=== PATIENT | female | born 1960 | race Caucasian/White ===

== ENCOUNTER → 2019-03-06 | Outpatient (CLI) | payer OTHER ==
[~2019-03-06] MED LIST: AMOX1TAB61 PO; ONDA4TAB7 PO; OXYC1TAB15 PO; REGADENOSON 0.4 MG/5 ML DISP.SYRIN. IV ONE
--- NOTE | 2019-03-07 15:20 | RAD ---
MR#: [id number] Date of Study: 03/07/2019 Ordering Physician: BISMARK HERNANDEZ Referring Physician: PATIENCE EAGLE Tech: RT Alea (R) (N) APPROVED REPORT Test Type: Pharmacological Stress Nurse/Tech: Kassandra Goldberg RN Test Indications: paroxysmal atrial rhythm Cardiac History: Hypertension, Diabetes (Border line), Stroke 1 yr ago (L side weakness), smoker Medications: See Electronic Medical Record Medical History: See Electronic Medical Record Resting ECG: Braycardia (50s), 1 degree AVB, prolonged QT (604ms) Resting Heart Rate: 52 bpm Resting Blood Pressure: 133/58mmHg Pretest Chest Pain: No chest pain Nurse/Tech Notes S1S2 (Regular-Pt stated that she have sometimes had irregular HR), clear LS Consent: The procedure was explained to the patient in lay terms. Informed consent was witnessed. Joe eout was entered into [employer]. History and Stress Test performed by Kassandra Goldberg RN Pharm. Details Pharmacologic stress testing was performed using 0.4mg per 5ml of regadenoson given intravenously ove r 7-10 seconds. Stress Symptoms Dyspnea, Flushing, Nausea, & LY (late symptom-10/30) POST EXERCISE Reason for Termination: Infusion complete Max HR: 82 bpm Max Blood Pressure: 160/55mmHg Chest Pain: No. Arrhythmia: No. ST Change: No. INTERPRETATION Stress EKG Conclusion: Baseline EKG showed sinus rhythm. Non-diagnostic changes at peak stress. No arrhythmias. Imaging Protocol IMAGE PROTOCOL: Rest Tc-99m/stress Tc-99m 2 days Rest: Stress: Viability: Radiopharm.Tc99m CqsfckteeCh94s Sestamibi Freb40eMj 30.9mCi Duration 15min. 15min. Img Date 03/06/2019 03/07/2019 Inj-Img Mesg59ipy. 45min. Rest Admin Site:IV - Right AntecubitalAdministrator:RT Alea (R)(N) Stress Admin Site: IV - Left AntecubitalAdministrator: RT Boby (R)(N) STRESS DATA End Diast. Vol.92.0mlAv. Heart Rate55.0bpm LVEDV index BSA43.0mlCardiac Output0.0L/min End Syst. Vol.28.0mlCO Index BSA0.0L/min LVESV index BSA13.0mlMyocardial Iygi785.0g Eject. Oolxbwwz47.0% Stress Scores Regional WT0.00Summed WT5.00 Regional WM0.00Summed WM4.00 Study quality was good. Left Ventricular size was Normal at Rest and Stress. Lung uptake was . Left Ventricular ejection fraction is 70%. The rest and stress images show normal perfusion, normal contraction and thickening. LV Perf. Quant 17 Seg. SSS1.00 17 Seg. SRS0.00 17 Seg. SDS1.00 Stress Defect Extent (% LAD)0.00Rest Defect Extent (% LAD)0.00Rev. Defect Extent (% LAD)0.00 Stress Defect Extent (% LCX) 0.00Rest Defect Extent (% LCX)16.30Rev. Defect Extent (% LCX)0.00 Stress Defect Extent (% RCA)0.00Rest Defect Extent (% RCA)0.00Rev. Defect Extent (% RCA)0.00 Stress Defect Extent (% ANTONIETA)0.00Rest Defect Extent (% ANTONIETA)2.80Rev. Defect Extent (% ANTONIETA)0.00 Conclusion 1. Regadenoson cardioisotope stress test did not show any evidence of ischemia or infarct. 2. Normal left ventricular systolic function with ejection fraction calculated at 70%. 3. Low risk for cardiac events. Signed by : Bismark Hernandez, Electronically Approved : 03/07/2019 15:19:29
== END | disposition home or self-care (01) ==
LOC: NM 07:25
PROVIDERS: ATTEND Internal Medicine Cardiovascular Disease
DX: I48.0 Paroxysmal atrial fibrillation (principal); I10 Essential (primary) hypertension; E11.9 Type 2 diabetes mellitus without complications; Z86.73 Personal history of transient ischemic attack (TIA), and cerebral infarction without residual deficits; Z87.891 Personal history of nicotine dependence; Z79.01 Long term (current) use of anticoagulants
CPT/HCPCS: 78452; A9500; J2785

== ENCOUNTER → 2019-03-07 | Outpatient (CLI) | payer OTHER ==
[~2019-03-07] MED LIST changes: -REGADENOSON 0.4 MG/5 ML DISP.SYRIN. IV ONE
--- NOTE | 2019-03-07 12:32 | CARD ---
MR#: [id number] Date of Study: 03/07/2019 Ordering Physician: BISMARK CHAVEZ, Referring Physician: BISMARK CHAVEZ Tech: Harini Escobedo RDCS APPROVED REPORT EXAM: Two-dimensional and M-mode echocardiogram with Doppler and color Doppler. Other Information Quality : AverageHR: 60bpm Rhythm : NSR INDICATION CAD 2D DIMENSIONS RVDd3.4 (2.9-3.5cm)Left Atrium(2D)3.3 (1.6-4.0cm) IVSd1.1 (0.7-1.1cm)Aortic Root(2D)3.6 (2.0-3.7cm) LVDd4.3 (3.9-5.9cm)LVOT Diameter2.2 (1.8-2.4cm) PWd1.2 (0.7-1.1cm)LVDs3.0 (2.5-4.0cm) FS (%) 31.1 %SV49.4 ml LVEF(%)59.2 (>50%) Aortic Valve AoV Peak Ryne.122.9cm/sAoV VTI29.5cm AO Peak GR.6.0mmHgLVOT Peak Ryne.97.0cm/s AO Mean GR.4mmHgAVA (VMAX)3.05cm2 FAYE (VTI)3.00cm2 Mitral Valve MV E Wzggtuwu97.0cm/sMV DECEL [id number] MV A Ncseyryu01.9cm/sE/A Ratio0.9 Pulmonary Valve PV Peak Pcbeqqgl448.7cm/s LEFT VENTRICLE The left ventricle is normal size. There is mild concentric left ventricular hypertrophy. The left ve ntricular systolic function is normal. The Ejection Fraction is 55-60%. There is normal LV segmental wall motion. Transmitral Doppler flow pattern is Grade I-abnormal relaxation pattern. RIGHT VENTRICLE The right ventricle is normal size. There is normal right ventricular wall thickness. The right ventr icular systolic function is normal. ATRIA The left atrium size is normal. The right atrium size is normal. The interatrial septum is intact wit h no evidence for an atrial septal defect or patent foramen ovale as noted on 2-D or Doppler imaging. AORTIC VALVE The aortic valve is normal in structure and function. The aortic valve is trileaflet. Doppler and Col or Flow revealed no significant aortic regurgitation. There is no significant aortic valvular stenosi s. There is no aortic valvular vegetation. MITRAL VALVE The mitral valve is normal in structure and function. There is no evidence of mitral valve prolapse. There is no mitral valve stenosis. Doppler and Color Flow revealed no mitral valve regurgitation note d. TRICUSPID VALVE The tricuspid valve is normal in structure and function. Doppler and Color Flow revealed no tricuspid valve regurgitation noted. There is no tricuspid valve prolapse or vegetation. There is no tricuspid valve stenosis. PULMONIC VALVE The pulmonic valve is not well visualized. GREAT VESSELS The aortic root is normal in size. The ascending aorta is Mildly dilated. The IVC is normal in size a nd collapses >50% with inspiration. PERICARDIAL EFFUSION There is no evidence of significant pericardial effusion. Critical Notification Critical Value: No <Conclusion> The left ventricular systolic function is normal. The Ejection Fraction is 55-60%. There is normal LV segmental wall motion. Transmitral Doppler flow pattern is Grade I-abnormal relaxation pattern. There is no evidence of significant pericardial effusion. Signed by : Bismark Chavez, Electronically Approved : 03/07/2019 12:32:40
--- NOTE | 2019-03-11 11:12 | RAD ---
MR#: [id number] Date of Study: 03/07/2019 Ordering Physician: BISMARK HERNANDEZ, Referring Physician: BISMARK HERNANDEZ, Tech: Jewel Matthews MBA, RDMS, RVT, RDCS, RTR APPROVED REPORT Patient Location : OUT-PATIENT Indications VENOUS INSUFFICIENCY Greater Saphenous Veins (GSV) Significant venous relux noted in the RIGHT GSV at the following levels : Superficial Femoral Junctio n, Proximal Thigh, Mid Thigh, Distal Thigh, Proximal Calf, Mid Calf, Distal Calf Lesser Saphenous Veins (LSV) Significant venous reflux is noted in the Right LSV. Perforators Thigh Perforators Calf Perforators Right: cm up from medial heel 18cm back from the anterior border of tibia 3 diameter 2.9mm. Findings Grayscale images of the right great saphenous vein reveal a diameter of 5.9 mm with a maximum reflux time of 2.8 seconds. The left great saphenous vein does not show any significant reflux. The right lesser saphenous vein measures approximately 3 mm and has a reflux time of 1.4 seconds. Critical Notification Critical Value: No <Conclusion> 1. Positive for reflux in the right greater and lesser saphenous veins. Signed by : Rahul Henry, Electronically Approved : 03/11/2019 11:12:47
== END | disposition home or self-care (01) ==
LOC: ECHO 09:24 → EDUNIT# 10:15
PROVIDERS: ATTEND Internal Medicine Cardiovascular Disease
DX: I48.0 Paroxysmal atrial fibrillation (principal); I87.2 Venous insufficiency (chronic) (peripheral); I51.7 Cardiomegaly; R00.8 Other abnormalities of heart beat
CPT/HCPCS: 93017; 93306; 93970; 96376

== ENCOUNTER 2019-04-03 21:34 | Emergency (ER) | payer OTHER ==
[~2019-04-03] VITALS: Ht 157.5 cm; Wt 117.0 kg
[2019-04-03] MEDS ORDERED: fentaNYL PF VIAL 100 MCG/2 ML VIAL IV PRN (22:15)
[2019-04-03 22:16] LABS: BASO # 0.1 x10^3/uL (0.0-0.2); BASO % 1 % (0-3); EOS # 0.3 x10^3/uL (0.0-0.7); EOS % 3 % (0-3); HEMATOCRIT 44.5 % (36.0-47.0); HEMOGLOBIN 15.1 g/dL (12.0-15.5); LYMPH # 2.9 x10^3/uL (1.0-4.8); LYMPH % 30 % (24-48); MEAN CORPUSCULAR HEMOGLOBIN 29 pg (25-35); MEAN CORPUSCULAR HGB CONC 34 g/dL (31-37); MEAN CORPUSCULAR VOLUME 86 fL (79-100); MONO # 0.6 x10^3/uL (0.0-1.1); MONO % 6 % (0-9); NEUT # 5.7 x10^3/uL (1.8-7.7); NEUT % 60 % (31-73); PLATELET COUNT 145 x10^3/uL (140-400); RED BLOOD COUNT 5.21 x10^6/uL (3.50-5.40); RED CELL DISTRIBUTION WIDTH 14.4 % (11.5-14.5); WHITE BLOOD COUNT 9.5 x10^3/uL (4.0-11.0)
[2019-04-03 22:17] LABS: BILIRUBIN,URINE NEGATIVE (NEG); CLARITY,URINE CLEAR; COLOR,URINE YELLOW; NITRITE,URINE NEGATIVE (NEG); PROTEIN,URINE NEGATIVE (NEG-TRACE); UROBILINOGEN,URINE 0.2 mg/dL (0.2 mg/dL)
[2019-04-03 22:24] LABS: CALCIUM 10.2 mg/dL (8.5-10.1); CREATININE 0.8 mg/dL (0.6-1.0); GFR 73.4; POTASSIUM 3.5 mmol/L (3.5-5.1)
[2019-04-03 22:26] LABS: BACTERIA,URINE MODERATE /HPF (0-FEW); RBC,URINE 0 /HPF (0-2); SQUAMOUS EPITHELIAL CELL,UR FEW /LPF; WBC,URINE RARE /HPF (0-4)
[2019-04-03] MEDS ORDERED: ONDANSETRON PF 4 MG/2 ML VIAL. IV ONE (22:30)
[2019-04-03] MEDS ORDERED: IV NORMAL SALINE 1000ML BAG 1,000 ML IV SCH (22:30)
[2019-04-03 22:32] LABS: TOTAL BILIRUBIN 0.7 mg/dL (0.2-1.0); TOTAL PROTEIN 8.2 g/dL (6.4-8.2)
[2019-04-03] MEDS ORDERED: CONTRAST GIVEN. MC PRN (22:45)
[2019-04-03] MEDS ORDERED: IOHEXOL 300 MG/ML 100ML VIAL. IV ONE (23:00)
--- NOTE | 2019-04-03 23:12 | RAD ---
CT scan of the abdomen and pelvis with contrast 04/03/2019 CLINICAL HISTORY: Abdominal pain. TECHNIQUE: After the intravenous administration of 75 cc of Omnipaque 300 only, contiguous, 5 mm axial sections were obtained. One or more of the following individualized dose reduction techniques were utilized for this study: 1. Automated exposure control. 2. Adjustment of the mA and/or kV according to patient size. 3. Use of iterative reconstruction technique. FINDINGS: Images through the lung bases demonstrate mild cardiomegaly. A 2 cm opacity is seen involving the superior aspect of the left lower lobe which is only partially included on this study. This may represent a focal area of infiltrate. A mass lesion is not excluded. The liver parenchyma has a decreased attenuation consistent with fatty infiltration. The spleen, pancreas, adrenal glands and right kidney are within normal limits. Surgical clips are seen within the left inferior renal hilum. An areas of scarring is seen involving the lower pole of the left kidney. Atherosclerotic calcification of the abdominal aorta is seen. Calcified gallstones are seen within the gallbladder which is distended. Postsurgical changes are seen involving the stomach consistent with a gastric bypass procedure. No free fluid or free air is seen within the abdomen. A right paracentral ventral hernia is seen which measures 6.4 cm in size. This contains nondilated proximal transverse colon. There is no evidence of bowel obstruction. Images through the pelvis demonstrate the urinary bladder distended with urine. Calcifications are seen within the pelvis consistent with phleboliths. No free fluid is seen. Degenerative changes are seen involving the lower thoracic and throughout the lumbar spine along with both hips. IMPRESSION: 1. 2 cm opacity is seen involving the left lower lobe which is only partially included on this study. This may represent a focal area of infiltrate. A mass lesion is not excluded. 2. Gallbladder distention. Cholelithiasis. 3. No additional acute abnormality is seen. Electronically signed by: Aayush Witt MD (04/03/2019 11:09 PM) [facility]
[2019-04-03] MEDS ORDERED: AMOX1TAB61 PO (23:56)
[2019-04-03] MEDS ORDERED: OXYC1TAB15 PO (23:56)
[2019-04-03] MEDS ORDERED: ONDA4TAB7 PO (23:56)
--- NOTE | 2019-04-03 23:56 | PHYS DOC ---
Past Medical History Past Medical History: A-Fib, Cancer, Hypertension, Stroke, Other Additional Past Medical Histor: borderline dm, renal cancer Past Surgical History: Gastric Bypass, Hysterectomy, Other Additional Past Surgical Histo: partial nephrectomy Alcohol Use: None Drug Use: None Adult General Chief Complaint Chief Complaint: ABDOMINAL PAIN HPI HPI Patient is a 59-year-old female who presents with complaint of epigastric pain that started earlier today. She states the pain radiates into her back. Currently she rates pain at a 6 out of 10. She states that at its worse it's been about an 8 out of 10. She states the pain is been waxing and waning. She states that she didn't need anything for dinner. He denies any fever. She states that pain is worsened with some movements and with palpation. She states that nothing improves the pain. Patient also indicates that she has had a cough for the last several days and is been productive of yellow sputum.[] Review of Systems Review of Systems Constitutional: Denies fever or chills [] Respiratory: Complains of cough without shortness of breath [] Cardiovascular: No additional information not addressed in HPI [] GI: Complains of abdominal pain with nausea. Denies vomiting or diarrhea [] Integument: Denies rash or skin lesions [] Neurologic: Denies headache, focal weakness or sensory changes [] All other systems were reviewed and found to be within normal limits, except as documented in this note. Current Medications Current Medications Current Medications Medications (Trade) Dose Ordered Sig/Gael Start Time Stop Time Status Last Admin Dose Admin Amoxicillin/ Clavulanate Potassium (Augmentin 875/ 125mg) 1 tab 1X ONCE 04/04/19 00:15 04/04/19 00:16 DC 04/04/19 00:23 1 TAB Fentanyl Citrate (Fentanyl 2ml Vial) 25 mcg PRN Q15MIN PRN 04/03/19 22:15 04/04/19 00:59 DC 04/03/19 22:23 25 MCG Info (CONTRAST GIVEN -- Rx MONITORING) 1 each PRN DAILY PRN 04/03/19 22:45 04/04/19 00:59 DC Iohexol (Omnipaque 300 Mg/ml) 75 ml 1X ONCE 04/03/19 23:00 04/03/19 23:01 DC 04/03/19 22:46 75 ML Ondansetron HCl (Zofran) 4 mg 1X ONCE 04/03/19 22:30 04/03/19 22:31 DC 04/03/19 22:23 4 MG Sodium Chloride 1,000 ml @ 1,000 mls/hr Q1H 04/03/19 22:30 04/03/19 23:29 DC 04/03/19 22:23 1,000 MLS/HR Allergies Allergies Allergies Coded Allergies Type Severity Reaction Last Updated Verified No Known Drug Allergies 03/07/19 No Physical Exam Physical Exam Constitutional: Well developed, well nourished, no acute distress, non-toxic appearance. [] HENT: Normocephalic, atraumatic, bilateral external ears normal, oropharynx moist, no oral exudates, nose normal. [] Eyes: PERRLA, EOMI, conjunctiva normal, no discharge. [] Neck: Normal range of motion, no tenderness, supple, no stridor. [] Cardiovascular:Heart rate regular rhythm, no murmur [] Lungs & Thorax: Bilateral breath sounds clear to auscultation [] Abdomen: Bowel sounds normal, soft, with tenderness to palpation in the epigastric and right upper quadrant region. [] Skin: Warm, dry, no erythema, no rash. [] Extremities: No tenderness, no cyanosis, no clubbing, ROM intact, no edema. [] Neurologic: Alert and oriented X 3, no focal deficits noted. [] Current Patient Data Vital Signs Vital Signs Date Time Temp Pulse Resp B/P (MAP) Pulse Ox O2 Delivery O2 Flow Rate FiO2 04/04/19 00:33 56 20 116/59 (78) 94 Room Air 04/03/19 21:40 97.9 98.0 97.9 Lab Values Laboratory Tests Test 04/03/19 21:47 04/03/19 21:55 Urine Collection Type Unknown Urine Color Yellow Urine Clarity Clear Urine pH 6.0 Urine Specific Wesley <=1.005 Urine Protein Negative mg/dL (NEG-TRACE) Urine Glucose (UA) Negative mg/dL (NEG) Urine Ketones (Stick) Negative mg/dL (NEG) Urine Blood Negative (NEG) Urine Nitrite Negative (NEG) Urine Bilirubin Negative (NEG) Urine Urobilinogen Dipstick 0.2 mg/dL (0.2 mg/dL) Urine Leukocyte Esterase Negative (NEG) Urine RBC 0 /HPF (0-2) Urine WBC Rare /HPF (0-4) Urine Squamous Epithelial Cells Few /LPF Urine Bacteria Moderate /HPF (0-FEW) White Blood Count 9.5 x10^3/uL (4.0-11.0) Red Blood Count 5.21 x10^6/uL (3.50-5.40) Hemoglobin 15.1 g/dL (12.0-15.5) Hematocrit 44.5 % (36.0-47.0) Mean Corpuscular Volume 86 fL (79-100) Mean Corpuscular Hemoglobin 29 pg (25-35) Mean Corpuscular Hemoglobin Concent 34 g/dL (31-37) Red Cell Distribution Width 14.4 % (11.5-14.5) Platelet Count 145 x10^3/uL (140-400) Neutrophils (%) (Auto) 60 % (31-73) Lymphocytes (%) (Auto) 30 % (24-48) Monocytes (%) (Auto) 6 % (0-9) Eosinophils (%) (Auto) 3 % (0-3) Basophils (%) (Auto) 1 % (0-3) Neutrophils # (Auto) 5.7 x10^3/uL (1.8-7.7) Lymphocytes # (Auto) 2.9 x10^3/uL (1.0-4.8) Monocytes # (Auto) 0.6 x10^3/uL (0.0-1.1) Eosinophils # (Auto) 0.3 x10^3/uL (0.0-0.7) Basophils # (Auto) 0.1 x10^3/uL (0.0-0.2) Sodium Level 143 mmol/L (136-145) Potassium Level 3.5 mmol/L (3.5-5.1) Chloride Level 103 mmol/L (98-107) Carbon Dioxide Level 30 mmol/L (21-32) Anion Gap 10 (6-14) Blood Urea Nitrogen 13 mg/dL (7-20) Creatinine 0.8 mg/dL (0.6-1.0) Estimated GFR (Cockcroft-Gault) 73.4 BUN/Creatinine Ratio 16 (6-20) Glucose Level 119 mg/dL (70-99) H Calcium Level 10.2 mg/dL (8.5-10.1) H Total Bilirubin 0.7 mg/dL (0.2-1.0) Aspartate Amino Transferase (AST) 27 U/L (15-37) Alanine Aminotransferase (ALT) 36 U/L (14-59) Alkaline Phosphatase 114 U/L (46-116) Troponin I Quantitative < 0.017 ng/mL (0.000-0.055) Total Protein 8.2 g/dL (6.4-8.2) Albumin 4.0 g/dL (3.4-5.0) Albumin/Globulin Ratio 1.0 (1.0-1.7) Lipase 234 U/L (73-393) Laboratory Tests 04/03/19 21:55 Laboratory Tests 04/03/19 21:55 EKG EKG [] Radiology/Procedures Radiology/Procedures [] Impressions: PROCEDURE: CT ABD PELV W/ IV CONTRST ONLY CT scan of the abdomen and pelvis with contrast 04/03/2019 CLINICAL HISTORY: Abdominal pain. TECHNIQUE: After the intravenous administration of 75 cc of Omnipaque 300 only, contiguous, 5 mm axial sections were obtained. One or more of the following individualized dose reduction techniques were utilized for this study: 1. Automated exposure control. 2. Adjustment of the mA and/or kV according to patient size. 3. Use of iterative reconstruction technique. FINDINGS: Images through the lung bases demonstrate mild cardiomegaly. A 2 cm opacity is seen involving the superior aspect of the left lower lobe which is only partially included on this study. This may represent a focal area of infiltrate. A mass lesion is not excluded. The liver parenchyma has a decreased attenuation consistent with fatty infiltration. The spleen, pancreas, adrenal glands and right kidney are within normal limits. Surgical clips are seen within the left inferior renal hilum. An areas of scarring is seen involving the lower pole of the left kidney. Atherosclerotic calcification of the abdominal aorta is seen. Calcified gallstones are seen within the gallbladder which is distended. Postsurgical changes are seen involving the stomach consistent with a gastric bypass procedure. No free fluid or free air is seen within the abdomen. A right paracentral ventral hernia is seen which measures 6.4 cm in size. This contains nondilated proximal transverse colon. There is no evidence of bowel obstruction. Images through the pelvis demonstrate the urinary bladder distended with urine. Calcifications are seen within the pelvis consistent with phleboliths. No free fluid is seen. Degenerative changes are seen involving the lower thoracic and throughout the lumbar spine along with both hips. IMPRESSION: 1. 2 cm opacity is seen involving the left lower lobe which is only partially included on this study. This may represent a focal area of infiltrate. A mass lesion is not excluded. 2. Gallbladder distention. Cholelithiasis. 3. No additional acute abnormality is seen. Electronically signed by: Aayush Sal MD (04/03/2019 11:09 PM) [facility] DICTATED and SIGNED BY: AAYUSH SAL MD Course & Med Decision Making Course & Med Decision Making Pertinent Labs and Imaging studies reviewed. (See chart for details) [] Dragon Disclaimer Dragon Disclaimer This electronic medical record was generated, in whole or in part, using a voice recognition dictation system. Departure Departure Impression: Primary Impression: Abdominal pain, epigastric Additional Impressions: Cholelithiasis Bronchitis Disposition: 01 HOME, SELF-CARE Condition: STABLE Referrals: ALESHA CONRAD (PCP) Patient Instructions: Abdominal Pain, Cholelithiasis Scripts Ondansetron Hcl (ZOFRAN) 4 Mg Tablet 4 MG PO PRN TID PRN for NAUSEA, #15 nausea/vomiting Prov: QUINN KAPOOR Jr. DO 04/03/19 Oxycodone/Apap 5-325 (PERCOCET 5-325 MG TABLET ) 1 Each Tablet 1-2 EACH PO Q6HRS PRN for PAIN, #15 TAB pain Prov: QUINN KAPOOR Jr. DO 04/03/19 Amoxicillin/Potassium Clav (AUGMENTIN 875-125 TABLET) 1 Each Tablet 1 TAB PO BID, #20 TAB Prov: QUINN KAPOOR Jr. DO 04/03/19 Problem Qualifiers Additional Impressions: Cholelithiasis Cholelithiasis location: other site Biliary obstruction: without biliary obstruction Qualified Codes: K80.80 - Other cholelithiasis without obstruction QUINN KAPOOR Jr. DO Apr 03, 2019 23:56
[2019-04-04] MEDS ORDERED: AMOXICILLIN/K CLAV 875/125MG TABLET. PO ONE (00:15)
[2019-04-04 00:33] VITALS: BP 116/59
--- NOTE | 2019-04-04 06:50 | EKG ---
[facility] [address] [place] [address] Test Date: 2019-04-03 Test Time: 21:46:49 Pat Name: TATA ALVAREZ Department: Room: Gender: F Production Engineer Track: : 1960 Requested By: QUINN KAPOOR Order Number: [id number] Reading MD: Measurements Intervals [place] Rate: 62 P: 42 [place]: 226 QRS: -31 QRSD: 84 T: 25 QT: 440 QTc: 449 Interpretive Statements SINUS RHYTHM PROLONGED [place] INTERVAL ABNORMAL LEFT AXIS DEVIATION LEFT ANTERIOR FASCICULAR BLOCK QRS(T) CONTOUR ABNORMALITY CONSIDER ANTEROSEPTAL MYOCARDIAL DAMAGE ABNORMAL ECG RI6.01 No previous ECG available for comparison
== END 2019-04-04 00:50 | disposition home or self-care (01) ==
LOC: ER 21:34
DX: K80.20 Calculus of gallbladder without cholecystitis without obstruction (principal); J40 Bronchitis, not specified as acute or chronic; I48.91 Unspecified atrial fibrillation; I10 Essential (primary) hypertension; Z86.73 Personal history of transient ischemic attack (TIA), and cerebral infarction without residual deficits; Z90.710 Acquired absence of both cervix and uterus; Z98.84 Bariatric surgery status; Z90.5 Acquired absence of kidney
CPT/HCPCS: 36415; 74177; 80053; 81001; 83690; 84484; 85025; 87086; 93005; 96374; 96375; 99285; J2405; J3010; J7030; Q9967

== ENCOUNTER → 2019-04-23 | Outpatient (CLI) | payer OTHER ==
[2019-04-04 00:33] VITALS: BP 116/59
[~2019-04-23] MED LIST changes: +CONTRAST GIVEN. MC PRN; +IOHEXOL 300 MG/ML 100ML VIAL. IV ONE
--- NOTE | 2019-04-24 09:07 | KCIC ---
CT scan of the chest with contrast 04/23/2019 CLINICAL HISTORY: Opacity seen within the left lower lobe on recent CT scan of the abdomen. TECHNIQUE: After the intravenous administration of 95 cc of Omnipaque 300, contiguous, 5 mm axial sections were obtained through the chest and upper abdomen. One or more of the following individualized dose reduction techniques were utilized for this study: 1. Automated exposure control. 2. Adjustment of the mA and/or kV according to patient size. 3. Use of iterative reconstruction technique. FINDINGS: Comparison made to the patient's CT scan of the chest dated 04/03/2019. Atherosclerotic calcification of the thoracic aorta and its branches is noted. The thoracic aorta is mildly tortuous but tapers normally. The heart is borderline enlarged. An enlarged left hilar lymph node is seen which measures 2.3 cm in size. No mediastinal or axillary lymphadenopathy is noted, Within the left lower lobe an irregular mass is seen which measures 2.3 x 2.0 x 1.7 cm in transverse, craniocaudal and AP dimensions. This corresponds to the abnormality seen on the patient's recent CT scan of the abdomen. It is concerning for bronchogenic carcinoma. No additional mass lesion is seen involving the lung. No acute infiltrate is seen. No pneumothorax or pleural effusion is noted. Images through the upper abdomen again demonstrate decreased attenuation of the liver parenchyma consistent with fatty infiltration. Calcified gallstones are seen within the gallbladder. Minimal S-shaped curvature of the thoracolumbar spine is seen. Degenerative changes are seen involving the thoracic spine. IMPRESSION: 2.3 cm irregular mass is seen involving the left lower lobe which is concerning for bronchogenic carcinoma. A 2.3 cm enlarged left hilar lymph node is seen which likely reflects spread of tumor to the left hilum. No mediastinal lymphadenopathy is seen. Electronically signed by: Aayush Witt MD (04/24/2019 9:03 AM) [id number]
== END | disposition home or self-care (01) ==
LOC: KCIC CT 13:12
PROVIDERS: ATTEND Family Medicine
DX: I25.10 Atherosclerotic heart disease of native coronary artery without angina pectoris (principal); R91.8 Other nonspecific abnormal finding of lung field; K80.20 Calculus of gallbladder without cholecystitis without obstruction
CPT/HCPCS: 71260; Q9967

== ENCOUNTER → 2019-05-16 | Outpatient (CLI) | payer OTHER ==
[~2019-05-16] MED LIST changes: -CONTRAST GIVEN. MC PRN; -IOHEXOL 300 MG/ML 100ML VIAL. IV ONE
--- NOTE | 2019-05-17 11:11 | RAD ---
EXAM: PET/CT SKULL BASE TO MID THIGH. HISTORY: Lung mass. History of uterine cancer. COMPARISON: 04/03/2019, 04/23/2019. TECHNIQUE: CT was performed from the skull base through the mid thighs for the purposes of attenuation correction. 15 mCi F-18 fluorodeoxyglucose (FDG) was administered intravenously. After an uptake period, positron emission tomography was performed from the skull base through the mid thighs. The PET and CT data were fused and interpreted in combination a dedicated workstation. Blood glucose level was 122 mg/dL at the time of FDG administration. FINDINGS: Asymmetric activity along the left posterior aspect of the larynx demonstrates maximum SUV 5.4. This most likely reflects muscular activity during uptake. A nodule in the left lower lobe demonstrates maximum SUV 4.2, and measures 1.8 cm. It is multilobulated and concerning for malignancy. There is also hypermetabolism within an enlarged left hilar lymph node with maximum SUV 4.2. This is concerning for regional monica metastasis. There is no hypermetabolism suggestive of malignancy elsewhere. Additional CT findings include heterogeneous diffuse hepatic steatosis. Gallstones are noted. Postoperative changes are noted along the left renal lower pole. There is no clear recurrent mass at this site. Postoperative changes are noted along the proximal stomach. A moderate supraumbilical hernia contains a segment of the transverse colon. The uterus is surgically absent. The heart is mildly enlarged. IMPRESSION: 1. Moderately hypermetabolic left lower lobe nodule consistent with malignancy. 2. A hypermetabolic left inferior hilar lymph node is likely involved. 3. No evidence of distant metastatic disease. 4. Additional CT findings as above.
== END | disposition home or self-care (01) ==
LOC: PETSC 09:11
PROVIDERS: ATTEND Internal Medicine Hematology & Oncology
DX: K80.20 Calculus of gallbladder without cholecystitis without obstruction (principal); K46.9 Unspecified abdominal hernia without obstruction or gangrene; R91.1 Solitary pulmonary nodule; R91.8 Other nonspecific abnormal finding of lung field; K76.0 Fatty (change of) liver, not elsewhere classified; Z90.710 Acquired absence of both cervix and uterus; Z85.42 Personal history of malignant neoplasm of other parts of uterus
CPT/HCPCS: 78815; A9552

== ENCOUNTER → 2019-05-20 | Outpatient (CLI) | payer OTHER ==
[~2019-05-20] MED LIST changes: +GADOTERATE 7.5 MMOL/15ML VIAL. IVP ONE
--- NOTE | 2019-05-20 13:35 | RAD ---
MRI Brain with and without contrast History: Lung cancer, headaches Technique: Multiplanar, multi sequential pre and postcontrast MR imaging was performed of the brain. Comparison: None Findings: There is no evidence of recent infarct or cytotoxic edema. The ventricles, sulci, and cisterns are within normal limits in size and configuration. There is no significant midline shift, intraaxial mass effect, or focal abnormal extra-axial fluid collection. There is scattered multifocal [id number] T2 and FLAIR hyperintense signal abnormality of the supratentorial parenchyma bilaterally not associated with enhancement. There are old lacunar infarcts of the right basal ganglia and posterior right neville radiata. There is also some volume loss of the left temporal lobe likely sequela of old infarct. Some of foci of T2 and FLAIR hyperintense signal of a perpendicular orientation relative to the lateral ventricles. There are some foci of old microhemorrhage of the right cerebellum, right temporal lobe, left basal ganglia, and right parietal lobe. There is no nodular parenchymal or leptomeningeal enhancement. Right vertebral artery flow-void is not well-visualized, likely aplastic. There is degenerative change of the right temporomandibular joint.. The cerebellar tonsils are normal in location. There is no significant abnormality of the pineal gland or pituitary gland. There is very minimal patchy bilateral ethmoid air cell mucosal thickening. The mastoid air cells are aerated. There is preserved marrow signal of the clivus. Impression: 1. There is no abnormal intracranial enhancement. 2. Scattered T2 and FLAIR hyperintense abnormality of the supratentorial parenchyma bilaterally is nonspecific, may be component of chronic microvascular ischemic disease unless there is suspicion or history of inflammatory demyelinating disease. Findings also could be due to component of post therapeutic change, also likely old infarct of the left temporal lobe and small old lacunar infarcts on the right as stated. There are some foci of old microhemorrhage as stated. Electronically signed by: Jb Ureña MD (05/20/2019 1:32 PM) [id number]
== END | disposition home or self-care (01) ==
LOC: MRI 08:29
PROVIDERS: ATTEND Internal Medicine Hematology & Oncology
DX: R91.8 Other nonspecific abnormal finding of lung field (principal); R51 Headache; I10 Essential (primary) hypertension; F17.200 Nicotine dependence, unspecified, uncomplicated; Z86.73 Personal history of transient ischemic attack (TIA), and cerebral infarction without residual deficits; Z79.01 Long term (current) use of anticoagulants
CPT/HCPCS: 70553; A9575

== ENCOUNTER 2019-08-06 07:07 | Outpatient (CLI) | payer OTHER ==
[~2019-08-06] VITALS: Ht 157.5 cm; Wt 114.3 kg
[2019-08-06] VITALS (7 sets, daily range): BP systolic 116–150; BP diastolic 62–94
[~2019-08-06 07:07] MED LIST changes: +AMLO10TA8 PO; +APIX5TAB PO; +CAND16TA25 PO; -GADOTERATE 7.5 MMOL/15ML VIAL. IVP ONE; +HYDR-2145 PO; +LIPITOR80 MG PO; +METF500T16 PO; +METO50TA6 PO; +TEMA7.5C PO
[2019-08-06] MEDS ORDERED: MIDAZOLAM HCL/PF 2 MG/2 ML VIAL. ONE (07:36)
[2019-08-06] MEDS ORDERED: fentaNYL PF VIAL 100 MCG/2 ML VIAL ONE (07:37)
[2019-08-06 07:40] LABS: BASO # 0.1 x10^3/uL (0.0-0.2); BASO % 1 % (0-3); EOS # 0.1 x10^3/uL (0.0-0.7); EOS % 2 % (0-3); HEMOGLOBIN 14.7 g/dL (12.0-15.5); LYMPH # 1.2 x10^3/uL (1.0-4.8); LYMPH % 19 % (24-48); MEAN CORPUSCULAR HEMOGLOBIN 29 pg (25-35); MEAN CORPUSCULAR HGB CONC 34 g/dL (31-37); MEAN CORPUSCULAR VOLUME 86 fL (79-100); MONO # 0.5 x10^3/uL (0.0-1.1); MONO % 7 % (0-9); NEUT # 4.4 x10^3/uL (1.8-7.7); NEUT % 71 % (31-73); PLATELET COUNT 153 x10^3/uL (140-400); RED BLOOD COUNT 5.11 x10^6/uL (3.50-5.40); WHITE BLOOD COUNT 6.2 x10^3/uL (4.0-11.0)
[2019-08-06 07:58] LABS: PROTHROMBIN TIME PATIENT 12.1 SEC (11.7-14.0)
[2019-08-06] MEDS ORDERED: LIDOCAINE 1%/EPI 1:100,000 20 ML VIAL. ONE (08:13)
[2019-08-06] MEDS ORDERED: fentaNYL PF VIAL 100 MCG/2 ML VIAL IV ONE (09:00)
[2019-08-06] MEDS ORDERED: MIDAZOLAM HCL/PF 2 MG/2 ML VIAL. IV ONE (09:00)
[2019-08-06] MEDS ORDERED: LIDOCAINE 1%/EPI 1:100,000 20 ML VIAL. SQ ONE (09:00)
--- NOTE | 2019-08-06 11:09 | NUR ---
Discharge Note: TATA ALVAREZ Discharge instructions and discharge home medications reviewed with Patient and a copy given. All questions have been answered and understanding verbalized. The following instructions and handouts were given: adult moderate sedation and implanted port instructions and kit Discontinued lines and drains: Peripheral IV intact. Patient discharged to Home or Self Care withFamily Membervia Wheelchair
[2019-08-06] MEDS ORDERED: ceFAZolin 2GM PREMIX 2 GM/50 ML BAG IV ONE (12:00)
--- NOTE | 2019-08-06 14:12 | RAD ---
Procedure: Ultrasound and fluoroscopically guided placement of right internal jugular power port.. 08/06/2019 12:07 PM Clinical Indication: KIDNEY CA Sedation: Conscious sedation was administered for 28 minutes. The patient was monitored by a qualified independent observer throughout the time of sedation. Please refer to the medical record for exact doses of medications utilized to achieve moderate sedation. Fluoroscopy time: 0.4 minutes Dose area product: 1 Gycm2 Consent: The procedure was explained in its entirety to the patient or the patients designated career services representative by a member of the treatment team, including a discussion of the risks, benefits and commonly accepted alternatives to the procedure, as well as the expected consequences of no therapy whatsoever. Discussion of the risks included, but was not limited to, those that are most frequent and those that are rare but possibly severe or life-threatening, as well as the possibility of unforeseen complications. Technique and Findings: All elements of maximal sterile barrier technique including the use of a cap, mask, sterile gown, sterile gloves, large sterile sheet, appropriate hand hygiene, and 2% chlorhexidine for cutaneous antisepsis (or acceptable alternative antiseptic per current guidelines) were followed for this procedure. Following informed consent, and a timeout procedure, the patient was prepped and draped in the usual sterile fashion. Ultrasound interrogation of the right neck revealed patency and compressibility of the right internal jugular vein. A 21-gauge micropuncture was then used to gain access to this vein under ultrasound guidance. A hard copy ultrasound image was recorded. The needle was exchanged over a wire for a sheath. A 1 inch incision was made several centimeters inferior to the venotomy site. A catheter was tunneled from this site dermatotomy site in the neck. Catheter was advanced through peel-away sheath such that its tip was in the proximal right atrium with the patient supine. The catheter was trimmed to length and connected to the port reservoir. The port was found to flush and aspirate normally. The wound was closed in layers using 4-0 Vicryl suture. Sterile dressings were applied. Impression: Successful ultrasound and fluoroscopically guided placement of a right internal jugular PowerPort
== END 2019-08-06 11:00 | disposition home or self-care (01) ==
LOC: INTRAD 07:07
PROVIDERS: ATTEND Internal Medicine Hematology & Oncology
DX: Z45.2 Encounter for adjustment and management of vascular access device (principal); C64.2 Malignant neoplasm of left kidney, except renal pelvis; I10 Essential (primary) hypertension; I48.91 Unspecified atrial fibrillation; E11.9 Type 2 diabetes mellitus without complications; Z86.73 Personal history of transient ischemic attack (TIA), and cerebral infarction without residual deficits; Z79.899 Other long term (current) drug therapy; Z79.01 Long term (current) use of anticoagulants; Z87.891 Personal history of nicotine dependence; Z90.710 Acquired absence of both cervix and uterus; Z79.84 Long term (current) use of oral hypoglycemic drugs
CPT/HCPCS: 36415; 36561; 76937; 77001; 85025; 85610; 85730; C1751; C1892; J0696; 99152; 99153; J2250; J3010; J3490

== ENCOUNTER → 2019-08-26 | Outpatient (CLI) | payer OTHER ==
[2019-08-06 10:35] VITALS: BP 136/94
[~2019-08-26] MED LIST changes: +CONTRAST GIVEN. MC PRN; +IOHEXOL 300 MG/ML 100ML VIAL. IV ONE; +IPIL50VI IV; +NIVO40VI IV
[2019-08-26 08:27] LABS: CREATININE 0.7 mg/dL (0.6-1.0); GFR 85.6
--- NOTE | 2019-08-26 14:55 | RAD ---
CT study of the chest with contrast Clinical indications: Metastatic renal cell carcinoma. Lung mass. Follow-up study. COMPARISON: April 24, 2019. TECHNIQUE: After IV infusion of 75 cc of Omnipaque 300, helical CT scanning of the chest was performed. PQRS compliance Statement One or more of the following individualized dose reduction techniques were utilized for this study: 1. Automated exposure control 2. Adjustment of the mA and/or kV according to patient size 3. Use of iterative reconstruction technique FINDINGS: No enlarged mediastinal lymphadenopathy is evident. Again seen is a left hilar lymph node with peripheral enhancement which measures 27 mm in greatest dimension. This is unchanged. Mild ectasia of the thoracic aorta is seen measuring 4 cm in greatest caliber. This is unchanged. No dissection or intimal flap is seen. Mild cardiomegaly is seen. Mild calcified atheromatous disease of the coronary arteries is seen. No pericardial effusion is seen. There is a spiculated mass within the left lower lobe which measures 31 mm transversely and 22 mm in AP dimension. The transverse and AP dimensions on the previous study were 24 mm and 17 mm respectively. Therefore, there has been an increase in size. No other new lung infiltrate is seen. There is a small subpleural lung nodule within the lateral aspect of the right lower lobe seen on series 2 and image 40 measuring 4 mm in size. This is unchanged. No pleural effusion or pneumothorax is evident. The proximal bronchial tree is patent. No lytic process is seen. Postsurgical changes of the left kidney are seen. Postoperative changes of the proximal stomach are seen. Diffuse fatty infiltration of in the liver is seen. Radiopaque gallstones are seen. IMPRESSION: Mild increase in size of left lower lobe lung mass. This may be due to increase in size of malignant mass or could represent peritumoral edema after treatment. The borders are somewhat ill-defined and more groundglass in appearance which may be seen with edema. Continued 3 month follow-up will be needed. Stable left hilar lymph node. Stable 4 mm right lower lower lobe lung nodule. Fatty infiltration of the liver. Cholelithiasis. Mild cardiomegaly. Electronically signed by: Xavi Chan MD (08/26/2019 2:52 PM) [facility] [place]
== END | disposition home or self-care (01) ==
LOC: CT 07:24
PROVIDERS: ATTEND Radiology Radiation Oncology
DX: I77.810 Thoracic aortic ectasia (principal); C34.12 Malignant neoplasm of upper lobe, left bronchus or lung; C34.92 Malignant neoplasm of unspecified part of left bronchus or lung; R91.8 Other nonspecific abnormal finding of lung field; R91.1 Solitary pulmonary nodule; K76.0 Fatty (change of) liver, not elsewhere classified; K80.20 Calculus of gallbladder without cholecystitis without obstruction; I51.7 Cardiomegaly
CPT/HCPCS: 36415; 71260; 82565; G0463; Q9967

== ENCOUNTER 2019-09-01 17:16 | Inpatient (IN) | payer OTHER ==
[~2019-09-01] VITALS: Ht 157.5 cm; Wt 115.9 kg
[~2019-09-01 17:16] MED LIST changes: -CONTRAST GIVEN. MC PRN; -IOHEXOL 300 MG/ML 100ML VIAL. IV ONE
--- NOTE | 2019-09-01 19:13 | PHYS DOC ---
Past Medical History Past Medical History: A-Fib, Cancer, Hypertension, Stroke, Other Additional Past Medical Histor: borderline dm, renal cancer Past Surgical History: Gastric Bypass, Hysterectomy, Other Additional Past Surgical Histo: partial nephrectomy Smoking Status: Former Smoker Alcohol Use: None Drug Use: None Adult General Chief Complaint Chief Complaint: FEVER HPI HPI Patient is a 59 year old Female who presents with states she didn't having a fever that reached 100. States she also has pain in the left flank that she rates an 8 out of 10. States she has metastatic renal cell carcinoma in the left kidney. She states she sees Dr. Torrez. She states she has an appointment with palliative care. She also has a history of A. fib. She states she has not taken any pain medications for her pain. Patient denies chest pain, shortness of air, nausea, vomiting, burning with urination, abdominal pain, numbness or tingling, weaknesses, headache, dizziness, visual changes. Review of Systems Review of Systems Constitutional: fever or chills [] Musculoskeletal: Left flank back pain or joint pain [] All other systems were reviewed and found to be within normal limits, except as documented in this note. Current Medications Current Medications Current Medications Medications (Trade) Dose Ordered Sig/Gael Start Time Stop Time Status Last Admin Dose Admin Fentanyl Citrate (Fentanyl 2ml Vial) 50 mcg 1X ONCE 09/01/19 19:15 09/01/19 19:16 DC 09/01/19 20:39 50 MCG Sodium Chloride (NORMAL SALINE FLUSH for STERILE FIELD) 10 ml STK-MED ONCE 09/01/19 19:55 09/01/19 19:55 DC Allergies Allergies Allergies Coded Allergies Type Severity Reaction Last Updated Verified No Known Drug Allergies 03/07/19 No Physical Exam Physical Exam Constitutional: Well developed, well nourished, no acute distress, non-toxic appearance. [] HENT: Normocephalic, atraumatic, bilateral external ears normal, oropharynx moist, no oral exudates, nose normal. [] Eyes: PERRLA, EOMI, conjunctiva normal, no discharge. [] Neck: Normal range of motion, no tenderness, supple, no stridor. [] Cardiovascular:Heart rate regular rhythm, no murmur [] Lungs & Thorax: Bilateral breath sounds clear to auscultation [] Abdomen: Bowel sounds normal, soft, no tenderness, no masses, no pulsatile masses. [] Skin: Warm, dry, no erythema, no rash. [] Back: No tenderness, left CVA tenderness. [] Extremities: No tenderness, no cyanosis, no clubbing, ROM intact, no edema. [] Neurologic: Alert and oriented X 3, normal motor function, normal sensory function, no focal deficits noted. [] Psychologic: Affect normal, judgement normal, mood normal. [] Current Patient Data Vital Signs Vital Signs Date Time Temp Pulse Resp B/P (MAP) Pulse Ox O2 Delivery O2 Flow Rate FiO2 09/01/19 20:44 64 132/73 (92) 97 Room Air 09/01/19 20:39 20 09/01/19 18:32 98.8 98.8 Lab Values Laboratory Tests Test 09/01/19 18:35 09/01/19 20:07 Urine Collection Type Void Urine Color Alessandra Urine Clarity Clear Urine pH 6.0 Urine Specific Leslie 1.015 Urine Protein Negative mg/dL (NEG-TRACE) Urine Glucose (UA) Negative mg/dL (NEG) Urine Ketones (Stick) Negative mg/dL (NEG) Urine Blood Negative (NEG) Urine Nitrite Negative (NEG) Urine Bilirubin Small (NEG) Urine Urobilinogen Dipstick 4.0 mg/dL (0.2 mg/dL) Urine Leukocyte Esterase Trace (NEG) Urine RBC 0 /HPF (0-2) Urine WBC 1-4 /HPF (0-4) Urine Squamous Epithelial Cells Occ /LPF Urine Bacteria Moderate /HPF (0-FEW) Urine Mucus Mod /LPF White Blood Count 5.5 x10^3/uL (4.0-11.0) Red Blood Count 5.16 x10^6/uL (3.50-5.40) Hemoglobin 14.8 g/dL (12.0-15.5) Hematocrit 44.5 % (36.0-47.0) Mean Corpuscular Volume 86 fL (79-100) Mean Corpuscular Hemoglobin 29 pg (25-35) Mean Corpuscular Hemoglobin Concent 33 g/dL (31-37) Red Cell Distribution Width 14.8 % (11.5-14.5) H Platelet Count 130 x10^3/uL (140-400) L Neutrophils (%) (Auto) 64 % (31-73) Lymphocytes (%) (Auto) 22 % (24-48) L Monocytes (%) (Auto) 12 % (0-9) H Eosinophils (%) (Auto) 1 % (0-3) Basophils (%) (Auto) 1 % (0-3) Neutrophils # (Auto) 3.5 x10^3/uL (1.8-7.7) Lymphocytes # (Auto) 1.2 x10^3/uL (1.0-4.8) Monocytes # (Auto) 0.6 x10^3/uL (0.0-1.1) Eosinophils # (Auto) 0.1 x10^3/uL (0.0-0.7) Basophils # (Auto) 0.1 x10^3/uL (0.0-0.2) Sodium Level 138 mmol/L (136-145) Potassium Level 3.0 mmol/L (3.5-5.1) L Chloride Level 98 mmol/L (98-107) Carbon Dioxide Level 32 mmol/L (21-32) Anion Gap 8 (6-14) Blood Urea Nitrogen 12 mg/dL (7-20) Creatinine 0.8 mg/dL (0.6-1.0) Estimated GFR (Cockcroft-Gault) 73.4 BUN/Creatinine Ratio 15 (6-20) Glucose Level 123 mg/dL (70-99) H Lactic Acid Level 1.2 mmol/L (0.4-2.0) Calcium Level 9.3 mg/dL (8.5-10.1) Total Bilirubin 1.8 mg/dL (0.2-1.0) H Aspartate Amino Transferase (AST) 1182 U/L (15-37) H Alanine Aminotransferase (ALT) 877 U/L (14-59) H Alkaline Phosphatase 436 U/L (46-116) H Total Protein 7.6 g/dL (6.4-8.2) Albumin 3.4 g/dL (3.4-5.0) Albumin/Globulin Ratio 0.8 (1.0-1.7) L Lipase 151 U/L (73-393) Laboratory Tests 09/01/19 20:07 Laboratory Tests 09/01/19 20:07 EKG EKG [] Radiology/Procedures Radiology/Procedures [] Impressions: [facility] [address] [place] [address] IMAGING REPORT Signed PATIENT: TATA ALVAREZ ACCOUNT: [id number] : 1960 LOCATION: ER AGE: 59 SEX: F EXAM STATUS: REG ER ORD. PHYSICIAN: ANDREINA WAY APRN REASON: fever PROCEDURE: CHEST PA & LATERAL PA and lateral chest. HISTORY: Fever, history lung cancer PA and lateral views of the chest were compared with the recent CT. There is a left lower lobe lung mass best seen on the lateral view superimposed on the spine. Port-A-Cath is in good position. No new infiltrates are noted. There is no effusion. Heart is normal in size. IMPRESSION: 1. Left lower lobe lung mass. 2. No new infiltrates. Electronically signed by: Nic Ahuja MD (09/01/2019 7:46 PM) [id number] DICTATED and SIGNED BY: NIC AHUJA MD DATE: 09/01/191945 [facility] [address] [place] [address] IMAGING REPORT Signed PATIENT: TATA ALVAREZ ACCOUNT: [id number] : 1960 LOCATION: ER AGE: 59 SEX: F EXAM STATUS: REG ER ORD. PHYSICIAN: ANDREINA WAY APRN REASON: LEFT FLANK PAIN, FEVER, HX CA L KIDNEY PROCEDURE: CT ABDOMEN PELVIS WO CONTRAST CT abdomen and pelvis without contrast. HISTORY: Left flank pain, fever history of kidney cancer CT scan the abdomen pelvis was done without contrast. There is a mass in the left lung base. There is diffuse fatty change in the liver. There is a calcified gallbladder with gallstones. Patient's had a gastric surgery. Adrenal glands are normal. A pancreatic lesion is not identified. There is a small duodenal diverticulum. There is scarring at the lower pole of the left kidney similar to the prior PET/CT study. There is no left hydronephrosis or hydroureter. A ureteral calculus is not identified. Ovaries are normal. The patient's had a hysterectomy. There is no right renal mass or calculus. There is an anterior abdominal wall hernia which contains a loop of colon without obstruction. There is no small bowel obstruction. IMPRESSION: 1. Cholelithiasis. 2. Previous gastric surgery. 3. Fatty change in the liver. 4. Left lung mass. 5. Scarring or postop changes left kidney. 6. No renal or ureteral calculus noted. 7. Anterior abdominal wall hernia containing a loop of colon without obstruction. PQRS Compliance Statement: One or more of the following individualized dose reduction techniques were utilized for this examination: 1. Automated exposure control 2. Adjustment of the mA and/or kV according to patient size 3. Use of iterative reconstruction technique Electronically signed by: Nic Ahuja MD (09/01/2019 8:17 PM) [id number] DICTATED and SIGNED BY: NIC AHUJA MD DATE: 09/01/192016 [facility] [address] [place] [address] IMAGING REPORT Signed PATIENT: TATA ALVAREZ ACCOUNT: [id number] : 1960 LOCATION: ER AGE: 59 SEX: F EXAM STATUS: REG ER ORD. PHYSICIAN: ANDREINA WAY APRN REASON: Galbladder, liver enzymes elevated PROCEDURE: ABDOMEN LTD Exam: Ultrasound abdomen limited Indication: Elevated liver enzymes Technique: Real-time grayscale and color Doppler images of the right upper quadrant were obtained by the department refinery operator coking. Comparisons: CT same day FINDINGS: Liver has increased echogenicity. Hepatopedal flow noted within the portal vein. There is gallstones are noted within the gallbladder. No gallbladder wall thickening or pericholecystic fluid. No sonographic Prater sign per the department refinery operator coking. Right kidney measures 12.87 m in length. No hydronephrosis. Pancreas and visualized portions of the aorta and IVC are unremarkable. IMPRESSION: 1. Cholelithiasis without secondary evidence of acute cholecystitis. 2. Hepatic steatosis. 3. No right-sided hydronephrosis. Electronically signed by: Michael Meyer MD (09/01/2019 10:42 PM) [id number] DICTATED and SIGNED BY: MICHAEL MEYER MD DATE: 09/01/19 3362 Course & Med Decision Making Course & Med Decision Making Pertinent Labs and Imaging studies reviewed. (See chart for details) Abdomen Soft and nontender. Left CVA tenderness. Vital signs within normal limits. Extremity swelling. Lungs are clear to auscultation all lobes. Speaks in full clear sentences. Ambulatory with steady gait. Skin pink warm and dry. US MPRESSION: 1. Cholelithiasis without secondary evidence of acute cholecystitis. 2. Hepatic steatosis. 3. No right-sided hydronephrosis. Liver enzymes are elevated. Patient is admitted to the hospital under Dr. Barney. [] Dragon Disclaimer Dragon Disclaimer This electronic medical record was generated, in whole or in part, using a voice recognition dictation system. Departure Departure Impression: Primary Impression: Cholecystitis with cholelithiasis Disposition: ADMITTED INPATIENT Admitting Physician: HORTENCIA Condition: STABLE Referrals: ALESHA CONRAD (PCP) Problem Qualifiers Primary Impression: Cholecystitis with cholelithiasis Cholelithiasis location: gallbladder Cholecystitis acuity: acute Biliary obstruction: without biliary obstruction Qualified Codes: K80.00 - Calculus of gallbladder with acute cholecystitis without obstruction ANDREINA WAY [employer] Sep 01, 2019 19:13
[2019-09-01] MEDS ORDERED: fentaNYL PF VIAL 100 MCG/2 ML VIAL IVP ONE (19:15)
[2019-09-01 19:21] LABS: BILIRUBIN,URINE SMALL (NEG); CLARITY,URINE CLEAR; COLOR,URINE AMBER; NITRITE,URINE NEGATIVE (NEG); PROTEIN,URINE NEGATIVE (NEG-TRACE)
[2019-09-01 19:27] LABS: BACTERIA,URINE MODERATE /HPF (0-FEW); RBC,URINE 0 /HPF (0-2); SQUAMOUS EPITHELIAL CELL,UR OCC /LPF
--- NOTE | 2019-09-01 19:49 | RAD ---
PA and lateral chest. HISTORY: Fever, history lung cancer PA and lateral views of the chest were compared with the recent CT. There is a left lower lobe lung mass best seen on the lateral view superimposed on the spine. Port-A-Cath is in good position. No new infiltrates are noted. There is no effusion. Heart is normal in size. IMPRESSION: 1. Left lower lobe lung mass. 2. No new infiltrates. Electronically signed by: Nic Ahuja MD (09/01/2019 7:46 PM) [id number]
[2019-09-01] MEDS ORDERED: 0.9 % SOD CHL for STERILE FIELD 10 ML DISP.SYRIN. ONE (19:55)
--- NOTE | 2019-09-01 20:20 | RAD ---
CT abdomen and pelvis without contrast. HISTORY: Left flank pain, fever history of kidney cancer CT scan the abdomen pelvis was done without contrast. There is a mass in the left lung base. There is diffuse fatty change in the liver. There is a calcified gallbladder with gallstones. Patient's had a gastric surgery. Adrenal glands are normal. A pancreatic lesion is not identified. There is a small duodenal diverticulum. There is scarring at the lower pole of the left kidney similar to the prior PET/CT study. There is no left hydronephrosis or hydroureter. A ureteral calculus is not identified. Ovaries are normal. The patient's had a hysterectomy. There is no right renal mass or calculus. There is an anterior abdominal wall hernia which contains a loop of colon without obstruction. There is no small bowel obstruction. IMPRESSION: 1. Cholelithiasis. 2. Previous gastric surgery. 3. Fatty change in the liver. 4. Left lung mass. 5. Scarring or postop changes left kidney. 6. No renal or ureteral calculus noted. 7. Anterior abdominal wall hernia containing a loop of colon without obstruction. PQRS Compliance Statement: One or more of the following individualized dose reduction techniques were utilized for this examination: 1. Automated exposure control 2. Adjustment of the mA and/or kV according to patient size 3. Use of iterative reconstruction technique Electronically signed by: Nic Ahuja MD (09/01/2019 8:17 PM) [id number]
[2019-09-01 20:24] LABS: BASO # 0.1 x10^3/uL (0.0-0.2); BASO % 1 % (0-3); EOS # 0.1 x10^3/uL (0.0-0.7); EOS % 1 % (0-3); HEMATOCRIT 44.5 % (36.0-47.0); HEMOGLOBIN 14.8 g/dL (12.0-15.5); LYMPH # 1.2 x10^3/uL (1.0-4.8); LYMPH % 22 % (24-48); MEAN CORPUSCULAR HEMOGLOBIN 29 pg (25-35); MEAN CORPUSCULAR HGB CONC 33 g/dL (31-37); MEAN CORPUSCULAR VOLUME 86 fL (79-100); MONO # 0.6 x10^3/uL (0.0-1.1); MONO % 12 % (0-9); NEUT # 3.5 x10^3/uL (1.8-7.7); NEUT % 64 % (31-73); PLATELET COUNT 130 x10^3/uL (140-400); RED BLOOD COUNT 5.16 x10^6/uL (3.50-5.40); RED CELL DISTRIBUTION WIDTH 14.8 % (11.5-14.5); WHITE BLOOD COUNT 5.5 x10^3/uL (4.0-11.0)
[2019-09-01 20:37] LABS: CALCIUM 9.3 mg/dL (8.5-10.1); CREATININE 0.8 mg/dL (0.6-1.0); GFR 73.4
[2019-09-01 20:49] LABS: ALBUMIN 3.4 g/dL (3.4-5.0); ALBUMIN/GLOBULIN RATIO 0.8 (1.0-1.7); TOTAL BILIRUBIN 1.8 mg/dL (0.2-1.0); TOTAL PROTEIN 7.6 g/dL (6.4-8.2)
--- NOTE | 2019-09-01 22:44 | RAD ---
Exam: Ultrasound abdomen limited Indication: Elevated liver enzymes Technique: Real-time grayscale and color Doppler images of the right upper quadrant were obtained by the department nailhead puncher. Comparisons: CT same day FINDINGS: Liver has increased echogenicity. Hepatopedal flow noted within the portal vein. There is gallstones are noted within the gallbladder. No gallbladder wall thickening or pericholecystic fluid. No sonographic Prater sign per the department nailhead puncher. Right kidney measures 12.87 m in length. No hydronephrosis. Pancreas and visualized portions of the aorta and IVC are unremarkable. IMPRESSION: 1. Cholelithiasis without secondary evidence of acute cholecystitis. 2. Hepatic steatosis. 3. No right-sided hydronephrosis. Electronically signed by: Michael Cruz MD (09/01/2019 10:42 PM) [id number]
[2019-09-01] MEDS ORDERED: PIPERACILLIN/TAZOBACTAM 4.5 GM in IV NORMAL SALINE 100ML 100 ML IV ONE (23:00)
[2019-09-01] MEDS ORDERED: fentaNYL PF VIAL 100 MCG/2 ML VIAL IV PRN (23:00)
[2019-09-01] MEDS ORDERED: ONDANSETRON PF 4 MG/2 ML VIAL. IV PRN (23:00)
[2019-09-01 23:07] LABS: INFLUENZA A PATIENT NEGATIVE (NEGATIVE); INFLUENZA B PATIENT NEGATIVE (NEGATIVE)
[2019-09-01] MEDS: IV NORMAL SALINE 1000ML BAG 1,000 ML IV SCH (23:54)
[2019-09-02] VITALS (7 sets, daily range): BP systolic 96–157; BP diastolic 51–90
--- NOTE | 2019-09-02 01:15 | NUR ---
Admit Note The patient, TATA ALVAREZ, 59 y/o, F admitted by LORETTA RUCKER MD, was given written information regarding hospital policies, unit procedures and contact persons. Patient orientated to room, plan of care discussed, and admit packet reviewed. Home medications reviewed, allergies verified, and valuables checked and left in room with patient. Patient now resting in bed, SCDs in place, call light within reach, and bed in lowest/locked position, no other needs voiced at this time.
[2019-09-02] MEDS ORDERED: NIVO40VI IV (01:50)
--- NOTE | 2019-09-02 08:16 | PDOC2 ---
YANCI CRUZ [employer] 09/02/19 0816: CONSULT Date of Consult Date of Consult DATE: 09/02/19 TIME: 08:04 Reason for Consult Reason for Consult: cholecystitis Referring Physician Referring Physician: ER Identification/Chief Complaint Chief Complaint flank pain Source Source: Chart review, Patient History of Present Illness Reason for Visit: Reports left flank pain that radiated up left side. NO n/v, she has had a lack of appetite. NO constipation or diarrhea. + low grade fevers x 2 weeks. Recently started immunotherapy with Dr Roland for recurrent renal cell carcinoma Hx of left nephrectomy Past Medical History Cardiovascular: AFIB, Hyperlipidemia CENTRAL NERVOUS SYSTEM: CVA Endocrine: Diabetes Past Surgical History Past Surgical History: Hysterectomy, Other (gastric bypass, left nephrectomy) Family History Family History: Other (noncontributory to current illness ) Social History <1 pack per day ALCOHOL: none Drugs: None Lives: with Family Current Problem List Problem List Problems Medical Problems: (1) Cholecystitis with cholelithiasis Status: Acute Current Medications Current Medications Current Medications Fentanyl Citrate (Fentanyl 2ml Vial) 50 mcg 1X ONCE IVP Last administered on 09/01/19at 20:39; Start 09/01/19 at 19:15; Stop 09/01/19 at 19:16; Status DC Sodium Chloride (NORMAL SALINE FLUSH for STERILE FIELD) 10 ml STK-MED ONCE .ROUTE ; Start 09/01/19 at 19:55; Stop 09/01/19 at 19:55; Status DC Piperacillin Sod/ Tazobactam Sod 4.5 gm/Sodium Chloride 100 ml @ 200 mls/hr 1X ONCE IV Last administered on 09/01/19at 23:54; Start 09/01/19 at 23:00; Stop 09/01/19 at 23:29; Status DC Metronidazole 100 ml @ 100 mls/hr 1X ONCE IV Last administered on 09/02/19at 01:23; Start 09/01/19 at 23:00; Stop 09/01/19 at 23:59; Status DC Ondansetron HCl (Zofran) 4 mg PRN Q8HRS PRN IV NAUSEA/VOMITING; Start 09/01/19 at 23:00; Stop 09/02/19 at 22:59 Fentanyl Citrate (Fentanyl 2ml Vial) 50 mcg PRN Q1HR PRN IV PAIN; Start 09/01/19 at 23:00; Stop 09/02/19 at 22:59 Sodium Chloride 1,000 ml @ 75 mls/hr [id number] IV Last administered on 09/01/19at 23:54; Start 09/01/19 at 23:00; Stop 09/02/19 at 22:59 Active Scripts Active Reported Opdivo (Nivolumab) 40 Mg/4 Ml Vial 40 Mg IV IMMUNOTHERAPY Q3WKS Opdivo (Nivolumab) 40 Mg/4 Ml Vial 40 Mg IV IMMUNOTHERAPY Q2WKS Yervoy (Ipilimumab) 50 Mg/10 Ml Vial 50 Mg IV IMMUNOTHERAPY Q3WKS Temazepam 7.5 Mg Capsule 7.5 Mg PO HS PRN Metoprolol Tartrate 50 Mg Tablet 50 Mg PO BID Metformin Hcl 500 Mg Tablet 500 Mg PO BIDWMEALS Hydrochlorothiazide Tablet (Hydrochlorothiazide) 25 Mg Tablet 25 Mg PO DAILY Atacand (Candesartan Cilexetil) 16 Mg Tablet 16 Mg PO DAILY Lipitor (Atorvastatin Calcium) 80 Mg Tablet 80 Mg PO HS Eliquis (Apixaban) 5 Mg Tablet 5 Mg PO BID Amlodipine Besylate 10 Mg Tablet 10 Mg PO DAILY Allergies Allergies: Coded Allergies: No Known Drug Allergies (Unverified , 03/07/19) ROS General: YES: Chills, Appetite (lack), Other (low grade fevers) PSYCHOLOGICAL ROS: No: Anxiety, Depression Eyes: No Blurry vision, No Double vision HEENT: No: Heacaches, Sore Throat Hematological and Lymphatic: YES: Bleeding Problems; No: Blood Clots Respiratory: No: Cough, Shortness of breath Cardiovascular: No Chest Pain, No Palpitations Gastrointestinal: Yes Other (see hpi) Genitourinary: No Dysuria, No Hematuria Musculoskeletal: No Joint Pain, No Muscle Pain Neurological: No Impaired Coord/balance, No Numbness/Tingling Skin: No Pruritus, No Rash Physical Exam General: Alert, Oriented X3, Cooperative, No acute distress HEENT: Atraumatic, PERRLA Lungs: Clear to auscultation, Normal air movement Heart: Regular rate, Normal S1, Normal S2 Abdomen: Soft, Other (ND, diffusely tender on exam, no guarding or rebound ) Extremities: No clubbing, No cyanosis Skin: No rashes, No breakdown Neuro: Normal gait, Normal speech Psych/Mental Status: Mental status NL, Mood NL MUSCULOSKELETAL: No joint tenderness, No deformity Vitals VITALS Vital Signs Date Time Temp Pulse Resp B/P (MAP) Pulse Ox O2 Delivery O2 Flow Rate FiO2 09/02/19 03:00 98.9 61 18 134/60 (84) 96 Room Air 98.9 Labs Labs Laboratory Tests Test 09/01/19 18:35 09/01/19 20:07 09/01/19 22:40 Urine Collection Type Void Urine Color Alessandra Urine Clarity Clear Urine pH 6.0 Urine Specific [place] 1.015 Urine Protein Negative mg/dL (NEG-TRACE) Urine Glucose (UA) Negative mg/dL (NEG) Urine Ketones (Stick) Negative mg/dL (NEG) Urine Blood Negative (NEG) Urine Nitrite Negative (NEG) Urine Bilirubin Small (NEG) Urine Urobilinogen Dipstick 4.0 mg/dL (0.2 mg/dL) Urine Leukocyte Esterase Trace (NEG) Urine RBC 0 /HPF (0-2) Urine WBC 1-4 /HPF (0-4) Urine Squamous Epithelial Cells Occ /LPF Urine Bacteria Moderate /HPF (0-FEW) Urine Mucus Mod /LPF White Blood Count 5.5 x10^3/uL (4.0-11.0) Red Blood Count 5.16 x10^6/uL (3.50-5.40) Hemoglobin 14.8 g/dL (12.0-15.5) Hematocrit 44.5 % (36.0-47.0) Mean Corpuscular Volume 86 fL (79-100) Mean Corpuscular Hemoglobin 29 pg (25-35) Mean Corpuscular Hemoglobin Concent 33 g/dL (31-37) Red Cell Distribution Width 14.8 % (11.5-14.5) Platelet Count 130 x10^3/uL (140-400) Neutrophils (%) (Auto) 64 % (31-73) Lymphocytes (%) (Auto) 22 % (24-48) Monocytes (%) (Auto) 12 % (0-9) Eosinophils (%) (Auto) 1 % (0-3) Basophils (%) (Auto) 1 % (0-3) Neutrophils # (Auto) 3.5 x10^3/uL (1.8-7.7) Lymphocytes # (Auto) 1.2 x10^3/uL (1.0-4.8) Monocytes # (Auto) 0.6 x10^3/uL (0.0-1.1) Eosinophils # (Auto) 0.1 x10^3/uL (0.0-0.7) Basophils # (Auto) 0.1 x10^3/uL (0.0-0.2) Sodium Level 138 mmol/L (136-145) Potassium Level 3.0 mmol/L (3.5-5.1) Chloride Level 98 mmol/L (98-107) Carbon Dioxide Level 32 mmol/L (21-32) Anion Gap 8 (6-14) Blood Urea Nitrogen 12 mg/dL (7-20) Creatinine 0.8 mg/dL (0.6-1.0) Estimated GFR (Cockcroft-Gault) 73.4 BUN/Creatinine Ratio 15 (6-20) Glucose Level 123 mg/dL (70-99) Lactic Acid Level 1.2 mmol/L (0.4-2.0) Calcium Level 9.3 mg/dL (8.5-10.1) Total Bilirubin 1.8 mg/dL (0.2-1.0) Aspartate Amino Transf (AST/SGOT) 1182 U/L (15-37) Alanine Aminotransferase (ALT/SGPT) 877 U/L (14-59) Alkaline Phosphatase 436 U/L (46-116) Total Protein 7.6 g/dL (6.4-8.2) Albumin 3.4 g/dL (3.4-5.0) Albumin/Globulin Ratio 0.8 (1.0-1.7) Lipase 151 U/L (73-393) Influenza Type A Antigen Negative (NEGATIVE) Influenza Type B Antigen Negative (NEGATIVE) Laboratory Tests Test 09/01/19 18:35 09/01/19 20:07 09/01/19 22:40 Urine Collection Type Void Urine Color Alessandra Urine Clarity Clear Urine pH 6.0 Urine Specific [place] 1.015 Urine Protein Negative mg/dL (NEG-TRACE) Urine Glucose (UA) Negative mg/dL (NEG) Urine Ketones (Stick) Negative mg/dL (NEG) Urine Blood Negative (NEG) Urine Nitrite Negative (NEG) Urine Bilirubin Small (NEG) Urine Urobilinogen Dipstick 4.0 mg/dL (0.2 mg/dL) Urine Leukocyte Esterase Trace (NEG) Urine RBC 0 /HPF (0-2) Urine WBC 1-4 /HPF (0-4) Urine Squamous Epithelial Cells Occ /LPF Urine Bacteria Moderate /HPF (0-FEW) Urine Mucus Mod /LPF White Blood Count 5.5 x10^3/uL (4.0-11.0) Red Blood Count 5.16 x10^6/uL (3.50-5.40) Hemoglobin 14.8 g/dL (12.0-15.5) Hematocrit 44.5 % (36.0-47.0) Mean Corpuscular Volume 86 fL (79-100) Mean Corpuscular Hemoglobin 29 pg (25-35) Mean Corpuscular Hemoglobin Concent 33 g/dL (31-37) Red Cell Distribution Width 14.8 % (11.5-14.5) Platelet Count 130 x10^3/uL (140-400) Neutrophils (%) (Auto) 64 % (31-73) Lymphocytes (%) (Auto) 22 % (24-48) Monocytes (%) (Auto) 12 % (0-9) Eosinophils (%) (Auto) 1 % (0-3) Basophils (%) (Auto) 1 % (0-3) Neutrophils # (Auto) 3.5 x10^3/uL (1.8-7.7) Lymphocytes # (Auto) 1.2 x10^3/uL (1.0-4.8) Monocytes # (Auto) 0.6 x10^3/uL (0.0-1.1) Eosinophils # (Auto) 0.1 x10^3/uL (0.0-0.7) Basophils # (Auto) 0.1 x10^3/uL (0.0-0.2) Sodium Level 138 mmol/L (136-145) Potassium Level 3.0 mmol/L (3.5-5.1) Chloride Level 98 mmol/L (98-107) Carbon Dioxide Level 32 mmol/L (21-32) Anion Gap 8 (6-14) Blood Urea Nitrogen 12 mg/dL (7-20) Creatinine 0.8 mg/dL (0.6-1.0) Estimated GFR (Cockcroft-Gault) 73.4 BUN/Creatinine Ratio 15 (6-20) Glucose Level 123 mg/dL (70-99) Lactic Acid Level 1.2 mmol/L (0.4-2.0) Calcium Level 9.3 mg/dL (8.5-10.1) Total Bilirubin 1.8 mg/dL (0.2-1.0) Aspartate Amino Transf (AST/SGOT) 1182 U/L (15-37) Alanine Aminotransferase (ALT/SGPT) 877 U/L (14-59) Alkaline Phosphatase 436 U/L (46-116) Total Protein 7.6 g/dL (6.4-8.2) Albumin 3.4 g/dL (3.4-5.0) Albumin/Globulin Ratio 0.8 (1.0-1.7) Lipase 151 U/L (73-393) Influenza Type A Antigen Negative (NEGATIVE) Influenza Type B Antigen Negative (NEGATIVE) Assessment/Plan Assessment/Plan cholelithiasis--no imaging findings of cholecystitis-- elevated LFTS symptoms not typical for GB source on immunotherapy of renal cell carcinoma on eliquis--would hold for now poor surgical candidate--will check HIDA will have GI and oncology MENDOZA Mathias MD 09/02/19 1707: CONSULT Assessment/Plan Assessment/Plan Pt seen and examined by myself; 59 year old female with metastatic renal cancer, receiving immunotherapy; admitted with upper abdominal pain, radiating to the left side. On ER evaluation gallstones noted without changes of cholecystitis, elevated LFTs; PMH/PSH/ROS/SH as above; exam: alert, oriented, no distress, lungs clear, heart RR and R, abdomen obese, soft, tender upper abdomen, min pain in RUQ, no guarding or [place]; Xrays and labs reviewed; PIPIDA without cystic duct obstruction. A/P) Gallstones appear chronic without evidence of acute cholecystitis on PIPIDA. Pt seen by Oncology, input noted regarding immunotherapy induced hepatitis. No surgical recomm endations. Will sign off. Please call if needed in the future. YANCI CRUZ APRN Sep 02, 2019 08:16 MENDOZA QUINTERO MD Sep 02, 2019 17:07
[2019-09-02] MEDS ORDERED: POTASSIUM CHLORIDE 20 MEQ TABLET.ER. PO ONE (09:30)
--- NOTE | 2019-09-02 09:37 | PDOC ---
Provider Note Provider Note Med Onc consult: 1. 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 Start Prednisone 100 mg daily. 2. DM - management per Primary team. see dictation OBED AUGUSTINE MD Sep 02, 2019 09:37
[2019-09-02] MEDS: predniSONE 20 MG TABLET PO SCH (09:45)
--- NOTE | 2019-09-02 09:49 | PDOC2 ---
GI CONSULT Reason For Consult: elevated LFTs, cholelithiasis HPI: HPI: 59 y/o female w/ metastatic RCC s/p partial nephrectomy and radiation (finished a month ago), now on immunotherapy. Ill since Sunday w/ mid to left abdominal cramping, sometimes felt in back. Associated w/ fever. H/o gallstones, no previous issues. Labs note plt 130, bili 1.8, AST 1182, ALT 877, Alk Phos 436. LFTs were normal in 2019. On imaging: cholelithiasis, previous gastric surgery, fatty liver, left lung mass, and abdominal wall hernia containing colon. No mention of CBD on US or CT. Surgery following, HIDA ordered. Hematology following, starting prednisone for hepatitis related to immunotherapy. Denies reflux/heartburn, dysphagia, n/v, diarrhea, constipation, hematochezia, or melena. "I lose weight without even trying lately." Gastric bypass in [place] 30 years ago - recalls "stapling and a band." Might have had an EGD since, not sure. Reportedly normal colonoscopy in [place] 3-4 years ago. No liver, pancreas, or PUD history. No NSAIDs. H/o A Fib and CVA on Eliquis. PMH: PMH: RCC, CVA, A Fib, HTN, HLD, DM partial left nephrectomy, lymph node biopsy, hysterectomy, gastric bypass FH: Family History: No pertinent hx Social History: Smoke: <1 pack per day ALCOHOL: none Drugs: None ROS: GEN: +fever HEENT: Denies blurred vision, sore throat CV: Denies chest pain RESP: Denies shortness of air, cough GI: Per HPI : Denies hematuria, dysuria ENDO: +weight loss NEURO: Denies confusion, dizziness MSK: +weakness +chronic pain SKIN: Denies jaundice, pruritus Vitals: Vitals: Vital Signs Date Time Temp Pulse Resp B/P (MAP) Pulse Ox O2 Delivery O2 Flow Rate FiO2 09/02/19 07:00 98.4 55 16 96/51 (66) 93 Room Air 98.4 Labs: Labs: Laboratory Tests Test 09/01/19 18:35 09/01/19 20:07 09/01/19 22:40 Urine Collection Type Void Urine Color Alessandra Urine Clarity Clear Urine pH 6.0 Urine Specific [place] 1.015 Urine Protein Negative mg/dL (NEG-TRACE) Urine Glucose (UA) Negative mg/dL (NEG) Urine Ketones (Stick) Negative mg/dL (NEG) Urine Blood Negative (NEG) Urine Nitrite Negative (NEG) Urine Bilirubin Small (NEG) Urine Urobilinogen Dipstick 4.0 mg/dL (0.2 mg/dL) Urine Leukocyte Esterase Trace (NEG) Urine RBC 0 /HPF (0-2) Urine WBC 1-4 /HPF (0-4) Urine Squamous Epithelial Cells Occ /LPF Urine Bacteria Moderate /HPF (0-FEW) Urine Mucus Mod /LPF White Blood Count 5.5 x10^3/uL (4.0-11.0) Red Blood Count 5.16 x10^6/uL (3.50-5.40) Hemoglobin 14.8 g/dL (12.0-15.5) Hematocrit 44.5 % (36.0-47.0) Mean Corpuscular Volume 86 fL (79-100) Mean Corpuscular Hemoglobin 29 pg (25-35) Mean Corpuscular Hemoglobin Concent 33 g/dL (31-37) Red Cell Distribution Width 14.8 % (11.5-14.5) Platelet Count 130 x10^3/uL (140-400) Neutrophils (%) (Auto) 64 % (31-73) Lymphocytes (%) (Auto) 22 % (24-48) Monocytes (%) (Auto) 12 % (0-9) Eosinophils (%) (Auto) 1 % (0-3) Basophils (%) (Auto) 1 % (0-3) Neutrophils # (Auto) 3.5 x10^3/uL (1.8-7.7) Lymphocytes # (Auto) 1.2 x10^3/uL (1.0-4.8) Monocytes # (Auto) 0.6 x10^3/uL (0.0-1.1) Eosinophils # (Auto) 0.1 x10^3/uL (0.0-0.7) Basophils # (Auto) 0.1 x10^3/uL (0.0-0.2) Sodium Level 138 mmol/L (136-145) Potassium Level 3.0 mmol/L (3.5-5.1) Chloride Level 98 mmol/L (98-107) Carbon Dioxide Level 32 mmol/L (21-32) Anion Gap 8 (6-14) Blood Urea Nitrogen 12 mg/dL (7-20) Creatinine 0.8 mg/dL (0.6-1.0) Estimated GFR (Cockcroft-Gault) 73.4 BUN/Creatinine Ratio 15 (6-20) Glucose Level 123 mg/dL (70-99) Lactic Acid Level 1.2 mmol/L (0.4-2.0) Calcium Level 9.3 mg/dL (8.5-10.1) Total Bilirubin 1.8 mg/dL (0.2-1.0) Aspartate Amino Transf (AST/SGOT) 1182 U/L (15-37) Alanine Aminotransferase (ALT/SGPT) 877 U/L (14-59) Alkaline Phosphatase 436 U/L (46-116) Total Protein 7.6 g/dL (6.4-8.2) Albumin 3.4 g/dL (3.4-5.0) Albumin/Globulin Ratio 0.8 (1.0-1.7) Lipase 151 U/L (73-393) Influenza Type A Antigen Negative (NEGATIVE) Influenza Type B Antigen Negative (NEGATIVE) Allergies: Coded Allergies: No Known Drug Allergies (Unverified , 03/07/19) Medications: Current Medications Medications (Trade) Dose Ordered Sig/Gael Route PRN Reason Start Time Stop Time Status Last Admin Dose Admin Fentanyl Citrate (Fentanyl 2ml Vial) 50 mcg 1X ONCE IVP 09/01/19 19:15 09/01/19 19:16 DC 09/01/19 20:39 Piperacillin Sod/ Tazobactam Sod 4.5 gm/Sodium Chloride 100 ml @ 200 mls/hr 1X ONCE IV 09/01/19 23:00 09/01/19 23:29 DC 09/01/19 23:54 Metronidazole 100 ml @ 100 mls/hr 1X ONCE IV 09/01/19 23:00 09/01/19 23:59 DC 09/02/19 01:23 Sodium Chloride 1,000 ml @ 75 mls/hr [id number] IV 09/01/19 23:00 09/02/19 22:59 09/01/19 23:54 Imaging: Imaging: CT A/P IMPRESSION: 1. Cholelithiasis. 2. Previous gastric surgery. 3. Fatty change in the liver. 4. Left lung mass. 5. Scarring or postop changes left kidney. 6. No renal or ureteral calculus noted. 7. Anterior abdominal wall hernia containing a loop of colon without obstruction. CXR IMPRESSION: 1. Left lower lobe lung mass. 2. No new infiltrates. Abd US IMPRESSION: 1. Cholelithiasis without secondary evidence of acute cholecystitis. 2. Hepatic steatosis. 3. No right-sided hydronephrosis. PE: GEN: NAD HEENT: Atraumatic, PERRL LUNGS: CTAB HEART: RRR ABD: quiet BS, obese, soft, epigastric to LUQ discomfort tracking down left side EXTREMITY: No edema SKIN: No rashes, no jaundice NEURO/PSYCH: A & O 3 A/P: A/P: Abd pain, weight loss Thrombocytopenia, elevated LFTs Cholelithiasis, hepatic steatosis RCC w/ lung mass on immunotherapy H/o gastric bypass - "stapling and band" in [place] 30 years ago CRC screen - reportedly normal in [place] 3-4 years ago H/o A Fib and CVA on Eliquis -- Plans per surgery and oncology as above, will follow. Empiric acid-activity specialist, check INR and viral hepatitis for completeness. RUSS VENCES Sep 02, 2019 09:49
--- NOTE | 2019-09-02 10:19 | PDOC1 ---
History and Physical Date of Admission Date of Admission DATE: 09/02/19 TIME: 10:13 Source Source: Chart review, Patient History of Present Illness History of Present Illness Ms. Alba is a 59 year old Female who presents with states she didn't having a fever that reached 100. States she also has pain in the left flank that she rates an 8 out of 10. States she has metastatic renal cell carcinoma in the left kidney. She states she sees Dr. Torrez. She states she has an appointment with palliative care. She also has a history of A. fib. She states she has not taken any pain medications for her pain. Patient denies chest pain, shortness of air, nausea, vomiting, burning with urination, abdominal pain, numbness or tingling, weaknesses, headache, dizziness, visual changes. Past Medical History Cardiovascular: AFIB, Hyperlipidemia CENTRAL NERVOUS SYSTEM: CVA Endocrine: Diabetes Past Surgical History Past Surgical History: Hysterectomy, Other (gastric bypass, left nephrectomy) Family History Family History: Other (noncontributory to current illness ) Social History Smoke: <1 pack per day ALCOHOL: none Drugs: None Current Problem List Problem List Problems Medical Problems: (1) Cholecystitis with cholelithiasis Status: Acute Current Medications Current Medications Current Medications Fentanyl Citrate (Fentanyl 2ml Vial) 50 mcg 1X ONCE IVP Last administered on 09/01/19at 20:39; Start 09/01/19 at 19:15; Stop 09/01/19 at 19:16; Status DC Sodium Chloride (NORMAL SALINE FLUSH for STERILE FIELD) 10 ml STK-MED ONCE .ROUTE ; Start 09/01/19 at 19:55; Stop 09/01/19 at 19:55; Status DC Piperacillin Sod/ Tazobactam Sod 4.5 gm/Sodium Chloride 100 ml @ 200 mls/hr 1X ONCE IV Last administered on 09/01/19at 23:54; Start 09/01/19 at 23:00; Stop 09/01/19 at 23:29; Status DC Metronidazole 100 ml @ 100 mls/hr 1X ONCE IV Last administered on 09/02/19at 01:23; Start 09/01/19 at 23:00; Stop 09/01/19 at 23:59; Status DC Ondansetron HCl (Zofran) 4 mg PRN Q8HRS PRN IV NAUSEA/VOMITING; Start 09/01/19 at 23:00; Stop 09/02/19 at 22:59 Fentanyl Citrate (Fentanyl 2ml Vial) 50 mcg PRN Q1HR PRN IV PAIN; Start 09/01/19 at 23:00; Stop 09/02/19 at 22:59 Sodium Chloride 1,000 ml @ 75 mls/hr [id number] IV Last administered on 09/01/19at 23:54; Start 09/01/19 at 23:00; Stop 09/02/19 at 22:59 Potassium Chloride (Klor-Con) 40 meq 1X ONCE PO ; Start 09/02/19 at 09:30; Stop 09/02/19 at 09:31; Status DC Prednisone (Prednisone) 100 mg DAILY PO ; Start 09/02/19 at 09:45 Potassium Chloride/Water 100 ml @ 100 mls/hr Q1H IV ; Start 09/02/19 at 10:00; Stop 09/02/19 at 11:59 Active Scripts Active Reported Opdivo (Nivolumab) 40 Mg/4 Ml Vial 40 Mg IV IMMUNOTHERAPY Q3WKS Opdivo (Nivolumab) 40 Mg/4 Ml Vial 40 Mg IV IMMUNOTHERAPY Q2WKS Yervoy (Ipilimumab) 50 Mg/10 Ml Vial 50 Mg IV IMMUNOTHERAPY Q3WKS Temazepam 7.5 Mg Capsule 7.5 Mg PO HS PRN Metoprolol Tartrate 50 Mg Tablet 50 Mg PO BID Metformin Hcl 500 Mg Tablet 500 Mg PO BIDWMEALS Hydrochlorothiazide Tablet (Hydrochlorothiazide) 25 Mg Tablet 25 Mg PO DAILY Atacand (Candesartan Cilexetil) 16 Mg Tablet 16 Mg PO DAILY Lipitor (Atorvastatin Calcium) 80 Mg Tablet 80 Mg PO HS Eliquis (Apixaban) 5 Mg Tablet 5 Mg PO BID Amlodipine Besylate 10 Mg Tablet 10 Mg PO DAILY Allergies Allergies: Coded Allergies: No Known Drug Allergies (Unverified , 03/07/19) ROS General: No: Chills, Night Sweats, Fatigue, Malaise, Appetite, Other PSYCHOLOGICAL ROS: No: Anxiety, Behavioral Disorder, Concentration difficultie, Decreased libido, Depression, Disorientation, Hallucinations, Hostility, Irritablity, Memory difficulties, Mood Swings, Obsessive thoughts, Physical abuse, Sexual abuse, Sleep disturbances, Suicidal ideation, Other Eyes: No Blurry vision, No Decreased vision, No Double vision, No Dry eyes, No Excessive tearing, No Eye Pain, No Itchy Eyes, No Loss of vision, No Photop hobia, No Scotomata, No Uses contacts, No Uses glasses, No Other HEENT: No: Heacaches, Visual Changes, Hearing change, Nasal congestion, Nasal discharge, Oral lesions, Sinus pain, Sore Throat, Epistaxis, Sneezing, Snoring, Tinnitus, Vertigo, Vocal changes, Other Respiratory: No: Cough, Hemoptysis, Orthopnea, Pleuritic Pain, Shortness of b reath, SOB with excertion, Sputum Changes, Stridor, Tachypnea, Wheezing, Other Cardiovascular: No Chest Pain, No Palpitations, No Orthopnea, No Paroxysmal Noc. Dyspnea, No Edema, No Lt Headedness, No Other Gastrointestinal: Yes Vomiting, Yes Abdominal Pain Genitourinary: No Dysuria, No Frequency, No Incontinence, No Hematuria, No Retention, No Discharge, No Urgency, No Pain, No Flank Pain, No Other, No , No , No , No , No , No , No Musculoskeletal: No Gait Disturbance, No Joint Pain, No Joint Stiffness, No Joint Swelling, No Muscle Pain, No Muscular Weakness, No Pain In:, No Swelling In:, No Other Neurological: No Behavorial Changes, No Bowel/Bladder ControlChng, No Confusion, No Dizziness, No Gait Disturbance, No Headaches, No Impaired Coord/balance, No Memory Loss, No Numbness/Tingling, No Seizures, No Speech Problems, No Tremors, No Visual Changes, No Weakness, No Other Skin: Yes Dry Skin Physical Exam General: Alert, mild distress HEENT: PERRLA, Mucous membr. moist/pink Lungs: Clear to auscultation Heart: S1S2, no gallops, murmurs Extremities: No clubbing, No edema Skin: No significant lesion Neuro: Normal speech, Normal tone, Sensation intact Psych/Mental Status: Mood NL Vitals Vitals Vital Signs Date Time Temp Pulse Resp B/P (MAP) Pulse Ox O2 Delivery O2 Flow Rate FiO2 09/02/19 07:00 98.4 55 16 96/51 (66) 93 Room Air 98.4 Labs Labs Laboratory Tests Test 09/01/19 18:35 09/01/19 20:07 09/01/19 22:40 Urine Collection Type Void Urine Color Alessandra Urine Clarity Clear Urine pH 6.0 Urine Specific [place] 1.015 Urine Protein Negative mg/dL (NEG-TRACE) Urine Glucose (UA) Negative mg/dL (NEG) Urine Ketones (Stick) Negative mg/dL (NEG) Urine Blood Negative (NEG) Urine Nitrite Negative (NEG) Urine Bilirubin Small (NEG) Urine Urobilinogen Dipstick 4.0 mg/dL (0.2 mg/dL) Urine Leukocyte Esterase Trace (NEG) Urine RBC 0 /HPF (0-2) Urine WBC 1-4 /HPF (0-4) Urine Squamous Epithelial Cells Occ /LPF Urine Bacteria Moderate /HPF (0-FEW) Urine Mucus Mod /LPF White Blood Count 5.5 x10^3/uL (4.0-11.0) Red Blood Count 5.16 x10^6/uL (3.50-5.40) Hemoglobin 14.8 g/dL (12.0-15.5) Hematocrit 44.5 % (36.0-47.0) Mean Corpuscular Volume 86 fL (79-100) Mean Corpuscular Hemoglobin 29 pg (25-35) Mean Corpuscular Hemoglobin Concent 33 g/dL (31-37) Red Cell Distribution Width 14.8 % (11.5-14.5) Platelet Count 130 x10^3/uL (140-400) Neutrophils (%) (Auto) 64 % (31-73) Lymphocytes (%) (Auto) 22 % (24-48) Monocytes (%) (Auto) 12 % (0-9) Eosinophils (%) (Auto) 1 % (0-3) Basophils (%) (Auto) 1 % (0-3) Neutrophils # (Auto) 3.5 x10^3/uL (1.8-7.7) Lymphocytes # (Auto) 1.2 x10^3/uL (1.0-4.8) Monocytes # (Auto) 0.6 x10^3/uL (0.0-1.1) Eosinophils # (Auto) 0.1 x10^3/uL (0.0-0.7) Basophils # (Auto) 0.1 x10^3/uL (0.0-0.2) Sodium Level 138 mmol/L (136-145) Potassium Level 3.0 mmol/L (3.5-5.1) Chloride Level 98 mmol/L (98-107) Carbon Dioxide Level 32 mmol/L (21-32) Anion Gap 8 (6-14) Blood Urea Nitrogen 12 mg/dL (7-20) Creatinine 0.8 mg/dL (0.6-1.0) Estimated GFR (Cockcroft-Gault) 73.4 BUN/Creatinine Ratio 15 (6-20) Glucose Level 123 mg/dL (70-99) Lactic Acid Level 1.2 mmol/L (0.4-2.0) Calcium Level 9.3 mg/dL (8.5-10.1) Total Bilirubin 1.8 mg/dL (0.2-1.0) Aspartate Amino Transf (AST/SGOT) 1182 U/L (15-37) Alanine Aminotransferase (ALT/SGPT) 877 U/L (14-59) Alkaline Phosphatase 436 U/L (46-116) Total Protein 7.6 g/dL (6.4-8.2) Albumin 3.4 g/dL (3.4-5.0) Albumin/Globulin Ratio 0.8 (1.0-1.7) Lipase 151 U/L (73-393) Influenza Type A Antigen Negative (NEGATIVE) Influenza Type B Antigen Negative (NEGATIVE) Laboratory Tests Test 09/01/19 18:35 09/01/19 20:07 09/01/19 22:40 Urine Collection Type Void Urine Color Alessandra Urine Clarity Clear Urine pH 6.0 Urine Specific [place] 1.015 Urine Protein Negative mg/dL (NEG-TRACE) Urine Glucose (UA) Negative mg/dL (NEG) Urine Ketones (Stick) Negative mg/dL (NEG) Urine Blood Negative (NEG) Urine Nitrite Negative (NEG) Urine Bilirubin Small (NEG) Urine Urobilinogen Dipstick 4.0 mg/dL (0.2 mg/dL) Urine Leukocyte Esterase Trace (NEG) Urine RBC 0 /HPF (0-2) Urine WBC 1-4 /HPF (0-4) Urine Squamous Epithelial Cells Occ /LPF Urine Bacteria Moderate /HPF (0-FEW) Urine Mucus Mod /LPF White Blood Count 5.5 x10^3/uL (4.0-11.0) Red Blood Count 5.16 x10^6/uL (3.50-5.40) Hemoglobin 14.8 g/dL (12.0-15.5) Hematocrit 44.5 % (36.0-47.0) Mean Corpuscular Volume 86 fL (79-100) Mean Corpuscular Hemoglobin 29 pg (25-35) Mean Corpuscular Hemoglobin Concent 33 g/dL (31-37) Red Cell Distribution Width 14.8 % (11.5-14.5) Platelet Count 130 x10^3/uL (140-400) Neutrophils (%) (Auto) 64 % (31-73) Lymphocytes (%) (Auto) 22 % (24-48) Monocytes (%) (Auto) 12 % (0-9) Eosinophils (%) (Auto) 1 % (0-3) Basophils (%) (Auto) 1 % (0-3) Neutrophils # (Auto) 3.5 x10^3/uL (1.8-7.7) Lymphocytes # (Auto) 1.2 x10^3/uL (1.0-4.8) Monocytes # (Auto) 0.6 x10^3/uL (0.0-1.1) Eosinophils # (Auto) 0.1 x10^3/uL (0.0-0.7) Basophils # (Auto) 0.1 x10^3/uL (0.0-0.2) Sodium Level 138 mmol/L (136-145) Potassium Level 3.0 mmol/L (3.5-5.1) Chloride Level 98 mmol/L (98-107) Carbon Dioxide Level 32 mmol/L (21-32) Anion Gap 8 (6-14) Blood Urea Nitrogen 12 mg/dL (7-20) Creatinine 0.8 mg/dL (0.6-1.0) Estimated GFR (Cockcroft-Gault) 73.4 BUN/Creatinine Ratio 15 (6-20) Glucose Level 123 mg/dL (70-99) Lactic Acid Level 1.2 mmol/L (0.4-2.0) Calcium Level 9.3 mg/dL (8.5-10.1) Total Bilirubin 1.8 mg/dL (0.2-1.0) Aspartate Amino Transf (AST/SGOT) 1182 U/L (15-37) Alanine Aminotransferase (ALT/SGPT) 877 U/L (14-59) Alkaline Phosphatase 436 U/L (46-116) Total Protein 7.6 g/dL (6.4-8.2) Albumin 3.4 g/dL (3.4-5.0) Albumin/Globulin Ratio 0.8 (1.0-1.7) Lipase 151 U/L (73-393) Influenza Type A Antigen Negative (NEGATIVE) Influenza Type B Antigen Negative (NEGATIVE) VTE Prophylaxis Ordered VTE Prophylaxis Devices: Yes VTE Pharmacological Prophylaxi: No Assessment/Plan Assessment/Plan acute immune hepatitis, Dr. Roland has started stress dose prednisone 100/day Cholelithiasis. metastatic renal cell carcinoma, s/p nephrectomy obese, BMI 47 Dm2, hx cva hypokalemia NIRANJAN PADGETT MD Sep 02, 2019 10:19
[2019-09-02] MEDS ORDERED: TEMAZEPAM 7.5 MG CAPSULE PO PRN (10:30)
[2019-09-02] MEDS: METOPROLOL TART IMMED RELEASE 50 MG TABLET. PO SCH ×2 (11:00→20:51)
[2019-09-02] MEDS: LOSARTAN POTASSIUM 50 MG TABLET. PO SCH (11:00)
[2019-09-02] MEDS: POTASSIUM CHLORIDE 10MEQ 100 ML IV SCH ×2 (11:13→14:44)
[2019-09-02 11:47] LABS: PROTHROMBIN TIME PATIENT 14.1 SEC (11.7-14.0)
--- NOTE | 2019-09-02 11:55 | NUR ---
SW following. Discussed with RN, pt is from home, has kidney cancer which spread to lungs. Pt having immunotherapy and radiation. Renal cancer with mets. SW will continue to follow for any discharge planning needs.
--- NOTE | 2019-09-02 14:09 | RAD ---
HEPATOBILIARY SCAN Clinical indications: Abdominal pain. Elevated liver function tests. COMPARISON: Abdomen ultrasound study dated 09/01/2019. No previous hepatobiliary scan available. TECHNIQUE: After IV infusion of 5.4 mCi of technetium 99m Choletec, anterior planar images of the upper abdomen were performed in sequential fashion FINDINGS: Homogeneous uptake is seen throughout the liver. Radiotracer activity is seen within the gallbladder by 45 minutes. Radiotracer activity is seen within the duodenum by 25 minutes. IMPRESSION: The cystic duct is patent. Electronically signed by: Xavi Chan MD (09/02/2019 2:06 PM) [facility]
[2019-09-02] MEDS: PANTOPRAZOLE IV PUSH 40 MG VIAL. IVP SCH (14:48)
[2019-09-02] MEDS: IV NORMAL SALINE 1000ML BAG 1,000 ML IV SCH (14:48)
[2019-09-02] MEDS: ATORVASTATIN CALCIUM 40 MG TABLET. PO SCH (20:51)
[2019-09-03] MEDS: fentaNYL PF VIAL 100 MCG/2 ML VIAL IVP PRN ×3 (01:38→20:09)
--- NOTE | 2019-09-03 02:40 | CONS ---
DATE OF CONSULTATION: 09/02/2019 MEDICAL ONCOLOGY CONSULTATION REPORT REQUESTING PHYSICIAN: Annie Barney MD REASON FOR CONSULTATION: Stage 4 renal cell carcinoma, on immunotherapy, now admitted with abdominal discomfort and significantly elevated liver function tests. HISTORY OF PRESENT ILLNESS: The patient is a 59-year-old female who was diagnosed with renal cell carcinoma and she underwent a left partial nephrectomy on 12/04/2012. Pathology revealed a 6 cm tumor. She had a stroke with left-sided weakness in 04/2018 and at that time, she was noted to have a left lower lobe lung nodule, but she did not follow up on that. She had abdominal pain in 03/[address] scan in the Emergency Room revealed a 2 cm opacity in the left lower lobe. There was also evidence of left hilar lymph nodes. She underwent endobronchial ultrasound-guided fine needle aspiration of the lymph node station 11 on 06/03/2019 which revealed clear cell carcinoma. Hence, she was diagnosed with stage 4 renal cell carcinoma and she was started on immunotherapy with ipilimumab and nivolumab on 08/15/2019. She was admitted to [facility] on 09/01/2019 with mid to left-sided abdominal cramping. There was evidence of fever, low-grade. She was noted to have a bilirubin of 1.8 with AST of 1182, ALT of 877, alkaline phosphatase 436, and a bilirubin of 1.8. Review of the prior records indicates that her liver function tests were normal on 08/14/2019. Her AST was 27, ALT 26, and alkaline phosphatase was 94. She underwent CT scan of the abdomen and pelvis on 09/01/2019 which revealed cholelithiasis, previous gastric surgery and fatty change in the liver and a left lung mass. She underwent ultrasound on 09/01/2019 which revealed cholelithiasis without secondary evidence of acute cholecystitis. GI was consulted. PAST MEDICAL HISTORY: Renal cell carcinoma as described above, cerebrovascular accident, AFib, hypertension, hyperlipidemia, and diabetes mellitus. PAST SURGICAL HISTORY: Partial left nephrectomy, hysterectomy, and gastric bypass. FAMILY HISTORY: Positive for lung cancer and ovarian cancer. SOCIAL HISTORY: She has a history of cigarette smoking, [id number]. REVIEW OF SYSTEMS: A 12-point review of system was performed. Pertinent positives are mentioned in the history of present illness. Rest of the system review is negative. PHYSICAL EXAMINATION: GENERAL APPEARANCE: The patient is a 59-year-old female who is in no acute cardiorespiratory distress. VITAL SIGNS: Blood pressure 119/71, temperature 98.2. HEAD: Atraumatic, normocephalic. EYES: No icterus. NECK: Supple. CHEST: Bilaterally symmetrical. HEART: S1, S2 normal. ABDOMEN: Soft, nontender. CENTRAL NERVOUS SYSTEM: No focal deficits. LYMPHATICS: No lymphadenopathy. SKIN: No rashes. PSYCHOLOGIC: Mood and affect are appropriate. MUSCULOSKELETAL: No joint effusions. LABORATORY DATA: WBC 5.5, hemoglobin 14.8, platelet count 130. Creatinine 0.8, total bilirubin 1.8, AST 1182, ALT 877, and alkaline phosphatase 436 on 09/01/2019. IMPRESSION AND PLAN: 1. Stage 4 renal cell carcinoma/clear cell carcinoma, intermediate risk category with metastasis to the left lower lobe of the lung with left hilar lymphadenopathy diagnosed on 06/03/2019 when she underwent endobronchial ultrasound-guided fine needle aspiration of the lymph node station #11, which confirmed clear cell carcinoma. There was no other evidence of metastatic disease. PET scan on 05/16/2019 revealed left lower lobe lung mass along with left hilar lymphadenopathy and no other metastatic disease. She was started on immunotherapy with ipilimumab and nivolumab on 08/15/2019. 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 Her previous labs on 08/14/2019 were normal. Hence, this is consistent with acute hepatitis secondary to immunotherapy. She received both Yervoy and Opdivo and I suspect this is most likely due to Yervoy, which has a higher incidence of causing hepatitis. Treatment of immune related hepatitis includes steroids. I have started her on prednisone 100 mg daily from 09/02/2019. I discussed in detail with the patient and she understands and agrees with the plan. Since this is a grade 4 liver toxicity, I will discontinue Yervoy and once her liver function test normalizes and once her prednisone is tapered and discontinued, I will plan to treat her with Opdivo. 2. Diabetes mellitus. I explained to her that her blood sugars will get worse while she is on prednisone. I have advised her to follow instructions of the primary care team while she is in the hospital and follow up closely with her primary care physician upon discharge for management. 3. Cholelithiasis without evidence of cholecystitis. Appreciate GI consultation. OBED AUGUSTINE MD DR: LUMA/krys JOB#: [id number] / [id number]
[2019-09-03 03:00] VITALS: BP 112/54
[2019-09-03 06:01] LABS: ALBUMIN 2.9 g/dL (3.4-5.0); ALBUMIN/GLOBULIN RATIO 0.9 (1.0-1.7); CALCIUM 8.4 mg/dL (8.5-10.1); CREATININE 0.7 mg/dL (0.6-1.0); GFR 85.6; MAGNESIUM 2.2 mg/dL (1.8-2.4); POTASSIUM 3.3 mmol/L (3.5-5.1); TOTAL BILIRUBIN 2.3 mg/dL (0.2-1.0); TOTAL PROTEIN 6.3 g/dL (6.4-8.2)
[2019-09-03 07:00] VITALS: BP 142/64
[2019-09-03] MEDS: METOPROLOL TART IMMED RELEASE 50 MG TABLET. PO SCH ×2 (09:00→20:43)
--- NOTE | 2019-09-03 09:08 | PDOC ---
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 Stage 4 renal cell carcinoma/clear cell carcinoma, intermediate risk category with metastasis to the left lower lobe of the lung with left hilar lymphadenopathy diagnosed on 06/03/2019 when she underwent endobronchial ultrasound-guided fine needle aspiration of the lymph node station #11, which confirmed clear cell carcinoma. There was no other evidence of metastatic disease. PET scan on 05/16/2019 revealed left lower lobe lung mass along with left hilar lymphadenopathy and no other metastatic disease. She was started on immunotherapy with ipilimumab and nivolumab on 08/15/2019. 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 Her previous labs on 08/14/2019 were normal. Hence, this is consistent with acute hepatitis secondary to immunotherapy. She received both Yervoy and Opdivo and I suspect this is most likely due to Yervoy, which has a higher incidence of causing hepatitis. I have ordered prednisone 100 mg daily from 09/02/2019. I d/w RN she will get her first dose 09/03/19. 2. Diabetes mellitus. I explained to her that her blood sugars will get worse while she is on prednisone. I have advised her to follow instructions of the primary care team while she is in the hospital and follow up closely with her primary care physician upon discharge for management. 3. Cholelithiasis without evidence of cholecystitis. Appreciate GI consultation. Comment Review of Relevant I have reviewed the following items cira (where applicable) has been applied. Labs Laboratory Tests Test 09/01/19 18:35 09/01/19 20:07 09/01/19 22:40 09/02/19 11:00 Urine Collection Type Void Urine Color Alessandra Urine Clarity Clear Urine pH 6.0 Urine Specific [place] 1.015 Urine Protein Negative mg/dL (NEG-TRACE) Urine Glucose (UA) Negative mg/dL (NEG) Urine Ketones (Stick) Negative mg/dL (NEG) Urine Blood Negative (NEG) Urine Nitrite Negative (NEG) Urine Bilirubin Small (NEG) Urine Urobilinogen Dipstick 4.0 mg/dL (0.2 mg/dL) Urine Leukocyte Esterase Trace (NEG) Urine RBC 0 /HPF (0-2) Urine WBC 1-4 /HPF (0-4) Urine Squamous Epithelial Cells Occ /LPF Urine Bacteria Moderate /HPF (0-FEW) Urine Mucus Mod /LPF White Blood Count 5.5 x10^3/uL (4.0-11.0) Red Blood Count 5.16 x10^6/uL (3.50-5.40) Hemoglobin 14.8 g/dL (12.0-15.5) Hematocrit 44.5 % (36.0-47.0) Mean Corpuscular Volume 86 fL (79-100) Mean Corpuscular Hemoglobin 29 pg (25-35) Mean Corpuscular Hemoglobin Concent 33 g/dL (31-37) Red Cell Distribution Width 14.8 % (11.5-14.5) Platelet Count 130 x10^3/uL (140-400) Neutrophils (%) (Auto) 64 % (31-73) Lymphocytes (%) (Auto) 22 % (24-48) Monocytes (%) (Auto) 12 % (0-9) Eosinophils (%) (Auto) 1 % (0-3) Basophils (%) (Auto) 1 % (0-3) Neutrophils # (Auto) 3.5 x10^3/uL (1.8-7.7) Lymphocytes # (Auto) 1.2 x10^3/uL (1.0-4.8) Monocytes # (Auto) 0.6 x10^3/uL (0.0-1.1) Eosinophils # (Auto) 0.1 x10^3/uL (0.0-0.7) Basophils # (Auto) 0.1 x10^3/uL (0.0-0.2) Sodium Level 138 mmol/L (136-145) Potassium Level 3.0 mmol/L (3.5-5.1) Chloride Level 98 mmol/L (98-107) Carbon Dioxide Level 32 mmol/L (21-32) Anion Gap 8 (6-14) Blood Urea Nitrogen 12 mg/dL (7-20) Creatinine 0.8 mg/dL (0.6-1.0) Estimated GFR (Cockcroft-Gault) 73.4 BUN/Creatinine Ratio 15 (6-20) Glucose Level 123 mg/dL (70-99) Lactic Acid Level 1.2 mmol/L (0.4-2.0) Calcium Level 9.3 mg/dL (8.5-10.1) Total Bilirubin 1.8 mg/dL (0.2-1.0) Aspartate Amino Transf (AST/SGOT) 1182 U/L (15-37) Alanine Aminotransferase (ALT/SGPT) 877 U/L (14-59) Alkaline Phosphatase 436 U/L (46-116) Total Protein 7.6 g/dL (6.4-8.2) Albumin 3.4 g/dL (3.4-5.0) Albumin/Globulin Ratio 0.8 (1.0-1.7) Lipase 151 U/L (73-393) Influenza Type A Antigen Negative (NEGATIVE) Influenza Type B Antigen Negative (NEGATIVE) Prothrombin Time 14.1 SEC (11.7-14.0) Prothromb Time International Ratio 1.1 (0.8-1.1) Hepatitis A IgM Antibody Nonreactive (Nonreactive) Hepatitis B Surface Antigen Nonreactive (Nonreactive) Hepatitis B Core IgM Antibody Nonreactive (Nonreactive) Hepatitis C IgG Antibody Nonreactive (Nonreactive) Test 09/03/19 05:05 Sodium Level 140 mmol/L (136-145) Potassium Level 3.3 mmol/L (3.5-5.1) Chloride Level 103 mmol/L (98-107) Carbon Dioxide Level 26 mmol/L (21-32) Anion Gap 11 (6-14) Blood Urea Nitrogen 9 mg/dL (7-20) Creatinine 0.7 mg/dL (0.6-1.0) Estimated GFR (Cockcroft-Gault) 85.6 BUN/Creatinine Ratio 13 (6-20) Glucose Level 139 mg/dL (70-99) Calcium Level 8.4 mg/dL (8.5-10.1) Magnesium Level 2.2 mg/dL (1.8-2.4) Total Bilirubin 2.3 mg/dL (0.2-1.0) Aspartate Amino Transf (AST/SGOT) 1088 U/L (15-37) Alanine Aminotransferase (ALT/SGPT) 911 U/L (14-59) Alkaline Phosphatase 392 U/L (46-116) Total Protein 6.3 g/dL (6.4-8.2) Albumin 2.9 g/dL (3.4-5.0) Albumin/Globulin Ratio 0.9 (1.0-1.7) Laboratory Tests Test 09/02/19 11:00 09/03/19 05:05 Prothrombin Time 14.1 SEC (11.7-14.0) Prothromb Time International Ratio 1.1 (0.8-1.1) Hepatitis A IgM Antibody Nonreactive (Nonreactive) Hepatitis B Surface Antigen Nonreactive (Nonreactive) Hepatitis B Core IgM Antibody Nonreactive (Nonreactive) Hepatitis C IgG Antibody Nonreactive (Nonreactive) Sodium Level 140 mmol/L (136-145) Potassium Level 3.3 mmol/L (3.5-5.1) Chloride Level 103 mmol/L (98-107) Carbon Dioxide Level 26 mmol/L (21-32) Anion Gap 11 (6-14) Blood Urea Nitrogen 9 mg/dL (7-20) Creatinine 0.7 mg/dL (0.6-1.0) Estimated GFR (Cockcroft-Gault) 85.6 BUN/Creatinine Ratio 13 (6-20) Glucose Level 139 mg/dL (70-99) Calcium Level 8.4 mg/dL (8.5-10.1) Magnesium Level 2.2 mg/dL (1.8-2.4) Total Bilirubin 2.3 mg/dL (0.2-1.0) Aspartate Amino Transf (AST/SGOT) 1088 U/L (15-37) Alanine Aminotransferase (ALT/SGPT) 911 U/L (14-59) Alkaline Phosphatase 392 U/L (46-116) Total Protein 6.3 g/dL (6.4-8.2) Albumin 2.9 g/dL (3.4-5.0) Albumin/Globulin Ratio 0.9 (1.0-1.7) Medications Current Medications Fentanyl Citrate (Fentanyl 2ml Vial) 50 mcg 1X ONCE IVP Last administered on 09/01/19at 20:39; Start 09/01/19 at 19:15; Stop 09/01/19 at 19:16; Status DC Sodium Chloride (NORMAL SALINE FLUSH for STERILE FIELD) 10 ml STK-MED ONCE .ROUTE ; Start 09/01/19 at 19:55; Stop 09/01/19 at 19:55; Status DC Piperacillin Sod/ Tazobactam Sod 4.5 gm/Sodium Chloride 100 ml @ 200 mls/hr 1X ONCE IV Last administered on 09/01/19at 23:54; Start 09/01/19 at 23:00; Stop 09/01/19 at 23:29; Status DC Metronidazole 100 ml @ 100 mls/hr 1X ONCE IV Last administered on 09/02/19at 01:23; Start 09/01/19 at 23:00; Stop 09/01/19 at 23:59; Status DC Ondansetron HCl (Zofran) 4 mg PRN Q8HRS PRN IV NAUSEA/VOMITING; Start 09/01/19 at 23:00; Stop 09/02/19 at 22:59; Status DC Fentanyl Citrate (Fentanyl 2ml Vial) 50 mcg PRN Q1HR PRN IV PAIN Last administered on 09/02/19at 20:21; Start 09/01/19 at 23:00; Stop 09/02/19 at 22:59; Status DC Sodium Chloride 1,000 ml @ 75 mls/hr [id number] IV Last administered on 09/02/19at 14:48; Start 09/01/19 at 23:00; Stop 09/02/19 at 22:59; Status DC Potassium Chloride (Klor-Con) 40 meq 1X ONCE PO ; Start 09/02/19 at 09:30; Stop 09/02/19 at 09:31; Status DC Prednisone (Prednisone) 100 mg DAILY PO ; Start 09/02/19 at 09:45 Potassium Chloride/Water 100 ml @ 100 mls/hr Q1H IV Last administered on 09/02/19at 14:44; Start 09/02/19 at 10:00; Stop 09/02/19 at 11:59; Status DC Amlodipine Besylate (Norvasc) 10 mg DAILY PO ; Start 09/03/19 at 09:00 Metoprolol Tartrate (Lopressor) 50 mg BID PO Last administered on 09/02/19at 20:51; Start 09/02/19 at 11:00 Temazepam (Restoril) 7.5 mg PRN QHS PRN PO SLEEP; Start 09/02/19 at 10:30 Atorvastatin Calcium (Lipitor) 80 mg QHS PO Last administered on 09/02/19at 20:51; Start 09/02/19 at 21:00 Losartan Potassium (Cozaar) 100 mg DAILY PO ; Start 09/02/19 at 11:00 Pantoprazole Sodium (PROTONIX VIAL for IV PUSH) 40 mg DAILYAC IVP Last administered on 09/02/19at 14:48; Start 09/02/19 at 11:30 Fentanyl Citrate (Fentanyl 2ml Vial) 50 mcg PRN Q2HR PRN IVP PAIN Last administered on 09/03/19at 01:38; Start 09/03/19 at 00:45 Active Scripts Active Reported Opdivo (Nivolumab) 40 Mg/4 Ml Vial 40 Mg IV IMMUNOTHERAPY Q3WKS Opdivo (Nivolumab) 40 Mg/4 Ml Vial 40 Mg IV IMMUNOTHERAPY Q2WKS Yervoy (Ipilimumab) 50 Mg/10 Ml Vial 50 Mg IV IMMUNOTHERAPY Q3WKS Temazepam 7.5 Mg Capsule 7.5 Mg PO HS PRN Metoprolol Tartrate 50 Mg Tablet 50 Mg PO BID Metformin Hcl 500 Mg Tablet 500 Mg PO BIDWMEALS Hydrochlorothiazide Tablet (Hydrochlorothiazide) 25 Mg Tablet 25 Mg PO DAILY Atacand (Candesartan Cilexetil) 16 Mg Tablet 16 Mg PO DAILY Lipitor (Atorvastatin Calcium) 80 Mg Tablet 80 Mg PO HS Eliquis (Apixaban) 5 Mg Tablet 5 Mg PO BID Amlodipine Besylate 10 Mg Tablet 10 Mg PO DAILY Vitals/I & O Vital Sign - Last 24 Hours 09/02/19 09/02/19 09/02/19 09/02/19 11:00 15:00 19:00 20:05 Temp 98.2 97.7 98.2 98.2 97.7 98.2 Pulse 65 56 66 Resp 16 18 18 B/P (MAP) 119/71 (87) 128/58 (81) 157/90 (112) Pulse Ox 95 96 97 O2 Delivery Room Air Room Air Room Air Room Air 09/02/19 09/02/19 09/02/19 09/03/19 20:21 20:51 23:00 01:38 Temp 98.0 98.0 Pulse 66 59 Resp 20 18 20 B/P (MAP) 157/90 114/62 (79) Pulse Ox 95 O2 Delivery Room Air Room Air Room Air 09/03/19 09/03/19 09/03/19 02:08 03:00 07:00 Temp 98.7 99.1 98.7 99.1 Pulse 59 56 Resp 20 18 16 B/P (MAP) 112/54 (73) 142/64 (90) Pulse Ox 94 90 O2 Delivery Room Air Room Air Room Air Intake and Output 09/02/19 09/02/19 09/03/19 15:00 23:00 07:00 Intake Total 525 ml Balance 525 ml OBED AUGUSTINE MD Sep 03, 2019 09:08
[2019-09-03 09:13] LABS: BASO % 1 % (0-3); EOS # 0.1 x10^3/uL (0.0-0.7); EOS % 2 % (0-3); HEMOGLOBIN 14.4 g/dL (12.0-15.5); LYMPH # 1.1 x10^3/uL (1.0-4.8); LYMPH % 18 % (24-48); MEAN CORPUSCULAR HEMOGLOBIN 28 pg (25-35); MEAN CORPUSCULAR HGB CONC 34 g/dL (31-37); MEAN CORPUSCULAR VOLUME 85 fL (79-100); MONO # 0.6 x10^3/uL (0.0-1.1); MONO % 10 % (0-9); NEUT # 4.2 x10^3/uL (1.8-7.7); NEUT % 69 % (31-73); PLATELET COUNT 103 x10^3/uL (140-400); RED BLOOD COUNT 5.06 x10^6/uL (3.50-5.40); RED CELL DISTRIBUTION WIDTH 14.3 % (11.5-14.5)
--- NOTE | 2019-09-03 09:18 | NUR ---
SW following. Discussed with RN, pt from home with . No surgical candidate, gets around fine. SW will continue to follow.
[2019-09-03] MEDS: predniSONE 20 MG TABLET PO SCH (09:25)
[2019-09-03] MEDS: amLODIPine BESYLATE 10 MG TABLET PO SCH (09:26)
[2019-09-03] MEDS: PANTOPRAZOLE IV PUSH 40 MG VIAL. IVP SCH (09:27)
[2019-09-03] MEDS: LOSARTAN POTASSIUM 50 MG TABLET. PO SCH (09:27)
[2019-09-03 10:57] VITALS: BP 149/87
--- NOTE | 2019-09-03 12:44 | PDOC ---
Subjective: Subjective: Doesn't feel very well today. Occasional upper abd discomfort - unrelated to eating. Not much appetite, has some nausea. Objective: Vital Signs: Vital Signs Date Time Temp Pulse Resp B/P (MAP) Pulse Ox O2 Delivery O2 Flow Rate FiO2 09/03/19 10:57 98.5 66 18 149/87 (107) 94 Room Air 98.5 Labs: Laboratory Tests Test 09/03/19 05:05 09/03/19 08:20 Sodium Level 140 mmol/L Potassium Level 3.3 mmol/L Chloride Level 103 mmol/L Carbon Dioxide Level 26 mmol/L Anion Gap 11 Blood Urea Nitrogen 9 mg/dL Creatinine 0.7 mg/dL Estimated GFR (Cockcroft-Gault) 85.6 BUN/Creatinine Ratio 13 Glucose Level 139 mg/dL Calcium Level 8.4 mg/dL Magnesium Level 2.2 mg/dL Total Bilirubin 2.3 mg/dL Aspartate Amino Transf (AST/SGOT) 1088 U/L Alanine Aminotransferase (ALT/SGPT) 911 U/L Alkaline Phosphatase 392 U/L Total Protein 6.3 g/dL Albumin 2.9 g/dL Albumin/Globulin Ratio 0.9 White Blood Count 6.0 x10^3/uL Red Blood Count 5.06 x10^6/uL Hemoglobin 14.4 g/dL Hematocrit 43.0 % Mean Corpuscular Volume 85 fL Mean Corpuscular Hemoglobin 28 pg Mean Corpuscular Hemoglobin Concent 34 g/dL Red Cell Distribution Width 14.3 % Platelet Count 103 x10^3/uL Neutrophils (%) (Auto) 69 % Lymphocytes (%) (Auto) 18 % Monocytes (%) (Auto) 10 % Eosinophils (%) (Auto) 2 % Basophils (%) (Auto) 1 % Neutrophils # (Auto) 4.2 x10^3/uL Lymphocytes # (Auto) 1.1 x10^3/uL Monocytes # (Auto) 0.6 x10^3/uL Eosinophils # (Auto) 0.1 x10^3/uL Basophils # (Auto) 0.0 x10^3/uL Imaging: HIDA 09/02 IMPRESSION: The cystic duct is patent. PE: GEN: NAD LUNGS: CTAB HEART: RRR ABD: NABS, S/ND/NT NEURO/PSYCH: A & O 3 A/P: Stage IV RCC Hepatitis - heme/onc following, suspect related to immunotherapy, on prednisone Cholelithiasis, hepatic steatosis - HIDA as above H/o gastric bypass -- Continue support per GI. PO PPI. She does request something for nausea - try Zofran. Hemodynamically unstable?: No Is patient in severe pain?: No Is NPO status required?: No RUSS VENCES Sep 03, 2019 12:44
[2019-09-03] MEDS ORDERED: ONDANSETRON PF 4 MG/2 ML VIAL. IVP PRN (12:45)
[2019-09-03 15:00] VITALS: BP 132/72
--- NOTE | 2019-09-03 15:10 | PDOC ---
PROGRESS NOTES Chief Complaint Chief Complaint acute immune hepatitis, Dr. Roland has started stress dose prednisone 100/day Cholelithiasis. metastatic renal cell carcinoma, s/p nephrectomy obese, BMI 47 Dm2, hx cva hypokalemia History of Present Illness History of Present Illness pain control is poor stress dose prednison OOB as able DC soon, GI and onc following Vitals Vitals Vital Signs Date Time Temp Pulse Resp B/P (MAP) Pulse Ox O2 Delivery O2 Flow Rate FiO2 09/03/19 14:40 Room Air 09/03/19 10:57 98.5 66 18 149/87 (107) 94 98.5 Physical Exam General: Alert, Oriented X3 Heart: Normal S1, Normal S2 Abdomen: Soft, Other (ND, diffusely tender on exam, no guarding or rebound ) Extremities: No clubbing, No edema Skin: No significant lesion Labs LABS Laboratory Tests Test 09/03/19 05:05 09/03/19 08:20 Sodium Level 140 mmol/L (136-145) Potassium Level 3.3 mmol/L (3.5-5.1) Chloride Level 103 mmol/L (98-107) Carbon Dioxide Level 26 mmol/L (21-32) Anion Gap 11 (6-14) Blood Urea Nitrogen 9 mg/dL (7-20) Creatinine 0.7 mg/dL (0.6-1.0) Estimated GFR (Cockcroft-Gault) 85.6 BUN/Creatinine Ratio 13 (6-20) Glucose Level 139 mg/dL (70-99) Calcium Level 8.4 mg/dL (8.5-10.1) Magnesium Level 2.2 mg/dL (1.8-2.4) Total Bilirubin 2.3 mg/dL (0.2-1.0) Aspartate Amino Transf (AST/SGOT) 1088 U/L (15-37) Alanine Aminotransferase (ALT/SGPT) 911 U/L (14-59) Alkaline Phosphatase 392 U/L (46-116) Total Protein 6.3 g/dL (6.4-8.2) Albumin 2.9 g/dL (3.4-5.0) Albumin/Globulin Ratio 0.9 (1.0-1.7) White Blood Count 6.0 x10^3/uL (4.0-11.0) Red Blood Count 5.06 x10^6/uL (3.50-5.40) Hemoglobin 14.4 g/dL (12.0-15.5) Hematocrit 43.0 % (36.0-47.0) Mean Corpuscular Volume 85 fL (79-100) Mean Corpuscular Hemoglobin 28 pg (25-35) Mean Corpuscular Hemoglobin Concent 34 g/dL (31-37) Red Cell Distribution Width 14.3 % (11.5-14.5) Platelet Count 103 x10^3/uL (140-400) Neutrophils (%) (Auto) 69 % (31-73) Lymphocytes (%) (Auto) 18 % (24-48) Monocytes (%) (Auto) 10 % (0-9) Eosinophils (%) (Auto) 2 % (0-3) Basophils (%) (Auto) 1 % (0-3) Neutrophils # (Auto) 4.2 x10^3/uL (1.8-7.7) Lymphocytes # (Auto) 1.1 x10^3/uL (1.0-4.8) Monocytes # (Auto) 0.6 x10^3/uL (0.0-1.1) Eosinophils # (Auto) 0.1 x10^3/uL (0.0-0.7) Basophils # (Auto) 0.0 x10^3/uL (0.0-0.2) Assessment and Plan Assessmemt and Plan Problems Medical Problems: (1) Cholecystitis with cholelithiasis Status: Acute Comment Review of Relevant I have reviewed the following items cira (where applicable) has been applied. Labs Laboratory Tests Test 09/01/19 18:35 09/01/19 20:07 09/01/19 22:40 09/02/19 11:00 Urine Collection Type Void Urine Color Alessandra Urine Clarity Clear Urine pH 6.0 Urine Specific [place] 1.015 Urine Protein Negative mg/dL (NEG-TRACE) Urine Glucose (UA) Negative mg/dL (NEG) Urine Ketones (Stick) Negative mg/dL (NEG) Urine Blood Negative (NEG) Urine Nitrite Negative (NEG) Urine Bilirubin Small (NEG) Urine Urobilinogen Dipstick 4.0 mg/dL (0.2 mg/dL) Urine Leukocyte Esterase Trace (NEG) Urine RBC 0 /HPF (0-2) Urine WBC 1-4 /HPF (0-4) Urine Squamous Epithelial Cells Occ /LPF Urine Bacteria Moderate /HPF (0-FEW) Urine Mucus Mod /LPF White Blood Count 5.5 x10^3/uL (4.0-11.0) Red Blood Count 5.16 x10^6/uL (3.50-5.40) Hemoglobin 14.8 g/dL (12.0-15.5) Hematocrit 44.5 % (36.0-47.0) Mean Corpuscular Volume 86 fL (79-100) Mean Corpuscular Hemoglobin 29 pg (25-35) Mean Corpuscular Hemoglobin Concent 33 g/dL (31-37) Red Cell Distribution Width 14.8 % (11.5-14.5) Platelet Count 130 x10^3/uL (140-400) Neutrophils (%) (Auto) 64 % (31-73) Lymphocytes (%) (Auto) 22 % (24-48) Monocytes (%) (Auto) 12 % (0-9) Eosinophils (%) (Auto) 1 % (0-3) Basophils (%) (Auto) 1 % (0-3) Neutrophils # (Auto) 3.5 x10^3/uL (1.8-7.7) Lymphocytes # (Auto) 1.2 x10^3/uL (1.0-4.8) Monocytes # (Auto) 0.6 x10^3/uL (0.0-1.1) Eosinophils # (Auto) 0.1 x10^3/uL (0.0-0.7) Basophils # (Auto) 0.1 x10^3/uL (0.0-0.2) Sodium Level 138 mmol/L (136-145) Potassium Level 3.0 mmol/L (3.5-5.1) Chloride Level 98 mmol/L (98-107) Carbon Dioxide Level 32 mmol/L (21-32) Anion Gap 8 (6-14) Blood Urea Nitrogen 12 mg/dL (7-20) Creatinine 0.8 mg/dL (0.6-1.0) Estimated GFR (Cockcroft-Gault) 73.4 BUN/Creatinine Ratio 15 (6-20) Glucose Level 123 mg/dL (70-99) Lactic Acid Level 1.2 mmol/L (0.4-2.0) Calcium Level 9.3 mg/dL (8.5-10.1) Total Bilirubin 1.8 mg/dL (0.2-1.0) Aspartate Amino Transf (AST/SGOT) 1182 U/L (15-37) Alanine Aminotransferase (ALT/SGPT) 877 U/L (14-59) Alkaline Phosphatase 436 U/L (46-116) Total Protein 7.6 g/dL (6.4-8.2) Albumin 3.4 g/dL (3.4-5.0) Albumin/Globulin Ratio 0.8 (1.0-1.7) Lipase 151 U/L (73-393) Influenza Type A Antigen Negative (NEGATIVE) Influenza Type B Antigen Negative (NEGATIVE) Prothrombin Time 14.1 SEC (11.7-14.0) Prothromb Time International Ratio 1.1 (0.8-1.1) Hepatitis A IgM Antibody Nonreactive (Nonreactive) Hepatitis B Surface Antigen Nonreactive (Nonreactive) Hepatitis B Core IgM Antibody Nonreactive (Nonreactive) Hepatitis C IgG Antibody Nonreactive (Nonreactive) Test 09/03/19 05:05 09/03/19 08:20 Sodium Level 140 mmol/L (136-145) Potassium Level 3.3 mmol/L (3.5-5.1) Chloride Level 103 mmol/L (98-107) Carbon Dioxide Level 26 mmol/L (21-32) Anion Gap 11 (6-14) Blood Urea Nitrogen 9 mg/dL (7-20) Creatinine 0.7 mg/dL (0.6-1.0) Estimated GFR (Cockcroft-Gault) 85.6 BUN/Creatinine Ratio 13 (6-20) Glucose Level 139 mg/dL (70-99) Calcium Level 8.4 mg/dL (8.5-10.1) Magnesium Level 2.2 mg/dL (1.8-2.4) Total Bilirubin 2.3 mg/dL (0.2-1.0) Aspartate Amino Transf (AST/SGOT) 1088 U/L (15-37) Alanine Aminotransferase (ALT/SGPT) 911 U/L (14-59) Alkaline Phosphatase 392 U/L (46-116) Total Protein 6.3 g/dL (6.4-8.2) Albumin 2.9 g/dL (3.4-5.0) Albumin/Globulin Ratio 0.9 (1.0-1.7) White Blood Count 6.0 x10^3/uL (4.0-11.0) Red Blood Count 5.06 x10^6/uL (3.50-5.40) Hemoglobin 14.4 g/dL (12.0-15.5) Hematocrit 43.0 % (36.0-47.0) Mean Corpuscular Volume 85 fL (79-100) Mean Corpuscular Hemoglobin 28 pg (25-35) Mean Corpuscular Hemoglobin Concent 34 g/dL (31-37) Red Cell Distribution Width 14.3 % (11.5-14.5) Platelet Count 103 x10^3/uL (140-400) Neutrophils (%) (Auto) 69 % (31-73) Lymphocytes (%) (Auto) 18 % (24-48) Monocytes (%) (Auto) 10 % (0-9) Eosinophils (%) (Auto) 2 % (0-3) Basophils (%) (Auto) 1 % (0-3) Neutrophils # (Auto) 4.2 x10^3/uL (1.8-7.7) Lymphocytes # (Auto) 1.1 x10^3/uL (1.0-4.8) Monocytes # (Auto) 0.6 x10^3/uL (0.0-1.1) Eosinophils # (Auto) 0.1 x10^3/uL (0.0-0.7) Basophils # (Auto) 0.0 x10^3/uL (0.0-0.2) Laboratory Tests Test 09/03/19 05:05 09/03/19 08:20 Sodium Level 140 mmol/L (136-145) Potassium Level 3.3 mmol/L (3.5-5.1) Chloride Level 103 mmol/L (98-107) Carbon Dioxide Level 26 mmol/L (21-32) Anion Gap 11 (6-14) Blood Urea Nitrogen 9 mg/dL (7-20) Creatinine 0.7 mg/dL (0.6-1.0) Estimated GFR (Cockcroft-Gault) 85.6 BUN/Creatinine Ratio 13 (6-20) Glucose Level 139 mg/dL (70-99) Calcium Level 8.4 mg/dL (8.5-10.1) Magnesium Level 2.2 mg/dL (1.8-2.4) Total Bilirubin 2.3 mg/dL (0.2-1.0) Aspartate Amino Transf (AST/SGOT) 1088 U/L (15-37) Alanine Aminotransferase (ALT/SGPT) 911 U/L (14-59) Alkaline Phosphatase 392 U/L (46-116) Total Protein 6.3 g/dL (6.4-8.2) Albumin 2.9 g/dL (3.4-5.0) Albumin/Globulin Ratio 0.9 (1.0-1.7) White Blood Count 6.0 x10^3/uL (4.0-11.0) Red Blood Count 5.06 x10^6/uL (3.50-5.40) Hemoglobin 14.4 g/dL (12.0-15.5) Hematocrit 43.0 % (36.0-47.0) Mean Corpuscular Volume 85 fL (79-100) Mean Corpuscular Hemoglobin 28 pg (25-35) Mean Corpuscular Hemoglobin Concent 34 g/dL (31-37) Red Cell Distribution Width 14.3 % (11.5-14.5) Platelet Count 103 x10^3/uL (140-400) Neutrophils (%) (Auto) 69 % (31-73) Lymphocytes (%) (Auto) 18 % (24-48) Monocytes (%) (Auto) 10 % (0-9) Eosinophils (%) (Auto) 2 % (0-3) Basophils (%) (Auto) 1 % (0-3) Neutrophils # (Auto) 4.2 x10^3/uL (1.8-7.7) Lymphocytes # (Auto) 1.1 x10^3/uL (1.0-4.8) Monocytes # (Auto) 0.6 x10^3/uL (0.0-1.1) Eosinophils # (Auto) 0.1 x10^3/uL (0.0-0.7) Basophils # (Auto) 0.0 x10^3/uL (0.0-0.2) Medications Current Medications Fentanyl Citrate (Fentanyl 2ml Vial) 50 mcg 1X ONCE IVP Last administered on 09/01/19at 20:39; Start 09/01/19 at 19:15; Stop 09/01/19 at 19:16; Status DC Sodium Chloride (NORMAL SALINE FLUSH for STERILE FIELD) 10 ml STK-MED ONCE .ROU TE ; Start 09/01/19 at 19:55; Stop 09/01/19 at 19:55; Status DC Piperacillin Sod/ Tazobactam Sod 4.5 gm/Sodium Chloride 100 ml @ 200 mls/hr 1X ONCE IV Last administered on 09/01/19at 23:54; Start 09/01/19 at 23:00; Stop 09/01/19 at 23:29; Status DC Metronidazole 100 ml @ 100 mls/hr 1X ONCE IV Last administered on 09/02/19at 01:23; Start 09/01/19 at 23:00; Stop 09/01/19 at 23:59; Status DC Ondansetron HCl (Zofran) 4 mg PRN Q8HRS PRN IV NAUSEA/VOMITING; Start 09/01/19 at 23:00; Stop 09/02/19 at 22:59; Status DC Fentanyl Citrate (Fentanyl 2ml Vial) 50 mcg PRN Q1HR PRN IV PAIN Last administered on 09/02/19at 20:21; Start 09/01/19 at 23:00; Stop 09/02/19 at 22:59; Status DC Sodium Chloride 1,000 ml @ 75 mls/hr [id number] IV Last administered on 09/02/19at 14:48; Start 09/01/19 at 23:00; Stop 09/02/19 at 22:59; Status DC Potassium Chloride (Klor-Con) 40 meq 1X ONCE PO ; Start 09/02/19 at 09:30; Stop 09/02/19 at 09:31; Status DC Prednisone (Prednisone) 100 mg DAILY PO Last administered on 09/03/19at 09:25; Start 09/02/19 at 09:45 Potassium Chloride/Water 100 ml @ 100 mls/hr Q1H IV Last administered on 09/02/19at 14:44; Start 09/02/19 at 10:00; Stop 09/02/19 at 11:59; Status DC Amlodipine Besylate (Norvasc) 10 mg DAILY PO Last administered on 09/03/19at 0 9:26; Start 09/03/19 at 09:00 Metoprolol Tartrate (Lopressor) 50 mg BID PO Last administered on 09/02/19at 20:51; Start 09/02/19 at 11:00 Temazepam (Restoril) 7.5 mg PRN QHS PRN PO SLEEP; Start 09/02/19 at 10:30 Atorvastatin Calcium (Lipitor) 80 mg QHS PO Last administered on 09/02/19at 20:51; Start 09/02/19 at 21:00 Losartan Potassium (Cozaar) 100 mg DAILY PO Last administered on 09/03/19at 09:27; Start 09/02/19 at 11:00 Pantoprazole Sodium (PROTONIX VIAL for IV PUSH) 40 mg DAILYAC IVP Last administered on 09/03/19at 09:27; Start 09/02/19 at 11:30; Stop 09/03/19 at 12:45; Status DC Fentanyl Citrate (Fentanyl 2ml Vial) 50 mcg PRN Q2HR PRN IVP PAIN Last administered on 09/03/19at 14:05; Start 09/03/19 at 00:45 Pantoprazole Sodium (Protonix) 40 mg DAILYAC PO ; Start 09/04/19 at 07:30 Ondansetron HCl (Zofran) 4 mg PRN Q8HRS PRN IVP NAUSEA/VOMITING; Start 09/03/19 at 12:45 Active Scripts Active Reported Opdivo (Nivolumab) 40 Mg/4 Ml Vial 40 Mg IV IMMUNOTHERAPY Q3WKS Opdivo (Nivolumab) 40 Mg/4 Ml Vial 40 Mg IV IMMUNOTHERAPY Q2WKS Yervoy (Ipilimumab) 50 Mg/10 Ml Vial 50 Mg IV IMMUNOTHERAPY Q3WKS Temazepam 7.5 Mg Capsule 7.5 Mg PO HS PRN Metoprolol Tartrate 50 Mg Tablet 50 Mg PO BID Metformin Hcl 500 Mg Tablet 500 Mg PO BIDWMEALS Hydrochlorothiazide Tablet (Hydrochlorothiazide) 25 Mg Tablet 25 Mg PO DAILY Atacand (Candesartan Cilexetil) 16 Mg Tablet 16 Mg PO DAILY Lipitor (Atorvastatin Calcium) 80 Mg Tablet 80 Mg PO HS Eliquis (Apixaban) 5 Mg Tablet 5 Mg PO BID Amlodipine Besylate 10 Mg Tablet 10 Mg PO DAILY Vitals/I & O Vital Sign - Last 24 Hours 09/02/19 09/02/19 09/02/19 09/02/19 19:00 20:05 20:21 20:51 Temp 98.2 98.2 Pulse 66 66 Resp 18 20 B/P (MAP) 157/90 (112) 157/90 Pulse Ox 97 O2 Delivery Room Air Room Air Room Air 09/02/19 09/03/19 09/03/19 09/03/19 23:00 01:38 02:08 03:00 Temp 98.0 98.7 98.0 98.7 Pulse 59 59 Resp 18 20 20 18 B/P (MAP) 114/62 (79) 112/54 (73) Pulse Ox 95 94 O2 Delivery Room Air Room Air Room Air Room Air 09/03/19 09/03/19 09/03/19 09/03/19 07:00 09:00 09:26 09:27 Temp 99.1 99.1 Pulse 56 56 56 Resp 16 B/P (MAP) 142/64 (90) 142/64 142/64 Pulse Ox 90 O2 Delivery Room Air Room Air 09/03/19 09/03/19 09/03/19 10:57 14:05 14:40 Temp 98.5 98.5 Pulse 66 Resp 18 B/P (MAP) 149/87 (107) Pulse Ox 94 O2 Delivery Room Air Room Air Room Air Intake and Output 09/02/19 09/02/19 09/03/19 15:00 23:00 07:00 Intake Total 525 ml Balance 525 ml Hemodynamically unstable?: No Is patient in severe pain?: No Is NPO status required?: No NIRANJAN PADGETT MD Sep 03, 2019 15:10
[2019-09-03 19:22] VITALS: BP 134/77
[2019-09-03] MEDS: ATORVASTATIN CALCIUM 40 MG TABLET. PO SCH (20:42)
[2019-09-03 23:05] VITALS: BP 142/71
[2019-09-04] MEDS: fentaNYL PF VIAL 100 MCG/2 ML VIAL IVP PRN ×2 (00:59→05:12)
[2019-09-04 02:03] VITALS: BP 131/77
[2019-09-04] MEDS: PANTOPRAZOLE 40 MG TABLET.DR. PO SCH (05:12)
[2019-09-04 05:42] LABS: HEMATOCRIT 41.1 % (36.0-47.0); HEMOGLOBIN 13.8 g/dL (12.0-15.5); RED BLOOD COUNT 4.75 x10^6/uL (3.50-5.40); RED CELL DISTRIBUTION WIDTH 15.1 % (11.5-14.5); WHITE BLOOD COUNT 7.6 x10^3/uL (4.0-11.0)
[2019-09-04 06:25] LABS: ALBUMIN/GLOBULIN RATIO 0.8 (1.0-1.7); CALCIUM 8.8 mg/dL (8.5-10.1); CREATININE 0.7 mg/dL (0.6-1.0); GFR 85.6; POTASSIUM 3.3 mmol/L (3.5-5.1); TOTAL BILIRUBIN 2.5 mg/dL (0.2-1.0); TOTAL PROTEIN 6.8 g/dL (6.4-8.2)
[2019-09-04 07:00] VITALS: BP 119/53
[2019-09-04] MEDS: predniSONE 20 MG TABLET PO SCH (08:58)
[2019-09-04] MEDS: amLODIPine BESYLATE 10 MG TABLET PO SCH (08:59)
[2019-09-04] MEDS: METOPROLOL TART IMMED RELEASE 50 MG TABLET. PO SCH ×2 (08:59→20:59)
[2019-09-04] MEDS: LOSARTAN POTASSIUM 50 MG TABLET. PO SCH (08:59)
[2019-09-04] MEDS ORDERED: POTASSIUM CHLORIDE 20 MEQ TABLET.ER. PO ONE (10:45)
[2019-09-04] MEDS ORDERED: BISACODYL 5 MG TABLET.DR. PO PRN (10:45)
[2019-09-04 11:00] VITALS: BP 135/65
--- NOTE | 2019-09-04 11:39 | PDOC ---
PROGRESS NOTES Chief Complaint Chief Complaint acute immune hepatitis, Dr. Roland has started stress dose prednisone 100/day Cholelithiasis. metastatic renal cell carcinoma, s/p nephrectomy obese, BMI 47 Dm2, hx cva hypokalemia History of Present Illness History of Present Illness pain control is poor stress dose prednison OOB as able DC soon, GI and onc following Vitals Vitals Vital Signs Date Time Temp Pulse Resp B/P (MAP) Pulse Ox O2 Delivery O2 Flow Rate FiO2 09/04/19 08:59 57 119/53 09/04/19 08:00 Room Air 09/04/19 07:00 98.1 16 95 98.1 Physical Exam General: Alert, Oriented X3 Heart: Normal S1, Normal S2 Abdomen: Soft, Other (ND, diffusely tender on exam, no guarding or rebound ) Extremities: No clubbing, No edema Skin: No significant lesion Labs LABS Laboratory Tests Test 09/04/19 05:00 White Blood Count 7.6 x10^3/uL (4.0-11.0) Red Blood Count 4.75 x10^6/uL (3.50-5.40) Hemoglobin 13.8 g/dL (12.0-15.5) Hematocrit 41.1 % (36.0-47.0) Mean Corpuscular Volume 86 fL (79-100) Mean Corpuscular Hemoglobin 29 pg (25-35) Mean Corpuscular Hemoglobin Concent 34 g/dL (31-37) Red Cell Distribution Width 15.1 % (11.5-14.5) Platelet Count 120 x10^3/uL (140-400) Sodium Level 143 mmol/L (136-145) Potassium Level 3.3 mmol/L (3.5-5.1) Chloride Level 105 mmol/L (98-107) Carbon Dioxide Level 27 mmol/L (21-32) Anion Gap 11 (6-14) Blood Urea Nitrogen 10 mg/dL (7-20) Creatinine 0.7 mg/dL (0.6-1.0) Estimated GFR (Cockcroft-Gault) 85.6 BUN/Creatinine Ratio 14 (6-20) Glucose Level 118 mg/dL (70-99) Calcium Level 8.8 mg/dL (8.5-10.1) Total Bilirubin 2.5 mg/dL (0.2-1.0) Aspartate Amino Transf (AST/SGOT) 863 U/L (15-37) Alanine Aminotransferase (ALT/SGPT) 864 U/L (14-59) Alkaline Phosphatase 396 U/L (46-116) Total Protein 6.8 g/dL (6.4-8.2) Albumin 3.0 g/dL (3.4-5.0) Albumin/Globulin Ratio 0.8 (1.0-1.7) Assessment and Plan Assessmemt and Plan Problems Medical Problems: (1) Cholecystitis with cholelithiasis Status: Acute Comment Review of Relevant I have reviewed the following items cira (where applicable) has been applied. Labs Laboratory Tests Test 09/03/19 05:05 09/03/19 08:20 09/04/19 05:00 Sodium Level 140 mmol/L (136-145) 143 mmol/L (136-145) Potassium Level 3.3 mmol/L (3.5-5.1) 3.3 mmol/L (3.5-5.1) Chloride Level 103 mmol/L (98-107) 105 mmol/L (98-107) Carbon Dioxide Level 26 mmol/L (21-32) 27 mmol/L (21-32) Anion Gap 11 (6-14) 11 (6-14) Blood Urea Nitrogen 9 mg/dL (7-20) 10 mg/dL (7-20) Creatinine 0.7 mg/dL (0.6-1.0) 0.7 mg/dL (0.6-1.0) Estimated GFR (Cockcroft-Gault) 85.6 85.6 BUN/Creatinine Ratio 13 (6-20) 14 (6-20) Glucose Level 139 mg/dL (70-99) 118 mg/dL (70-99) Calcium Level 8.4 mg/dL (8.5-10.1) 8.8 mg/dL (8.5-10.1) Magnesium Level 2.2 mg/dL (1.8-2.4) Total Bilirubin 2.3 mg/dL (0.2-1.0) 2.5 mg/dL (0.2-1.0) Aspartate Amino Transf (AST/SGOT) 1088 U/L (15-37) 863 U/L (15-37) Alanine Aminotransferase (ALT/SGPT) 911 U/L (14-59) 864 U/L (14-59) Alkaline Phosphatase 392 U/L (46-116) 396 U/L (46-116) Total Protein 6.3 g/dL (6.4-8.2) 6.8 g/dL (6.4-8.2) Albumin 2.9 g/dL (3.4-5.0) 3.0 g/dL (3.4-5.0) Albumin/Globulin Ratio 0.9 (1.0-1.7) 0.8 (1.0-1.7) White Blood Count 6.0 x10^3/uL (4.0-11.0) 7.6 x10^3/uL (4.0-11.0) Red Blood Count 5.06 x10^6/uL (3.50-5.40) 4.75 x10^6/uL (3.50-5.40) Hemoglobin 14.4 g/dL (12.0-15.5) 13.8 g/dL (12.0-15.5) Hematocrit 43.0 % (36.0-47.0) 41.1 % (36.0-47.0) Mean Corpuscular Volume 85 fL (79-100) 86 fL (79-100) Mean Corpuscular Hemoglobin 28 pg (25-35) 29 pg (25-35) Mean Corpuscular Hemoglobin Concent 34 g/dL (31-37) 34 g/dL (31-37) Red Cell Distribution Width 14.3 % (11.5-14.5) 15.1 % (11.5-14.5) Platelet Count 103 x10^3/uL (140-400) 120 x10^3/uL (140-400) Neutrophils (%) (Auto) 69 % (31-73) Lymphocytes (%) (Auto) 18 % (24-48) Monocytes (%) (Auto) 10 % (0-9) Eosinophils (%) (Auto) 2 % (0-3) Basophils (%) (Auto) 1 % (0-3) Neutrophils # (Auto) 4.2 x10^3/uL (1.8-7.7) Lymphocytes # (Auto) 1.1 x10^3/uL (1.0-4.8) Monocytes # (Auto) 0.6 x10^3/uL (0.0-1.1) Eosinophils # (Auto) 0.1 x10^3/uL (0.0-0.7) Basophils # (Auto) 0.0 x10^3/uL (0.0-0.2) Laboratory Tests Test 09/04/19 05:00 White Blood Count 7.6 x10^3/uL (4.0-11.0) Red Blood Count 4.75 x10^6/uL (3.50-5.40) Hemoglobin 13.8 g/dL (12.0-15.5) Hematocrit 41.1 % (36.0-47.0) Mean Corpuscular Volume 86 fL (79-100) Mean Corpuscular Hemoglobin 29 pg (25-35) Mean Corpuscular Hemoglobin Concent 34 g/dL (31-37) Red Cell Distribution Width 15.1 % (11.5-14.5) Platelet Count 120 x10^3/uL (140-400) Sodium Level 143 mmol/L (136-145) Potassium Level 3.3 mmol/L (3.5-5.1) Chloride Level 105 mmol/L (98-107) Carbon Dioxide Level 27 mmol/L (21-32) Anion Gap 11 (6-14) Blood Urea Nitrogen 10 mg/dL (7-20) Creatinine 0.7 mg/dL (0.6-1.0) Estimated GFR (Cockcroft-Gault) 85.6 BUN/Creatinine Ratio 14 (6-20) Glucose Level 118 mg/dL (70-99) Calcium Level 8.8 mg/dL (8.5-10.1) Total Bilirubin 2.5 mg/dL (0.2-1.0) Aspartate Amino Transf (AST/SGOT) 863 U/L (15-37) Alanine Aminotransferase (ALT/SGPT) 864 U/L (14-59) Alkaline Phosphatase 396 U/L (46-116) Total Protein 6.8 g/dL (6.4-8.2) Albumin 3.0 g/dL (3.4-5.0) Albumin/Globulin Ratio 0.8 (1.0-1.7) Microbiology 09/01/19 Urine Culture - Final, Complete 09/01/19 Urine Culture Result 1 (ELISSA) - Final, Complete Medications Current Medications Fentanyl Citrate (Fentanyl 2ml Vial) 50 mcg 1X ONCE IVP Last administered on 09/01/19at 20:39; Start 09/01/19 at 19:15; Stop 09/01/19 at 19:16; Status DC Sodium Chloride (NORMAL SALINE FLUSH for STERILE FIELD) 10 ml STK-MED ONCE .ROUTE ; Start 09/01/19 at 19:55; Stop 09/01/19 at 19:55; Status DC Piperacillin Sod/ Tazobactam Sod 4.5 gm/Sodium Chloride 100 ml @ 200 mls/hr 1X ONCE IV Last administered on 09/01/19at 23:54; Start 09/01/19 at 23:00; Stop 09/01/19 at 23:29; Status DC Metronidazole 100 ml @ 100 mls/hr 1X ONCE IV Last administered on 09/02/19at 01:23; Start 09/01/19 at 23:00; Stop 09/01/19 at 23:59; Status DC Ondansetron HCl (Zofran) 4 mg PRN Q8HRS PRN IV NAUSEA/VOMITING; Start 09/01/19 at 23:00; Stop 09/02/19 at 22:59; Status DC Fentanyl Citrate (Fentanyl 2ml Vial) 50 mcg PRN Q1HR PRN IV PAIN Last administered on 09/02/19at 20:21; Start 09/01/19 at 23:00; Stop 09/02/19 at 22:59; Status DC Sodium Chloride 1,000 ml @ 75 mls/hr [id number] IV Last administered on 09/02/19at 14:48; Start 09/01/19 at 23:00; Stop 09/02/19 at 22:59; Status DC Potassium Chloride (Klor-Con) 40 meq 1X ONCE PO ; Start 09/02/19 at 09:30; Stop 09/02/19 at 09:31; Status DC Prednisone (Prednisone) 100 mg DAILY PO Last administered on 09/04/19at 08:58; Start 09/02/19 at 09:45 Potassium Chloride/Water 100 ml @ 100 mls/hr Q1H IV Last administered on 09/02/19at 14:44; Start 09/02/19 at 10:00; Stop 09/02/19 at 11:59; Status DC Amlodipine Besylate (Norvasc) 10 mg DAILY PO Last administered on 09/04/19 08:59; Start 09/03/19 at 09:00 Metoprolol Tartrate (Lopressor) 50 mg BID PO Last administered on 09/03/19at 20:43; Start 09/02/19 at 11:00 Temazepam (Restoril) 7.5 mg PRN QHS PRN PO SLEEP; Start 09/02/19 at 10:30 Atorvastatin Calcium (Lipitor) 80 mg QHS PO Last administered on 09/03/19at 20:42; Start 09/02/19 at 21:00 Losartan Potassium (Cozaar) 100 mg DAILY PO Last administered on 09/04/19at 08:59; Start 09/02/19 at 11:00 Pantoprazole Sodium (PROTONIX VIAL for IV PUSH) 40 mg DAILYAC IVP Last administered on 09/03/19at 09:27; Start 09/02/19 at 11:30; Stop 09/03/19 at 12:45; Status DC Fentanyl Citrate (Fentanyl 2ml Vial) 50 mcg PRN Q2HR PRN IVP PAIN Last administered on 09/04/19at 05:12; Start 09/03/19 at 00:45 Pantoprazole Sodium (Protonix) 40 mg DAILYAC PO Last administered on 09/04/19at 05:12; Start 09/04/19 at 07:30 Ondansetron HCl (Zofran) 4 mg PRN Q8HRS PRN IVP NAUSEA/VOMITING; Start 09/03/19 at 12:45 Oxycodone/ Acetaminophen (Percocet 5/325) 1 tab PRN Q4HRS PRN PO PAIN; Start 09/04/19 at 10:45 Bisacodyl (Dulcolax Tab) 10 mg PRN DAILY PRN PO CONSTIPATION; Start 09/04/19 at 10:45 Potassium Chloride (Klor-Con) 40 meq 1X ONCE PO ; Start 09/04/19 at 10:45; Stop 09/04/19 at 10:46; Status DC Active Scripts Active Reported Opdivo (Nivolumab) 40 Mg/4 Ml Vial 40 Mg IV IMMUNOTHERAPY Q3WKS Opdivo (Nivolumab) 40 Mg/4 Ml Vial 40 Mg IV IMMUNOTHERAPY Q2WKS Yervoy (Ipilimumab) 50 Mg/10 Ml Vial 50 Mg IV IMMUNOTHERAPY Q3WKS Temazepam 7.5 Mg Capsule 7.5 Mg PO HS PRN Metoprolol Tartrate 50 Mg Tablet 50 Mg PO BID Metformin Hcl 500 Mg Tablet 500 Mg PO BIDWMEALS Hydrochlorothiazide Tablet (Hydrochlorothiazide) 25 Mg Tablet 25 Mg PO DAILY Atacand (Candesartan Cilexetil) 16 Mg Tablet 16 Mg PO DAILY Lipitor (Atorvastatin Calcium) 80 Mg Tablet 80 Mg PO HS Eliquis (Apixaban) 5 Mg Tablet 5 Mg PO BID Amlodipine Besylate 10 Mg Tablet 10 Mg PO DAILY Vitals/I & O Vital Sign - Last 24 Hours 09/03/19 09/03/19 09/03/19 09/03/19 14:05 14:40 15:00 19:22 Temp 98.4 98.1 98.4 98.1 Pulse 78 94 Resp 18 18 B/P (MAP) 132/72 (92) 134/77 (96) Pulse Ox 96 97 O2 Delivery Room Air Room Air Room Air Room Air 09/03/19 09/03/19 09/03/19 09/03/19 20:00 20:09 20:39 20:43 Pulse 78 Resp 20 18 B/P (MAP) 132/72 Pulse Ox 96 96 O2 Delivery Room Air Room Air Room Air 09/03/19 09/04/19 09/04/19 09/04/19 23:05 00:59 01:29 02:03 Temp 97.6 98.3 97.6 98.3 Pulse 67 56 Resp 16 20 18 18 B/P (MAP) 142/71 (94) 131/77 (95) Pulse Ox 95 95 93 O2 Delivery Room Air Room Air Room Air Room Air 09/04/19 09/04/19 09/04/19 09/04/19 05:12 05:42 07:00 08:00 Temp 98.1 98.1 Pulse 57 Resp 20 20 16 B/P (MAP) 119/53 (75) Pulse Ox 93 93 95 O2 Delivery Room Air Room Air Room Air Room Air 09/04/19 09/04/19 08:59 08:59 Pulse 53 57 B/P (MAP) 119/53 119/53 Intake and Output 09/03/19 09/03/19 09/04/19 15:00 23:00 07:00 Intake Total 200 ml 1400 ml 490 ml Balance 200 ml 1400 ml 490 ml Hemodynamically unstable?: No Is patient in severe pain?: No Is NPO status required?: No NIRANJAN PADGETT MD Sep 04, 2019 11:39
--- NOTE | 2019-09-04 11:41 | NUR ---
SW following. Discussed with RN RN advised no SW needs and anticipates possible discharge home with self care today. SW will continue to follow, should any discharge planning needs arise.
--- NOTE | 2019-09-04 13:47 | PDOC ---
Subjective: Subjective: Didn't feel good overnight - upper abdominal discomfort. Ate very well this morning - no pain w/ eating. Urine is dark. Hasn't stooled in a few days. Wonders about going home. Wonders about restarting Eliquis. Objective: Objective: D/w nurse - primary added meds for constipation. Vital Signs: Vital Signs Date Time Temp Pulse Resp B/P (MAP) Pulse Ox O2 Delivery O2 Flow Rate FiO2 09/04/19 11:00 98.0 60 16 135/65 (88) 93 Room Air 98.0 Labs: Laboratory Tests Test 09/04/19 05:00 White Blood Count 7.6 x10^3/uL Red Blood Count 4.75 x10^6/uL Hemoglobin 13.8 g/dL Hematocrit 41.1 % Mean Corpuscular Volume 86 fL Mean Corpuscular Hemoglobin 29 pg Mean Corpuscular Hemoglobin Concent 34 g/dL Red Cell Distribution Width 15.1 % Platelet Count 120 x10^3/uL Sodium Level 143 mmol/L Potassium Level 3.3 mmol/L Chloride Level 105 mmol/L Carbon Dioxide Level 27 mmol/L Anion Gap 11 Blood Urea Nitrogen 10 mg/dL Creatinine 0.7 mg/dL Estimated GFR (Cockcroft-Gault) 85.6 BUN/Creatinine Ratio 14 Glucose Level 118 mg/dL Calcium Level 8.8 mg/dL Total Bilirubin 2.5 mg/dL Aspartate Amino Transf (AST/SGOT) 863 U/L Alanine Aminotransferase (ALT/SGPT) 864 U/L Alkaline Phosphatase 396 U/L Total Protein 6.8 g/dL Albumin 3.0 g/dL Albumin/Globulin Ratio 0.8 PE: GEN: NAD, up in chair LUNGS: CTAB HEART: RRR ABD: S/ND/NT NEURO/PSYCH: A & O 3 A/P: Stage IV RCC 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 Will also add Miralax if she wants. LFTs fluctuating, continue per oncology. Hemodynamically unstable?: No Is patient in severe pain?: No Is NPO status required?: No RUSS VENCES Sep 04, 2019 13:47
--- NOTE | 2019-09-04 13:56 | PDOC ---
PROGRESS NOTES Subjective Subjective HPI - f/u of Stage 4 renal cell carcinoma ROS - no CP, has abd pain Objective Objective Vital Signs Date Time Temp Pulse Resp B/P (MAP) Pulse Ox O2 Delivery O2 Flow Rate FiO2 09/04/19 11:00 98.0 60 16 135/65 (88) 93 Room Air 98.0 Intake and Output 09/04/19 07:00 Intake Total 2090 ml Balance 2090 ml Intake Oral 1090 ml IV Total 1000 ml # Voids 4 Physical Exam Heart: Normal S1, Normal S2 General: Alert, Oriented X3 Lungs: Clear to auscultation Neuro: Normal speech Psych/Mental Status: Mental status NL Assessment Assessment Problems Medical Problems: (1) Cholecystitis with cholelithiasis Status: Acute IMPRESSION AND PLAN: 1. Stage 4 renal cell carcinoma/clear cell carcinoma, intermediate risk category with metastasis to the left lower lobe of the lung with left hilar lymphadenopathy diagnosed on 06/03/2019 when she underwent endobronchial ultrasound-guided fine needle aspiration of the lymph node station #11, which confirmed clear cell carcinoma. There was no other evidence of metastatic disease. PET scan on 05/16/2019 revealed left lower lobe lung mass along with left hilar lymphadenopathy and no other metastatic disease. She was started on immunotherapy with ipilimumab and nivolumab on 08/15/2019. 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 Her previous labs on 08/14/2019 were normal. Hence, this is consistent with acute hepatitis secondary to immunotherapy. She received both Yervoy and Opdivo and I suspect this is most likely due to Yervoy, which has a higher incidence of causing hepatitis. I have ordered prednisone 100 mg daily from 09/02/2019. I d/w RN she got her first dose 09/03/19. Bili is worse - will check again tomorrow. 2. Diabetes mellitus. I explained to her that her blood sugars will get worse while she is on prednisone. I have advised her to follow instructions of the primary care team while she is in the hospital and follow up closely with her primary care physician upon discharge for management. 3. Cholelithiasis without evidence of cholecystitis. Appreciate GI consultation. Comment Review of Relevant I have reviewed the following items cira (where applicable) has been applied. Labs Laboratory Tests Test 09/03/19 05:05 09/03/19 08:20 09/04/19 05:00 Sodium Level 140 mmol/L (136-145) 143 mmol/L (136-145) Potassium Level 3.3 mmol/L (3.5-5.1) 3.3 mmol/L (3.5-5.1) Chloride Level 103 mmol/L (98-107) 105 mmol/L (98-107) Carbon Dioxide Level 26 mmol/L (21-32) 27 mmol/L (21-32) Anion Gap 11 (6-14) 11 (6-14) Blood Urea Nitrogen 9 mg/dL (7-20) 10 mg/dL (7-20) Creatinine 0.7 mg/dL (0.6-1.0) 0.7 mg/dL (0.6-1.0) Estimated GFR (Cockcroft-Gault) 85.6 85.6 BUN/Creatinine Ratio 13 (6-20) 14 (6-20) Glucose Level 139 mg/dL (70-99) 118 mg/dL (70-99) Calcium Level 8.4 mg/dL (8.5-10.1) 8.8 mg/dL (8.5-10.1) Magnesium Level 2.2 mg/dL (1.8-2.4) Total Bilirubin 2.3 mg/dL (0.2-1.0) 2.5 mg/dL (0.2-1.0) Aspartate Amino Transf (AST/SGOT) 1088 U/L (15-37) 863 U/L (15-37) Alanine Aminotransferase (ALT/SGPT) 911 U/L (14-59) 864 U/L (14-59) Alkaline Phosphatase 392 U/L (46-116) 396 U/L (46-116) Total Protein 6.3 g/dL (6.4-8.2) 6.8 g/dL (6.4-8.2) Albumin 2.9 g/dL (3.4-5.0) 3.0 g/dL (3.4-5.0) Albumin/Globulin Ratio 0.9 (1.0-1.7) 0.8 (1.0-1.7) White Blood Count 6.0 x10^3/uL (4.0-11.0) 7.6 x10^3/uL (4.0-11.0) Red Blood Count 5.06 x10^6/uL (3.50-5.40) 4.75 x10^6/uL (3.50-5.40) Hemoglobin 14.4 g/dL (12.0-15.5) 13.8 g/dL (12.0-15.5) Hematocrit 43.0 % (36.0-47.0) 41.1 % (36.0-47.0) Mean Corpuscular Volume 85 fL (79-100) 86 fL (79-100) Mean Corpuscular Hemoglobin 28 pg (25-35) 29 pg (25-35) Mean Corpuscular Hemoglobin Concent 34 g/dL (31-37) 34 g/dL (31-37) Red Cell Distribution Width 14.3 % (11.5-14.5) 15.1 % (11.5-14.5) Platelet Count 103 x10^3/uL (140-400) 120 x10^3/uL (140-400) Neutrophils (%) (Auto) 69 % (31-73) Lymphocytes (%) (Auto) 18 % (24-48) Monocytes (%) (Auto) 10 % (0-9) Eosinophils (%) (Auto) 2 % (0-3) Basophils (%) (Auto) 1 % (0-3) Neutrophils # (Auto) 4.2 x10^3/uL (1.8-7.7) Lymphocytes # (Auto) 1.1 x10^3/uL (1.0-4.8) Monocytes # (Auto) 0.6 x10^3/uL (0.0-1.1) Eosinophils # (Auto) 0.1 x10^3/uL (0.0-0.7) Basophils # (Auto) 0.0 x10^3/uL (0.0-0.2) Laboratory Tests Test 09/04/19 05:00 White Blood Count 7.6 x10^3/uL (4.0-11.0) Red Blood Count 4.75 x10^6/uL (3.50-5.40) Hemoglobin 13.8 g/dL (12.0-15.5) Hematocrit 41.1 % (36.0-47.0) Mean Corpuscular Volume 86 fL (79-100) Mean Corpuscular Hemoglobin 29 pg (25-35) Mean Corpuscular Hemoglobin Concent 34 g/dL (31-37) Red Cell Distribution Width 15.1 % (11.5-14.5) Platelet Count 120 x10^3/uL (140-400) Sodium Level 143 mmol/L (136-145) Potassium Level 3.3 mmol/L (3.5-5.1) Chloride Level 105 mmol/L (98-107) Carbon Dioxide Level 27 mmol/L (21-32) Anion Gap 11 (6-14) Blood Urea Nitrogen 10 mg/dL (7-20) Creatinine 0.7 mg/dL (0.6-1.0) Estimated GFR (Cockcroft-Gault) 85.6 BUN/Creatinine Ratio 14 (6-20) Glucose Level 118 mg/dL (70-99) Calcium Level 8.8 mg/dL (8.5-10.1) Total Bilirubin 2.5 mg/dL (0.2-1.0) Aspartate Amino Transf (AST/SGOT) 863 U/L (15-37) Alanine Aminotransferase (ALT/SGPT) 864 U/L (14-59) Alkaline Phosphatase 396 U/L (46-116) Total Protein 6.8 g/dL (6.4-8.2) Albumin 3.0 g/dL (3.4-5.0) Albumin/Globulin Ratio 0.8 (1.0-1.7) Microbiology 09/01/19 Urine Culture - Final, Complete 09/01/19 Urine Culture Result 1 (ELISSA) - Final, Complete Medications Current Medications Fentanyl Citrate (Fentanyl 2ml Vial) 50 mcg 1X ONCE IVP Last administered on 09/01/19at 20:39; Start 09/01/19 at 19:15; Stop 09/01/19 at 19:16; Status DC Sodium Chloride (NORMAL SALINE FLUSH for STERILE FIELD) 10 ml STK-MED ONCE .ROU TE ; Start 09/01/19 at 19:55; Stop 09/01/19 at 19:55; Status DC Piperacillin Sod/ Tazobactam Sod 4.5 gm/Sodium Chloride 100 ml @ 200 mls/hr 1X ONCE IV Last administered on 09/01/19at 23:54; Start 09/01/19 at 23:00; Stop 09/01/19 at 23:29; Status DC Metronidazole 100 ml @ 100 mls/hr 1X ONCE IV Last administered on 09/02/19at 01:23; Start 09/01/19 at 23:00; Stop 09/01/19 at 23:59; Status DC Ondansetron HCl (Zofran) 4 mg PRN Q8HRS PRN IV NAUSEA/VOMITING; Start 09/01/19 at 23:00; Stop 09/02/19 at 22:59; Status DC Fentanyl Citrate (Fentanyl 2ml Vial) 50 mcg PRN Q1HR PRN IV PAIN Last administered on 09/02/19at 20:21; Start 09/01/19 at 23:00; Stop 09/02/19 at 22:59; Status DC Sodium Chloride 1,000 ml @ 75 mls/hr [id number] IV Last administered on 09/02/19at 14:48; Start 09/01/19 at 23:00; Stop 09/02/19 at 22:59; Status DC Potassium Chloride (Klor-Con) 40 meq 1X ONCE PO ; Start 09/02/19 at 09:30; Stop 09/02/19 at 09:31; Status DC Prednisone (Prednisone) 100 mg DAILY PO Last administered on 09/04/19at 08:58; Start 09/02/19 at 09:45 Potassium Chloride/Water 100 ml @ 100 mls/hr Q1H IV Last administered on 09/02/19at 14:44; Start 09/02/19 at 10:00; Stop 09/02/19 at 11:59; Status DC Amlodipine Besylate (Norvasc) 10 mg DAILY PO Last administered on 09/04/19at 0 8:59; Start 09/03/19 at 09:00 Metoprolol Tartrate (Lopressor) 50 mg BID PO Last administered on 09/03/19at 20:43; Start 09/02/19 at 11:00 Temazepam (Restoril) 7.5 mg PRN QHS PRN PO SLEEP; Start 09/02/19 at 10:30 Atorvastatin Calcium (Lipitor) 80 mg QHS PO Last administered on 09/03/19at 20:42; Start 09/02/19 at 21:00 Losartan Potassium (Cozaar) 100 mg DAILY PO Last administered on 09/04/19at 08:59; Start 09/02/19 at 11:00 Pantoprazole Sodium (PROTONIX VIAL for IV PUSH) 40 mg DAILYAC IVP Last administered on 09/03/19at 09:27; Start 09/02/19 at 11:30; Stop 09/03/19 at 12:45; Status DC Fentanyl Citrate (Fentanyl 2ml Vial) 50 mcg PRN Q2HR PRN IVP PAIN Last administered on 09/04/19at 05:12; Start 09/03/19 at 00:45 Pantoprazole Sodium (Protonix) 40 mg DAILYAC PO Last administered on 09/04/19at 05:12; Start 09/04/19 at 07:30 Ondansetron HCl (Zofran) 4 mg PRN Q8HRS PRN IVP NAUSEA/VOMITING; Start 09/03/19 at 12:45 Oxycodone/ Acetaminophen (Percocet 5/325) 1 tab PRN Q4HRS PRN PO PAIN; Start 09/04/19 at 10:45 Bisacodyl (Dulcolax Tab) 10 mg PRN DAILY PRN PO CONSTIPATION; Start 09/04/19 at 10:45 Potassium Chloride (Klor-Con) 40 meq 1X ONCE PO Last administered on 09/04/19at 13:11; Start 09/04/19 at 10:45; Stop 09/04/19 at 10:46; Status DC Polyethylene Glycol (miraLAX PACKET) 17 gm DAILY PO ; Start 09/04/19 at 15:00 Active Scripts Active Reported Opdivo (Nivolumab) 40 Mg/4 Ml Vial 40 Mg IV IMMUNOTHERAPY Q3WKS Opdivo (Nivolumab) 40 Mg/4 Ml Vial 40 Mg IV IMMUNOTHERAPY Q2WKS Yervoy (Ipilimumab) 50 Mg/10 Ml Vial 50 Mg IV IMMUNOTHERAPY Q3WKS Temazepam 7.5 Mg Capsule 7.5 Mg PO HS PRN Metoprolol Tartrate 50 Mg Tablet 50 Mg PO BID Metformin Hcl 500 Mg Tablet 500 Mg PO BIDWMEALS Hydrochlorothiazide Tablet (Hydrochlorothiazide) 25 Mg Tablet 25 Mg PO DAILY Atacand (Candesartan Cilexetil) 16 Mg Tablet 16 Mg PO DAILY Lipitor (Atorvastatin Calcium) 80 Mg Tablet 80 Mg PO HS Eliquis (Apixaban) 5 Mg Tablet 5 Mg PO BID Amlodipine Besylate 10 Mg Tablet 10 Mg PO DAILY Vitals/I & O Vital Sign - Last 24 Hours 09/03/19 09/03/19 09/03/19 09/03/19 14:05 14:40 15:00 19:22 Temp 98.4 98.1 98.4 98.1 Pulse 78 94 Resp 18 18 B/P (MAP) 132/72 (92) 134/77 (96) Pulse Ox 96 97 O2 Delivery Room Air Room Air Room Air Room Air 09/03/19 09/03/19 09/03/19 09/03/19 20:00 20:09 20:39 20:43 Pulse 78 Resp 20 18 B/P (MAP) 132/72 Pulse Ox 96 96 O2 Delivery Room Air Room Air Room Air 09/03/19 09/04/19 09/04/19 09/04/19 23:05 00:59 01:29 02:03 Temp 97.6 98.3 97.6 98.3 Pulse 67 56 Resp 16 20 18 18 B/P (MAP) 142/71 (94) 131/77 (95) Pulse Ox 95 95 93 O2 Delivery Room Air Room Air Room Air Room Air 09/04/19 09/04/19 09/04/19 09/04/19 05:12 05:42 07:00 08:00 Temp 98.1 98.1 Pulse 57 Resp 20 20 16 B/P (MAP) 119/53 (75) Pulse Ox 93 93 95 O2 Delivery Room Air Room Air Room Air Room Air 09/04/19 09/04/19 09/04/19 08:59 08:59 11:00 Temp 98.0 98.0 Pulse 53 57 60 Resp 16 B/P (MAP) 119/53 119/53 135/65 (88) Pulse Ox 93 O2 Delivery Room Air Intake and Output 09/03/19 09/03/19 09/04/19 15:00 23:00 07:00 Intake Total 200 ml 1400 ml 490 ml Balance 200 ml 1400 ml 490 ml Hemodynamically unstable?: No Is patient in severe pain?: No Is NPO status required?: No OBED AUGUSTINE MD Sep 04, 2019 13:56
[2019-09-04] MEDS: POLYETHYLENE GLYCOL 3350 17 GM PACKET. PO SCH (14:08)
[2019-09-04] MEDS: oxyCODONE/APAP 5/325 1 TAB TABLET PO PRN ×2 (14:08→20:37)
[2019-09-04 15:00] VITALS: BP 137/76
[2019-09-04 19:00] VITALS: BP 156/90
[2019-09-04] MEDS: ATORVASTATIN CALCIUM 40 MG TABLET. PO SCH (20:36)
[2019-09-04] MEDS: APIXABAN 5 MG TABLET. PO SCH (20:59)
[2019-09-04 23:59] VITALS: BP 130/65
[2019-09-05] MEDS: oxyCODONE/APAP 5/325 1 TAB TABLET PO PRN ×2 (03:58→15:48)
[2019-09-05 04:08] VITALS: BP 117/61
[2019-09-05 05:22] LABS: ALBUMIN 2.8 g/dL (3.4-5.0); ALBUMIN/GLOBULIN RATIO 0.8 (1.0-1.7); CALCIUM 8.7 mg/dL (8.5-10.1); CREATININE 0.9 mg/dL (0.6-1.0); GFR 64.1; POTASSIUM 3.8 mmol/L (3.5-5.1); TOTAL BILIRUBIN 1.5 mg/dL (0.2-1.0); TOTAL PROTEIN 6.5 g/dL (6.4-8.2)
[2019-09-05 07:00] VITALS: BP 104/52
[2019-09-05] MEDS: POLYETHYLENE GLYCOL 3350 17 GM PACKET. PO SCH (08:04)
[2019-09-05] MEDS: amLODIPine BESYLATE 10 MG TABLET PO SCH (08:11)
[2019-09-05] MEDS: APIXABAN 5 MG TABLET. PO SCH (08:12)
[2019-09-05] MEDS: LOSARTAN POTASSIUM 50 MG TABLET. PO SCH (08:12)
[2019-09-05] MEDS: METOPROLOL TART IMMED RELEASE 50 MG TABLET. PO SCH (08:12)
[2019-09-05] MEDS: PANTOPRAZOLE 40 MG TABLET.DR. PO SCH (08:12)
[2019-09-05] MEDS: predniSONE 20 MG TABLET PO SCH (08:13)
--- NOTE | 2019-09-05 09:26 | PDOC ---
PROGRESS NOTES Subjective Subjective HPI - f/u of Stage 4 renal cell carcinoma/clear cell carcinoma ROS - no CP, abd pain stable Objective Objective Vital Signs Date Time Temp Pulse Resp B/P (MAP) Pulse Ox O2 Delivery O2 Flow Rate FiO2 09/05/19 07:00 Room Air 09/05/19 07:00 98.1 50 16 104/52 (69) 97 98.1 Intake and Output 09/05/19 07:00 Intake Total 500 ml Balance 500 ml Intake Oral 500 ml # Voids 3 Physical Exam Heart: Normal S1, Normal S2 General: Alert, Oriented X3 Lungs: Clear to auscultation Neuro: Normal speech Psych/Mental Status: Mental status NL Assessment Assessment Problems Medical Problems: (1) Cholecystitis with cholelithiasis Status: Acute IMPRESSION AND PLAN: 1. Stage 4 renal cell carcinoma/clear cell carcinoma, intermediate risk category with metastasis to the left lower lobe of the lung with left hilar lymphadenopathy diagnosed on 06/03/2019 when she underwent endobronchial ultrasound-guided fine needle aspiration of the lymph node station #11, which confirmed clear cell carcinoma. There was no other evidence of metastatic disease. PET scan on 05/16/2019 revealed left lower lobe lung mass along with left hilar lymphadenopathy and no other metastatic disease. She was started on immunotherapy with ipilimumab and nivolumab on 08/15/2019. 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 Her previous labs on 08/14/2019 were normal. Hence, this is consistent with acute hepatitis secondary to immunotherapy. She received both Yervoy and Opdivo and I suspect this is most likely due to Yervoy, which has a higher incidence of causing hepatitis. I have ordered prednisone 100 mg daily from 09/02/2019. I d/w RN she got her first dose 09/03/19. Bili is better at 1.5 09/05/19. Ok to d/c home on Prednisone 100 mg daily. I will f/u next week. I d/w Dr Abdalla. 2. Diabetes mellitus. I explained to her that her blood sugars will get worse while she is on prednisone. I have advised her to follow instructions of the primary care team while she is in the hospital and follow up closely with her primary care physician upon discharge for management. 3. Cholelithiasis without evidence of cholecystitis. Appreciate GI consultation. Comment Review of Relevant I have reviewed the following items cira (where applicable) has been applied. Labs Laboratory Tests Test 09/04/19 05:00 09/05/19 04:00 White Blood Count 7.6 x10^3/uL (4.0-11.0) Red Blood Count 4.75 x10^6/uL (3.50-5.40) Hemoglobin 13.8 g/dL (12.0-15.5) Hematocrit 41.1 % (36.0-47.0) Mean Corpuscular Volume 86 fL (79-100) Mean Corpuscular Hemoglobin 29 pg (25-35) Mean Corpuscular Hemoglobin Concent 34 g/dL (31-37) Red Cell Distribution Width 15.1 % (11.5-14.5) Platelet Count 120 x10^3/uL (140-400) Sodium Level 143 mmol/L (136-145) 143 mmol/L (136-145) Potassium Level 3.3 mmol/L (3.5-5.1) 3.8 mmol/L (3.5-5.1) Chloride Level 105 mmol/L (98-107) 106 mmol/L (98-107) Carbon Dioxide Level 27 mmol/L (21-32) 29 mmol/L (21-32) Anion Gap 11 (6-14) 8 (6-14) Blood Urea Nitrogen 10 mg/dL (7-20) 12 mg/dL (7-20) Creatinine 0.7 mg/dL (0.6-1.0) 0.9 mg/dL (0.6-1.0) Estimated GFR (Cockcroft-Gault) 85.6 64.1 BUN/Creatinine Ratio 14 (6-20) 13 (6-20) Glucose Level 118 mg/dL (70-99) 258 mg/dL (70-99) Calcium Level 8.8 mg/dL (8.5-10.1) 8.7 mg/dL (8.5-10.1) Total Bilirubin 2.5 mg/dL (0.2-1.0) 1.5 mg/dL (0.2-1.0) Aspartate Amino Transf (AST/SGOT) 863 U/L (15-37) 738 U/L (15-37) Alanine Aminotransferase (ALT/SGPT) 864 U/L (14-59) 797 U/L (14-59) Alkaline Phosphatase 396 U/L (46-116) 372 U/L (46-116) Total Protein 6.8 g/dL (6.4-8.2) 6.5 g/dL (6.4-8.2) Albumin 3.0 g/dL (3.4-5.0) 2.8 g/dL (3.4-5.0) Albumin/Globulin Ratio 0.8 (1.0-1.7) 0.8 (1.0-1.7) Laboratory Tests Test 09/05/19 04:00 Sodium Level 143 mmol/L (136-145) Potassium Level 3.8 mmol/L (3.5-5.1) Chloride Level 106 mmol/L (98-107) Carbon Dioxide Level 29 mmol/L (21-32) Anion Gap 8 (6-14) Blood Urea Nitrogen 12 mg/dL (7-20) Creatinine 0.9 mg/dL (0.6-1.0) Estimated GFR (Cockcroft-Gault) 64.1 BUN/Creatinine Ratio 13 (6-20) Glucose Level 258 mg/dL (70-99) Calcium Level 8.7 mg/dL (8.5-10.1) Total Bilirubin 1.5 mg/dL (0.2-1.0) Aspartate Amino Transf (AST/SGOT) 738 U/L (15-37) Alanine Aminotransferase (ALT/SGPT) 797 U/L (14-59) Alkaline Phosphatase 372 U/L (46-116) Total Protein 6.5 g/dL (6.4-8.2) Albumin 2.8 g/dL (3.4-5.0) Albumin/Globulin Ratio 0.8 (1.0-1.7) Microbiology 09/01/19 Urine Culture - Final, Complete 09/01/19 Urine Culture Result 1 (ELISSA) - Final, Complete Medications Current Medications Fentanyl Citrate (Fentanyl 2ml Vial) 50 mcg 1X ONCE IVP Last administered on 09/01/19at 20:39; Start 09/01/19 at 19:15; Stop 09/01/19 at 19:16; Status DC Sodium Chloride (NORMAL SALINE FLUSH for STERILE FIELD) 10 ml STK-MED ONCE .ROUTE ; Start 09/01/19 at 19:55; Stop 09/01/19 at 19:55; Status DC Piperacillin Sod/ Tazobactam Sod 4.5 gm/Sodium Chloride 100 ml @ 200 mls/hr 1X ONCE IV Last administered on 09/01/19at 23:54; Start 09/01/19 at 23:00; Stop 09/01/19 at 23:29; Status DC Metronidazole 100 ml @ 100 mls/hr 1X ONCE IV Last administered on 09/02/19at 01:23; Start 09/01/19 at 23:00; Stop 09/01/19 at 23:59; Status DC Ondansetron HCl (Zofran) 4 mg PRN Q8HRS PRN IV NAUSEA/VOMITING; Start 09/01/19 at 23:00; Stop 09/02/19 at 22:59; Status DC Fentanyl Citrate (Fentanyl 2ml Vial) 50 mcg PRN Q1HR PRN IV PAIN Last administered on 09/02/19at 20:21; Start 09/01/19 at 23:00; Stop 09/02/19 at 22:59; Status DC Sodium Chloride 1,000 ml @ 75 mls/hr [id number] IV Last administered on 09/02/19at 14:48; Start 09/01/19 at 23:00; Stop 09/02/19 at 22:59; Status DC Potassium Chloride (Klor-Con) 40 meq 1X ONCE PO ; Start 09/02/19 at 09:30; Stop 09/02/19 at 09:31; Status DC Prednisone (Prednisone) 100 mg DAILY PO Last administered on 09/05/19at 08:13; Start 09/02/19 at 09:45 Potassium Chloride/Water 100 ml @ 100 mls/hr Q1H IV Last administered on 09/02/19at 14:44; Start 09/02/19 at 10:00; Stop 09/02/19 at 11:59; Status DC Amlodipine Besylate (Norvasc) 10 mg DAILY PO Last administered on 09/04/19at 08:59; Start 09/03/19 at 09:00 Metoprolol Tartrate (Lopressor) 50 mg BID PO Last administered on 09/04/19at 20:59; Start 09/02/19 at 11:00 Temazepam (Restoril) 7.5 mg PRN QHS PRN PO SLEEP Last administered on 09/04/19at 23:30; Start 09/02/19 at 10:30 Atorvastatin Calcium (Lipitor) 80 mg QHS PO Last administered on 09/04/19at 20:36; Start 09/02/19 at 21:00 Losartan Potassium (Cozaar) 100 mg DAILY PO Last administered on 09/04/19at 08:59; Start 09/02/19 at 11:00 Pantoprazole Sodium (PROTONIX VIAL for IV PUSH) 40 mg DAILYAC IVP Last administered on 09/03/19at 09:27; Start 09/02/19 at 11:30; Stop 09/03/19 at 12:45; Status DC Fentanyl Citrate (Fentanyl 2ml Vial) 50 mcg PRN Q2HR PRN IVP PAIN Last administered on 09/04/19at 05:12; Start 09/03/19 at 00:45 Pantoprazole Sodium (Protonix) 40 mg DAILYAC PO Last administered on 09/05/19at 08:12; Start 09/04/19 at 07:30 Ondansetron HCl (Zofran) 4 mg PRN Q8HRS PRN IVP NAUSEA/VOMITING; Start 09/03/19 at 12:45 Oxycodone/ Acetaminophen (Percocet 5/325) 1 tab PRN Q4HRS PRN PO PAIN Last administered on 09/05/19at 03:58; Start 09/04/19 at 10:45 Bisacodyl (Dulcolax Tab) 10 mg PRN DAILY PRN PO CONSTIPATION; Start 09/04/19 at 10:45 Potassium Chloride (Klor-Con) 40 meq 1X ONCE PO Last administered on 09/04/19at 13:11; Start 09/04/19 at 10:45; Stop 09/04/19 at 10:46; Status DC Polyethylene Glycol (miraLAX PACKET) 17 gm DAILY PO ; Start 09/04/19 at 15:00 Apixaban (Eliquis) 5 mg BID PO Last administered on 09/05/19at 08:12; Start 09/04/19 at 21:00 Info (Anti-Coagulation Monitoring By Pharmacy) 1 each PRN DAILY PRN MC SEE COMMENTS; Start 09/05/19 at 09:30 Active Scripts Active Reported Opdivo (Nivolumab) 40 Mg/4 Ml Vial 40 Mg IV IMMUNOTHERAPY Q3WKS Opdivo (Nivolumab) 40 Mg/4 Ml Vial 40 Mg IV IMMUNOTHERAPY Q2WKS Yervoy (Ipilimumab) 50 Mg/10 Ml Vial 50 Mg IV IMMUNOTHERAPY Q3WKS Temazepam 7.5 Mg Capsule 7.5 Mg PO HS PRN Metoprolol Tartrate 50 Mg Tablet 50 Mg PO BID Metformin Hcl 500 Mg Tablet 500 Mg PO BIDWMEALS Hydrochlorothiazide Tablet (Hydrochlorothiazide) 25 Mg Tablet 25 Mg PO DAILY Atacand (Candesartan Cilexetil) 16 Mg Tablet 16 Mg PO DAILY Lipitor (Atorvastatin Calcium) 80 Mg Tablet 80 Mg PO HS Eliquis (Apixaban) 5 Mg Tablet 5 Mg PO BID Amlodipine Besylate 10 Mg Tablet 10 Mg PO DAILY Vitals/I & O Vital Sign - Last 24 Hours 09/04/19 09/04/19 09/04/19 09/04/19 11:00 14:08 15:00 15:10 Temp 98.0 97.8 98.0 97.8 Pulse 60 60 Resp 16 16 B/P (MAP) 135/65 (88) 137/76 (96) Pulse Ox 93 95 O2 Delivery Room Air Room Air Room Air Room Air 09/04/19 09/04/19 09/04/19 09/04/19 19:00 20:00 20:37 20:59 Temp 98.0 98.0 Pulse 78 78 Resp 16 20 B/P (MAP) 156/90 (112) 156/90 Pulse Ox 96 96 O2 Delivery Room Air Room Air Room Air 09/04/19 09/04/19 09/05/19 09/05/19 21:37 23:59 03:36 03:58 Temp 97.5 97.5 Pulse 52 Resp 20 16 18 B/P (MAP) 130/65 (86) Pulse Ox 96 96 96 O2 Delivery Room Air Room Air Room Air 09/05/19 09/05/19 09/05/19 04:08 07:00 07:00 Temp 97.5 98.1 97.5 98.1 Pulse 52 50 Resp 18 16 B/P (MAP) 117/61 (79) 104/52 (69) Pulse Ox 96 97 O2 Delivery Room Air Room Air Room Air Intake and Output 09/04/19 09/04/19 09/05/19 15:00 23:00 07:00 Intake Total 100 ml 400 ml Balance 100 ml 400 ml Hemodynamically unstable?: No Is patient in severe pain?: No Is NPO status required?: OBED Sandoval MD Sep 05, 2019 09:26
[2019-09-05] MEDS ORDERED: ANTI-COAG MONITOR BY PHARMACY. MC PRN (09:30)
[2019-09-05] MEDS ORDERED: PRED20TA PO (09:38)
--- NOTE | 2019-09-05 10:20 | PDOC ---
Subjective: Subjective: Sending Arlene to her kids. Would like to go home. Good appetite. Had abdominal pain during the night - woke her from deep sleep. Wants to know if she'll always have pain (general aches and pains) or if that will go away. Objective: Objective: D/w Dr. Roland - briseyda zapata, wondering about ulcer possibility. Vital Signs: Vital Signs Date Time Temp Pulse Resp B/P (MAP) Pulse Ox O2 Delivery O2 Flow Rate FiO2 09/05/19 07:00 Room Air 09/05/19 07:00 98.1 50 16 104/52 (69) 97 98.1 Labs: Laboratory Tests Test 09/05/19 04:00 Sodium Level 143 mmol/L Potassium Level 3.8 mmol/L Chloride Level 106 mmol/L Carbon Dioxide Level 29 mmol/L Anion Gap 8 Blood Urea Nitrogen 12 mg/dL Creatinine 0.9 mg/dL Estimated GFR (Cockcroft-Gault) 64.1 BUN/Creatinine Ratio 13 Glucose Level 258 mg/dL Calcium Level 8.7 mg/dL Total Bilirubin 1.5 mg/dL Aspartate Amino Transf (AST/SGOT) 738 U/L Alanine Aminotransferase (ALT/SGPT) 797 U/L Alkaline Phosphatase 372 U/L Total Protein 6.5 g/dL Albumin 2.8 g/dL Albumin/Globulin Ratio 0.8 PE: GEN: NAD LUNGS: CTAB HEART: RRR ABD: S/ND/NT NEURO/PSYCH: A & O 3 A/P: Abd pain Stage IV RCC Hepatitis - suspect related to immunotherapy, plans to continue prednisone and follow-up w/ Dr. Roland to recheck labs next week Cholelithiasis, hepatic steatosis H/o gastric bypass -- Reviewed w/ Dr. Jaren bonner to DC per GI. Continue PPI (discussed w/ her either Rx or OTC options). Consider outpt EGD. Hemodynamically unstable?: No Is patient in severe pain?: No Is NPO status required?: No RUSS VENCES Sep 05, 2019 10:20
--- NOTE | 2019-09-05 10:25 | NUR ---
SW following. Discussed with RN. Pt discharging home today with self care. SW will continue to follow.
[2019-09-05 11:00] VITALS: BP 132/77
[2019-09-05] MEDS ORDERED: METO25TA4 PO (11:01)
[2019-09-05] MEDS ORDERED: HEPARIN PF 500 UNIT/5 ML DISP.SYRIN. IVP ONE (12:45)
--- NOTE | 2019-09-05 17:28 | PDOC ---
PROGRESS NOTES Chief Complaint Chief Complaint acute immune hepatitis, Dr. Roland has started stress dose prednisone 100/day Cholelithiasis. metastatic renal cell carcinoma, s/p nephrectomy obese, BMI 47 Dm2, hx cva hypokalemia History of Present Illness History of Present Illness feeling better OOB to chair try to DC home Vitals Vitals Vital Signs Date Time Temp Pulse Resp B/P (MAP) Pulse Ox O2 Delivery O2 Flow Rate FiO2 09/05/19 15:48 Room Air 09/05/19 11:00 98.1 51 16 132/77 (95) 97 98.1 Physical Exam General: Alert, Oriented X3 Heart: Normal S1, Normal S2 Abdomen: Soft, Other (ND, diffusely tender on exam, no guarding or rebound ) Extremities: No clubbing, No edema Skin: No significant lesion Labs LABS Laboratory Tests Test 09/05/19 04:00 Sodium Level 143 mmol/L (136-145) Potassium Level 3.8 mmol/L (3.5-5.1) Chloride Level 106 mmol/L (98-107) Carbon Dioxide Level 29 mmol/L (21-32) Anion Gap 8 (6-14) Blood Urea Nitrogen 12 mg/dL (7-20) Creatinine 0.9 mg/dL (0.6-1.0) Estimated GFR (Cockcroft-Gault) 64.1 BUN/Creatinine Ratio 13 (6-20) Glucose Level 258 mg/dL (70-99) Calcium Level 8.7 mg/dL (8.5-10.1) Total Bilirubin 1.5 mg/dL (0.2-1.0) Aspartate Amino Transf (AST/SGOT) 738 U/L (15-37) Alanine Aminotransferase (ALT/SGPT) 797 U/L (14-59) Alkaline Phosphatase 372 U/L (46-116) Total Protein 6.5 g/dL (6.4-8.2) Albumin 2.8 g/dL (3.4-5.0) Albumin/Globulin Ratio 0.8 (1.0-1.7) Assessment and Plan Assessmemt and Plan Problems Medical Problems: (1) Cholecystitis with cholelithiasis Status: Acute Comment Review of Relevant I have reviewed the following items cira (where applicable) has been applied. Labs Laboratory Tests Test 09/04/19 05:00 09/05/19 04:00 White Blood Count 7.6 x10^3/uL (4.0-11.0) Red Blood Count 4.75 x10^6/uL (3.50-5.40) Hemoglobin 13.8 g/dL (12.0-15.5) Hematocrit 41.1 % (36.0-47.0) Mean Corpuscular Volume 86 fL (79-100) Mean Corpuscular Hemoglobin 29 pg (25-35) Mean Corpuscular Hemoglobin Concent 34 g/dL (31-37) Red Cell Distribution Width 15.1 % (11.5-14.5) Platelet Count 120 x10^3/uL (140-400) Sodium Level 143 mmol/L (136-145) 143 mmol/L (136-145) Potassium Level 3.3 mmol/L (3.5-5.1) 3.8 mmol/L (3.5-5.1) Chloride Level 105 mmol/L (98-107) 106 mmol/L (98-107) Carbon Dioxide Level 27 mmol/L (21-32) 29 mmol/L (21-32) Anion Gap 11 (6-14) 8 (6-14) Blood Urea Nitrogen 10 mg/dL (7-20) 12 mg/dL (7-20) Creatinine 0.7 mg/dL (0.6-1.0) 0.9 mg/dL (0.6-1.0) Estimated GFR (Cockcroft-Gault) 85.6 64.1 BUN/Creatinine Ratio 14 (6-20) 13 (6-20) Glucose Level 118 mg/dL (70-99) 258 mg/dL (70-99) Calcium Level 8.8 mg/dL (8.5-10.1) 8.7 mg/dL (8.5-10.1) Total Bilirubin 2.5 mg/dL (0.2-1.0) 1.5 mg/dL (0.2-1.0) Aspartate Amino Transf (AST/SGOT) 863 U/L (15-37) 738 U/L (15-37) Alanine Aminotransferase (ALT/SGPT) 864 U/L (14-59) 797 U/L (14-59) Alkaline Phosphatase 396 U/L (46-116) 372 U/L (46-116) Total Protein 6.8 g/dL (6.4-8.2) 6.5 g/dL (6.4-8.2) Albumin 3.0 g/dL (3.4-5.0) 2.8 g/dL (3.4-5.0) Albumin/Globulin Ratio 0.8 (1.0-1.7) 0.8 (1.0-1.7) Laboratory Tests Test 09/05/19 04:00 Sodium Level 143 mmol/L (136-145) Potassium Level 3.8 mmol/L (3.5-5.1) Chloride Level 106 mmol/L (98-107) Carbon Dioxide Level 29 mmol/L (21-32) Anion Gap 8 (6-14) Blood Urea Nitrogen 12 mg/dL (7-20) Creatinine 0.9 mg/dL (0.6-1.0) Estimated GFR (Cockcroft-Gault) 64.1 BUN/Creatinine Ratio 13 (6-20) Glucose Level 258 mg/dL (70-99) Calcium Level 8.7 mg/dL (8.5-10.1) Total Bilirubin 1.5 mg/dL (0.2-1.0) Aspartate Amino Transf (AST/SGOT) 738 U/L (15-37) Alanine Aminotransferase (ALT/SGPT) 797 U/L (14-59) Alkaline Phosphatase 372 U/L (46-116) Total Protein 6.5 g/dL (6.4-8.2) Albumin 2.8 g/dL (3.4-5.0) Albumin/Globulin Ratio 0.8 (1.0-1.7) Microbiology 09/01/19 Urine Culture - Final, Complete 09/01/19 Urine Culture Result 1 (ELISSA) - Final, Complete Medications Current Medications Fentanyl Citrate (Fentanyl 2ml Vial) 50 mcg 1X ONCE IVP Last administered on 09/01/19at 20:39; Start 09/01/19 at 19:15; Stop 09/01/19 at 19:16; Status DC Sodium Chloride (NORMAL SALINE FLUSH for STERILE FIELD) 10 ml STK-MED ONCE .ROUTE ; Start 09/01/19 at 19:55; Stop 09/01/19 at 19:55; Status DC Piperacillin Sod/ Tazobactam Sod 4.5 gm/Sodium Chloride 100 ml @ 200 mls/hr 1X ONCE IV Last administered on 09/01/19at 23:54; Start 09/01/19 at 23:00; Stop 09/01/19 at 23:29; Status DC Metronidazole 100 ml @ 100 mls/hr 1X ONCE IV Last administered on 09/02/19at 01:23; Start 09/01/19 at 23:00; Stop 09/01/19 at 23:59; Status DC Ondansetron HCl (Zofran) 4 mg PRN Q8HRS PRN IV NAUSEA/VOMITING; Start 09/01/19 at 23:00; Stop 09/02/19 at 22:59; Status DC Fentanyl Citrate (Fentanyl 2ml Vial) 50 mcg PRN Q1HR PRN IV PAIN Last a dministered on 09/02/19at 20:21; Start 09/01/19 at 23:00; Stop 09/02/19 at 22:59; Status DC Sodium Chloride 1,000 ml @ 75 mls/hr [id number] IV Last administered on 09/02/19at 14:48; Start 09/01/19 at 23:00; Stop 09/02/19 at 22:59; Status DC Potassium Chloride (Klor-Con) 40 meq 1X ONCE PO ; Start 09/02/19 at 09:30; Stop 09/02/19 at 09:31; Status DC Prednisone (Prednisone) 100 mg DAILY PO Last administered on 09/05/19at 08:13; Start 09/02/19 at 09:45 Potassium Chloride/Water 100 ml @ 100 mls/hr Q1H IV Last administered on 09/02/19at 14:44; Start 09/02/19 at 10:00; Stop 09/02/19 at 11:59; Status DC Amlodipine Besylate (Norvasc) 10 mg DAILY PO Last administered on 09/04/19at 08:59; Start 09/03/19 at 09:00 Metoprolol Tartrate (Lopressor) 50 mg BID PO Last administered on 09/04/19at 20:59; Start 09/02/19 at 11:00 Temazepam (Restoril) 7.5 mg PRN QHS PRN PO SLEEP Last administered on 09/04/19at 23:30; Start 09/02/19 at 10:30 Atorvastatin Calcium (Lipitor) 80 mg QHS PO Last administered on 09/04/19 20:36; Start 09/02/19 at 21:00 Losartan Potassium (Cozaar) 100 mg DAILY PO Last administered on 09/04/19 08:59; Start 09/02/19 at 11:00 Pantoprazole Sodium (PROTONIX VIAL for IV PUSH) 40 mg DAILYAC IVP Last administered on 09/03/19 09:27; Start 09/02/19 at 11:30; Stop 09/03/19 at 12:45; Status DC Fentanyl Citrate (Fentanyl 2ml Vial) 50 mcg PRN Q2HR PRN IVP PAIN Last administered on 09/04/19 05:12; Start 09/03/19 at 00:45 Pantoprazole Sodium (Protonix) 40 mg DAILYAC PO Last administered on 09/05/19 08:12; Start 09/04/19 at 07:30 Ondansetron HCl (Zofran) 4 mg PRN Q8HRS PRN IVP NAUSEA/VOMITING; Start 09/03/19 at 12:45 Oxycodone/ Acetaminophen (Percocet 5/325) 1 tab PRN Q4HRS PRN PO PAIN Last administered on 09/05/19 15:48; Start 09/04/19 at 10:45 Bisacodyl (Dulcolax Tab) 10 mg PRN DAILY PRN PO CONSTIPATION; Start 09/04/19 at 10:45 Potassium Chloride (Klor-Con) 40 meq 1X ONCE PO Last administered on 09/04/19 13:11; Start 09/04/19 at 10:45; Stop 09/04/19 at 10:46; Status DC Polyethylene Glycol (miraLAX PACKET) 17 gm DAILY PO ; Start 09/04/19 at 15:00 Apixaban (Eliquis) 5 mg BID PO Last administered on 09/05/19 08:12; Start 09/04/19 at 21:00 Info (Anti-Coagulation Monitoring By Pharmacy) 1 each PRN DAILY PRN MC SEE COMMENTS Last administered on 09/05/19at 10:50; Start 09/05/19 at 09:30 Heparin Sodium (Porcine) (Hep Lock Adult) 500 unit 1X ONCE IVP Last administered on 09/05/19 15:53; Start 09/05/19 at 12:45; Stop 09/05/19 at 12:46; Status DC Active Scripts Active Metoprolol Tartrate 25 Mg Tablet 1 Tab PO BID Prednisone 20 Mg Tablet 100 Mg PO DAILY 10 Days Reported Temazepam 7.5 Mg Capsule 7.5 Mg PO HS PRN Metformin Hcl 500 Mg Tablet 500 Mg PO BIDWMEALS Atacand (Candesartan Cilexetil) 16 Mg Tablet 16 Mg PO DAILY Lipitor (Atorvastatin Calcium) 80 Mg Tablet 80 Mg PO HS Eliquis (Apixaban) 5 Mg Tablet 5 Mg PO BID Amlodipine Besylate 10 Mg Tablet 10 Mg PO DAILY Vitals/I & O Vital Sign - Last 24 Hours 09/04/19 09/04/19 09/04/19 09/04/19 19:00 20:00 20:37 20:59 Temp 98.0 98.0 Pulse 78 78 Resp 16 20 B/P (MAP) 156/90 (112) 156/90 Pulse Ox 96 96 O2 Delivery Room Air Room Air Room Air 09/04/19 09/04/19 09/05/19 09/05/19 21:37 23:59 03:36 03:58 Temp 97.5 97.5 Pulse 52 Resp 20 16 18 B/P (MAP) 130/65 (86) Pulse Ox 96 96 96 O2 Delivery Room Air Room Air Room Air 09/05/19 09/05/19 09/05/19 09/05/19 04:08 07:00 07:00 08:00 Temp 97.5 98.1 97.5 98.1 Pulse 52 50 Resp 18 16 B/P (MAP) 117/61 (79) 104/52 (69) Pulse Ox 96 97 O2 Delivery Room Air Room Air Room Air Room Air 09/05/19 09/05/19 11:00 15:48 Temp 98.1 98.1 Pulse 51 Resp 16 B/P (MAP) 132/77 (95) Pulse Ox 97 O2 Delivery Room Air Room Air Intake and Output 09/04/19 09/04/19 09/05/19 15:00 23:00 07:00 Intake Total 100 ml 400 ml Balance 100 ml 400 ml Hemodynamically unstable?: No Is patient in severe pain?: No Is NPO status required?: No NIRANJAN PADGETT MD Sep 05, 2019 17:28
--- NOTE | 2019-09-05 17:30 | PDOC3 ---
Discharge Summary Visit Information Date of Admission: Sep 01, 2019 Date of Discharge: Sep 05, 2019 Final Diagnosis acute immune hepatitis, Dr. Cosby has started stress dose prednisone 100/day Cholelithiasis. metastatic renal cell carcinoma, s/p nephrectomy obese, BMI 47 Dm2, hx cva hypokalemia Problems Medical Problems: (1) Cholecystitis with cholelithiasis Status: Acute Brief Hospital Course Allergies Allergies Coded Allergies Type Severity Reaction Last Updated Verified No Known Drug Allergies 03/07/19 No Vital Signs Vital Signs Date Time Temp Pulse Resp B/P (MAP) Pulse Ox O2 Delivery O2 Flow Rate FiO2 09/05/19 15:48 Room Air 09/05/19 11:00 98.1 51 16 132/77 (95) 97 98.1 Lab Results Laboratory Tests Test 09/04/19 05:00 09/05/19 04:00 White Blood Count 7.6 x10^3/uL (4.0-11.0) Red Blood Count 4.75 x10^6/uL (3.50-5.40) Hemoglobin 13.8 g/dL (12.0-15.5) Hematocrit 41.1 % (36.0-47.0) Mean Corpuscular Volume 86 fL (79-100) Mean Corpuscular Hemoglobin 29 pg (25-35) Mean Corpuscular Hemoglobin Concent 34 g/dL (31-37) Red Cell Distribution Width 15.1 % (11.5-14.5) Platelet Count 120 x10^3/uL (140-400) Sodium Level 143 mmol/L (136-145) 143 mmol/L (136-145) Potassium Level 3.3 mmol/L (3.5-5.1) 3.8 mmol/L (3.5-5.1) Chloride Level 105 mmol/L (98-107) 106 mmol/L (98-107) Carbon Dioxide Level 27 mmol/L (21-32) 29 mmol/L (21-32) Anion Gap 11 (6-14) 8 (6-14) Blood Urea Nitrogen 10 mg/dL (7-20) 12 mg/dL (7-20) Creatinine 0.7 mg/dL (0.6-1.0) 0.9 mg/dL (0.6-1.0) Estimated GFR (Cockcroft-Gault) 85.6 64.1 BUN/Creatinine Ratio 14 (6-20) 13 (6-20) Glucose Level 118 mg/dL (70-99) 258 mg/dL (70-99) Calcium Level 8.8 mg/dL (8.5-10.1) 8.7 mg/dL (8.5-10.1) Total Bilirubin 2.5 mg/dL (0.2-1.0) 1.5 mg/dL (0.2-1.0) Aspartate Amino Transf (AST/SGOT) 863 U/L (15-37) 738 U/L (15-37) Alanine Aminotransferase (ALT/SGPT) 864 U/L (14-59) 797 U/L (14-59) Alkaline Phosphatase 396 U/L (46-116) 372 U/L (46-116) Total Protein 6.8 g/dL (6.4-8.2) 6.5 g/dL (6.4-8.2) Albumin 3.0 g/dL (3.4-5.0) 2.8 g/dL (3.4-5.0) Albumin/Globulin Ratio 0.8 (1.0-1.7) 0.8 (1.0-1.7) Laboratory Tests Test 09/05/19 04:00 Sodium Level 143 mmol/L (136-145) Potassium Level 3.8 mmol/L (3.5-5.1) Chloride Level 106 mmol/L (98-107) Carbon Dioxide Level 29 mmol/L (21-32) Anion Gap 8 (6-14) Blood Urea Nitrogen 12 mg/dL (7-20) Creatinine 0.9 mg/dL (0.6-1.0) Estimated GFR (Cockcroft-Gault) 64.1 BUN/Creatinine Ratio 13 (6-20) Glucose Level 258 mg/dL (70-99) Calcium Level 8.7 mg/dL (8.5-10.1) Total Bilirubin 1.5 mg/dL (0.2-1.0) Aspartate Amino Transf (AST/SGOT) 738 U/L (15-37) Alanine Aminotransferase (ALT/SGPT) 797 U/L (14-59) Alkaline Phosphatase 372 U/L (46-116) Total Protein 6.5 g/dL (6.4-8.2) Albumin 2.8 g/dL (3.4-5.0) Albumin/Globulin Ratio 0.8 (1.0-1.7) Brief Hospital Course Ms. Alba is a 59 old female, getting immune mod therapy for renal cell, admit weakness, acute elevatnio in liver enzymes, 100 prednisone started, will cont until she f/u with Dr. Cosby outpatient she will cont. therapy, longterm plan discussed Discharge Information Condition at Discharge: Improved Follow Up: Weeks Disposition/Orders: D/C to Home Scheduled Amlodipine Besylate (Amlodipine Besylate) 10 Mg Tablet, 10 MG PO DAILY for htn, (Reported) Entered as Reported by: RUTHIE MARTIN on 07/02/191438 Last Taken: Unknown Dose on 09/01/19 08 Last Action: Continued on 09/02/19 101 by NIRANJAN PADGETT Apixaban (Eliquis) 5 Mg Tablet, 5 MG PO BID for atrial fibrillation, (Reported) Entered as Reported by: RUTHIE MARTIN on 07/02/191438 Last Taken: Unknown Dose on 09/01/19 08 Last Action: HELD on 09/02/19 1018 by NIRANJAN PADGETT Atorvastatin Calcium (Lipitor) 80 Mg Tablet, 80 MG PO HS for hld, (Reported) Entered as Reported by: RUTHIE MARTIN on 07/02/191438 Last Taken: Unknown Dose on 08/31/19 Last Action: Converted on 09/02/191017 by NIRANJAN PADGETT Candesartan Cilexetil (Atacand) 16 Mg Tablet, 16 MG PO DAILY for htn, (Reported) Entered as Reported by: RUTHIE MARTIN on 07/02/191438 Last Taken: Unknown Dose on 09/01/19 0800 Last Action: Converted on 09/02/198 by NIRANJAN PADGETT Metformin Hcl (Metformin Hcl) 500 Mg Tablet, 500 MG PO BIDWMEALS for diabetes, (Reported) Entered as Reported by: RUTHIE MARTIN on 07/02/191438 Last Taken: Unknown Dose on 08/31/19 0800 Last Action: Last Taken Edited on 09/02/19 0152 by SIERRA HOLT Metoprolol Tartrate (Metoprolol Tartrate) 25 Mg Tablet, 1 TAB PO BID for dropping dose of lopressor, #60 Ref 1 Prescribed by: NIRANJAN PADGETT on 09/05/19 1101 Prednisone (Prednisone) 20 Mg Tablet, 100 MG PO DAILY for immune reaction for 10 Days, #50 Prescribed by: NIRANJAN PADGETT on 09/05/19 0938 Scheduled PRN Temazepam (Temazepam) 7.5 Mg Capsule, 7.5 MG PO HS PRN for sleep, (Reported) Entered as Reported by: RUTHIE MARTIN on 07/02/19 1439 Last Taken: Unknown Dose on Unknown Date & Time Last Action: Continued on 09/02/19 1018 by NIRANJAN PADGETT Discontinued Medications Hydrochlorothiazide (Hydrochlorothiazide Tablet ) 25 Mg Tablet, 25 MG PO DAILY for diuretic, (Reported) Entered as Reported by: RUTHIE MARTIN on 07/02/19 143 Last Taken: Unknown Dose on 09/01/19 0800 Last Action: HELD on 09/02/19 1018 by NIRANJAN PADGETT Ipilimumab (Yervoy) 50 Mg/10 Ml Vial, 50 MG IV immunotherapy q3wks for metastatic renal cell, (Reported) Entered as Reported by: RUTHIE MARTIN on 08/26/19 1311 Last Taken: Unknown Dose on 08/15/19 Last Action: HELD on 09/02/19 1018 by NIRANJAN PADGETT Metoprolol Tartrate (Metoprolol Tartrate) 50 Mg Tablet, 50 MG PO BID for htn, (Reported) Entered as Reported by: RUTHIE MARTIN on 07/02/19 1439 Last Taken: Unknown Dose on 09/01/19 0800 Last Action: Continued on 09/02/19 1018 by NIRANJAN PADGETT Nivolumab (Opdivo) 40 Mg/4 Ml Vial, 40 MG IV immunotherapy q2wks for metastatic renal cell, (Reported) Entered as Reported by: RUTHIE MARTIN on 08/26/19 1311 Last Action: HELD on 09/02/19 1018 by NIRANJAN PAGDETT Nivolumab (Opdivo) 40 Mg/4 Ml Vial, 40 MG IV immunotherapy q3wks for metastatic renal cell, (Reported) Entered as Reported by: SIERRA HOLT on 09/02/19 0150 Last Taken: Unknown Dose on 08/15/19 Last Action: HELD on 09/02/19 1018 by NIRANJAN PADGETT Patient Instructions Patient Instructions f/u Dr. cosby > 30 min and face to face talk Hemodynamically unstable?: No Is patient in severe pain?: No Is NPO status required?: No NIRANJAN PADGETT MD Sep 05, 2019 17:30
--- NOTE | 2019-09-05 17:54 | NUR ---
pt is discharged home with self care at 1748 via wheelchair via [facility]. pt is in stable condition. pt has all belongings with her. pt received discharge instructions and prescriptions and stated she had no further questions for me.
== END 2019-09-05 17:48 | disposition home or self-care (01) | DRG 442 ==
LOC: ER 17:16 → 4 NORTH 22:11
PROVIDERS: ADMIT Internal Medicine; ATTEND Internal Medicine
DX: K71.2 Toxic liver disease with acute hepatitis (principal); Z68.42 Body mass index [BMI] 45.0-49.9, adult; K80.20 Calculus of gallbladder without cholecystitis without obstruction; E66.9 Obesity, unspecified; K76.0 Fatty (change of) liver, not elsewhere classified; I10 Essential (primary) hypertension; I48.91 Unspecified atrial fibrillation; E11.9 Type 2 diabetes mellitus without complications; E78.5 Hyperlipidemia, unspecified; K43.9 Ventral hernia without obstruction or gangrene; R91.8 Other nonspecific abnormal finding of lung field; F17.210 Nicotine dependence, cigarettes, uncomplicated; E87.6 Hypokalemia; Z90.5 Acquired absence of kidney; Z90.710 Acquired absence of both cervix and uterus; Z98.84 Bariatric surgery status; Z79.01 Long term (current) use of anticoagulants; Z85.528 Personal history of other malignant neoplasm of kidney; Z85.118 Personal history of other malignant neoplasm of bronchus and lung; Z86.73 Personal history of transient ischemic attack (TIA), and cerebral infarction without residual deficits; Z80.41 Family history of malignant neoplasm of ovary; Z80.1 Family history of malignant neoplasm of trachea, bronchus and lung; T45.1X5A Adverse effect of antineoplastic and immunosuppressive drugs, initial encounter
CPT/HCPCS: 36415; 71046; 74176; 76705; 78226; 80053; 81001; 83605; 83690; 83735; 85025; 85027; 85610; 86705; 86709; 86803; 87086; 87340; 87804; 96365; 96374; 96375; A9537; C9113; J2543; J3010; J3480; J3490; J7030; J7512; 99285-25; G0378

== ENCOUNTER → 2020-01-15 | Outpatient (CLI) | payer OTHER ==
[~2020-01-15] MED LIST changes: +CONTRAST GIVEN. MC PRN; +IOHEXOL 240 MG/ML 50ML VIAL. PO ONE; +IOHEXOL 300 MG/ML 100ML VIAL. IV ONE; +METO25TA4 PO; +PRED20TA PO
--- NOTE | 2020-01-15 12:54 | RAD ---
CT scan of the chest, abdomen and pelvis with contrast 01/15/2020 CLINICAL HISTORY: Metastatic Renal cell carcinoma. TECHNIQUE: After the oral and intravenous administration of contrast, contiguous, 5 mm axial sections were obtained through the chest, abdomen and pelvis. 75 cc of Omnipaque 300 were administered intravenously during this examination. One or more of the following individualized dose reduction techniques were utilized for this study: 1. Automated exposure control. 2. Adjustment of the mA and/or kV according to patient size. 3. Use of iterative reconstruction technique. FINDINGS: Comparison studies are dated 08/26/2019 and 09/01/2019. The right internal jugular Hgaged-b-Cizk type catheter is unchanged in position. Atherosclerotic calcification of the thoracic aorta and its branches is noted. The thoracic aorta is mildly tortuous but tapers normally. The heart is mildly enlarged. An enlarged left hilar lymph node is seen which measures 1.6 cm in size. This has decreased since the previous study where it measured 2 cm in greatest diameter. No mediastinal or axillary lymphadenopathy is noted. A mass is seen within the left lower lobe which measures 1.4 x 1.1 x 0.9 cm in transverse, AP and craniocaudal dimensions. It has decreased in size since the previous examination where it measured 2.9 2.2 x 2.5 cm in size. Patchy infiltrate and/or atelectasis is seen surrounding this mass. No new pulmonary mass or nodule is seen. No pneumothorax or pleural effusion is noted. The liver parenchyma has a decreased attenuation consistent with fatty infiltration. No focal abnormality of the liver is seen. The adrenal glands, pancreas and right kidney are within normal limits. The patient is post partial left nephrectomy. Coils are seen mid aspect of the left kidney. No residual/recurrent mass is seen. Atherosclerotic calcification abdominal aorta and its branches is noted. The abdominal aorta tapers normally. Calcified gallstones are seen within the gallbladder. The gallbladder is contracted. No free fluid or free air is seen within the abdomen. A ventral hernia is seen within the anterior midline within the lower abdomen/superior pelvis. The hernia sac measures 7.2 cm in diameter. It contains nondilated transverse colon. A smaller fat-containing left lateral ventral hernia is seen in this region which measures 4.7 cm in size. No retroperitoneal lymphadenopathy is noted. Images through the pelvis demonstrate the urinary bladder distended with urine. Calcifications are seen within the pelvis consistent with phleboliths. No free fluid is seen. No pelvic or inguinal lymphadenopathy is noted. Very mild S-shaped curvature of the thoracolumbar spine is seen. Degenerative changes are seen involving the thoracic and throughout the lumbar spine along with both hips. IMPRESSION: 1. Interval decrease in size of the mass within the left lower lobe which now measures 1.4 cm in greatest diameter. 2. There is no CT evidence of recurrent or metastatic disease involving the abdomen or pelvis. Electronically signed by: Aayush Witt MD (01/15/2020 12:51 PM) [id number]
== END | disposition home or self-care (01) ==
LOC: CT 12:28
PROVIDERS: ATTEND Internal Medicine Hematology & Oncology
DX: C64.2 Malignant neoplasm of left kidney, except renal pelvis (principal); R91.8 Other nonspecific abnormal finding of lung field; R59.9 Enlarged lymph nodes, unspecified; I70.0 Atherosclerosis of aorta; I51.7 Cardiomegaly; K43.9 Ventral hernia without obstruction or gangrene; M43.8X5 Other specified deforming dorsopathies, thoracolumbar region; M47.895 Other spondylosis, thoracolumbar region; K80.20 Calculus of gallbladder without cholecystitis without obstruction
CPT/HCPCS: 71260; 74177; Q9966; Q9967

== ENCOUNTER → 2020-03-22 | Outpatient (CLI) | payer OTHER ==
[~2020-03-22] MED LIST changes: +ACET325T9 PO; +ALBU2.5V8 NEB; -CONTRAST GIVEN. MC PRN; +GADOTERATE 7.5 MMOL/15ML VIAL. IVP ONE; +INSU100V35 SQ; +LOPE2CAP PO; +MAG30ORA2 PO; +POTA20TA4 PO; +Phenyleph/Mineral Oil/Petrolat RC
--- NOTE | 2020-03-22 12:52 | RAD ---
MRI Thoracic Spine without and with contrast History: Mid back pain, renal cancer Technique: Multiplanar, multi sequential pre and postcontrast MR imaging was performed of the thoracic spine. Comparison: None Findings: Thoracic vertebral body stature is overall maintained, small inferior T10 Schmorl's node. No suspicious edematous enhancing marrow lesion is identified. Thoracic cord caliber is within normal limits, no defined or expansile signal abnormality or enhancement. Thoracic vertebral body AP alignment is within normal limits. No significant thoracic spinal stenosis is identified. There are negligible posterior protrusions such as T7-8 through T9-10 and T12-L1 and negligible bulge at T10-11. There is variable multilevel buckling of the ligamentum flavum and facet degenerative change. Facet degenerative change and buckling of the ligamentum flavum flavum results in [id number] posterior narrowing of the left T6-7 neural foramen, lesser degree of narrowing on the left at T5-T6, T1-2, and T10-11 and on the right at T10-11, T6-7, and T4-5, and T2-3. There is inferior cervical degenerative disc disease and spondylosis, disc osteophyte complexes and bulges at C5-6-7 resulting in central canal stenosis greatest at C5-6 estimated about 6 mm, to a somewhat lesser degree at C6-7. There is also degree of cervical neural foramina compromise greatest bilaterally at C6-7. Barely included, there is likely somewhat ectatic ascending thoracic aorta. Impression: 1. No suspicious edematous marrow lesion is identified of the thoracic spine. 2. There is no significant thoracic spinal stenosis. There is variable thoracic neural foramina compromise as described. 3. There is inferior cervical degenerative disc disease and spondylosis as well as spinal stenosis such as C5-6 and to a lesser degree at C6-7. There is also degree of C6-7 neural foramina compromise. Electronically signed by: Jb Ureña MD (03/22/2020 12:49 PM) [id number]
--- NOTE | 2020-03-22 17:06 | RAD ---
CT of chest, abdomen and pelvis with contrast: Reason for examination: Renal cell carcinoma. Bone pain. Helical images were obtained through the chest, abdomen and pelvis with intravenous administration of 75 cc Omnipaque 300. Reconstruction was performed in sagittal and coronal planes. Exposure: One or more of the following individualized dose reduction techniques were utilized for this examination: 1. Automated exposure control 2. Adjustment of the mA and/or kV according to patient size 3. Use of iterative reconstruction technique. No abnormality seen at the thyroid gland. The trachea and mainstem bronchi show no intraluminal lesions. No abnormality seen at the esophagus. The thoracic aorta shows no aneurysmal dilatation or dissection. The heart size is normal with no pericardial effusion. No pulmonary embolus is seen. The lung wheeler continue to show patchy infiltrates in the left lower lobe which show no significant improvement. There is however a new pleural-based patch of infiltrate or mass located in the left lower lobe approximately 2.5 cm superior to the previously identified infiltrates. The right lung field is clear. No pleural effusions are seen. No pneumothorax is seen. No abnormality seen at the liver, spleen, adrenal glands or pancreas. Gallbladder shows cholelithiasis. The abdominal aorta and inferior vena cava show no acute abnormalities. The kidneys show postoperative changes at the lower pole of the left kidney. No new renal masses, renal calculi or hydronephrosis is seen. No obstructive uropathy is evident. There is no evidence of diverticulosis or diverticulitis or colitis. There continues to be an anterior midline ventral hernia containing transverse colon without strangulation. The small intestinal tract shows no abnormal dilatation or wall thickening or obstruction. There are again noted to be postop changes in the stomach. The bladder is not distended. Vaginal cuff shows no abnormality. No free fluid or free air is seen in the abdomen or pelvis. There are degenerative changes in the spine which is severe at the L5-S1 disc level. IMPRESSION: Persistent infiltrative process in the left lower lobe without significant change with new smaller focal of pleural-based infiltrate 2.5 cm superiorly in the left lower lobe. Cholelithiasis. Ventral hernia containing transverse colon without significant change. Severe degenerative changes at the L5-S1 disc level. Electronically signed by: Dora Orr MD (03/22/2020 5:03 PM) [facility]
== END | disposition home or self-care (01) ==
LOC: CT 09:05
PROVIDERS: ATTEND Internal Medicine Hematology & Oncology
DX: C64.2 Malignant neoplasm of left kidney, except renal pelvis (principal); M89.8X9 Other specified disorders of bone, unspecified site; M48.04 Spinal stenosis, thoracic region; M47.814 Spondylosis without myelopathy or radiculopathy, thoracic region; M50.30 Other cervical disc degeneration, unspecified cervical region; M47.812 Spondylosis without myelopathy or radiculopathy, cervical region; M25.78 Osteophyte, vertebrae; K80.20 Calculus of gallbladder without cholecystitis without obstruction; M47.817 Spondylosis without myelopathy or radiculopathy, lumbosacral region; K43.9 Ventral hernia without obstruction or gangrene; M54.5 Low back pain; Z85.528 Personal history of other malignant neoplasm of kidney
CPT/HCPCS: 71260; 72157; 74177; A9575; Q9966; Q9967

== ENCOUNTER 2020-03-28 16:34 | Inpatient (IN) | payer OTHER ==
[~2020-03-28] VITALS: Ht 160 cm; Wt 117.1 kg
[~2020-03-28 16:34] MED LIST changes: -ACET325T9 PO; -ALBU2.5V8 NEB; -GADOTERATE 7.5 MMOL/15ML VIAL. IVP ONE; -INSU100V35 SQ; -IOHEXOL 240 MG/ML 50ML VIAL. PO ONE; -IOHEXOL 300 MG/ML 100ML VIAL. IV ONE; -LOPE2CAP PO; -MAG30ORA2 PO; -POTA20TA4 PO; -Phenyleph/Mineral Oil/Petrolat RC
--- NOTE | 2020-03-28 18:25 | PHYS DOC ---
Past Medical History Past Medical History: A-Fib, Cancer, Hypertension, Stroke, Other Additional Past Medical Histor: borderline dm, renal cancer Past Surgical History: Gastric Bypass, Hysterectomy, Other Additional Past Surgical Histo: partial nephrectomy Smoking Status: Light Tobacco Smoker Alcohol Use: None Drug Use: None General Adult EDM: Chief Complaint: URINARY RETENTION HPI: HPI: Patient is a 60 year old female with a past medical history of stage 4 renal cancer presents for evaluation of generalized weakness, unable to eat or drink, nausea vomiting diarrhea x 8 days. Patient states she finished chemotherapy 10 days ago. Patient states 2 falls today due to weakness. Patient also states she does not recall the last time she urinated. States she has no urge to pee. Review of Systems: Review of Systems: Constitutional: Denies fever or chills. [] Eyes: Denies change in visual acuity. [] HENT: Denies nasal congestion or sore throat. [] Respiratory: Denies cough or shortness of breath. [] Cardiovascular: Denies chest pain or edema. [] GI: Denies abdominal pain, positive nausea, vomiting, and diarrhea. [] : Denies dysuria. [positive decreased urination] Musculoskeletal: Denies back pain or joint pain. [] Integument: Denies rash. [] Neurologic: Denies headache, focal weakness or sensory changes. [] Endocrine: Denies polyuria or polydipsia. [] Lymphatic: Denies swollen glands. [] Psychiatric: Denies depression or anxiety. [] Heart Score: Risk Factors: Risk Factors: DM, Current or recent (<one month) smoker, HTN, HLP, family history of CAD, obesity. Risk Scores: Score 0 - 3: 2.5% MACE over next 6 weeks - Discharge Home Score 4 - 6: 20.3% MACE over next 6 weeks - Admit for Clinical Observation Score 7 - 10: 72.7% MACE over next 6 weeks - Early Invasive Strategies Allergies: Allergies: Allergies Coded Allergies Type Severity Reaction Last Updated Verified No Known Drug Allergies 03/07/19 No Physical Exam: PE: Constitutional: Well developed, well nourished, no acute distress, non-toxic appearance. [] HENT: Normocephalic, atraumatic, bilateral external ears normal, oropharynx moist, no oral exudates, nose normal. [] Eyes: PERRLA, EOMI, conjunctiva normal, no discharge. [] Neck: Normal range of motion, no tenderness, supple, no stridor. [] Cardiovascular:Heart rate regular rhythm, no murmur [] Lungs & Thorax: Bilateral breath sounds clear to auscultation [] Abdomen: Bowel sounds normal, soft, no tenderness, no masses, no pulsatile masses. [] Skin: Warm, dry, no erythema, no rash. [] Back: No tenderness, no CVA tenderness. [] Extremities: No tenderness, no cyanosis, no clubbing, ROM intact, no edema. [] Neurologic: Alert and oriented X 3, normal motor function, normal sensory function, no focal deficits noted. [] Psychologic: Affect normal, judgement normal, mood normal. [] Current Patient Data: Vital Signs: Vital Signs Date Time Temp Pulse Resp B/P (MAP) Pulse Ox O2 Delivery O2 Flow Rate FiO2 03/28/20 17:59 97.9 63 18 133/77 (95) 96 Room Air 97.9 EKG: EKG: [] Radiology/Procedures: Radiology/Procedures: [] Course & Med Decision Making: Course & Med Decision Making Pertinent Labs and Imaging studies reviewed. (See chart for details) [] Workup included labs and ekg. Treatment included IV fluids, PO and IV potassium. Admitted to hospitalist. Holden Disclaimer: Holden Disclaimer: This electronic medical record was generated, in whole or in part, using a voice recognition dictation system. Departure Departure Impression: Primary Impression: Acute renal failure Additional Impressions: Dehydration Generalized weakness Disposition: ADMITTED INPATIENT Admitting Physician: HORTENCIA Condition: STABLE Referrals: ALESHA CONRAD (PCP) Justicifation of Admission Dx: Justifications for Admission: Justification of Admission Dx: Yes CHF: Sev. Electrolyte Abnormal Comments: Hypokalemia, Generalized Weakness, Nausea/Vomiting/Diarrhea EDITH KEY I DO Mar 28, 2020 18:25
[2020-03-28] MEDS ORDERED: IV NORMAL SALINE 1000ML BAG 1,000 ML IV ONE (18:30)
[2020-03-28 19:01] LABS: BASO # 0.1 x10^3/uL (0.0-0.2); BASO % 1 % (0-3); EOS # 0.1 x10^3/uL (0.0-0.7); EOS % 1 % (0-3); HEMATOCRIT 43.6 % (36.0-47.0); HEMOGLOBIN 14.7 g/dL (12.0-15.5); LYMPH # 2.2 x10^3/uL (1.0-4.8); LYMPH % 48 % (24-48); MEAN CORPUSCULAR HEMOGLOBIN 28 pg (25-35); MEAN CORPUSCULAR HGB CONC 34 g/dL (31-37); MEAN CORPUSCULAR VOLUME 82 fL (79-100); MONO # 0.5 x10^3/uL (0.0-1.1); MONO % 10 % (0-9); NEUT # 1.8 x10^3/uL (1.8-7.7); NEUT % 40 % (31-73); PLATELET COUNT 96 x10^3/uL (140-400); RED BLOOD COUNT 5.29 x10^6/uL (3.50-5.40); RED CELL DISTRIBUTION WIDTH 19.3 % (11.5-14.5); WHITE BLOOD COUNT 4.7 x10^3/uL (4.0-11.0)
[2020-03-28 19:12] LABS: ALBUMIN 3.2 g/dL (3.4-5.0); ALBUMIN/GLOBULIN RATIO 0.9 (1.0-1.7); CALCIUM 8.8 mg/dL (8.5-10.1); CREATININE 0.9 mg/dL (0.6-1.0); GFR 63.9; MAGNESIUM 2.3 mg/dL (1.8-2.4); TOTAL BILIRUBIN 1.7 mg/dL (0.2-1.0); TOTAL PROTEIN 6.6 g/dL (6.4-8.2)
[2020-03-28 19:14] LABS: BILIRUBIN,URINE SMALL (NEG); CLARITY,URINE CLEAR; COLOR,URINE YELLOW; NITRITE,URINE NEGATIVE (NEG); PROTEIN,URINE NEGATIVE (NEG-TRACE)
[2020-03-28 19:18] LABS: BACTERIA,URINE FEW /HPF (0-FEW); RBC,URINE OCC /HPF (0-2); SQUAMOUS EPITHELIAL CELL,UR MOD /LPF
[2020-03-28 19:19] LABS: HYALINE CASTS, URINE MODERATE /HPF
[2020-03-28] MEDS ORDERED: MORPHINE SULFATE 2 MG/ML VIAL. IV PRN (19:30)
[2020-03-28] MEDS ORDERED: ONDANSETRON PF 4 MG/2 ML VIAL. IV PRN (19:30)
[2020-03-28 19:46] LABS: PLT ESTIMATE DECREASED (ADEQUATE)
[2020-03-28] MEDS ORDERED: POTASSIUM CHLORIDE 20 MEQ TABLET.ER. PO ONE (20:00)
[2020-03-28] MEDS: POTASSIUM CHLORIDE 10MEQ 100 ML IV SCH ×2 (20:19→21:26)
[2020-03-28] MEDS: INSULIN LISPRO 300 UNITS/3 ML VIAL. SQ SCH (21:30)
[2020-03-28] MEDS ORDERED: METOPROLOL TART IMMED RELEASE 25 MG TABLET. PO SCH (21:30)
--- NOTE | 2020-03-28 22:09 | NUR ---
Pt. just arrived from ED via bed w/ dehydration, weakness and stage 4 renal cancer. She is A/O x4 and will make needs known.
[2020-03-28] MEDS ORDERED: DEXTROSE 50% 25 GM / 50ML DISP.SYRIN. IV PRN (22:30)
[2020-03-28 23:00] VITALS: BP 136/49
[2020-03-28] MEDS: ATORVASTATIN CALCIUM 40 MG TABLET. PO SCH (23:21)
[2020-03-28] MEDS: APIXABAN 5 MG TABLET. PO SCH (23:21)
[2020-03-28] MEDS: METOPROLOL TART IMMED RELEASE 25 MG TABLET. PO SCH (23:21)
[2020-03-28] MEDS: HYDROcodone/APAP 5/325MG 1 TAB TABLET PO PRN (23:25)
[2020-03-29] MEDS: TEMAZEPAM 7.5 MG CAPSULE PO PRN ×2 (02:52→23:45)
[2020-03-29 03:19] VITALS: BP 128/51
[2020-03-29 05:51] LABS: BASO % 0 % (0-3); EOS % 1 % (0-3); HEMOGLOBIN 13.4 g/dL (12.0-15.5); LYMPH % 44 % (24-48); MEAN CORPUSCULAR HEMOGLOBIN 28 pg (25-35); MEAN CORPUSCULAR HGB CONC 34 g/dL (31-37); MEAN CORPUSCULAR VOLUME 83 fL (79-100); MONO # 0.4 x10^3/uL (0.0-1.1); MONO % 10 % (0-9); NEUT # 1.9 x10^3/uL (1.8-7.7); NEUT % 44 % (31-73); PLATELET COUNT 86 x10^3/uL (140-400); WHITE BLOOD COUNT 4.4 x10^3/uL (4.0-11.0)
[2020-03-29 06:18] LABS: ALBUMIN 2.7 g/dL (3.4-5.0); CALCIUM 8.3 mg/dL (8.5-10.1); CREATININE 0.8 mg/dL (0.6-1.0); GFR 73.2; TOTAL BILIRUBIN 1.4 mg/dL (0.2-1.0); TOTAL PROTEIN 5.3 g/dL (6.4-8.2)
[2020-03-29 06:20] LABS: POTASSIUM 2.8 mmol/L (3.5-5.1)
--- NOTE | 2020-03-29 06:41 | NUR ---
At 0619 Lab called w/ a critical K+ of 2.8. At 0621 Answering service notified and @ 0632 Dr Flores called back and gave orders for KCL PO BID and to recheck @ 8 pm.
[2020-03-29 07:00] VITALS: BP 104/65
--- NOTE | 2020-03-29 07:17 | EKG ---
[facility] [address] [place] [address] Test Date: 2020-03-28 Test Time: 19:39:48 Pat Name: TATA ALVAREZ Department: Room: Gender: F [employer]: : 1960 Requested By: EDITH KEY Order Number: [id number] Reading MD: Measurements Intervals [place] Rate: 45 P: 48 NH: 240 QRS: -34 QRSD: 88 T: 121 QT: 500 QTc: 435 Interpretive Statements SINUS BRADYCARDIA PROLONGED NH INTERVAL ABNORMAL LEFT AXIS DEVIATION R-S TRANSITION ZONE IN V LEADS DISPLACED TO THE LEFT LEFT ANTERIOR FASCICULAR BLOCK CONSIDER LEFT VENTRICULAR HYPERTROPHY ST & T ABNORMALITY, CONSIDER HIGH LATERAL ISCHEMIA OR LEFT VENTRICULAR STRAIN T ABNORMALITY IN LATERAL LEADS ABNORMAL ECG RI6.02 No previous ECG available for comparison
[2020-03-29] MEDS: INSULIN LISPRO 300 UNITS/3 ML VIAL. SQ SCH ×4 (07:30→21:00)
[2020-03-29] MEDS ORDERED: POTASSIUM BICARB 20 MEQ EFFERVESCENT TABLET. PO SCH (08:00)
[2020-03-29] MEDS: ANTI-COAG MONITOR BY PHARMACY. MC PRN (08:05)
[2020-03-29] MEDS: POTASSIUM CHLORIDE 20 MEQ TABLET.ER. PO SCH ×2 (09:44→18:10)
[2020-03-29] MEDS: METOPROLOL TART IMMED RELEASE 25 MG TABLET. PO SCH ×2 (09:47→21:59)
[2020-03-29] MEDS: LOSARTAN POTASSIUM 50 MG TABLET. PO SCH (09:48)
[2020-03-29] MEDS: APIXABAN 5 MG TABLET. PO SCH ×2 (09:48→21:59)
[2020-03-29] MEDS: amLODIPine BESYLATE 10 MG TABLET PO SCH (09:49)
--- NOTE | 2020-03-29 10:32 | PDOC1 ---
History and Physical Date of Admission Date of Admission DATE: 03/29/20 TIME: 10:32 Identification/Chief Complaint Chief Complaint 60 year old female with a past medical history of stage 4 renal cancer presents for evaluation of generalized weakness, unable to eat or drink, nausea vomiting diarrhea x 8 days. Patient states she finished chemotherapy 10 days ago. Patient states 2 falls 03/28 due to weakness. Patient also states she does not recall the last time she urinated Past Medical History Past Medical History Past Medical History Past Medical History: A-Fib, Cancer, Hypertension, Stroke, Other Additional Past Medical Histor: borderline dm, renal cancer Past Surgical History: Gastric Bypass, Hysterectomy, Other Additional Past Surgical Histo: partial nephrectomy Smoking Status: Light Tobacco Smoker Alcohol Use: None Drug Use: None fhx obesity Cardiovascular: AFIB, Hyperlipidemia CENTRAL NERVOUS SYSTEM: CVA Endocrine: Diabetes Past Surgical History Past Surgical History: Hysterectomy, Other Family History Family History: Hypertension, Other Social History Smoke: No ALCOHOL: none Drugs: None Current Problem List Problem List Problems Medical Problems: (1) Acute renal failure Status: Acute (2) Dehydration Status: Acute (3) Generalized weakness Status: Acute Current Medications Current Medications Current Medications Sodium Chloride 1,000 ml @ 1,000 mls/hr 1X ONCE IV Last administered on 03/28/20at 19:00; Start 03/28/20 at 18:30; Stop 03/28/20 at 19:29; Status DC Potassium Chloride/Water 100 ml @ 100 mls/hr Q1H IV Last administered on 03/28/20at 21:26; Start 03/28/20 at 20:00; Stop 03/28/20 at 21:59; Status DC Potassium Chloride (Klor-Con) 40 meq 1X ONCE PO Last administered on 03/28/20at 19:45; Start 03/28/20 at 20:00; Stop 03/28/20 at 20:01; Status DC Ondansetron HCl (Zofran) 4 mg PRN Q8HRS PRN IV NAUSEA/VOMITING; Start 03/28/20 at 19:30; Stop 03/29/20 at 19:29 Morphine Sulfate (Morphine Sulfate) 2 mg PRN Q2HR PRN IV PAIN Last administered on 03/28/20at 20:30; Start 03/28/20 at 19:30; Stop 03/29/20 at 19:29 Amlodipine Besylate (Norvasc) 10 mg DAILY PO Last administered on 03/29/20 09:49; Start 03/29/20 at 09:00 Apixaban (Eliquis) 5 mg BID PO Last administered on 03/29/20 09:48; Start 03/28/20 at 22:30 Metoprolol Tartrate (Lopressor) 25 mg BID PO ; Start 03/28/20 at 21:30; Stop 03/28/20 at 22:34; Status DC Temazepam (Restoril) 7.5 mg PRN QHS PRN PO sleep Last administered on 03/29/20 02:52; Start 03/28/20 at 22:30 Atorvastatin Calcium (Lipitor) 80 mg HS PO Last administered on 03/28/20 23:21; Start 03/28/20 at 22:30 Losartan Potassium (Cozaar) 100 mg DAILY PO Last administered on 03/29/20 09:48; Start 03/29/20 at 09:00 Metoprolol Tartrate (Lopressor) 25 mg BID PO Last administered on 03/29/20at 09:47; Start 03/28/20 at 22:30 Insulin Human Lispro (HumaLOG) 0-7 UNITS QIDACHS SQ ; Start 03/28/20 at 21:30 Dextrose (Dextrose 50%-Water Syringe) 12.5 gm PRN Q15MIN PRN IV SEE COMMENTS; Start 03/28/20 at 22:30 Acetaminophen/ Hydrocodone Bitart (Lortab 5/325) 1 tab PRN Q6HRS PRN PO PAIN Last administered on 03/28/20 23:25; Start 03/28/20 at 22:30 Potassium Bicarbonate (Potassium Effervescent Tablet) 40 meq BIDWMEALS PO ; Start 03/29/20 at 08:00; Status Cancel Potassium Chloride (Klor-Con) 40 meq BIDWMEALS PO Last administered on 03/29/20at 09:44; Start 03/29/20 at 08:00 Info (Anti-Coagulation Monitoring By Pharmacy) 1 each PRN DAILY PRN MC SEE COMMENTS Last administered on 03/29/20at 08:05; Start 03/29/20 at 08:15 Active Scripts Active Metoprolol Tartrate 25 Mg Tablet 1 Tab PO BID Prednisone 20 Mg Tablet 100 Mg PO DAILY 10 Days Reported Temazepam 7.5 Mg Capsule 7.5 Mg PO HS PRN Metformin Hcl 500 Mg Tablet 500 Mg PO BIDWMEALS Atacand (Candesartan Cilexetil) 16 Mg Tablet 16 Mg PO DAILY Lipitor (Atorvastatin Calcium) 80 Mg Tablet 80 Mg PO HS Eliquis (Apixaban) 5 Mg Tablet 5 Mg PO BID Amlodipine Besylate 10 Mg Tablet 10 Mg PO DAILY Allergies Allergies: Coded Allergies: No Known Drug Allergies (Unverified , 03/07/19) ROS Review of System Constitutional: Denies fever or chills. [] Eyes: Denies change in visual acuity. [] HENT: Denies nasal congestion or sore throat. [] Respiratory: Denies cough or shortness of breath. [] Cardiovascular: Denies chest pain or edema. [] GI: Denies abdominal pain, positive nausea, vomiting, and diarrhea. [] : Denies dysuria. [positive decreased urination] Musculoskeletal: Denies back pain or joint pain. [] Integument: Denies rash. [] Neurologic: Denies headache, focal weakness or sensory changes. [] Endocrine: Denies polyuria or polydipsia. [] Lymphatic: Denies swollen glands. [] Psychiatric: Denies depression or anxiety. [] 14 PT ROS OTHERWISE NEG Hematological and Lymphatic: No: Bleeding Problems, Blood Clots, Blood Transfusions, Brusing, Night Sweats, Pallor, Swollen Lymph Nodes, Other Gastrointestinal: Yes Nausea, Yes Vomiting, Yes Diarrhea Physical Exam Physical Exam Constitutional: Well developed, well nourished, no acute distress, non-toxic opal earance. [] HENT: Normocephalic, atraumatic, bilateral external ears normal, oropharynx moist, no oral exudates, nose normal. [] Eyes: PERRLA, EOMI, conjunctiva normal, no discharge. [] Neck: Normal range of motion, no tenderness, supple, no stridor. [] Cardiovascular:Heart rate regular rhythm, no murmur [] Lungs & Thorax: Bilateral breath sounds clear to auscultation [] Abdomen: Bowel sounds normal, soft, no tenderness, no masses, no pulsatile masses. [] Skin: Warm, dry, no erythema, no rash. [] Back: No tenderness, no CVA tenderness. [] Extremities: No tenderness, no cyanosis, no clubbing, ROM intact, no edema. [] Neurologic: Alert and oriented X 3, normal motor function, normal sensory function, no focal deficits noted. [] Psychologic: Affect normal, judgement normal, mood normal. [] General: Alert, Oriented X3, Cooperative HEENT: Atraumatic, PERRLA Lungs: Clear to auscultation Heart: RRR, no gallops Breasts: Not examined Abdomen: Normal bowel sounds, Soft Rectal Exam: not examined Extremities: No cyanosis Neuro: Normal speech, Strength at 5/5 X4 ext, Cranial nerves 3-12 NL Psych/Mental Status: Mental status NL, Mood NL Vitals Vitals Vital Signs Date Time Temp Pulse Resp B/P (MAP) Pulse Ox O2 Delivery O2 Flow Rate FiO2 03/29/20 09:49 116/70 03/29/20 07:00 97.4 52 16 95 Room Air 97.4 Labs Labs Laboratory Tests Test 03/28/20 18:50 03/28/20 19:05 03/28/20 22:58 03/29/20 05:10 White Blood Count 4.7 x10^3/uL (4.0-11.0) 4.4 x10^3/uL (4.0-11.0) Red Blood Count 5.29 x10^6/uL (3.50-5.40) 4.80 x10^6/uL (3.50-5.40) Hemoglobin 14.7 g/dL (12.0-15.5) 13.4 g/dL (12.0-15.5) Hematocrit 43.6 % (36.0-47.0) 40.0 % (36.0-47.0) Mean Corpuscular Volume 82 fL (79-100) 83 fL (79-100) Mean Corpuscular Hemoglobin 28 pg (25-35) 28 pg (25-35) Mean Corpuscular Hemoglobin Concent 34 g/dL (31-37) 34 g/dL (31-37) Red Cell Distribution Width 19.3 % (11.5-14.5) 19.0 % (11.5-14.5) Platelet Count 96 x10^3/uL (140-400) 86 x10^3/uL (140-400) Neutrophils (%) (Auto) 40 % (31-73) 44 % (31-73) Lymphocytes (%) (Auto) 48 % (24-48) 44 % (24-48) Monocytes (%) (Auto) 10 % (0-9) 10 % (0-9) Eosinophils (%) (Auto) 1 % (0-3) 1 % (0-3) Basophils (%) (Auto) 1 % (0-3) 0 % (0-3) Neutrophils # (Auto) 1.8 x10^3/uL (1.8-7.7) 1.9 x10^3/uL (1.8-7.7) Lymphocytes # (Auto) 2.2 x10^3/uL (1.0-4.8) 2.0 x10^3/uL (1.0-4.8) Monocytes # (Auto) 0.5 x10^3/uL (0.0-1.1) 0.4 x10^3/uL (0.0-1.1) Eosinophils # (Auto) 0.1 x10^3/uL (0.0-0.7) 0.0 x10^3/uL (0.0-0.7) Basophils # (Auto) 0.1 x10^3/uL (0.0-0.2) 0.0 x10^3/uL (0.0-0.2) Platelet Estimate Decreased (ADEQUATE) Giant Platelets Occ Sodium Level 142 mmol/L (136-145) 144 mmol/L (136-145) Potassium Level 2.0 mmol/L (3.5-5.1) 2.8 mmol/L (3.5-5.1) Chloride Level 99 mmol/L (98-107) 103 mmol/L (98-107) Carbon Dioxide Level 39 mmol/L (21-32) 32 mmol/L (21-32) Anion Gap 4 (6-14) 9 (6-14) Blood Urea Nitrogen 11 mg/dL (7-20) 11 mg/dL (7-20) Creatinine 0.9 mg/dL (0.6-1.0) 0.8 mg/dL (0.6-1.0) Estimated GFR (Cockcroft-Gault) 63.9 73.2 BUN/Creatinine Ratio 12 (6-20) 14 (6-20) Glucose Level 110 mg/dL (70-99) 111 mg/dL (70-99) Calcium Level 8.8 mg/dL (8.5-10.1) 8.3 mg/dL (8.5-10.1) Magnesium Level 2.3 mg/dL (1.8-2.4) Total Bilirubin 1.7 mg/dL (0.2-1.0) 1.4 mg/dL (0.2-1.0) Aspartate Amino Transf (AST/SGOT) 120 U/L (15-37) 112 U/L (15-37) Alanine Aminotransferase (ALT/SGPT) 116 U/L (14-59) 103 U/L (14-59) Alkaline Phosphatase 104 U/L (46-116) 94 U/L (46-116) Troponin I Quantitative < 0.017 ng/mL (0.000-0.055) Total Protein 6.6 g/dL (6.4-8.2) 5.3 g/dL (6.4-8.2) Albumin 3.2 g/dL (3.4-5.0) 2.7 g/dL (3.4-5.0) Albumin/Globulin Ratio 0.9 (1.0-1.7) 1.0 (1.0-1.7) Lipase 101 U/L (73-393) Urine Collection Type Unknown Urine Color Yellow Urine Clarity Clear Urine pH 7.0 (<5.0-8.0) Urine Specific [place] 1.010 (1.000-1.030) Urine Protein Negative mg/dL (NEG-TRACE) Urine Glucose (UA) Negative mg/dL (NEG) Urine Ketones (Stick) Negative mg/dL (NEG) Urine Blood Negative (NEG) Urine Nitrite Negative (NEG) Urine Bilirubin Small (NEG) Urine Urobilinogen Dipstick 1.0 mg/dL (0.2 mg/dL) Urine Leukocyte Esterase Negative (NEG) Urine RBC Occ /HPF (0-2) Urine WBC 5-10 /HPF (0-4) Urine Squamous Epithelial Cells Mod /LPF Urine Bacteria Few /HPF (0-FEW) Urine Hyaline Casts Moderate /HPF Urine Mucus Mod /LPF Glucose (Fingerstick) 167 mg/dL (70-99) Test 03/29/20 07:56 Glucose (Fingerstick) 121 mg/dL (70-99) Laboratory Tests Test 03/28/20 18:50 03/28/20 19:05 03/28/20 22:58 03/29/20 05:10 White Blood Count 4.7 x10^3/uL (4.0-11.0) 4.4 x10^3/uL (4.0-11.0) Red Blood Count 5.29 x10^6/uL (3.50-5.40) 4.80 x10^6/uL (3.50-5.40) Hemoglobin 14.7 g/dL (12.0-15.5) 13.4 g/dL (12.0-15.5) Hematocrit 43.6 % (36.0-47.0) 40.0 % (36.0-47.0) Mean Corpuscular Volume 82 fL (79-100) 83 fL (79-100) Mean Corpuscular Hemoglobin 28 pg (25-35) 28 pg (25-35) Mean Corpuscular Hemoglobin Concent 34 g/dL (31-37) 34 g/dL (31-37) Red Cell Distribution Width 19.3 % (11.5-14.5) 19.0 % (11.5-14.5) Platelet Count 96 x10^3/uL (140-400) 86 x10^3/uL (140-400) Neutrophils (%) (Auto) 40 % (31-73) 44 % (31-73) Lymphocytes (%) (Auto) 48 % (24-48) 44 % (24-48) Monocytes (%) (Auto) 10 % (0-9) 10 % (0-9) Eosinophils (%) (Auto) 1 % (0-3) 1 % (0-3) Basophils (%) (Auto) 1 % (0-3) 0 % (0-3) Neutrophils # (Auto) 1.8 x10^3/uL (1.8-7.7) 1.9 x10^3/uL (1.8-7.7) Lymphocytes # (Auto) 2.2 x10^3/uL (1.0-4.8) 2.0 x10^3/uL (1.0-4.8) Monocytes # (Auto) 0.5 x10^3/uL (0.0-1.1) 0.4 x10^3/uL (0.0-1.1) Eosinophils # (Auto) 0.1 x10^3/uL (0.0-0.7) 0.0 x10^3/uL (0.0-0.7) Basophils # (Auto) 0.1 x10^3/uL (0.0-0.2) 0.0 x10^3/uL (0.0-0.2) Platelet Estimate Decreased (ADEQUATE) Giant Platelets Occ Sodium Level 142 mmol/L (136-145) 144 mmol/L (136-145) Potassium Level 2.0 mmol/L (3.5-5.1) 2.8 mmol/L (3.5-5.1) Chloride Level 99 mmol/L (98-107) 103 mmol/L (98-107) Carbon Dioxide Level 39 mmol/L (21-32) 32 mmol/L (21-32) Anion Gap 4 (6-14) 9 (6-14) Blood Urea Nitrogen 11 mg/dL (7-20) 11 mg/dL (7-20) Creatinine 0.9 mg/dL (0.6-1.0) 0.8 mg/dL (0.6-1.0) Estimated GFR (Cockcroft-Gault) 63.9 73.2 BUN/Creatinine Ratio 12 (6-20) 14 (6-20) Glucose Level 110 mg/dL (70-99) 111 mg/dL (70-99) Calcium Level 8.8 mg/dL (8.5-10.1) 8.3 mg/dL (8.5-10.1) Magnesium Level 2.3 mg/dL (1.8-2.4) Total Bilirubin 1.7 mg/dL (0.2-1.0) 1.4 mg/dL (0.2-1.0) Aspartate Amino Transf (AST/SGOT) 120 U/L (15-37) 112 U/L (15-37) Alanine Aminotransferase (ALT/SGPT) 116 U/L (14-59) 103 U/L (14-59) Alkaline Phosphatase 104 U/L (46-116) 94 U/L (46-116) Troponin I Quantitative < 0.017 ng/mL (0.000-0.055) Total Protein 6.6 g/dL (6.4-8.2) 5.3 g/dL (6.4-8.2) Albumin 3.2 g/dL (3.4-5.0) 2.7 g/dL (3.4-5.0) Albumin/Globulin Ratio 0.9 (1.0-1.7) 1.0 (1.0-1.7) Lipase 101 U/L (73-393) Urine Collection Type Unknown Urine Color Yellow Urine Clarity Clear Urine pH 7.0 (<5.0-8.0) Urine Specific [place] 1.010 (1.000-1.030) Urine Protein Negative mg/dL (NEG-TRACE) Urine Glucose (UA) Negative mg/dL (NEG) Urine Ketones (Stick) Negative mg/dL (NEG) Urine Blood Negative (NEG) Urine Nitrite Negative (NEG) Urine Bilirubin Small (NEG) Urine Urobilinogen Dipstick 1.0 mg/dL (0.2 mg/dL) Urine Leukocyte Esterase Negative (NEG) Urine RBC Occ /HPF (0-2) Urine WBC 5-10 /HPF (0-4) Urine Squamous Epithelial Cells Mod /LPF Urine Bacteria Few /HPF (0-FEW) Urine Hyaline Casts Moderate /HPF Urine Mucus Mod /LPF Glucose (Fingerstick) 167 mg/dL (70-99) Test 03/29/20 07:56 Glucose (Fingerstick) 121 mg/dL (70-99) Images Images dpoa review 17 min What Is a Power of Fish Cleaner Machine Tender? A power of child protective services social worker (POA) is a legal document giving one person (the agent or [id number]) the power to act for another person (the principal). The agent can have broad legal authority or limited authority to make legal decisions about the principal's property, finances or medical care. The power of child protective services social worker is frequently used in the event of a principal's illness or disability, or when the principal can't be present to sign necessary legal documents for financial transactions. A power of child protective services social worker can end for a number of reasons, such as when the principal dies, the principal revokes it, a court invalidates it, the principal divorces their spouse, who happens to be the agent, or the agent can no longer carry out the outlined responsibilities. Conventional POAs lapse when the creator becomes incapacitated, but a durable POA remains in force to enable the agent to manage the creators affairs, and a springing POA comes into effect only if and when the creator of the POA becomes incapacitated. A medical or healthcare POA enables an agent to make medical decisions on behalf of an incapacitated person. [employer] A power of child protective services social worker (POA) is a legal document giving one person, the agent or [id number] the power to act for another person, the principal. The agent can have broad legal authority or limited authority to make decisions about the principal's property, finances or medical care. The power of child protective services social worker is often used when a principal becomes ill or disabled, or when they can't be present to sign necessary legal documents for financial transactions. Understanding Power of Fish Cleaner Machine Tender A power of child protective services social worker should be considered when planning for long-term care. There are different types of POAs that fall under either a general power of child protective services social worker or limited power of child protective services social worker. A general power of child protective services social worker acts on behalf of the principal in any and all matters, as allowed by the state. The agent under a general POA agreement may be authorized to take care of issues such as handling bank accounts, signing checks, selling property and assets like stocks, f A limited power of child protective services social worker gives the agent the power to act on behalf of the principal in specific matters or events. For example, the limited POA may explicitly state that the agent is only allowed to manage the principal's senior living accounts. A limited POA may also be limited to a specific period of time (e.g., if the principal will be out of the country for, say, two years). Most guevara of child protective services social worker documents allow an agent to represent the principal in all property and financial matters as long as the principals mental state of mind is good. If a situation occurs where the principal becomes incapable of justen ing decisions for him or herself, the POA agreement would automatically end. However, someone who wants the POA to remain in effect after the persons health deteriorates would need to sign a durable power of child protective services social worker (DPOA). Important:A person appointed as power of child protective services social worker is not necessarily an child protective services social worker. The person could just be a trusted family member, friend, or acquaint ance. Understanding the Durable Power of Fish Cleaner Machine Tender (DPOA) The durable power of child protective services social worker (DPOA) remains in control of certain legal, property or financial matters specifically spelled out in the agreement, even after the principal becomes mentally incapacitated. While a DPOA can pay medical bills on behalf of the principal, the durable agent cannot make decisions related to the principal's health (e.g., taking the principal off life support is not up to a DPOA). The principal can sign a durable power of child protective services social worker for health care, or healthcare power of child protective services social worker (HCPA), if he wants an agent to have the power to make health-related decisions. This document also called a healthcare proxy, outlines the principals consent to give the agent POA privileges in the event of an unfortunate medical condition. The durable POA for healthcare is legally bound to oversee medical care decisions on behalf of the principal. Another type of DPOA is the durable power of child protective services social worker for finances, or simply a financial power of child protective services social worker. This document allows an agent to manage the business and financial affairs of the principal, such as signing checks, filing tax returns, mailing and depositing Social Security checks and managing investment accounts, in the event, the latter becomes unable to understand or make decisions. To the extent of what the agreement spells out as the agents responsibility, the agent has to carry out the principals wishes to the best of his ability. When the agent acts on behalf of the principal by making investment decisions through the energy sales broker or medical decisions through the healthcare professional, both institutions would ask to see the DPOA. Although the DPOA for both medical and financial matters can be one document, it is good to have separate DPOA for healthcare and finances. Since the DPOA for healthcare will have the principal's personal medical information, it would be inappropriate for the energy sales broker to have it, and the medical billing specialist dont need to know the financial status of the patient either. conditions for which a durable POA may become active are set up in a document called the springing power of child protective services social worker. The springing POA defines the kind of event or level of incapacitation that should occur before the DPOA springs into effect. A power of child protective services social worker can remain dormant until a negative health occurrence activates it to a DPOA. How Power of Fish Cleaner Machine Tender Works You can buy or download a power of child protective services social worker template. If you do, be sure it is for your state, as requirements differ. However, this document may be too important to leave to the chance that you got the correct form and handled it properly. A better way to start the process of establishing a power of child protective services social worker is by locating an child protective services social worker who specializes in family law in your state. If child protective services social worker's fees are more than you can afford, legal services offices staffed with credentialed attorneys exist in virtually every part of the [place]. Visit the [employer] website, which has a "Find Maintenance Scheduler" search function. Clients who qualify will receive pro jennifer (cost-free) assistance Many states require that the signature of the principal (the person who initiates the POA) be notarized. Some states also require that witnesses' signatures be notarized. The following provisos apply generally, nationwide, and everyone who needs to create a POA should be aware of them: There is no standard POA form for all 50 states; state law and procedures vary All states accept some version of the durable power of child protective services social worker A few monk guevara cannot be delegated. These include the authority to do the following: Make, amend, or revoke a will Contract a marriage in most states, although a handful of states allow it Vote (but the guardian may request a ballot on behalf of the principal) While the details may differ, the following rules apply [facility]: Put It in Writing While some regions of the country accept oral POA grants, verbal instruction is not a reliable substitute for getting each of the guevara of child protective services social worker granted to your agent spelled out [id number] on paper. Written clarity helps to avoid arguments and confusion. Use the Proper Format Many variations of power of child protective services social worker forms exist. Some POAs are short-lived; others are meant to last until . Decide what guevara you wish to harry and prepare a POA specific to that desire. The POA must also satisfy the requirements of your state. To find a form that will be accepted by a court of law in the state in which you live, perform an internet search, check with an office-supply store or ask a local estate-planning professional to help you. The best option is to use an child protective services social worker. Identify the Parties The term for the person granting the POA is the "principal." The individual who receives the power of child protective services social worker is called either the "agent" or the "[id number]." Check whether your state requires that you use specific terminology. Delegate the Guevara A POA can be as broad or as limited as the principal wishes. However, each of the guevara granted must be clear, even if the principal grants the agent "general power of child protective services social worker." In other words, the principal cannot harry sweeping authority such as, I delegate all things having to do with my life. Specify Durability In most states, a power of child protective services social worker terminates if the principal is incapacitated. If this happens, the only way an agent can keep his or her guevara is if the POA was written with an indication that it is "durable," a designation that makes it last for the principal's lifetime unless the principal revokes it. Notarize the POA Many states require guevara of child protective services social worker to be notarized. Even in states that don't, it is potentially much easier for the agent if a notarys seal and signature are on the document. Record It Not all guevara of child protective services social worker must be recorded formally by the county in order to be legal. But recording is standard practice for many estate planners and individuals who want to create a record that the document exists. File It Some states require specific kinds of POAs to be filed with a court or government office before they can be made valid. For instance, [place] requires that any POA used to harry grandparents guardianship over a child must be filed with the juvenile court. It also requires a POA that transfers real estate to be recorded by the [facility] in which the property is located. Choosing a Power of Fish Cleaner Machine Tender Like the property deed for your house or car, a POA grants immense ownership authority and responsibility. It is literally a matter of life and in the case of a medical POA. And you could find yourself facing financial privation or bankruptcy if you end up with a mishandled or abused durable POA. Therefore, you should choose your agent with the greatest of care to ensure your wishes are carried out to the greatest extent possible. It is critical to name a person who is both trustworthy and capable to serve as your agent. This person will act with the same legal authority you would have, so any mistakes made by your agent may be very difficult to correct. Even worse, depending on the extent of the guevara you harry, there may be dangerous potential for self-dealing. An agent may have access to your bank accounts, the power to make gifts and transfer your funds, and the ability to sell your property. Your agent can be any competent adult, including a professional such as an child protective services social worker, accountant manager, or banker. But your agent may also be a family member such as a spouse, adult child or another relative. Naming a family member as your agent saves the fees a professional would charge, and may also keep confidential information about your finances and other private matters in the family." Naming Children as Power of Fish Cleaner Machine Tender Parents who create POAs very commonly choose adult children to serve as their agents. Compared to naming ones spouse as the agent, the relative youth of the child is an advantage when the purpose of the POA is to relieve an aging parent of the burden of managing the details of financial and investment affairs or provide management for an aging parents affairs should the parent become incapacitated. In these cases, a spouse named as the agent who is near the same age as the person creating the POA may come to suffer the same debilities that led the POA s creator to establish it, defeating its purpose. When the child is honest, capable, and respects the parents desires, this can be the best choice for a POA. When there is more than one child, parents may struggle with the decision of who to select for the role of the agent. This is not a decision to be taken lightly. Your agent named under your POA acts with your authority, so costly financial mistakes resulting from carelessness or lack of financial understanding may be impossible to fix. The same is true of acts that create interfamily conflict by favoring some members over others. Worst of all, when delivered into the wrong hands, a POA can create a veritable license to steal, giving your agent access to your bank accounts and the ability to spend your money and take many other wrongful actions. Children have different characters, skills, and circumstances, and ocasio s election of children as agents, and of the guevara given to them, can avert these dangers. The good news is that you can have multiple POAs naming separate agents and customize them for each jenny skill set, temperament, and ability to act on your behalf. Consider these three monk factors when choosing which child you want to give important guevara to under a POA: 1.Trustworthiness: This is the single most important trait of any agent named under a POA. This includes not just honesty but also reliability in performing tasks that need regular attention, from managing an investment portfolio to paying bills, and diligence in acting according to your wishes. 2.Abilities of each child: Specific abilities of different children may make them best suited to take on particular roles in managing your financial affairs. You can use limited POAs to give different children defined and limited guevara over different aspects of your finances. These may include the followin.Managing everyday expenses of the family 4.Receiving income from and paying expenses on real estate 5.Controlling a financial portfolio 6.Managing insurance and annuities 7.Running a Glow 8.Multiple agents: More than one agent can be named by a POA, either with the authority to act separately or required to act jointly. Having two children separately authorized to manage routine items can be a convenience if one becomes unavailable for some reason while requiring two to agree on major actions like selling a house can assure family agreement over major decisions. Tip:Say one child is a busy financial expert living in a distant city, while another works part-time and lives conveniently close by. You can have one POA that names the first to manage your investment portfolio and another that names the second to manage your routine daily expenses and pay monthly bills. But naming multiple agents can cause problems if disputes arise between them. For instance, if two children are required to act jointly in managing an investment account but disagree over how to do so, it may be effectively frozen. So when choosing two children to act jointly as agents under a POA, be sure they have not only the skills for the task but personalities to cooperate. Risks of Naming Children as Power of Fish Cleaner Machine Tender Mistakesand worse, acts of self-dealingcommitted by your agent can be extremely costly. This is especially so with a durable POA that gives broad control over your affairs during a time when you are incapacitated. You must be convinced that the agent will follow your instructions, has the ability to do so, and will pursue your wishes even over the objections of other family members if need be. Never name a child to be your agent as a matter of fairness, to avoid hurt feelings or to preserve family harmony, if you lack trust. The guevara are far too important to be granted other than on the merits of trustworthiness and ability. Beware naming a child as your agent if: You experience difficulty, awkwardness, or resistance when explaining to the child the duties to be taken on as your agent under the POA The child may not be available to perform the duties, or not be reliable in doing so due to their own concerns or distractions The child has a history of problems with gambling or substance abuse The child has serious debts or has been irresponsible in managing his/her own finances and affairs The child is engaged in intra-family conflicts that may result is using the guevara received under the POA to favor some family members over others Risks of Naming a POA Be aware of the dangers of theft and self-dealing created by a POA, even when your agent is your own child. To minimize the risk of such wrongdoing, in addition to the steps mentioned above, have your POA require your agent to report all actions periodically to an outside republican, such as the familys accountant manager or child protective services social worker. In other words, trust but verify. A capable child protective services social worker can draft your POA to include these safeguards under your states laws. As family circumstances change, periodically review and update the POAs you have created. You can revoke a POA simply by writing a letter that clearly identifies it and states that you revoke it, and delivering the letter to your former agent. (Some states require such a letter to be notarized.) Its a good idea to also send copies to third parties with whom the agent may have acted on your behalf. Then create a new POA and deliver it to your new choice of agent. A power of child protective services social worker can provide you with both convenience and protection by giving a trusted individual the legal authority to act on your behalf and in your interests. Adult children who are both fully trustworthy and capable of accomplishing your wishes may make the best agent under your POA. But dont name a person the agent simply because he or she is your child. Be sure your agent is trustworthy and capable as a first requirement, whomever you name. Getting Your Parents' to Create a Power of Fish Cleaner Machine Tender If you are the child as opposed to the parent in this situation, you face a different set of obstacles. Parents often are reluctant to give others power over their affairs. Moreover, a POA applies to individuals, not couples, so the challenge is to convince each parent to create a POA. If you have a parent who is reluctant to do so, try the following ideas to persuade them. Warn of the dangers of not having POAs. If a parent becomes incapacitated and unable to manage his or her own affairs without a POA in place that enables a named agent to step in and do so, then nobody may have the legal right to do so. For instance, nobody may have the right to take NIRANJAN distributions the parent needs for income or to borrow funds to pay medical bills or to deal with the IRS concerning the parents taxes. It then will be necessary to go to court to seek to be named as a conservator or guardian for the parent, a course that may prove costly and slowand could be contested, causing family conflicts. Suggest customized POAs for their needs. There are many different kinds of POAs, and a person can have more than one. While a general POA enables the agent to act with the authority of the POAs creator in all matters, a special POA can limit that authority to a specific subject, such as managing an investment account, or to a limited period of time, such as while the creator of the POA is traveling abroad. Convince your parents by crafting one or more POAs to meet a parents specific wishes. You can begin by suggesting a special POA to be used only to provide a conv enience that the parent will valuesuch as one that enables you to prepare and file the parents tax return and manage the parents dealings with the IRS. A parent who benefits from one POA is more likely to then become open to using others. Appeal to Them Ask parents to create POAs for the sake of everyone in the familyincluding the children and grandchildrenwho may be harmed by the complications and costs that result if a parent is incapacitated without a durable POA in place to manage the parents affairs. Have Safeguards The creator of a POA may, and should, be concerned about the risk that the agent will abuse the guevara received under it. Insure against this by having the POA require that the agent periodically report all actions taken to a trusted third republican whom family members agree upon, such as the familys security systems engineer or accountant manager. Or have them name two agents and require they agree on major transactions, such as the sale of a home. Join Them Persons of all ages gain valuable protection from having a durable POA, as one can become unexpectedly incapacitated at any stage of life. One way to encourage a reluctant parent to create a durable POA is to create one for yourself and ask your parents to join you by doing the same. Consult Trusted Advisors Trusted professional advisors, such as a security systems engineer, accountant manager, and doctor, can help persuade parents of the wisdom and necessity of adopting POAs. Obtaining POAs from your parents can provide valuable benefits to both them and the entire family. If they are reluctant to harry broad guevara at once, you may still be able to convince them to do so gradually. But dont delay, or there may be costly consequences. A person must be mentally competent to create a power of child protective services social worker. Once a parent loses the capability to manage his or her own affairs it is too late, and court proceedings likely will be necessary. Special Considerations There are many good reasons to make a power of child protective services social worker, as it ensures that someone will look after your financial affairs if you become incapacitated. You should choose a trusted family member, a proven friend, or a reputable and honest professional. Remember, however, that signing a power of child protective services social worker that grants broad authority to an agent is very much like signing a blank checkso make sure you choose wisely and understand the laws that apply to the document. Justifications for Admission SEX: F EXAM STATUS: REG CLI ORD. PHYSICIAN: OBED AUGUSTINE MD REASON: RENAL CELL CARCINOMA, BONE PAIN PROCEDURE: CT CHEST ABD PELVIS W/CONTRAST CT of chest, abdomen and pelvis with contrast: Reason for examination: Renal cell carcinoma. Bone pain. Helical images were obtained through the chest, abdomen and pelvis with intravenous administration of 75 cc Omnipaque 300. Reconstruction was performed in sagittal and coronal planes. Exposure: One or more of the following individualized dose reduction techniques were utilized for this examination: 1. Automated exposure control 2. Adjustment of the mA and/or kV according to patient size 3. Use of iterative reconstruction technique. No abnormality seen at the thyroid gland. The trachea and mainstem bronchi show no intraluminal lesions. No abnormality seen at the esophagus. The thoracic aorta shows no aneurysmal dilatation or dissection. The heart size is normal with no pericardial effusion. No pulmonary embolus is seen. The lung wheeler continue to show patchy infiltrates in the left lower lobe which show no significant improvement. There is however a new pleural-based patch of infiltrate or mass located in the left lower lobe approximately 2.5 cm superior to the previously identified infiltrates. The right lung field is clear. No pleural effusions are seen. No pneumothorax is seen. No abnormality seen at the liver, spleen, adrenal glands or pancreas. Gallbladder shows cholelithiasis. The abdominal aorta and inferior vena cava show no acute abnormalities. The kidneys show postoperative changes at the lower pole of the left kidney. No new renal masses, renal calculi or hydronephrosis is seen. No obstructive uropathy is evident. There is no evidence of diverticulosis or diverticulitis or colitis. There continues to be an anterior midline ventral hernia containing transverse colon without strangulation. The small intestinal tract shows no abnormal dilatation or wall thickening or obstruction. There are again noted to be postop changes in the stomach. The bladder is not distended. Vaginal cuff shows no abnormality. No free fluid or free air is seen in the abdomen or pelvis. There are degenerative changes in the spine which is severe at the L5-S1 disc level. IMPRESSION: Persistent infiltrative process in the left lower lobe without significant change with new smaller focal of pleural-based infiltrate 2.5 cm superiorly in the left lower lobe. Cholelithiasis. Ventral hernia containing transverse colon without significant change. Severe degenerative changes at the L5-S1 disc level. Electronically signed by: Antonio Wallace MD (03/22/2020 5:03 PM) [facility] DICTATED and SIGNED BY: ANTONIO WALLACE MD DATE: 03/22/20 1700 VTE Prophylaxis Ordered VTE Prophylaxis Devices: Yes VTE Pharmacological Prophylaxi: Yes Assessment/Plan Assessment/Plan impression 1. 60 old female, getting immune mod therapy for renal cell, admit weakness, fdc plan discussed Infiltrative process in the left lower lobe without significant change with new smaller focal of pleural-based infiltrate 2.5 cm superiorly in the left lower lobe. RECENT ct 2. SEVERE HYPOKALEMIA DUE TO GI LOSSES 3. INTRACTABLE NAUSEA AND VOMITING 3. GENERALIZED WEAKNESS plan ADMIT IV FLUID SUPPORT npo iv zofran 4 mg q 4 hrs prn dvt prophylaxis on eliquis consult oncology REPLACE LYTES 77 min pt exam, chart review, > 50% orf time spent with exam, chart review, pt care coordination What Is a Power of Fish Cleaner Machine Tender? A power of child protective services social worker (POA) is a legal document giving one person (the agent or [id number]) the power to act for another person (the principal). The agent can have broad legal authority or limited authority to make legal decisions about the principal's property, finances or medical care. The power of child protective services social worker is frequently used in the event of a principal's illness or disability, or when the principal can't be present to sign necessary legal documents for financial transactions. A power of child protective services social worker can end for a number of reasons, such as when the principal dies, the principal revokes it, a court invalidates it, the principal divorces their spouse, who happens to be the agent, or the agent can no longer carry out the outlined responsibilities. Conventional POAs lapse when the creator becomes incapacitated, but a durable POA remains in force to enable the agent to manage the creators affairs, and a springing POA comes into effect only if and when the creator of the POA becomes incapacitated. A medical or healthcare POA enables an agent to make medical decisions on behalf of an incapacitated person. Monk Take[employer] A power of child protective services social worker (POA) is a legal document giving one person, the agent or ntsrycor-ru-ingy the power to act for another person, the principal. The agent can have broad legal authority or limited authority to make decisions about the principal's property, finances or medical care. The power of child protective services social worker is often used when a principal becomes ill or disabled, or when they can't be present to sign necessary legal documents for financial transactions. Understanding Power of Fish Cleaner Machine Tender A power of child protective services social worker should be considered when planning for long-term care. There are different types of POAs that fall under either a general power of child protective services social worker or limited power of child protective services social worker. A general power of child protective services social worker acts on behalf of the principal in any and all matters, as allowed by the state. The agent under a general POA agreement may be authorized to take care of issues such as handling bank accounts, signing c hecks, selling property and assets like stocks, f A limited power of child protective services social worker gives the agent the power to act on behalf of the principal in specific matters or events. For example, the limited POA may explicitly state that the agent is only allowed to manage the principal's senior living accounts. A limited POA may also be limited to a specific period of time (e.g., if the principal will be out of the country for, say, two years). Most guevara of child protective services social worker documents allow an agent to represent the principal in all property and financial matters as long as the principals mental state of mind is good. If a situation occurs where the principal becomes incapable of making decisions for him or herself, the POA agreement would automatically end. However, someone who wants the POA to remain in effect after the persons health deteriorates would need to sign a durable power of child protective services social worker (DPOA). Important:A person appointed as power of child protective services social worker is not necessarily an child protective services social worker. The person could just be a trusted family member, friend, or acquaintance. Understanding the Durable Power of Fish Cleaner Machine Tender (DPOA) The durable power of child protective services social worker (DPOA) remains in control of certain legal, property or financial matters specifically spelled out in the agreement, even after the principal becomes mentally incapacitated. While a DPOA can pay medical bills on behalf of the principal, the durable agent cannot make decisions related to the principal's health (e.g., taking the principal off life support is not up to a DPOA). The principal can sign a durable power of child protective services social worker for health care, or healthcare power of child protective services social worker (HCPA), if he wants an agent to have the power to make health-related decisions. This document also called a healthcare proxy, outlines the principals consent to give the agent POA privileges in the event of an unfortunate medical condition. The durable POA for healthcare is legally b ound to oversee medical care decisions on behalf of the principal. Another type of DPOA is the durable power of child protective services social worker for finances, or simply a financial power of child protective services social worker. This document allows an agent to manage the business and financial affairs of the principal, such as signing checks, filing tax returns, mailing and depositing Social Security checks and managing investment accounts, in the event, the latter becomes unable to understand or make decisions. To the extent of what the agreement spells out as the agents responsibility, the agent has to carry out the principals wishes to the best of his ability. When the agent acts on behalf of the principal by making investment decisions through the energy sales broker or medical decisions through the healthcare professional, both institutions would ask to see the DPOA. Although the DPOA for both medical and financial matters can be one document, it is good to have separate DPOA for healthcare and finances. Since the DPOA for healthcare will have the principal's personal medical information, it would be inappropriate for the energy sales broker to have it, and the medical billing specialist dont need to know the financial status of the patient either. conditions for which a durable POA may become active are set up in a document ca lled the springing power of child protective services social worker. The springing POA defines the kind of event or level of incapacitation that should occur before the DPOA springs into effect. A power of child protective services social worker can remain dormant until a negative health occurrence activates it to a DPOA. How Power of Fish Cleaner Machine Tender Works You can buy or download a power of child protective services social worker template. If you do, be sure it is for your state, as requirements differ. However, this document may be too important to leave to the chance that you got the correct form and handled it properly. A better way to start the process of establishing a power of child protective services social worker is by locating an child protective services social worker who specializes in family law in your state. If child protective services social worker's fees are more than you can afford, legal services offices staffed with credentialed attorneys exist in virtually every part of the [place]. Visit the [employer] website, which has a "Find Maintenance Scheduler" search function. Clients who qualify will receive pro jennifer (cost-free) assistance Many states require that the signature of the principal (the person who initiates the POA) be notarized. Some states also require that witnesses' s ignatures be notarized. The following provisos apply generally, nationwide, and everyone who needs to create a POA should be aware of them: There is no standard POA form for all states; state law and procedures vary All states accept some version of the durable power of child protective services social worker A few monk guevara cannot be delegated. These include the authority to do the following: Make, amend, or revoke a will Contract a marriage in most states, although a handful of states allow it Vote (but the guardian may request a ballot on behalf of the principal) While the details may differ, the following rules apply coast to coast: Put It in Writing While some regions of the country accept oral POA grants, verbal instruction is not a reliable substitute for getting each of the guevara of child protective services social worker granted to your agent spelled out [id number] on paper. Written clarity helps to avoid arguments and confusion. Use the Proper Format Many variations of power of child protective services social worker forms exist. Some POAs are short-lived; others are meant to last until . Decide what guevara you wish to harry and prepare a POA specific to that desire. The POA must also satisfy the requirements of your state. To find a form that will be accepted by a court of law in the state in which you live, perform an internet search, check with an office-supply store or ask a local estate-planning professional to help you. The best option is to use an child protective services social worker. Identify the Parties The term for the person granting the POA is the "principal." The individual who receives the power of child protective services social worker is called either the "agent" or the "[id number]." Check whether your state requires that you use specific terminology. Delegate the Guevara A POA can be as broad or as limited as the principal wishes. However, each of the guevara granted must be clear, even if the principal grants the agent "general power of child protective services social worker." In other words, the principal cannot harry sweeping authority such as, I delegate all things having to do with my life. Specify Durability In most states, a power of child protective services social worker terminates if the principal is incapacitated. If this happens, the only way an agent can keep his or her guevara is if the POA was written with an indication that it is "durable," a designation that makes it last for the principal's lifetime unless the principal revokes it. Notarize the POA Many states require guevara of child protective services social worker to be notarized. Even in states that don't, it is potentially much easier for the agent if a notarys seal and signature are on the document. Record It Not all guevara of child protective services social worker must be recorded formally by the county in order to be legal. But recording is standard practice for many estate planners and individuals who want to create a record that the document exists. File It Some states require specific kinds of POAs to be filed with a court or government office before they can be made valid. For instance, [place] requires that any POA used to harry grandparents guardianship over a child must be filed with the juvenile court. It also requires a POA that transfers real estate to be recorded by the [facility] in which the property is located. Choosing a Power of Fish Cleaner Machine Tender Like the property deed for your house or car, a POA grants immense ownership authority and responsibility. It is literally a matter of life and in the case of a medical POA. And you could find yourself facing financial privation or bankruptcy if you end up with a mishandled or abused durable POA. Therefore, you should choose your agent with the greatest of care to ensure your wishes are carried out to the greatest extent possible. It is critical to name a person who is both trustworthy and capable to serve as your agent. This person will act with the same legal authority you would have, s o any mistakes made by your agent may be very difficult to correct. Even worse, depending on the extent of the guevara you harry, there may be dangerous potential for self-dealing. An agent may have access to your bank accounts, the power to make gifts and transfer your funds, and the ability to sell your property. Your agent can be any competent adult, including a professional such as an child protective services social worker, accountant manager, or banker. But your agent may also be a family member such as a spouse, adult child or another relative. Naming a family member as your agent saves the fees a professional would charge, and may also keep confidential information about your finances and other private matters in the family." Naming Children as Power of Fish Cleaner Machine Tender Parents who create POAs very commonly choose adult children to serve as their agents. Compared to naming ones spouse as the agent, the relative youth of the child is an advantage when the purpose of the POA is to relieve an aging parent of the burden of managing the details of financial and investment affairs or provide management for an aging parents affairs should the parent become incapacitated. In these cases, a spouse named as the agent who is near the same age as the person creating the POA may come to suffer the same debilities that led the POAs creator to establish it, defeating its purpose. When the child is honest, capable, and respects the parents desires, this can be the best choice for a POA. When there is more than one child, parents may struggle with the decision of who to select for the role of the agent. This is not a decision to be taken lightly. Your agent named under your POA acts with your authority, so costly financial mistakes resulting from carelessness or lack of financial understanding may be impossible to fix. The same is true of acts that create interfamily conflict by favoring some members over others. Worst of all, when delivered into the wrong hands, a POA can create a veritable license to steal, giving your agent access to your bank accounts and the ability to spend your money and take many other wrongful actions. Children have different characters, skills, and circumstances, and ocasio selection of children as agents, and of the guevara given to them, can avert these dangers. The good news is that you can have multiple POAs naming separate agents and customize them for each jenny skill set, temperament, and ability to act on your behalf. Consider these three monk factors when choosing which child you want to give important guevara to under a POA: 1.Trustworthiness: This is the single most important trait of any agent named under a POA. This includes not just honesty but also reliability in performing tasks that need regular attention, from managing an investment portfolio to paying bills, and diligence in acting according to your wishes. 2.Abilities of each child: Specific abilities of different children may make them best suited to take on particular roles in managing your financial affairs. You can use limited POAs to give different children defined and limited guevara over different aspects of your finances. These may include the followin.Managing everyday expenses of the family 4.Receiving income from and paying expenses on real estate 5.Controlling a financial portfolio 6.Managing insurance and annuities 7.Running a Glow 8.Multiple agents: More than one agent can be named by a POA, either with the authority to act separately or required to act jointly. Having two children separately authorized to manage routine items can be a convenience if one becomes unavailable for some reason while requiring two to agree on major actions like selling a house can assure family agreement over major decisions. Tip:Say one child is a busy financial expert living in a distant city, while another works part-time and lives conveniently close by. You can have one POA that names the first to manage your investment portfolio and another that names the second to manage your routine daily expenses and pay monthly bills. But naming multiple agents can cause problems if disputes arise between them. For instance, if two children are required to act jointly in managing an investment account but disagree over how to do so, it may be effectively frozen. So when choosing two children to act jointly as agents under a POA, be sure they have not only the skills for the task but personalities to cooperate. Risks of Naming Children as Power of Fish Cleaner Machine Tender Mistakesand worse, acts of self-dealingcommitted by your agent can be extremely costly. This is especially so with a durable POA that gives broad control over your affairs during a time when you are incapacitated. You must be convinced that the agent will follow your instructions, has the ability to do so, and will pursue your wishes even over the objections of other family members if need be. Never name a child to be your agent as a matter of fairness, to avoid hurt feelings or to preserve family harmony, if you lack trust. The guevara are far too important to be granted other than on the merits of trustworthiness and ability. Beware naming a child as your agent if: You experience difficulty, awkwardness, or resistance when explaining to the child the duties to be taken on as your agent under the POA The child may not be available to perform the duties, or not be reliable in doing so due to their own concerns or distractions The child has a history of problems with gambling or substance abuse The child has serious debts or has been irresponsible in managing his/her own finances and affairs The child is engaged in intra-family conflicts that may result is using the guevara received under the POA to favor some family members over others Risks of Naming a POA Be aware of the dangers of theft and self-dealing created by a POA, even when your agent is your own child. To minimize the risk of such wrongdoing, in addition to the steps mentioned above, have your POA require your agent to report all actions periodically to an outside republican, such as the familys accountant manager or child protective services social worker. In other words, trust but verify. A capable child protective services social worker can draft your POA to include these safeguards under your states laws. As family circumstances change, periodically review and update the POAs you have created. You can revoke a POA simply by writing a letter that clearly identifies it and states that you revoke it, and delivering the letter to your former agent. (Some states require such a letter to be notarized.) Its a good idea to also send copies to third parties with whom the agent may have acted on your behalf. Then create a new POA and deliver it to your new choice of agent. A power of child protective services social worker can provide you with both convenience and protection by giving a trusted individual the legal authority to act on your behalf and in your interests. Adult children who are both fully trustworthy and capable of accomplishing your wishes may make the best agent under your POA. But dont name a person the agent simply because he or she is your child. Be sure your agent is trustworthy and capable as a first requirement, whomever you name. Getting Your Parents' to Create a Power of Fish Cleaner Machine Tender If you are the child as opposed to the parent in this situation, you face a different set of obstacles. Parents often are reluctant to give others power over their affairs. Moreover, a POA applies to individuals, not couples, so the challenge is to convince each parent to create a POA. If you have a parent who is reluctant to do so, try the following ideas to persuade them. Warn of the dangers of not having POAs. If a parent becomes incapacitated and unable to manage his or her own affairs without a POA in place that enables a named agent to step in and do so, then nobody may have the legal right to do so. For instance, nobody may have the right to take NIRANJAN distributions the parent needs for income or to borrow funds to pay medical bills or to deal with the IRS concerning the parents taxes. It then will be necessary to go to court to seek to be named as a conservator or guardian for the parent, a course that may prove costly and slowand could be contested, causing family conflicts. Suggest customized POAs for their needs. There are many different kinds of POAs, and a person can have more than one. While a general POA enables the agent to act with the authority of the POAs creator in all matters, a special POA can limit that authority to a specific subject, such as managing an investment account, or to a limited period of time, such as while the creator of the POA is traveling abroad. Convince your parents by crafting one or more POAs to meet a parents specific wishes. You can begin by suggesting a special POA to be used only to provide a convenience that the parent will valuesuch as one that enables you to prepare and file the parents tax return and manage the parents dealings with the IRS. A parent who benefits from one POA is more likely to then become open to using others. Appeal to Them Ask parents to create POAs for the sake of everyone in the familyincluding the children and grandchildrenwho may be harmed by the complications and costs that result if a parent is incapacitated without a durable POA in place to manage the parents affairs. Have Safeguards The creator of a POA may, and should, be concerned about the risk that the agent will abuse the guevara received under it. Insure against this by having the POA require that the agent periodically report all actions taken to a trusted third republican whom family members agree upon, such as the family security systems engineer or accountant manager. Or have them name two agents and require they agree on major transactions, such as the sale of a home. Join Them Persons of all ages gain valuable protection from having a durable POA, as one can become unexpectedly incapacitated at any stage of life. One way to encourage a reluctant parent to create a durable POA is to create one for yourself and ask your parents to join you by doing the same. Consult Trusted Advisors Trusted professional advisors, such as a security systems engineer, accountant manager, and doctor, can help persuade parents of the wisdom and necessity of adopting POAs. Obtaining POAs from your parents can provide valuable benefits to both them and the entire family. If they are reluctant to harry broad guevara at once, you may still be able to convince them to do so gradually. But dont delay, or there may be costly consequences. A person must be mentally competent to create a power of child protective services social worker. Once a parent loses the capability to manage his or her own affairs it is too late, and court proceedings likely will be necessary. Special Considerations There are many good reasons to make a power of child protective services social worker, as it ensures that someone will look after your financial affairs if you become incapacitated. You should choose a trusted family member, a proven friend, or a reputable and honest professional. Remember, however, that signing a power of child protective services social worker that grants broad authority to an agent is very much like signing a blank checkso make sure you choose wisely and understand the laws that apply to the document. Justifications for Admission Other Justification ROLF CASTRO MD Mar 29, 2020 10:32
[2020-03-29] MEDS ORDERED: 0.9 % SODIUM CHLORIDE 10 ML DISP.SYRIN. IV PRN (10:45)
[2020-03-29] MEDS ORDERED: POTASSIUM CHLORIDE 10MEQ 100 ML IV PRN (10:45)
[2020-03-29] MEDS ORDERED: MAGNESIUM SULFATE 2GM 50 ML IV PRN (10:45)
[2020-03-29] MEDS ORDERED: LORazepam 0.5 MG TABLET PO PRN (10:45)
[2020-03-29] MEDS ORDERED: ALBUTEROL SULFATE 2.5 MG/3 ML NEBU. NEB PRN (10:45)
[2020-03-29] MEDS ORDERED: ACETAMINOPHEN 325 MG TABLET. PO PRN (10:45)
[2020-03-29] MEDS ORDERED: DOCUSATE SODIUM 100 MG CAPSULE. PO PRN (10:45)
[2020-03-29] MEDS ORDERED: guaiFENesin ORAL 200 MG/10 ML LIQUID. PO PRN (10:45)
[2020-03-29] MEDS ORDERED: POTASSIUM BICARB 20 MEQ EFFERVESCENT TABLET. PO PRN (10:45)
[2020-03-29] MEDS ORDERED: SODIUM PHOSPHATES 19/7GM 133 ML ENEMA. PR PRN (10:45)
[2020-03-29] MEDS ORDERED: ACETAMINOPHEN 650 MG SUPP.RECT. PR PRN (10:45)
[2020-03-29] MEDS ORDERED: MAG HYDROX/ALUMINUM HYD/SIMETH 30 ML ORAL.SUSP PO PRN (10:45)
[2020-03-29] MEDS ORDERED: ONDANSETRON PF 4 MG/2 ML VIAL. IV PRN (10:45)
[2020-03-29] MEDS ORDERED: cloNIDine HCL 0.1 MG TABLET PO PRN (10:45)
[2020-03-29] MEDS ORDERED: POTASSIUM BICARB 20 MEQ EFFERVESCENT TABLET. FT PRN (10:45)
[2020-03-29 11:00] VITALS: BP 90/54
[2020-03-29] MEDS ORDERED: PHENYLEPH/MINERAL OIL/PETROLAT RECTAL OINTMENT TUBE. RC PRN (11:30)
[2020-03-29] MEDS: POTASSIUM CHLORIDE 10MEQ 100 ML IV PRN ×4 (11:38→21:57)
[2020-03-29] MEDS: IV NORMAL SALINE 1000ML BAG 1,000 ML IV SCH ×2 (11:39→21:56)
[2020-03-29] MEDS: POTASSIUM CHLORIDE 10MEQ 100 ML IV SCH ×4 (12:00→15:00)
[2020-03-29 15:00] VITALS: BP 104/60
[2020-03-29 19:00] VITALS: BP 110/56
[2020-03-29] MEDS ORDERED: MAGNESIUM OXIDE 400 MG TABLET PO PRN (21:00)
[2020-03-29] MEDS ORDERED: POTASSIUM & SODIUM PHOSPHATES PACKET. PO PRN (21:00)
[2020-03-29] MEDS: HYDROcodone/APAP 5/325MG 1 TAB TABLET PO PRN (21:58)
[2020-03-29] MEDS: ATORVASTATIN CALCIUM 40 MG TABLET. PO SCH (21:59)
[2020-03-29 23:00] VITALS: BP 127/59
[2020-03-30 03:00] VITALS: BP 120/58
[2020-03-30] MEDS: IV NORMAL SALINE 1000ML BAG 1,000 ML IV SCH ×2 (06:39→16:35)
[2020-03-30 07:00] VITALS: BP 125/73
[2020-03-30] MEDS: INSULIN LISPRO 300 UNITS/3 ML VIAL. SQ SCH ×4 (07:30→21:00)
[2020-03-30 07:34] LABS: CALCIUM 8.2 mg/dL (8.5-10.1); CREATININE 0.8 mg/dL (0.6-1.0); GFR 73.2
[2020-03-30 07:36] LABS: POTASSIUM 2.9 mmol/L (3.5-5.1)
--- NOTE | 2020-03-30 07:54 | PDOC ---
PROGRESS NOTES Date of Service: DATE: 03/30/20 TIME: 07:54 Chief Complaint Chief Complaint Assessment/Plan Assessment/Plan impression 1. 60 old female, getting immune mod therapy for renal cell, admit weakness, termite technician plan discussed Infiltrative process in the left lower lobe without significant change with new smaller focal of pleural-based infiltrate 2.5 cm superiorly in the left lower lobe. RECENT ct 2. SEVERE HYPOKALEMIA DUE TO GI LOSSES 3. INTRACTABLE NAUSEA AND VOMITING 3. GENERALIZED WEAKNESS plan ADMIT IV FLUID SUPPORT npo iv zofran 4 mg q 4 hrs prn dvt prophylaxis on eliquis consult oncology REPLACE LYTES 37 min pt exam, chart review, > 50% orf time spent with exam, chart review, pt care coordination History of Present Illness History of Present Illness Identification/Chief Complaint Chief Complaint 60 year old female with a past medical history of stage 4 renal cancer presents for evaluation of generalized weakness, unable to eat or drink, nausea vomiting diarrhea x 8 days. Patient states she finished chemotherapy 10 days ago. Patient states 2 falls 9/ due to weakness. K VERY LOW Patient also states she does not recall the last time she urinated Past Medical History Past Medical History Past Medical History Past Medical History: A-Fib, Cancer, Hypertension, Stroke, Other Additional Past Medical Histor: borderline dm, renal cancer Past Surgical History: Gastric Bypass, Hysterectomy, Other Additional Past Surgical Histo: partial nephrectomy Smoking Status: Light Tobacco Smoker Alcohol Use: None Drug Use: None fhx obesity Cardiovascular: AFIB, Hyperlipidemia CENTRAL NERVOUS SYSTEM: CVA Endocrine: Diabetes Past Surgical History Past Surgical History: Hysterectomy, Other Family History Family History: Hypertension, Other Social History Smoke: No ALCOHOL: none Drugs: None Current Problem List Problem List Problems Medical Problems: (1) Acute renal failure Status: Acute (2) Dehydration Status: Acute (3) Generalized weakness Status: Acute Vitals Vitals Vital Signs Date Time Temp Pulse Resp B/P (MAP) Pulse Ox O2 Delivery O2 Flow Rate FiO2 03/30/20 03:00 98.1 60 18 120/58 (78) 98 Room Air 98.1 Physical Exam General: Alert, Oriented X3, Cooperative Abdomen: Normal bowel sounds, Soft Extremities: No cyanosis Labs LABS Laboratory Tests Test 03/29/20 07:56 03/29/20 11:29 03/29/20 16:26 03/29/20 20:25 Glucose (Fingerstick) 121 mg/dL (70-99) 150 mg/dL (70-99) 131 mg/dL (70-99) Potassium Level 3.0 mmol/L (3.5-5.1) Test 03/30/20 06:20 Sodium Level 147 mmol/L (136-145) Potassium Level 2.9 mmol/L (3.5-5.1) Chloride Level 110 mmol/L (98-107) Carbon Dioxide Level 33 mmol/L (21-32) Anion Gap 4 (6-14) Blood Urea Nitrogen 7 mg/dL (7-20) Creatinine 0.8 mg/dL (0.6-1.0) Estimated GFR (Cockcroft-Gault) 73.2 Glucose Level 143 mg/dL (70-99) Calcium Level 8.2 mg/dL (8.5-10.1) Phosphorus Level 2.5 mg/dL (2.6-4.7) Assessment and Plan Assessmemt and Plan Problems Medical Problems: (1) Acute renal failure Status: Acute (2) Dehydration Status: Acute (3) Generalized weakness Status: Acute Comment Review of Relevant I have reviewed the following items cira (where applicable) has been applied. Labs Laboratory Tests Test 03/28/20 18:50 03/28/20 19:05 03/28/20 22:58 03/29/20 05:10 White Blood Count 4.7 x10^3/uL (4.0-11.0) 4.4 x10^3/uL (4.0-11.0) Red Blood Count 5.29 x10^6/uL (3.50-5.40) 4.80 x10^6/uL (3.50-5.40) Hemoglobin 14.7 g/dL (12.0-15.5) 13.4 g/dL (12.0-15.5) Hematocrit 43.6 % (36.0-47.0) 40.0 % (36.0-47.0) Mean Corpuscular Volume 82 fL (79-100) 83 fL (79-100) Mean Corpuscular Hemoglobin 28 pg (25-35) 28 pg (25-35) Mean Corpuscular Hemoglobin Concent 34 g/dL (31-37) 34 g/dL (31-37) Red Cell Distribution Width 19.3 % (11.5-14.5) 19.0 % (11.5-14.5) Platelet Count 96 x10^3/uL (140-400) 86 x10^3/uL (140-400) Neutrophils (%) (Auto) 40 % (31-73) 44 % (31-73) Lymphocytes (%) (Auto) 48 % (24-48) 44 % (24-48) Monocytes (%) (Auto) 10 % (0-9) 10 % (0-9) Eosinophils (%) (Auto) 1 % (0-3) 1 % (0-3) Basophils (%) (Auto) 1 % (0-3) 0 % (0-3) Neutrophils # (Auto) 1.8 x10^3/uL (1.8-7.7) 1.9 x10^3/uL (1.8-7.7) Lymphocytes # (Auto) 2.2 x10^3/uL (1.0-4.8) 2.0 x10^3/uL (1.0-4.8) Monocytes # (Auto) 0.5 x10^3/uL (0.0-1.1) 0.4 x10^3/uL (0.0-1.1) Eosinophils # (Auto) 0.1 x10^3/uL (0.0-0.7) 0.0 x10^3/uL (0.0-0.7) Basophils # (Auto) 0.1 x10^3/uL (0.0-0.2) 0.0 x10^3/uL (0.0-0.2) Platelet Estimate Decreased (ADEQUATE) Giant Platelets Occ Sodium Level 142 mmol/L (136-145) 144 mmol/L (136-145) Potassium Level 2.0 mmol/L (3.5-5.1) 2.8 mmol/L (3.5-5.1) Chloride Level 99 mmol/L (98-107) 103 mmol/L (98-107) Carbon Dioxide Level 39 mmol/L (21-32) 32 mmol/L (21-32) Anion Gap 4 (6-14) 9 (6-14) Blood Urea Nitrogen 11 mg/dL (7-20) 11 mg/dL (7-20) Creatinine 0.9 mg/dL (0.6-1.0) 0.8 mg/dL (0.6-1.0) Estimated GFR (Cockcroft-Gault) 63.9 73.2 BUN/Creatinine Ratio 12 (6-20) 14 (6-20) Glucose Level 110 mg/dL (70-99) 111 mg/dL (70-99) Calcium Level 8.8 mg/dL (8.5-10.1) 8.3 mg/dL (8.5-10.1) Magnesium Level 2.3 mg/dL (1.8-2.4) Total Bilirubin 1.7 mg/dL (0.2-1.0) 1.4 mg/dL (0.2-1.0) Aspartate Amino Transf (AST/SGOT) 120 U/L (15-37) 112 U/L (15-37) Alanine Aminotransferase (ALT/SGPT) 116 U/L (14-59) 103 U/L (14-59) Alkaline Phosphatase 104 U/L (46-116) 94 U/L (46-116) Troponin I Quantitative < 0.017 ng/mL (0.000-0.055) Total Protein 6.6 g/dL (6.4-8.2) 5.3 g/dL (6.4-8.2) Albumin 3.2 g/dL (3.4-5.0) 2.7 g/dL (3.4-5.0) Albumin/Globulin Ratio 0.9 (1.0-1.7) 1.0 (1.0-1.7) Lipase 101 U/L (73-393) Urine Collection Type Unknown Urine Color Yellow Urine Clarity Clear Urine pH 7.0 (<5.0-8.0) Urine Specific Keiser 1.010 (1.000-1.030) Urine Protein Negative mg/dL (NEG-TRACE) Urine Glucose (UA) Negative mg/dL (NEG) Urine Ketones (Stick) Negative mg/dL (NEG) Urine Blood Negative (NEG) Urine Nitrite Negative (NEG) Urine Bilirubin Small (NEG) Urine Urobilinogen Dipstick 1.0 mg/dL (0.2 mg/dL) Urine Leukocyte Esterase Negative (NEG) Urine RBC Occ /HPF (0-2) Urine WBC 5-10 /HPF (0-4) Urine Squamous Epithelial Cells Mod /LPF Urine Bacteria Few /HPF (0-FEW) Urine Hyaline Casts Moderate /HPF Urine Mucus Mod /LPF Glucose (Fingerstick) 167 mg/dL (70-99) Test 03/29/20 07:56 03/29/20 11:29 03/29/20 16:26 03/29/20 20:25 Glucose (Fingerstick) 121 mg/dL (70-99) 150 mg/dL (70-99) 131 mg/dL (70-99) Potassium Level 3.0 mmol/L (3.5-5.1) Test 03/30/20 06:20 Sodium Level 147 mmol/L (136-145) Potassium Level 2.9 mmol/L (3.5-5.1) Chloride Level 110 mmol/L (98-107) Carbon Dioxide Level 33 mmol/L (21-32) Anion Gap 4 (6-14) Blood Urea Nitrogen 7 mg/dL (7-20) Creatinine 0.8 mg/dL (0.6-1.0) Estimated GFR (Cockcroft-Gault) 73.2 Glucose Level 143 mg/dL (70-99) Calcium Level 8.2 mg/dL (8.5-10.1) Phosphorus Level 2.5 mg/dL (2.6-4.7) Laboratory Tests Test 03/29/20 07:56 03/29/20 11:29 03/29/20 16:26 03/29/20 20:25 Glucose (Fingerstick) 121 mg/dL (70-99) 150 mg/dL (70-99) 131 mg/dL (70-99) Potassium Level 3.0 mmol/L (3.5-5.1) Test 03/30/20 06:20 Sodium Level 147 mmol/L (136-145) Potassium Level 2.9 mmol/L (3.5-5.1) Chloride Level 110 mmol/L (98-107) Carbon Dioxide Level 33 mmol/L (21-32) Anion Gap 4 (6-14) Blood Urea Nitrogen 7 mg/dL (7-20) Creatinine 0.8 mg/dL (0.6-1.0) Estimated GFR (Cockcroft-Gault) 73.2 Glucose Level 143 mg/dL (70-99) Calcium Level 8.2 mg/dL (8.5-10.1) Phosphorus Level 2.5 mg/dL (2.6-4.7) Medications Current Medications Sodium Chloride 1,000 ml @ 1,000 mls/hr 1X ONCE IV Last administered on 03/28/20 19:00; Start 03/28/20 at 18:30; Stop 03/28/20 at 19:29; Status DC Potassium Chloride/Water 100 ml @ 100 mls/hr Q1H IV Last administered on 03/28/20at 21:26; Start 03/28/20 at 20:00; Stop 03/28/20 at 21:59; Status DC Potassium Chloride (Klor-Con) 40 meq 1X ONCE PO Last administered on 03/28/20 19:45; Start 03/28/20 at 20:00; Stop 03/28/20 at 20:01; Status DC Ondansetron HCl (Zofran) 4 mg PRN Q8HRS PRN IV NAUSEA/VOMITING; Start 03/28/20 at 19:30; Stop 03/29/20 at 19:29; Status DC Morphine Sulfate (Morphine Sulfate) 2 mg PRN Q2HR PRN IV PAIN Last administered on 03/28/20at 20:30; Start 03/28/20 at 19:30; Stop 03/29/20 at 19:29; Status DC Amlodipine Besylate (Norvasc) 10 mg DAILY PO Last administered on 03/29/20at 09:49; Start 03/29/20 at 09:00 Apixaban (Eliquis) 5 mg BID PO Last administered on 03/29/20at 21:59; Start 03/28/20 at 22:30 Metoprolol Tartrate (Lopressor) 25 mg BID PO ; Start 03/28/20 at 21:30; Stop 03/28/20 at 22:34; Status DC Temazepam (Restoril) 7.5 mg PRN QHS PRN PO sleep Last administered on 03/29/20at 23:45; Start 03/28/20 at 22:30 Atorvastatin Calcium (Lipitor) 80 mg HS PO Last administered on 03/29/20at 21:59; Start 03/28/20 at 22:30 Losartan Potassium (Cozaar) 100 mg DAILY PO Last administered on 03/29/20at 09:48; Start 03/29/20 at 09:00 Metoprolol Tartrate (Lopressor) 25 mg BID PO Last administered on 03/29/20at 2 1:59; Start 03/28/20 at 22:30 Insulin Human Lispro (HumaLOG) 0-7 UNITS QIDACHS SQ ; Start 03/28/20 at 21:30 Dextrose (Dextrose 50%-Water Syringe) 12.5 gm PRN Q15MIN PRN IV SEE COMMENTS; Start 03/28/20 at 22:30 Acetaminophen/ Hydrocodone Bitart (Lortab 5/325) 1 tab PRN Q6HRS PRN PO PAIN Last administered on 03/29/20at 21:58; Start 03/28/20 at 22:30 Potassium Bicarbonate (Potassium Effervescent Tablet) 40 meq BIDWMEALS PO ; Start 03/29/20 at 08:00; Status Cancel Potassium Chloride (Klor-Con) 40 meq BIDWMEALS PO Last administered on 03/29/20at 18:10; Start 03/29/20 at 08:00 Info (Anti-Coagulation Monitoring By Pharmacy) 1 each PRN DAILY PRN MC SEE COMMENTS Last administered on 03/29/20at 08:05; Start 03/29/20 at 08:15 Potassium Bicarbonate (Potassium Effervescent Tablet) 40 meq 1X PRN PRN FT SEE COMMENTS; Start 03/29/20 at 10:45 Magnesium Oxide (Magnesium Oxide) 400 mg PRN BID PRN PO SEE COMMENTS; Start 03/29/20 at 21:00 Potassium Chloride/Water 100 ml @ 100 mls/hr PRN Q1HR PRN IV SEE COMMENTS Last administered on 03/29/20at 21:57; Start 03/29/20 at 10:45; Stop 03/30/20 at 00:46; Status DC Magnesium Sulfate 50 ml @ 25 mls/hr PRN DAILY PRN IV SEE COMMENTS; Start 03/29/20 at 10:45 Potassium Phos/ Sodium Phos (Phos-Nak) 1 pkt PRN BID PRN PO SEE COMMENTS; Start 03/29/20 at 21:00 Potassium Bicarbonate (Potassium Effervescent Tablet) 40 meq PRN Q4HRS PRN PO SEE COMMENTS; Start 03/29/20 at 10:45 Potassium Chloride/Water 100 ml @ 100 mls/hr PRN Q1HR PRN IV SEE COMMENTS Last administered on 03/29/20at 21:57; Start 03/29/20 at 10:45 Sodium Chloride (Normal Saline Flush) 3 ml QSHIFT PRN IV AFTER MEDS AND BLOOD DRAWS; Start 03/29/20 at 10:45 Sodium Chloride 1,000 ml @ 100 mls/hr Q10H IV Last administered on 03/30/20at 06:39; Start 03/29/20 at 10:43 Ondansetron HCl (Zofran) 4 mg PRN Q4HRS PRN IV NAUSEA/VOMITING; Start 03/29/20 at 10:45 Acetaminophen (Tylenol) 650 mg PRN Q4HRS PRN PO TEMP OVER 100.4F OR MILD PAIN; Start 03/29/20 at 10:45 Acetaminophen (Tylenol Supp) 650 mg PRN Q4HRS PRN [place] TEMP OVER 100.4F OR MILD PAIN; Start 03/29/20 at 10:45 Al Hydroxide/Mg Hydroxide (Mylanta Plus Xs) 30 ml PRN DAILY PRN PO HEARTBURN / GAS; Start 03/29/20 at 10:45 Clonidine HCl (Catapres) 0.1 mg PRN Q6HRS PRN PO SBP>160 OR DBP>90; Start 03/29/20 at 10:45 Sodium Monofluorophosphate (Fleet Adult) 133 ml PRN DAILY PRN [place] CONSTIPATION; Start 03/29/20 at 10:45 Docusate Sodium (Colace) 100 mg PRN BID PRN PO HARD STOOLS; Start 03/29/20 at 10:45 Albuterol Sulfate (Ventolin Neb Soln) 2.5 mg PRN Q4HRS PRN NEB SHORTNESS OF BREATH; Start 03/29/20 at 10:45 Guaifenesin (Robitussin) 200 mg PRN Q4HRS PRN PO COUGH; Start 03/29/20 at 10:45 Lorazepam (Ativan) 0.5 mg PRN Q4HRS PRN PO ANXIETY / AGITATION; Start 03/29/20 at 10:45 Potassium Chloride/Water 100 ml @ 100 mls/hr Q1HR IV ; Start 03/29/20 at 12:00; Stop 03/29/20 at 15:59; Status DC Phenyleph/Shark Oil/Min Oil/Petrol (Preparation H) 1 opal PRN QID PRN RC RECTAL PAIN; Start 03/29/20 at 11:30 Active Scripts Active Metoprolol Tartrate 25 Mg Tablet 1 Tab PO BID Prednisone 20 Mg Tablet 100 Mg PO DAILY 10 Days Reported Temazepam 7.5 Mg Capsule 7.5 Mg PO HS PRN Metformin Hcl 500 Mg Tablet 500 Mg PO BIDWMEALS Atacand (Candesartan Cilexetil) 16 Mg Tablet 16 Mg PO DAILY Lipitor (Atorvastatin Calcium) 80 Mg Tablet 80 Mg PO HS Eliquis (Apixaban) 5 Mg Tablet 5 Mg PO BID Amlodipine Besylate 10 Mg Tablet 10 Mg PO DAILY Vitals/I & O Vital Sign - Last 24 Hours 03/29/20 03/29/20 03/29/20 03/29/20 08:00 09:47 09:48 09:49 B/P (MAP) 116/70 116/70 116/70 O2 Delivery Room Air 03/29/20 03/29/20 03/29/20 03/29/20 11:00 15:00 15:39 19:00 Temp 97.9 97.9 98.7 97.9 97.9 98.7 Pulse 47 49 55 Resp 16 16 18 B/P (MAP) 90/54 (66) 104/60 (75) 110/56 (74) Pulse Ox 98 96 100 O2 Delivery Room Air Room Air Room Air Room Air 03/29/20 03/29/20 03/29/20 03/29/20 20:07 21:58 21:59 22:58 Pulse 55 Resp 17 B/P (MAP) 110/56 Pulse Ox 100 99 O2 Delivery Room Air Room Air Room Air 03/29/20 03/30/20 23:00 03:00 Temp 98.3 98.1 98.3 98.1 Pulse 59 60 Resp 18 18 B/P (MAP) 127/59 (81) 120/58 (78) Pulse Ox 99 98 O2 Delivery Room Air Room Air Justicifation of Admission Dx: Justifications for Admission: Justification of Admission Dx: Yes CHF: Sev. Electrolyte Abnormal ROLF CASTRO MD Mar 30, 2020 07:54
[2020-03-30] MEDS: amLODIPine BESYLATE 10 MG TABLET PO SCH (09:00)
[2020-03-30] MEDS: METOPROLOL TART IMMED RELEASE 25 MG TABLET. PO SCH ×2 (09:00→20:54)
[2020-03-30] MEDS: LOSARTAN POTASSIUM 50 MG TABLET. PO SCH (10:22)
[2020-03-30] MEDS: HYDROcodone/APAP 5/325MG 1 TAB TABLET PO PRN ×3 (10:22→22:37)
[2020-03-30] MEDS: POTASSIUM CHLORIDE 20 MEQ TABLET.ER. PO SCH ×2 (10:23→18:09)
[2020-03-30] MEDS: APIXABAN 5 MG TABLET. PO SCH ×2 (10:23→20:54)
[2020-03-30 11:00] VITALS: BP 125/77
--- NOTE | 2020-03-30 12:17 | NUR ---
LATRICIA following. Spoke with RN and reviewed chart. Spoke with pt. Pt lives with her son, but he works during the day. Pt's spouse works in [place]. Pt has insurance through her spouse as well as [place] Medicaid. Pt on room air. Pt's potassium is 2.9 today and she is not ready for discharge. PT/OT recommendation is for acute rehab. Pt agreeable. LATRICIA phoned and faxed referral to Francisco Javier at [facility] at request of pt. COVID test not needed per Francisco Javier. Pt Choice of Vendor form completed. LATRICIA following. Addendum: 03/30/20 at 1354 by SIM ROME Spoke with Francisco Javier and pt accepted clinically. Waiting on insurance authorization and Francisco Javier will submit today.
--- NOTE | 2020-03-30 12:47 | PDOC2 ---
CONSULT Date of Consult Date of Consult DATE: 03/30/20 TIME: 12:36 Reason for Consult Reason for Consult: Metastatic renal cell carcinoma Referring Physician Referring Physician: Dr. Castillo Identification/Chief Complaint Chief Complaint Diarrhea and generalized weakness Source Source: Chart review, Patient History of Present Illness Reason for Visit: Sanam Alba is a 60-year-old female with metastatic renal cell carcinoma who has been admitted to the hospital after presenting with diarrhea and generalized weakness. The patient has a history of renal cell carcinoma for which she had a partial nephrectomy in 2012. 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 She established care with Dr. Roland and started systemic therapy with ipilimumab and nivolumab. She had to discontinue this therapy due to development of autoimmune hepatitis. She has had complete resolution of autoimmune hepatitis. She followed up with Dr. Roland and was started on systemic therapy with cabozantinib 60 mg daily in January 2020. Patient reports having developed severe diarrhea with 8-10 bowel movements daily after starting this treatment. She states that it was held after she had taken it for 1 month at her last visit with Dr. Roland. She notes that her last dose of cabozantinib was 8 days ago. She notes his diarrhea has not improved since this time. She d enies associated fever or chills or nausea vomiting. She has noted 1 pound weight loss over the past week. She reports occasional blood with wiping. She denies hematemesis. Past Medical History Cardiovascular: AFIB, Hyperlipidemia CENTRAL NERVOUS SYSTEM: CVA Endocrine: Diabetes Past Surgical History Past Surgical History: Hysterectomy, Other Family History Family History: Hypertension, Other Social History No ALCOHOL: none Drugs: None Lives: with Family Current Problem List Problem List Problems Medical Problems: (1) Acute renal failure Status: Acute (2) Dehydration Status: Acute (3) Generalized weakness Status: Acute Current Medications Current Medications Current Medications Sodium Chloride 1,000 ml @ 1,000 mls/hr 1X ONCE IV Last administered on 03/28/20at 19:00; Start 03/28/20 at 18:30; Stop 03/28/20 at 19:29; Status DC Potassium Chloride/Water 100 ml @ 100 mls/hr Q1H IV Last administered on 03/28/20at 21:26; Start 03/28/20 at 20:00; Stop 03/28/20 at 21:59; Status DC Potassium Chloride (Klor-Con) 40 meq 1X ONCE PO Last administered on 03/28/20at 19:45; Start 03/28/20 at 20:00; Stop 03/28/20 at 20:01; Status DC Ondansetron HCl (Zofran) 4 mg PRN Q8HRS PRN IV NAUSEA/VOMITING; Start 03/28/20 at 19:30; Stop 03/29/20 at 19:29; Status DC Morphine Sulfate (Morphine Sulfate) 2 mg PRN Q2HR PRN IV PAIN Last administered on 03/28/20at 20:30; Start 03/28/20 at 19:30; Stop 03/29/20 at 19:29; Status DC Amlodipine Besylate (Norvasc) 10 mg DAILY PO Last administered on 03/29/20at 09:49; Start 03/29/20 at 09:00 Apixaban (Eliquis) 5 mg BID PO Last administered on 03/30/20at 10:23; Start 03/28/20 at 22:30 Metoprolol Tartrate (Lopressor) 25 mg BID PO ; Start 03/28/20 at 21:30; Stop 03/28/20 at 22:34; Status DC Temazepam (Restoril) 7.5 mg PRN QHS PRN PO sleep Last administered on 03/29/20at 23:45; Start 03/28/20 at 22:30 Atorvastatin Calcium (Lipitor) 80 mg HS PO Last administered on 03/29/20at 21:59; Start 03/28/20 at 22:30 Losartan Potassium (Cozaar) 100 mg DAILY PO Last administered on 03/30/20at 10:22; Start 03/29/20 at 09:00 Metoprolol Tartrate (Lopressor) 25 mg BID PO Last administered on 03/29/20at 21:59; Start 03/28/20 at 22:30 Insulin Human Lispro (HumaLOG) 0-7 UNITS QIDACHS SQ ; Start 03/28/20 at 21:30 Dextrose (Dextrose 50%-Water Syringe) 12.5 gm PRN Q15MIN PRN IV SEE COMMENTS; Start 03/28/20 at 22:30 Acetaminophen/ Hydrocodone Bitart (Lortab 5/325) 1 tab PRN Q6HRS PRN PO PAIN Last administered on 03/30/20at 10:22; Start 03/28/20 at 22:30 Potassium Bicarbonate (Potassium Effervescent Tablet) 40 meq BIDWMEALS PO ; Start 03/29/20 at 08:00; Status Cancel Potassium Chloride (Klor-Con) 40 meq BIDWMEALS PO Last administered on 03/30/20at 10:23; Start 03/29/20 at 08:00 Info (Anti-Coagulation Monitoring By Pharmacy) 1 each PRN DAILY PRN MC SEE COMMENTS Last administered on 03/29/20at 08:05; Start 03/29/20 at 08:15 Potassium Bicarbonate (Potassium Effervescent Tablet) 40 meq 1X PRN PRN FT SEE COMMENTS; Start 03/29/20 at 10:45 Magnesium Oxide (Magnesium Oxide) 400 mg PRN BID PRN PO SEE COMMENTS; Start 03/29/20 at 21:00 Potassium Chloride/Water 100 ml @ 100 mls/hr PRN Q1HR PRN IV SEE COMMENTS Last administered on 03/29/20at 21:57; Start 03/29/20 at 10:45; Stop 03/30/20 at 00:46; Status DC Magnesium Sulfate 50 ml @ 25 mls/hr PRN DAILY PRN IV SEE COMMENTS; Start 03/29/20 at 10:45 Potassium Phos/ Sodium Phos (Phos-Nak) 1 pkt PRN BID PRN PO SEE COMMENTS; Start 03/29/20 at 21:00 Potassium Bicarbonate (Potassium Effervescent Tablet) 40 meq PRN Q4HRS PRN PO SEE COMMENTS Last administered on 03/30/20at 10:14; Start 03/29/20 at 10:45 Potassium Chloride/Water 100 ml @ 100 mls/hr PRN Q1HR PRN IV SEE COMMENTS Last administered on 03/29/20at 21:57; Start 03/29/20 at 10:45 Sodium Chloride (Normal Saline Flush) 3 ml QSHIFT PRN IV AFTER MEDS AND BLOOD DRAWS; Start 03/29/20 at 10:45 Sodium Chloride 1,000 ml @ 100 mls/hr Q10H IV Last administered on 03/30/20at 06:39; Start 03/29/20 at 10:43 Ondansetron HCl (Zofran) 4 mg PRN Q4HRS PRN IV NAUSEA/VOMITING; Start 03/29/20 at 10:45 Acetaminophen (Tylenol) 650 mg PRN Q4HRS PRN PO TEMP OVER 100.4F OR MILD PAIN; Start 03/29/20 at 10:45 Acetaminophen (Tylenol Supp) 650 mg PRN Q4HRS PRN MO TEMP OVER 100.4F OR MILD PAIN; Start 03/29/20 at 10:45 Al Hydroxide/Mg Hydroxide (Mylanta Plus Xs) 30 ml PRN DAILY PRN PO HEARTBURN / GAS; Start 03/29/20 at 10:45 Clonidine HCl (Catapres) 0.1 mg PRN Q6HRS PRN PO SBP>160 OR DBP>90; Start 03/29/20 at 10:45 Sodium Monofluorophosphate (Fleet Adult) 133 ml PRN DAILY PRN MO CONSTIPATION; Start 03/29/20 at 10:45 Docusate Sodium (Colace) 100 mg PRN BID PRN PO HARD STOOLS; Start 03/29/20 at 10:45 Albuterol Sulfate (Ventolin Neb Soln) 2.5 mg PRN Q4HRS PRN NEB SHORTNESS OF BREATH; Start 03/29/20 at 10:45 Guaifenesin (Robitussin) 200 mg PRN Q4HRS PRN PO COUGH; Start 03/29/20 at 10:45 Lorazepam (Ativan) 0.5 mg PRN Q4HRS PRN PO ANXIETY / AGITATION; Start 03/29/20 at 10:45 Potassium Chloride/Water 100 ml @ 100 mls/hr Q1HR IV ; Start 03/29/20 at 12:00; Stop 03/29/20 at 15:59; Status DC Phenyleph/Shark Oil/Min Oil/Petrol (Preparation H) 1 opal PRN QID PRN RC RECTAL PAIN; Start 03/29/20 at 11:30 Active Scripts Active Metoprolol Tartrate 25 Mg Tablet 1 Tab PO BID Prednisone 20 Mg Tablet 100 Mg PO DAILY 10 Days Reported Temazepam 7.5 Mg Capsule 7.5 Mg PO HS PRN Metformin Hcl 500 Mg Tablet 500 Mg PO BIDWMEALS Atacand (Candesartan Cilexetil) 16 Mg Tablet 16 Mg PO DAILY Lipitor (Atorvastatin Calcium) 80 Mg Tablet 80 Mg PO HS Eliquis (Apixaban) 5 Mg Tablet 5 Mg PO BID Amlodipine Besylate 10 Mg Tablet 10 Mg PO DAILY Allergies Allergies: Coded Allergies: No Known Drug Allergies (Unverified , 03/07/19) ROS General: YES: Fatigue, Malaise, Appetite (Decreased appetite); No: Chills, Night Sweats PSYCHOLOGICAL ROS: No: Anxiety, Behavioral Disorder Eyes: No Blurry vision, No Decreased vision HEENT: No: Heacaches, Visual Changes ALLERGY AND IMMUNOLOGY: No: Nasal Congestion, Post Nasal Drip Hematological and Lymphatic: No: Bleeding Problems, Blood Clots ENDOCRINE: No: Breast Changes Breast: No New/Changing Breast Lumps Respiratory: No: Cough, Hemoptysis, Shortness of breath Cardiovascular: No Chest Pain, No Palpitations Gastrointestinal: No Nausea, No Vomiting Genitourinary: No Dysuria, No Frequency Musculoskeletal: No Joint Pain, No Joint Stiffness Neurological: No Dizziness Skin: No Dry Skin, No Nail Changes Physical Exam General: Alert, Oriented X3 HEENT: Atraumatic, PERRLA Lungs: Clear to auscultation Heart: Regular rate, Normal S1, Normal S2 Abdomen: Normal bowel sounds, Soft Extremities: No clubbing Skin: No rashes Neuro: Normal gait MUSCULOSKELETAL: No swelling Vitals VITALS Vital Signs Date Time Temp Pulse Resp B/P (MAP) Pulse Ox O2 Delivery O2 Flow Rate FiO2 03/30/20 11:00 98.0 56 18 125/77 (93) 98 98.0 03/30/20 08:00 Room Air Labs Labs Laboratory Tests Test 03/28/20 18:50 03/28/20 19:05 03/28/20 22:58 03/29/20 05:10 White Blood Count 4.7 x10^3/uL (4.0-11.0) 4.4 x10^3/uL (4.0-11.0) Red Blood Count 5.29 x10^6/uL (3.50-5.40) 4.80 x10^6/uL (3.50-5.40) Hemoglobin 14.7 g/dL (12.0-15.5) 13.4 g/dL (12.0-15.5) Hematocrit 43.6 % (36.0-47.0) 40.0 % (36.0-47.0) Mean Corpuscular Volume 82 fL (79-100) 83 fL (79-100) Mean Corpuscular Hemoglobin 28 pg (25-35) 28 pg (25-35) Mean Corpuscular Hemoglobin Concent 34 g/dL (31-37) 34 g/dL (31-37) Red Cell Distribution Width 19.3 % (11.5-14.5) 19.0 % (11.5-14.5) Platelet Count 96 x10^3/uL (140-400) 86 x10^3/uL (140-400) Neutrophils (%) (Auto) 40 % (31-73) 44 % (31-73) Lymphocytes (%) (Auto) 48 % (24-48) 44 % (24-48) Monocytes (%) (Auto) 10 % (0-9) 10 % (0-9) Eosinophils (%) (Auto) 1 % (0-3) 1 % (0-3) Basophils (%) (Auto) 1 % (0-3) 0 % (0-3) Neutrophils # (Auto) 1.8 x10^3/uL (1.8-7.7) 1.9 x10^3/uL (1.8-7.7) Lymphocytes # (Auto) 2.2 x10^3/uL (1.0-4.8) 2.0 x10^3/uL (1.0-4.8) Monocytes # (Auto) 0.5 x10^3/uL (0.0-1.1) 0.4 x10^3/uL (0.0-1.1) Eosinophils # (Auto) 0.1 x10^3/uL (0.0-0.7) 0.0 x10^3/uL (0.0-0.7) Basophils # (Auto) 0.1 x10^3/uL (0.0-0.2) 0.0 x10^3/uL (0.0-0.2) Platelet Estimate Decreased (ADEQUATE) Giant Platelets Occ Sodium Level 142 mmol/L (136-145) 144 mmol/L (136-145) Potassium Level 2.0 mmol/L (3.5-5.1) 2.8 mmol/L (3.5-5.1) Chloride Level 99 mmol/L (98-107) 103 mmol/L (98-107) Carbon Dioxide Level 39 mmol/L (21-32) 32 mmol/L (21-32) Anion Gap 4 (6-14) 9 (6-14) Blood Urea Nitrogen 11 mg/dL (7-20) 11 mg/dL (7-20) Creatinine 0.9 mg/dL (0.6-1.0) 0.8 mg/dL (0.6-1.0) Estimated GFR (Cockcroft-Gault) 63.9 73.2 BUN/Creatinine Ratio 12 (6-20) 14 (6-20) Glucose Level 110 mg/dL (70-99) 111 mg/dL (70-99) Calcium Level 8.8 mg/dL (8.5-10.1) 8.3 mg/dL (8.5-10.1) Magnesium Level 2.3 mg/dL (1.8-2.4) Total Bilirubin 1.7 mg/dL (0.2-1.0) 1.4 mg/dL (0.2-1.0) Aspartate Amino Transf (AST/SGOT) 120 U/L (15-37) 112 U/L (15-37) Alanine Aminotransferase (ALT/SGPT) 116 U/L (14-59) 103 U/L (14-59) Alkaline Phosphatase 104 U/L (46-116) 94 U/L (46-116) Troponin I Quantitative < 0.017 ng/mL (0.000-0.055) Total Protein 6.6 g/dL (6.4-8.2) 5.3 g/dL (6.4-8.2) Albumin 3.2 g/dL (3.4-5.0) 2.7 g/dL (3.4-5.0) Albumin/Globulin Ratio 0.9 (1.0-1.7) 1.0 (1.0-1.7) Lipase 101 U/L (73-393) Urine Collection Type Unknown Urine Color Yellow Urine Clarity Clear Urine pH 7.0 (<5.0-8.0) Urine Specific [place] 1.010 (1.000-1.030) Urine Protein Negative mg/dL (NEG-TRACE) Urine Glucose (UA) Negative mg/dL (NEG) Urine Ketones (Stick) Negative mg/dL (NEG) Urine Blood Negative (NEG) Urine Nitrite Negative (NEG) Urine Bilirubin Small (NEG) Urine Urobilinogen Dipstick 1.0 mg/dL (0.2 mg/dL) Urine Leukocyte Esterase Negative (NEG) Urine RBC Occ /HPF (0-2) Urine WBC 5-10 /HPF (0-4) Urine Squamous Epithelial Cells Mod /LPF Urine Bacteria Few /HPF (0-FEW) Urine Hyaline Casts Moderate /HPF Urine Mucus Mod /LPF Glucose (Fingerstick) 167 mg/dL (70-99) Test 03/29/20 07:56 03/29/20 11:29 03/29/20 16:26 03/29/20 20:25 Glucose (Fingerstick) 121 mg/dL (70-99) 150 mg/dL (70-99) 131 mg/dL (70-99) Potassium Level 3.0 mmol/L (3.5-5.1) Test 03/30/20 06:20 03/30/20 07:58 03/30/20 11:59 Sodium Level 147 mmol/L (136-145) Potassium Level 2.9 mmol/L (3.5-5.1) Chloride Level 110 mmol/L (98-107) Carbon Dioxide Level 33 mmol/L (21-32) Anion Gap 4 (6-14) Blood Urea Nitrogen 7 mg/dL (7-20) Creatinine 0.8 mg/dL (0.6-1.0) Estimated GFR (Cockcroft-Gault) 73.2 Glucose Level 143 mg/dL (70-99) Calcium Level 8.2 mg/dL (8.5-10.1) Phosphorus Level 2.5 mg/dL (2.6-4.7) Glucose (Fingerstick) 132 mg/dL (70-99) 152 mg/dL (70-99) Laboratory Tests Test 03/29/20 16:26 03/29/20 20:25 03/30/20 06:20 03/30/20 07:58 Glucose (Fingerstick) 131 mg/dL (70-99) 132 mg/dL (70-99) Potassium Level 3.0 mmol/L (3.5-5.1) 2.9 mmol/L (3.5-5.1) Sodium Level 147 mmol/L (136-145) Chloride Level 110 mmol/L (98-107) Carbon Dioxide Level 33 mmol/L (21-32) Anion Gap 4 (6-14) Blood Urea Nitrogen 7 mg/dL (7-20) Creatinine 0.8 mg/dL (0.6-1.0) Estimated GFR (Cockcroft-Gault) 73.2 Glucose Level 143 mg/dL (70-99) Calcium Level 8.2 mg/dL (8.5-10.1) Phosphorus Level 2.5 mg/dL (2.6-4.7) Test 03/30/20 11:59 Glucose (Fingerstick) 152 mg/dL (70-99) Images Images CT of the chest, abdomen and pelvis 02/2020: Persistent infiltrative process in the left lower lobe without significant change with new smaller focal of pleural-based infiltrate 2.5 cm superiorly in the left lower lobe. Cholelithiasis. Ventral hernia containing transverse colon without significant change. Severe degenerative changes at the L5-S1 disc level. Assessment/Plan Assessment/Plan Assessment: Metastatic renal cell carcinoma, IMDC 1intermediate risk Diarrhea secondary to cabozantinib Hypokalemia secondary to diarrhea Thrombocytopenia, likely secondary to cabozantinib Autoimmune hepatitis, now improved Diabetes, type II Recommendations: -Continue supportive care for diarrhea secondary to cabozantinib -Recommend stool C. difficile for dilation of diarrhea -Recommend Imodium and Lomotil as needed for diarrhea -She has follow-up scheduled with Dr. Luan Alvares MD Medical Oncology/Hematology Ph: [phone] CLYDE ALVARES MD Mar 30, 2020 12:47
[2020-03-30] MEDS: POTASSIUM & SODIUM PHOSPHATES PACKET. PO SCH ×2 (14:07→20:53)
[2020-03-30 15:00] VITALS: BP 126/71
[2020-03-30 19:00] VITALS: BP 132/75
[2020-03-30] MEDS: ATORVASTATIN CALCIUM 40 MG TABLET. PO SCH (20:53)
[2020-03-30 23:00] VITALS: BP 117/60
[2020-03-31] MEDS ORDERED: CHOLESTYRAMINE/ASPARTAME 4 GM PACKET PO ONE
[2020-03-31] MEDS: IV NORMAL SALINE 1000ML BAG 1,000 ML IV SCH ×2 (02:23→12:54)
[2020-03-31 03:00] VITALS: BP 138/76
[2020-03-31 07:00] VITALS: BP 174/9
[2020-03-31] MEDS: INSULIN LISPRO 300 UNITS/3 ML VIAL. SQ SCH ×4 (07:30→21:00)
[2020-03-31 08:24] LABS: BASO % 0 % (0-3); EOS # 0.1 x10^3/uL (0.0-0.7); EOS % 2 % (0-3); HEMATOCRIT 44.8 % (36.0-47.0); HEMOGLOBIN 14.6 g/dL (12.0-15.5); LYMPH # 1.8 x10^3/uL (1.0-4.8); LYMPH % 46 % (24-48); MEAN CORPUSCULAR HEMOGLOBIN 28 pg (25-35); MEAN CORPUSCULAR HGB CONC 33 g/dL (31-37); MEAN CORPUSCULAR VOLUME 85 fL (79-100); MONO # 0.3 x10^3/uL (0.0-1.1); MONO % 7 % (0-9); NEUT # 1.7 x10^3/uL (1.8-7.7); NEUT % 45 % (31-73); PLATELET COUNT 84 x10^3/uL (140-400); RED BLOOD COUNT 5.27 x10^6/uL (3.50-5.40); RED CELL DISTRIBUTION WIDTH 20.8 % (11.5-14.5); WHITE BLOOD COUNT 3.8 x10^3/uL (4.0-11.0)
--- NOTE | 2020-03-31 08:44 | PDOC ---
PROGRESS NOTES Date of Service: DATE: 03/31/20 TIME: 08:43 Chief Complaint Chief Complaint Assessment/Plan Assessment/Plan impression 1. 60 old female, getting immune mod therapy for renal cell, admit weakness, terminal gauger plan discussed Infiltrative process in the left lower lobe without significant change with new smaller focal of pleural-based infiltrate 2.5 cm superiorly in the left lower lobe. RECENT ct 2. SEVERE HYPOKALEMIA DUE TO GI LOSSES 3. INTRACTABLE NAUSEA AND VOMITING 3. GENERALIZED WEAKNESS plan ADMIT IV FLUID SUPPORT npo iv zofran 4 mg q 4 hrs prn dvt prophylaxis on eliquis consult oncology following REPLACE LYTES gi consult stool cultures c diff screen bmp pending chg iv 07/24 ns 03/31 She followed up with Dr. Augustine and was started on systemic therapy with cabozantinib 60 mg daily in January 2020. Patient reports having developed severe diarrhea with 8-10 bowel movements daily 37 min pt exam, chart review, > 50% orf time spent with exam, chart review, pt care coordination History of Present Illness History of Present Illness Identification/Chief Complaint Chief Complaint 60 year old female with a past medical history of stage 4 renal cancer presents for evaluation of generalized weakness, unable to eat or drink, nausea vomiting diarrhea x 8 days. Patient states she finished chemotherapy 10 days ago. Patient states 2 falls 03/28 due to weakness. K VERY LOW She followed up with Dr. Augustine and was started on systemic therapy with cabozantinib 60 mg daily in January 2020. Patient reports having developed severe diarrhea with 8-10 bowel movements daily Patient also states she does not recall the last time she urinated Past Medical History Past Medical History Past Medical History Past Medical History: A-Fib, Cancer, Hypertension, Stroke, Other Additional Past Medical Histor: borderline dm, renal cancer Past Surgical History: Gastric Bypass, Hysterectomy, Other Additional Past Surgical Histo: partial nephrectomy Smoking Status: Light Tobacco Smoker Alcohol Use: None Drug Use: None fhx obesity Cardiovascular: AFIB, Hyperlipidemia CENTRAL NERVOUS SYSTEM: CVA Endocrine: Diabetes Past Surgical History Past Surgical History: Hysterectomy, Other Family History Family History: Hypertension, Other Social History Smoke: No ALCOHOL: none Drugs: None Current Problem List Problem List Problems Medical Problems: (1) Acute renal failure Status: Acute (2) Dehydration Status: Acute (3) Generalized weakness Status: Acute Vitals Vitals Vital Signs Date Time Temp Pulse Resp B/P (MAP) Pulse Ox O2 Delivery O2 Flow Rate FiO2 03/31/20 03:00 97.7 59 18 138/76 (96) 96 Room Air 97.7 Physical Exam General: Alert, Oriented X3, Cooperative, No acute distress Heart: Regular rate, Normal S1, Normal S2 Abdomen: Normal bowel sounds, Soft Extremities: No clubbing, No cyanosis Skin: No rashes Labs LABS SEX: F EXAM STATUS: REG CLI ORD. PHYSICIAN: OBED AUGUSTINE MD REASON: RENAL CELL CARCINOMA, BONE PAIN PROCEDURE: CT CHEST ABD PELVIS W/CONTRAST CT of chest, abdomen and pelvis with contrast: Reason for examination: Renal cell carcinoma. Bone pain. Helical images were obtained through the chest, abdomen and pelvis with intravenous administration of 75 cc Omnipaque 300. Reconstruction was performed in sagittal and coronal planes. Exposure: One or more of the following individualized dose reduction techniques were utilized for this examination: 1. Automated exposure control 2. Adjustment of the mA and/or kV according to patient size 3. Use of iterative reconstruction technique. No abnormality seen at the thyroid gland. The trachea and mainstem bronchi show no intraluminal lesions. No abnormality seen at the esophagus. The thoracic aorta shows no aneurysmal dilatation or dissection. The heart size is normal with no pericardial effusion. No pulmonary embolus is seen. The lung wheeler continue to show patchy infiltrates in the left lower lobe which show no significant improvement. There is however a new pleural-based patch of infiltrate or mass located in the left lower lobe approximately 2.5 cm superior to the previously identified infiltrates. The right lung field is clear. No pleural effusions are seen. No pneumothorax is seen. No abnormality seen at the liver, spleen, adrenal glands or pancreas. Gallbladder shows cholelithiasis. The abdominal aorta and inferior vena cava show no acute abnormalities. The kidneys show postoperative changes at the lower pole of the left kidney. No new renal masses, renal calculi or hydronephrosis is seen. No obstructive uropathy is evident. There is no evidence of diverticulosis or diverticulitis or colitis. There continues to be an anterior midline ventral hernia containing transverse colon without strangulation. The small intestinal tract shows no abnormal dilatation or wall thickening or obstruction. There are again noted to be postop changes in the stomach. The bladder is not distended. Vaginal cuff shows no abnormality. No free fluid or free air is seen in the abdomen or pelvis. There are degenerative changes in the spine which is severe at the L5-S1 disc level. IMPRESSION: Persistent infiltrative process in the left lower lobe without significant change with new smaller focal of pleural-based infiltrate 2.5 cm superiorly in the left lower lobe. Cholelithiasis. Ventral hernia containing transverse colon without significant change. Severe degenerative changes at the L5-S1 disc level. Electronically signed by: Dora Wallace MD (03/22/2020 5:03 PM) [facility] DICTATED and SIGNED BY: DORA WALLACE MD DATE: 03/22/201702 Laboratory Tests Test 03/30/20 11:59 03/30/20 17:23 03/30/20 21:05 03/31/20 08:00 Glucose (Fingerstick) 152 mg/dL (70-99) 143 mg/dL (70-99) 141 mg/dL (70-99) White Blood Count 3.8 x10^3/uL (4.0-11.0) Red Blood Count 5.27 x10^6/uL (3.50-5.40) Hemoglobin 14.6 g/dL (12.0-15.5) Hematocrit 44.8 % (36.0-47.0) Mean Corpuscular Volume 85 fL (79-100) Mean Corpuscular Hemoglobin 28 pg (25-35) Mean Corpuscular Hemoglobin Concent 33 g/dL (31-37) Red Cell Distribution Width 20.8 % (11.5-14.5) Platelet Count 84 x10^3/uL (140-400) Neutrophils (%) (Auto) 45 % (31-73) Lymphocytes (%) (Auto) 46 % (24-48) Monocytes (%) (Auto) 7 % (0-9) Eosinophils (%) (Auto) 2 % (0-3) Basophils (%) (Auto) 0 % (0-3) Neutrophils # (Auto) 1.7 x10^3/uL (1.8-7.7) Lymphocytes # (Auto) 1.8 x10^3/uL (1.0-4.8) Monocytes # (Auto) 0.3 x10^3/uL (0.0-1.1) Eosinophils # (Auto) 0.1 x10^3/uL (0.0-0.7) Basophils # (Auto) 0.0 x10^3/uL (0.0-0.2) Test 03/31/20 08:01 Glucose (Fingerstick) 121 mg/dL (70-99) Assessment and Plan Assessmemt and Plan Problems Medical Problems: (1) Acute renal failure Status: Acute (2) Dehydration Status: Acute (3) Generalized weakness Status: Acute Comment Review of Relevant I have reviewed the following items cira (where applicable) has been applied. Labs Laboratory Tests Test 03/29/20 11:29 03/29/20 16:26 03/29/20 19:00 03/29/20 20:25 Glucose (Fingerstick) 150 mg/dL (70-99) 131 mg/dL (70-99) Clostridium difficile Toxin (PCR) Negative (NEGATIVE) Potassium Level 3.0 mmol/L (3.5-5.1) Test 03/30/20 06:20 03/30/20 07:58 03/30/20 11:59 03/30/20 17:23 Sodium Level 147 mmol/L (136-145) Potassium Level 2.9 mmol/L (3.5-5.1) Chloride Level 110 mmol/L (98-107) Carbon Dioxide Level 33 mmol/L (21-32) Anion Gap 4 (6-14) Blood Urea Nitrogen 7 mg/dL (7-20) Creatinine 0.8 mg/dL (0.6-1.0) Estimated GFR (Cockcroft-Gault) 73.2 Glucose Level 143 mg/dL (70-99) Calcium Level 8.2 mg/dL (8.5-10.1) Phosphorus Level 2.5 mg/dL (2.6-4.7) Glucose (Fingerstick) 132 mg/dL (70-99) 152 mg/dL (70-99) 143 mg/dL (70-99) Test 03/30/20 21:05 03/31/20 08:00 03/31/20 08:01 Glucose (Fingerstick) 141 mg/dL (70-99) 121 mg/dL (70-99) White Blood Count 3.8 x10^3/uL (4.0-11.0) Red Blood Count 5.27 x10^6/uL (3.50-5.40) Hemoglobin 14.6 g/dL (12.0-15.5) Hematocrit 44.8 % (36.0-47.0) Mean Corpuscular Volume 85 fL (79-100) Mean Corpuscular Hemoglobin 28 pg (25-35) Mean Corpuscular Hemoglobin Concent 33 g/dL (31-37) Red Cell Distribution Width 20.8 % (11.5-14.5) Platelet Count 84 x10^3/uL (140-400) Neutrophils (%) (Auto) 45 % (31-73) Lymphocytes (%) (Auto) 46 % (24-48) Monocytes (%) (Auto) 7 % (0-9) Eosinophils (%) (Auto) 2 % (0-3) Basophils (%) (Auto) 0 % (0-3) Neutrophils # (Auto) 1.7 x10^3/uL (1.8-7.7) Lymphocytes # (Auto) 1.8 x10^3/uL (1.0-4.8) Monocytes # (Auto) 0.3 x10^3/uL (0.0-1.1) Eosinophils # (Auto) 0.1 x10^3/uL (0.0-0.7) Basophils # (Auto) 0.0 x10^3/uL (0.0-0.2) Laboratory Tests Test 03/30/20 11:59 03/30/20 17:23 03/30/20 21:05 03/31/20 08:00 Glucose (Fingerstick) 152 mg/dL (70-99) 143 mg/dL (70-99) 141 mg/dL (70-99) White Blood Count 3.8 x10^3/uL (4.0-11.0) Red Blood Count 5.27 x10^6/uL (3.50-5.40) Hemoglobin 14.6 g/dL (12.0-15.5) Hematocrit 44.8 % (36.0-47.0) Mean Corpuscular Volume 85 fL (79-100) Mean Corpuscular Hemoglobin 28 pg (25-35) Mean Corpuscular Hemoglobin Concent 33 g/dL (31-37) Red Cell Distribution Width 20.8 % (11.5-14.5) Platelet Count 84 x10^3/uL (140-400) Neutrophils (%) (Auto) 45 % (31-73) Lymphocytes (%) (Auto) 46 % (24-48) Monocytes (%) (Auto) 7 % (0-9) Eosinophils (%) (Auto) 2 % (0-3) Basophils (%) (Auto) 0 % (0-3) Neutrophils # (Auto) 1.7 x10^3/uL (1.8-7.7) Lymphocytes # (Auto) 1.8 x10^3/uL (1.0-4.8) Monocytes # (Auto) 0.3 x10^3/uL (0.0-1.1) Eosinophils # (Auto) 0.1 x10^3/uL (0.0-0.7) Basophils # (Auto) 0.0 x10^3/uL (0.0-0.2) Test 03/31/20 08:01 Glucose (Fingerstick) 121 mg/dL (70-99) Microbiology 03/28/20 Urine Culture - Final, Complete Medications Current Medications Sodium Chloride 1,000 ml @ 1,000 mls/hr 1X ONCE IV Last administered on 03/28/20at 19:00; Start 03/28/20 at 18:30; Stop 03/28/20 at 19:29; Status DC Potassium Chloride/Water 100 ml @ 100 mls/hr Q1H IV Last administered on 03/28/20at 21:26; Start 03/28/20 at 20:00; Stop 03/28/20 at 21:59; Status DC Potassium Chloride (Klor-Con) 40 meq 1X ONCE PO Last administered on 03/28/20at 19:45; Start 03/28/20 at 20:00; Stop 03/28/20 at 20:01; Status DC Ondansetron HCl (Zofran) 4 mg PRN Q8HRS PRN IV NAUSEA/VOMITING; Start 03/28/20 at 19:30; Stop 03/29/20 at 19:29; Status DC Morphine Sulfate (Morphine Sulfate) 2 mg PRN Q2HR PRN IV PAIN Last administered on 03/28/20 20:30; Start 03/28/20 at 19:30; Stop 03/29/20 at 19:29; Status DC Amlodipine Besylate (Norvasc) 10 mg DAILY PO Last administered on 03/29/20 09:49; Start 03/29/20 at 09:00 Apixaban (Eliquis) 5 mg BID PO Last administered on 03/30/20 20:54; Start 03/28/20 at 22:30 Metoprolol Tartrate (Lopressor) 25 mg BID PO ; Start 03/28/20 at 21:30; Stop 03/28/20 at 22:34; Status DC Temazepam (Restoril) 7.5 mg PRN QHS PRN PO sleep Last administered on 03/29/20 23:45; Start 03/28/20 at 22:30 Atorvastatin Calcium (Lipitor) 80 mg HS PO Last administered on 03/30/20 20:53; Start 03/28/20 at 22:30 Losartan Potassium (Cozaar) 100 mg DAILY PO Last administered on 03/30/20 10:22; Start 03/29/20 at 09:00 Metoprolol Tartrate (Lopressor) 25 mg BID PO Last administered on 03/30/20 20:54; Start 03/28/20 at 22:30 Insulin Human Lispro (HumaLOG) 0-7 UNITS QIDACHS SQ Last administered on 03/30/20 14:05; Start 03/28/20 at 21:30 Dextrose (Dextrose 50%-Water Syringe) 12.5 gm PRN Q15MIN PRN IV SEE COMMENTS; Start 03/28/20 at 22:30 Acetaminophen/ Hydrocodone Bitart (Lortab 5/325) 1 tab PRN Q6HRS PRN PO MODERATE-SEVERE PAIN Last administered on 03/30/20 22:37; Start 03/28/20 at 22:30 Potassium Bicarbonate (Potassium Effervescent Tablet) 40 meq BIDWMEALS PO ; Start 03/29/20 at 08:00; Status Cancel Potassium Chloride (Klor-Con) 40 meq BIDWMEALS PO Last administered on 03/30/20 18:09; Start 03/29/20 at 08:00 Info (Anti-Coagulation Monitoring By Pharmacy) 1 each PRN DAILY PRN MC SEE COMMENTS Last administered on 03/29/20at 08:05; Start 03/29/20 at 08:15 Potassium Bicarbonate (Potassium Effervescent Tablet) 40 meq 1X PRN PRN FT SEE COMMENTS; Start 03/29/20 at 10:45 Magnesium Oxide (Magnesium Oxide) 400 mg PRN BID PRN PO SEE COMMENTS; Start 03/29/20 at 21:00 Potassium Chloride/Water 100 ml @ 100 mls/hr PRN Q1HR PRN IV SEE COMMENTS Last administered on 03/29/20at 21:57; Start 03/29/20 at 10:45; Stop 03/30/20 at 00:46; Status DC Magnesium Sulfate 50 ml @ 25 mls/hr PRN DAILY PRN IV SEE COMMENTS; Start 03/29/20 at 10:45 Potassium Phos/ Sodium Phos (Phos-Nak) 1 pkt PRN BID PRN PO SEE COMMENTS; Start 03/29/20 at 21:00 Potassium Bicarbonate (Potassium Effervescent Tablet) 40 meq PRN Q4HRS PRN PO SEE COMMENTS Last administered on 03/30/20at 10:14; Start 03/29/20 at 10:45 Potassium Chloride/Water 100 ml @ 100 mls/hr PRN Q1HR PRN IV SEE COMMENTS Last administered on 03/29/20at 21:57; Start 03/29/20 at 10:45 Sodium Chloride (Normal Saline Flush) 3 ml QSHIFT PRN IV AFTER MEDS AND BLOOD DRAWS; Start 03/29/20 at 10:45 Sodium Chloride 1,000 ml @ 100 mls/hr Q10H IV Last administered on 03/31/20at 02:23; Start 03/29/20 at 10:43 Ondansetron HCl (Zofran) 4 mg PRN Q4HRS PRN IV NAUSEA/VOMITING; Start 03/29/20 at 10:45 Acetaminophen (Tylenol) 650 mg PRN Q4HRS PRN PO TEMP OVER 100.4F OR MILD PAIN; Start 03/29/20 at 10:45 Acetaminophen (Tylenol Supp) 650 mg PRN Q4HRS PRN NE TEMP OVER 100.4F OR MILD PAIN; Start 03/29/20 at 10:45 Al Hydroxide/Mg Hydroxide (Mylanta Plus Xs) 30 ml PRN DAILY PRN PO HEARTBURN / GAS; Start 03/29/20 at 10:45 Clonidine HCl (Catapres) 0.1 mg PRN Q6HRS PRN PO SBP>160 OR DBP>90; Start 03/29/20 at 10:45 Sodium Monofluorophosphate (Fleet Adult) 133 ml PRN DAILY PRN NE CONSTIPATION; Start 03/29/20 at 10:45 Docusate Sodium (Colace) 100 mg PRN BID PRN PO HARD STOOLS; Start 03/29/20 at 10:45 Albuterol Sulfate (Ventolin Neb Soln) 2.5 mg PRN Q4HRS PRN NEB SHORTNESS OF BREATH; Start 03/29/20 at 10:45 Guaifenesin (Robitussin) 200 mg PRN Q4HRS PRN PO COUGH; Start 03/29/20 at 10:45 Lorazepam (Ativan) 0.5 mg PRN Q4HRS PRN PO ANXIETY / AGITATION; Start 03/29/20 at 10:45 Potassium Chloride/Water 100 ml @ 100 mls/hr Q1HR IV ; Start 03/29/20 at 12:00; Stop 03/29/20 at 15:59; Status DC Phenyleph/Shark Oil/Min Oil/Petrol (Preparation H) 1 opal PRN QID PRN RC RECTAL PAIN; Start 03/29/20 at 11:30 Potassium Phos/ Sodium Phos (Phos-Nak) 1 pkt BID PO Last administered on 03/30/20at 20:53; Start 03/30/20 at 14:00; Stop 03/30/20 at 21:01; Status DC Cholestyramine Resin (Questran Light) 4 gm 1X ONCE PO Last administered on 03/31/20at 01:24; Start 03/31/20 at 00:00; Stop 03/31/20 at 00:01; Status DC Active Scripts Active Metoprolol Tartrate 25 Mg Tablet 1 Tab PO BID Prednisone 20 Mg Tablet 100 Mg PO DAILY 10 Days Reported Temazepam 7.5 Mg Capsule 7.5 Mg PO HS PRN Metformin Hcl 500 Mg Tablet 500 Mg PO BIDWMEALS Atacand (Candesartan Cilexetil) 16 Mg Tablet 16 Mg PO DAILY Lipitor (Atorvastatin Calcium) 80 Mg Tablet 80 Mg PO HS Eliquis (Apixaban) 5 Mg Tablet 5 Mg PO BID Amlodipine Besylate 10 Mg Tablet 10 Mg PO DAILY Vitals/I & O Vital Sign - Last 24 Hours 03/30/20 03/30/20 03/30/20 03/30/20 10:22 11:00 15:00 19:00 Temp 98.0 98.0 97.6 98.0 98.0 97.6 Pulse 86 56 58 50 Resp 18 18 20 B/P (MAP) 108/75 125/77 (93) 126/71 (89) 132/75 (94) Pulse Ox 98 99 98 O2 Delivery Room Air 03/30/20 03/30/20 03/30/20 03/30/20 20:00 20:54 22:37 23:00 Temp 97.9 97.9 Pulse 50 48 Resp 20 18 B/P (MAP) 132/75 117/60 (79) Pulse Ox 99 O2 Delivery Room Air Room Air Room Air 03/30/20 03/31/20 23:37 03:00 Temp 97.7 97.7 Pulse 59 Resp 18 18 B/P (MAP) 138/76 (96) Pulse Ox 96 O2 Delivery Room Air Room Air Intake and Output 03/30/20 03/30/20 03/31/20 15:00 23:00 07:00 Intake Total 200 ml 1400 ml Balance 200 ml 1400 ml Justicifation of Admission Dx: Justifications for Admission: Justification of Admission Dx: Yes CHF: Sev. Electrolyte Abnormal ROLF CASTRO MD Mar 31, 2020 08:43
[2020-03-31 09:00] LABS: MAGNESIUM 2.1 mg/dL (1.8-2.4); PHOSPHORUS 2.7 mg/dL (2.6-4.7)
[2020-03-31] MEDS: METOPROLOL TART IMMED RELEASE 25 MG TABLET. PO SCH ×2 (09:00→21:39)
[2020-03-31] MEDS: POTASSIUM CHLORIDE 20 MEQ TABLET.ER. PO SCH ×2 (10:24→17:47)
[2020-03-31] MEDS: APIXABAN 5 MG TABLET. PO SCH ×2 (10:25→21:38)
[2020-03-31] MEDS: LOSARTAN POTASSIUM 50 MG TABLET. PO SCH (10:25)
[2020-03-31] MEDS: amLODIPine BESYLATE 10 MG TABLET PO SCH (10:27)
--- NOTE | 2020-03-31 10:50 | NUR ---
LATRICIA following. Spoke with RN and reviewed chart. Spoke with pt today who remains agreeable to acute rehab at [facility] on discharge pending insurance authorization. LATRICIA faxed PT note from today to Francisco Javier at [facility]. Spoke with Francisco Javier who stated he is trying to get in touch with pt's [place] plan, as this is her primary insurance. [place] Medicaid becomes primary if there is no coverage for acute rehab under the [place] plan. [place] Medicaid requires a denial from the [place] plan before an authorization can be submitted for Medicaid. Francisco Javier to follow up with this SW later today. LATRICIA following.
[2020-03-31 11:00] VITALS: BP 158/94
[2020-03-31] MEDS: HYDROcodone/APAP 5/325MG 1 TAB TABLET PO PRN ×2 (13:55→21:38)
[2020-03-31 15:00] VITALS: BP 143/86
[2020-03-31] MEDS: ANTI-COAG MONITOR BY PHARMACY. MC PRN (15:35)
[2020-03-31] MEDS ORDERED: IV 1/2 NORMAL SALINE 1,000 ML IV ONE (15:45)
--- NOTE | 2020-03-31 16:22 | PDOC2 ---
GI CONSULT Date of Service: DATE: 03/31/20 TIME: 16:07 Reason For Consult: diarrhea HPI: HPI: Very pleasant 60 y/o female w/ metastatic RCC. Admitted a few days ago. Was on chemo for about a month - stopped about 8 days ago to take a break. Reports watery diarrhea (too many times to count during the day and through the night) w/ skin irritation/bleeding around on her bottom since starting chemo. Tells me no n/v but afraid to eat because she wants to avoid diarrhea because her bottom is sore. Used to being on the constipated side since she takes oxycodone for cancer pain. Imodium helps a little and Questran helped some last night. Also trying a barrier cream that helps. 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 LFTs are much better now. H/o cholelithiasis (patent cystic duct on HIDA this year), hepatic steatosis, gastric bypass in [place] 30 years ago (not sure about interval EGD), normal colo noscopy in [place] 3-4 years ago, and ventral hernia containing transverse colon. No pancreas or PUD history. H/o A Fib and CVA on Eliquis. Last CT C/A/P on 03/22/20 unrevealing for acute GI issue. C Diff negative 03/29/20. PMH: PMH: RCC, CVA, A Fib, HTN, HLD, DM partial left nephrectomy, lymph node biopsy, hysterectomy, gastric bypass FH: Family History: No pertinent hx Social History: Smoke: Quit ALCOHOL: none Drugs: None ROS: GEN: Denies fevers, chills, sweats HEENT: Denies blurred vision, sore throat CV: Denies chest pain RESP: Denies shortness of air, cough GI: Per HPI : Denies hematuria, dysuria ENDO: Denies weight changes NEURO: Denies confusion, dizziness MSK: +chronic pain SKIN: Denies jaundice, pruritus Vitals: Vitals: Vital Signs Date Time Temp Pulse Resp B/P (MAP) Pulse Ox O2 Delivery O2 Flow Rate FiO2 03/31/20 13:55 20 96 Room Air 03/31/20 11:00 97.9 74 158/94 (115) 97.9 Labs: Labs: Laboratory Tests Test 03/30/20 17:23 03/30/20 21:05 9/9/20 08:00 03/31/20 08:01 Glucose (Fingerstick) 143 mg/dL (70-99) 141 mg/dL (70-99) 121 mg/dL (70-99) White Blood Count 3.8 x10^3/uL (4.0-11.0) Red Blood Count 5.27 x10^6/uL (3.50-5.40) Hemoglobin 14.6 g/dL (12.0-15.5) Hematocrit 44.8 % (36.0-47.0) Mean Corpuscular Volume 85 fL (79-100) Mean Corpuscular Hemoglobin 28 pg (25-35) Mean Corpuscular Hemoglobin Concent 33 g/dL (31-37) Red Cell Distribution Width 20.8 % (11.5-14.5) Platelet Count 84 x10^3/uL (140-400) Neutrophils (%) (Auto) 45 % (31-73) Lymphocytes (%) (Auto) 46 % (24-48) Monocytes (%) (Auto) 7 % (0-9) Eosinophils (%) (Auto) 2 % (0-3) Basophils (%) (Auto) 0 % (0-3) Neutrophils # (Auto) 1.7 x10^3/uL (1.8-7.7) Lymphocytes # (Auto) 1.8 x10^3/uL (1.0-4.8) Monocytes # (Auto) 0.3 x10^3/uL (0.0-1.1) Eosinophils # (Auto) 0.1 x10^3/uL (0.0-0.7) Basophils # (Auto) 0.0 x10^3/uL (0.0-0.2) Phosphorus Level 2.7 mg/dL (2.6-4.7) Magnesium Level 2.1 mg/dL (1.8-2.4) Test 03/31/20 12:08 Glucose (Fingerstick) 163 mg/dL (70-99) URINE CULTURE Final Final No Growth on 03/30/20 at 1130 Allergies: Coded Allergies: No Known Drug Allergies (Unverified , 03/07/19) Medications: Current Medications Medications (Trade) Dose Ordered Sig/Gael Route PRN Reason Start Time Stop Time Status Last Admin Dose Admin Cholestyramine Resin (Questran Light) 4 gm 1X ONCE PO 03/31/20 00:00 03/31/20 00:01 DC 03/31/20 01:24 Imaging: Imaging: - PE: GEN: NAD - hair loss from chemo HEENT: Atraumatic, PERRL LUNGS: CTAB HEART: RRR ABD: NABS, S/ND/NT EXTREMITY: No edema SKIN: No rashes, no jaundice NEURO/PSYCH: A & O 3, very pleasant A/P: A/P: Metastatic RCC w/ recent chemo Diarrhea Mild leukopenia, thrombocytopenia, hypokalemia, elevated LFTs (better than when we last saw) S/p gastric bypass CRC screen - UTD Ventral hernia w/ transverse colon Cholelithiasis, hepatic steatosis H/o A Fib and CVA on Eliquis -- D/w Dr. Eastman - GI toxicity described w/ chemo drug - suspect this is the cause. Await enteric panel, continue supportive care. Check fecal WBCs, anti-diarrheals w/ caution. RUSS VENCES Mar 31, 2020 16:22
[2020-03-31 16:49] LABS: CALCIUM 8.2 mg/dL (8.5-10.1); CREATININE 0.6 mg/dL (0.6-1.0); POTASSIUM 3.6 mmol/L (3.5-5.1)
[2020-03-31 19:00] VITALS: BP 157/92
[2020-03-31] MEDS: ATORVASTATIN CALCIUM 40 MG TABLET. PO SCH (21:38)
[2020-03-31] MEDS: LOPERAMIDE 2 MG CAPSULE PO PRN (21:38)
[2020-03-31] MEDS: TEMAZEPAM 7.5 MG CAPSULE PO PRN (22:01)
[2020-03-31 22:39] VITALS: BP 132/69
[2020-04-01 03:00] VITALS: BP 116/60
[2020-04-01 07:00] VITALS: BP 164/100
--- NOTE | 2020-04-01 07:27 | PDOC ---
PROGRESS NOTES Date of Service: DATE: 04/01/20 TIME: 07:27 Chief Complaint Chief Complaint Assessment/Plan Assessment/Plan impression 1. 60 old female, getting immune mod therapy for renal cell, admit weakness, terminal operator plan discussed Infiltrative process in the left lower lobe without significant change with new smaller focal of pleural-based infiltrate 2.5 cm superiorly in the left lower lobe. RECENT ct 2. SEVERE HYPOKALEMIA DUE TO GI LOSSES 3. INTRACTABLE NAUSEA AND VOMITING 3. GENERALIZED WEAKNESS plan ADMIT IV FLUID SUPPORT ADAT iv zofran 4 mg q 4 hrs prn dvt prophylaxis on eliquis consult oncology following REPLACE LYTES gi consult stool cultures c diff screen bmp pending chg iv 07/24 ns D/C IMODIUM D/W RN Await rehab placement insurance approval K=[id number] 04/01 She followed up with Dr. Roland and was started on systemic therapy with c abozantinib 60 mg daily in January 2020. Patient reports having developed severe diarrhea with 8-10 bowel movements daily 27 min pt exam, chart review, > 50% orf time spent with exam, chart review, pt care coordination History of Present Illness History of Present Illness Identification/Chief Complaint Chief Complaint 60 year old female with a past medical history of stage 4 renal cancer presents for evaluation of generalized weakness, unable to eat or drink, nausea vomiting diarrhea x 8 days. Patient states she finished chemotherapy 10 days ago. Patient states 2 falls 03/28 due to weakness. K VERY LOW She followed up with Dr. Roland and was started on systemic therapy with cabozantinib 60 mg daily in January 2020. Patient reports having developed severe diarrhea with 8-10 bowel movements daily Patient also states she does not recall the last time she urinated Past Medical History Past Medical History Past Medical History Past Medical History: A-Fib, Cancer, Hypertension, Stroke, Other Additional Past Medical Histor: borderline dm, renal cancer Past Surgical History: Gastric Bypass, Hysterectomy, Other Additional Past Surgical Histo: partial nephrectomy Smoking Status: Light Tobacco Smoker Alcohol Use: None Drug Use: None fhx obesity Cardiovascular: AFIB, Hyperlipidemia CENTRAL NERVOUS SYSTEM: CVA Endocrine: Diabetes Past Surgical History Past Surgical History: Hysterectomy, Other Family History Family History: Hypertension, Other Social History Smoke: No ALCOHOL: none Drugs: None Current Problem List Problem List Problems Medical Problems: (1) Acute renal failure Status: Acute (2) Dehydration Status: Acute (3) Generalized weakness Status: Acute Vitals Vitals Vital Signs Date Time Temp Pulse Resp B/P (MAP) Pulse Ox O2 Delivery O2 Flow Rate FiO2 04/01/20 03:00 97.8 55 20 116/60 (78) 97 Room Air 97.8 Physical Exam General: Alert, Oriented X3, Cooperative, No acute distress Heart: Regular rate, Normal S1, Normal S2 Lungs: Clear Abdomen: Normal bowel sounds, Soft Extremities: No clubbing, No cyanosis Skin: No rashes Labs LABS Laboratory Tests Test 03/31/20 08:00 03/31/20 08:01 03/31/20 12:08 03/31/20 17:02 White Blood Count 3.8 x10^3/uL (4.0-11.0) Red Blood Count 5.27 x10^6/uL (3.50-5.40) Hemoglobin 14.6 g/dL (12.0-15.5) Hematocrit 44.8 % (36.0-47.0) Mean Corpuscular Volume 85 fL (79-100) Mean Corpuscular Hemoglobin 28 pg (25-35) Mean Corpuscular Hemoglobin Concent 33 g/dL (31-37) Red Cell Distribution Width 20.8 % (11.5-14.5) Platelet Count 84 x10^3/uL (140-400) Neutrophils (%) (Auto) 45 % (31-73) Lymphocytes (%) (Auto) 46 % (24-48) Monocytes (%) (Auto) 7 % (0-9) Eosinophils (%) (Auto) 2 % (0-3) Basophils (%) (Auto) 0 % (0-3) Neutrophils # (Auto) 1.7 x10^3/uL (1.8-7.7) Lymphocytes # (Auto) 1.8 x10^3/uL (1.0-4.8) Monocytes # (Auto) 0.3 x10^3/uL (0.0-1.1) Eosinophils # (Auto) 0.1 x10^3/uL (0.0-0.7) Basophils # (Auto) 0.0 x10^3/uL (0.0-0.2) Sodium Level 146 mmol/L (136-145) Potassium Level 3.6 mmol/L (3.5-5.1) Chloride Level 109 mmol/L (98-107) Carbon Dioxide Level 20 mmol/L (21-32) Anion Gap 17 (6-14) Blood Urea Nitrogen 5 mg/dL (7-20) Creatinine 0.6 mg/dL (0.6-1.0) Estimated GFR (Cockcroft-Gault) 102.0 Glucose Level 109 mg/dL (70-99) Calcium Level 8.2 mg/dL (8.5-10.1) Phosphorus Level 2.7 mg/dL (2.6-4.7) Magnesium Level 2.1 mg/dL (1.8-2.4) Glucose (Fingerstick) 121 mg/dL (70-99) 163 mg/dL (70-99) 131 mg/dL (70-99) Test 03/31/20 20:13 Glucose (Fingerstick) 134 mg/dL (70-99) Assessment and Plan Assessmemt and Plan Problems Medical Problems: (1) Acute renal failure Status: Acute (2) Dehydration Status: Acute (3) Generalized weakness Status: Acute Comment Review of Relevant I have reviewed the following items cira (where applicable) has been applied. Labs Laboratory Tests Test 03/30/20 07:58 03/30/20 11:59 03/30/20 17:23 03/30/20 21:05 Glucose (Fingerstick) 132 mg/dL (70-99) 152 mg/dL (70-99) 143 mg/dL (70-99) 141 mg/dL (70-99) Test 03/31/20 08:00 03/31/20 08:01 03/31/20 12:08 03/31/20 17:02 White Blood Count 3.8 x10^3/uL (4.0-11.0) Red Blood Count 5.27 x10^6/uL (3.50-5.40) Hemoglobin 14.6 g/dL (12.0-15.5) Hematocrit 44.8 % (36.0-47.0) Mean Corpuscular Volume 85 fL (79-100) Mean Corpuscular Hemoglobin 28 pg (25-35) Mean Corpuscular Hemoglobin Concent 33 g/dL (31-37) Red Cell Distribution Width 20.8 % (11.5-14.5) Platelet Count 84 x10^3/uL (140-400) Neutrophils (%) (Auto) 45 % (31-73) Lymphocytes (%) (Auto) 46 % (24-48) Monocytes (%) (Auto) 7 % (0-9) Eosinophils (%) (Auto) 2 % (0-3) Basophils (%) (Auto) 0 % (0-3) Neutrophils # (Auto) 1.7 x10^3/uL (1.8-7.7) Lymphocytes # (Auto) 1.8 x10^3/uL (1.0-4.8) Monocytes # (Auto) 0.3 x10^3/uL (0.0-1.1) Eosinophils # (Auto) 0.1 x10^3/uL (0.0-0.7) Basophils # (Auto) 0.0 x10^3/uL (0.0-0.2) Sodium Level 146 mmol/L (136-145) Potassium Level 3.6 mmol/L (3.5-5.1) Chloride Level 109 mmol/L (98-107) Carbon Dioxide Level 20 mmol/L (21-32) Anion Gap 17 (6-14) Blood Urea Nitrogen 5 mg/dL (7-20) Creatinine 0.6 mg/dL (0.6-1.0) Estimated GFR (Cockcroft-Gault) 102.0 Glucose Level 109 mg/dL (70-99) Calcium Level 8.2 mg/dL (8.5-10.1) Phosphorus Level 2.7 mg/dL (2.6-4.7) Magnesium Level 2.1 mg/dL (1.8-2.4) Glucose (Fingerstick) 121 mg/dL (70-99) 163 mg/dL (70-99) 131 mg/dL (70-99) Test 03/31/20 20:13 Glucose (Fingerstick) 134 mg/dL (70-99) Laboratory Tests Test 03/31/20 08:00 03/31/20 08:01 03/31/20 12:08 03/31/20 17:02 White Blood Count 3.8 x10^3/uL (4.0-11.0) Red Blood Count 5.27 x10^6/uL (3.50-5.40) Hemoglobin 14.6 g/dL (12.0-15.5) Hematocrit 44.8 % (36.0-47.0) Mean Corpuscular Volume 85 fL (79-100) Mean Corpuscular Hemoglobin 28 pg (25-35) Mean Corpuscular Hemoglobin Concent 33 g/dL (31-37) Red Cell Distribution Width 20.8 % (11.5-14.5) Platelet Count 84 x10^3/uL (140-400) Neutrophils (%) (Auto) 45 % (31-73) Lymphocytes (%) (Auto) 46 % (24-48) Monocytes (%) (Auto) 7 % (0-9) Eosinophils (%) (Auto) 2 % (0-3) Basophils (%) (Auto) 0 % (0-3) Neutrophils # (Auto) 1.7 x10^3/uL (1.8-7.7) Lymphocytes # (Auto) 1.8 x10^3/uL (1.0-4.8) Monocytes # (Auto) 0.3 x10^3/uL (0.0-1.1) Eosinophils # (Auto) 0.1 x10^3/uL (0.0-0.7) Basophils # (Auto) 0.0 x10^3/uL (0.0-0.2) Sodium Level 146 mmol/L (136-145) Potassium Level 3.6 mmol/L (3.5-5.1) Chloride Level 109 mmol/L (98-107) Carbon Dioxide Level 20 mmol/L (21-32) Anion Gap 17 (6-14) Blood Urea Nitrogen 5 mg/dL (7-20) Creatinine 0.6 mg/dL (0.6-1.0) Estimated GFR (Cockcroft-Gault) 102.0 Glucose Level 109 mg/dL (70-99) Calcium Level 8.2 mg/dL (8.5-10.1) Phosphorus Level 2.7 mg/dL (2.6-4.7) Magnesium Level 2.1 mg/dL (1.8-2.4) Glucose (Fingerstick) 121 mg/dL (70-99) 163 mg/dL (70-99) 131 mg/dL (70-99) Test 03/31/20 20:13 Glucose (Fingerstick) 134 mg/dL (70-99) Microbiology 03/28/20 Urine Culture - Final, Complete Medications Current Medications Sodium Chloride 1,000 ml @ 1,000 mls/hr 1X ONCE IV Last administered on 03/28/20 19:00; Start 03/28/20 at 18:30; Stop 03/28/20 at 19:29; Status DC Potassium Chloride/Water 100 ml @ 100 mls/hr Q1H IV Last administered on 03/28/20 21:26; Start 03/28/20 at 20:00; Stop 03/28/20 at 21:59; Status DC Potassium Chloride (Klor-Con) 40 meq 1X ONCE PO Last administered on 03/28/20at 19:45; Start 03/28/20 at 20:00; Stop 03/28/20 at 20:01; Status DC Ondansetron HCl (Zofran) 4 mg PRN Q8HRS PRN IV NAUSEA/VOMITING; Start 03/28/20 at 19:30; Stop 03/29/20 at 19:29; Status DC Morphine Sulfate (Morphine Sulfate) 2 mg PRN Q2HR PRN IV PAIN Last administered on 03/28/20at 20:30; Start 03/28/20 at 19:30; Stop 03/29/20 at 19:29; Status DC Amlodipine Besylate (Norvasc) 10 mg DAILY PO Last administered on 03/31/20at 10:27; Start 03/29/20 at 09:00 Apixaban (Eliquis) 5 mg BID PO Last administered on 03/31/20at 21:38; Start 03/28/20 at 22:30 Metoprolol Tartrate (Lopressor) 25 mg BID PO ; Start 03/28/20 at 21:30; Stop 03/28/20 at 22:34; Status DC Temazepam (Restoril) 7.5 mg PRN QHS PRN PO sleep Last administered on 03/31/20 22:01; Start 03/28/20 at 22:30 Atorvastatin Calcium (Lipitor) 80 mg HS PO Last administered on 03/31/20at 21:38; Start 03/28/20 at 22:30 Losartan Potassium (Cozaar) 100 mg DAILY PO Last administered on 03/31/20 10:25; Start 03/29/20 at 09:00 Metoprolol Tartrate (Lopressor) 25 mg BID PO Last administered on 03/31/20at 21:39; Start 03/28/20 at 22:30 Insulin Human Lispro (HumaLOG) 0-7 UNITS QIDACHS SQ Last administered on 03/30/20at 14:05; Start 03/28/20 at 21:30 Dextrose (Dextrose 50%-Water Syringe) 12.5 gm PRN Q15MIN PRN IV SEE COMMENTS; Start 03/28/20 at 22:30 Acetaminophen/ Hydrocodone Bitart (Lortab 5/325) 1 tab PRN Q6HRS PRN PO MODERATE-SEVERE PAIN Last administered on 03/31/20at 21:38; Start 03/28/20 at 22:30 Potassium Bicarbonate (Potassium Effervescent Tablet) 40 meq BIDWMEALS PO ; Start 03/29/20 at 08:00; Status Cancel Potassium Chloride (Klor-Con) 40 meq BIDWMEALS PO Last administered on 03/31/20at 17:47; Start 03/29/20 at 08:00 Info (Anti-Coagulation Monitoring By Pharmacy) 1 each PRN DAILY PRN MC SEE COMMENTS Last administered on 03/31/20at 15:35; Start 03/29/20 at 08:15 Potassium Bicarbonate (Potassium Effervescent Tablet) 40 meq 1X PRN PRN FT SEE COMMENTS; Start 03/29/20 at 10:45 Magnesium Oxide (Magnesium Oxide) 400 mg PRN BID PRN PO SEE COMMENTS; Start 03/29/20 at 21:00 Potassium Chloride/Water 100 ml @ 100 mls/hr PRN Q1HR PRN IV SEE COMMENTS Last administered on 03/29/20at 21:57; Start 03/29/20 at 10:45; Stop 03/30/20 at 00:46; Status DC Magnesium Sulfate 50 ml @ 25 mls/hr PRN DAILY PRN IV SEE COMMENTS; Start 03/29/20 at 10:45 Potassium Phos/ Sodium Phos (Phos-Nak) 1 pkt PRN BID PRN PO SEE COMMENTS; Start 03/29/20 at 21:00 Potassium Bicarbonate (Potassium Effervescent Tablet) 40 meq PRN Q4HRS PRN PO SEE COMMENTS Last administered on 03/30/20at 10:14; Start 03/29/20 at 10:45 Potassium Chloride/Water 100 ml @ 100 mls/hr PRN Q1HR PRN IV SEE COMMENTS Last administered on 03/29/20at 21:57; Start 03/29/20 at 10:45 Sodium Chloride (Normal Saline Flush) 3 ml QSHIFT PRN IV AFTER MEDS AND BLOOD DRAWS; Start 03/29/20 at 10:45 Sodium Chloride 1,000 ml @ 100 mls/hr Q10H IV Last administered on 03/31/20at 12:54; Start 03/29/20 at 10:43; Stop 03/31/20 at 15:33; Status DC Ondansetron HCl (Zofran) 4 mg PRN Q4HRS PRN IV NAUSEA/VOMITING; Start 03/29/20 at 10:45 Acetaminophen (Tylenol) 650 mg PRN Q4HRS PRN PO TEMP OVER 100.4F OR MILD PAIN; Start 03/29/20 at 10:45 Acetaminophen (Tylenol Supp) 650 mg PRN Q4HRS PRN VA TEMP OVER 100.4F OR MILD PAIN; Start 03/29/20 at 10:45 Al Hydroxide/Mg Hydroxide (Mylanta Plus Xs) 30 ml PRN DAILY PRN PO HEARTBURN / GAS; Start 03/29/20 at 10:45 Clonidine HCl (Catapres) 0.1 mg PRN Q6HRS PRN PO SBP>160 OR DBP>90; Start 03/29/20 at 10:45 Sodium Monofluorophosphate (Fleet Adult) 133 ml PRN DAILY PRN VA CONSTIPATION; Start 03/29/20 at 10:45 Docusate Sodium (Colace) 100 mg PRN BID PRN PO HARD STOOLS; Start 03/29/20 at 10:45 Albuterol Sulfate (Ventolin Neb Soln) 2.5 mg PRN Q4HRS PRN NEB SHORTNESS OF BREATH; Start 03/29/20 at 10:45 Guaifenesin (Robitussin) 200 mg PRN Q4HRS PRN PO COUGH; Start 03/29/20 at 10:45 Lorazepam (Ativan) 0.5 mg PRN Q4HRS PRN PO ANXIETY / AGITATION; Start 03/29/20 at 10:45 Potassium Chloride/Water 100 ml @ 100 mls/hr Q1HR IV ; Start 03/29/20 at 12:00; Stop 03/29/20 at 15:59; Status DC Phenyleph/Shark Oil/Min Oil/Petrol (Preparation H) 1 opal PRN QID PRN RC RECTAL PAIN; Start 03/29/20 at 11:30 Potassium Phos/ Sodium Phos (Phos-Nak) 1 pkt BID PO Last administered on 03/30/20at 20:53; Start 03/30/20 at 14:00; Stop 03/30/20 at 21:01; Status DC Cholestyramine Resin (Questran Light) 4 gm 1X ONCE PO Last administered on 03/31/20at 01:24; Start 03/31/20 at 00:00; Stop 03/31/20 at 00:01; Status DC Sodium Chloride 1,000 ml @ 100 mls/hr 1X ONCE IV Last administered on 03/31/20at 20:02; Start 03/31/20 at 15:45; Stop 04/01/20 at 01:44; Status DC Loperamide HCl (Imodium) 2 mg PRN TID PRN PO DIARRHEA Last administered on 03/31/20at 21:38; Start 03/31/20 at 16:30 Active Scripts Active Metoprolol Tartrate 25 Mg Tablet 1 Tab PO BID Prednisone 20 Mg Tablet 100 Mg PO DAILY 10 Days Reported Temazepam 7.5 Mg Capsule 7.5 Mg PO HS PRN Metformin Hcl 500 Mg Tablet 500 Mg PO BIDWMEALS Atacand (Candesartan Cilexetil) 16 Mg Tablet 16 Mg PO DAILY Lipitor (Atorvastatin Calcium) 80 Mg Tablet 80 Mg PO HS Eliquis (Apixaban) 5 Mg Tablet 5 Mg PO BID Amlodipine Besylate 10 Mg Tablet 10 Mg PO DAILY Vitals/I & O Vital Sign - Last 24 Hours 03/31/20 03/31/20 03/31/20 03/31/20 08:00 09:00 10:25 10:27 Pulse 52 57 57 B/P (MAP) 158/94 174/9 174/9 O2 Delivery Room Air 03/31/20 03/31/20 03/31/20 03/31/20 11:00 13:55 15:00 17:18 Temp 97.9 97.9 97.9 97.9 Pulse 74 75 Resp 18 20 18 20 B/P (MAP) 158/94 (115) 143/86 (105) Pulse Ox 96 96 99 99 O2 Delivery Room Air Room Air 03/31/20 03/31/20 03/31/20 03/31/20 19:00 21:38 21:39 22:38 Temp 98.2 98.2 Pulse 82 82 Resp 24 20 18 B/P (MAP) 157/92 (113) 157/92 Pulse Ox 96 O2 Delivery Room Air Room Air Room Air 03/31/20 04/01/20 22:39 03:00 Temp 98.3 97.8 98.3 97.8 Pulse 62 55 Resp 20 20 B/P (MAP) 132/69 (90) 116/60 (78) Pulse Ox 98 97 O2 Delivery Room Air Room Air Intake and Output 03/31/20 03/31/20 04/01/20 15:00 23:00 07:00 Intake Total 320 ml 800 ml Output Total 0 ml Balance 320 ml 800 ml 0 ml Justicifation of Admission Dx: Justifications for Admission: Justification of Admission Dx: Yes CHF: Sev. Electrolyte Abnormal ROLF CASTRO MD Apr 01, 2020 07:27
[2020-04-01] MEDS: INSULIN LISPRO 300 UNITS/3 ML VIAL. SQ SCH ×4 (07:30→21:00)
[2020-04-01 08:38] LABS: BASO % 0 % (0-3); EOS # 0.1 x10^3/uL (0.0-0.7); EOS % 2 % (0-3); HEMATOCRIT 42.8 % (36.0-47.0); HEMOGLOBIN 14.3 g/dL (12.0-15.5); LYMPH # 1.9 x10^3/uL (1.0-4.8); LYMPH % 47 % (24-48); MEAN CORPUSCULAR HEMOGLOBIN 28 pg (25-35); MEAN CORPUSCULAR HGB CONC 34 g/dL (31-37); MEAN CORPUSCULAR VOLUME 84 fL (79-100); MONO # 0.2 x10^3/uL (0.0-1.1); MONO % 6 % (0-9); NEUT # 1.8 x10^3/uL (1.8-7.7); NEUT % 45 % (31-73); PLATELET COUNT 94 x10^3/uL (140-400); RED BLOOD COUNT 5.09 x10^6/uL (3.50-5.40); RED CELL DISTRIBUTION WIDTH 20.6 % (11.5-14.5)
[2020-04-01 09:02] LABS: ALBUMIN/GLOBULIN RATIO 0.9 (1.0-1.7); CALCIUM 8.2 mg/dL (8.5-10.1); CREATININE 0.7 mg/dL (0.6-1.0); GFR 85.4; POTASSIUM 3.4 mmol/L (3.5-5.1); TOTAL BILIRUBIN 0.9 mg/dL (0.2-1.0); TOTAL PROTEIN 6.4 g/dL (6.4-8.2)
[2020-04-01] MEDS: POTASSIUM CHLORIDE 20 MEQ TABLET.ER. PO SCH ×2 (09:46→18:04)
[2020-04-01] MEDS: APIXABAN 5 MG TABLET. PO SCH ×2 (09:46→21:08)
[2020-04-01] MEDS: amLODIPine BESYLATE 10 MG TABLET PO SCH (09:46)
[2020-04-01] MEDS: METOPROLOL TART IMMED RELEASE 25 MG TABLET. PO SCH ×2 (09:47→21:08)
[2020-04-01] MEDS: LOSARTAN POTASSIUM 50 MG TABLET. PO SCH (09:48)
[2020-04-01] MEDS: HYDROcodone/APAP 5/325MG 1 TAB TABLET PO PRN ×2 (09:55→19:30)
--- NOTE | 2020-04-01 10:22 | PDOC ---
Date of Service: DATE: 04/01/20 TIME: 10:19 Subjective: Subjective: No stools overnight w/ Imodium but then had diarrhea after breakfast. Cramps before stooling, otherwise no pain. Eating okay. Objective: Objective: Nurse says fecal WBC test not collected and says Imodium was stopped (though st ill ordered). Vital Signs: Vital Signs Date Time Temp Pulse Resp B/P (MAP) Pulse Ox O2 Delivery O2 Flow Rate FiO2 04/01/20 09:55 20 98 Room Air 04/01/20 09:48 62 164/100 04/01/20 07:00 98.1 98.1 Labs: Laboratory Tests Test 03/31/20 12:08 03/31/20 17:02 03/31/20 20:13 04/01/20 07:30 Glucose (Fingerstick) 163 mg/dL 131 mg/dL 134 mg/dL White Blood Count 4.0 x10^3/uL Red Blood Count 5.09 x10^6/uL Hemoglobin 14.3 g/dL Hematocrit 42.8 % Mean Corpuscular Volume 84 fL Mean Corpuscular Hemoglobin 28 pg Mean Corpuscular Hemoglobin Concent 34 g/dL Red Cell Distribution Width 20.6 % Platelet Count 94 x10^3/uL Neutrophils (%) (Auto) 45 % Lymphocytes (%) (Auto) 47 % Monocytes (%) (Auto) 6 % Eosinophils (%) (Auto) 2 % Basophils (%) (Auto) 0 % Neutrophils # (Auto) 1.8 x10^3/uL Lymphocytes # (Auto) 1.9 x10^3/uL Monocytes # (Auto) 0.2 x10^3/uL Eosinophils # (Auto) 0.1 x10^3/uL Basophils # (Auto) 0.0 x10^3/uL Sodium Level 146 mmol/L Potassium Level 3.4 mmol/L Chloride Level 109 mmol/L Carbon Dioxide Level 28 mmol/L Anion Gap 9 Blood Urea Nitrogen 6 mg/dL Creatinine 0.7 mg/dL Estimated GFR (Cockcroft-Gault) 85.4 BUN/Creatinine Ratio 9 Glucose Level 105 mg/dL Calcium Level 8.2 mg/dL Total Bilirubin 0.9 mg/dL Aspartate Amino Transf (AST/SGOT) 62 U/L Alanine Aminotransferase (ALT/SGPT) 76 U/L Alkaline Phosphatase 101 U/L Total Protein 6.4 g/dL Albumin 3.0 g/dL Albumin/Globulin Ratio 0.9 Test 04/01/20 08:22 Glucose (Fingerstick) 123 mg/dL PE: GEN: NAD LUNGS: CTAB HEART: RRR ABD: S/ND/NT NEURO/PSYCH: A & O 3 A/P: Metastatic RCC w/ recent chemo Diarrhea - likely related to chemo -- Enteric panel pending, fecal WBC uncollected - also note she has two more C Diffs ordered?? Await pending tests, will return later w/ Dr. Eastman. Justicifation of Admission Dx: Justifications for Admission: Justification of Admission Dx: Yes CHF: Sev. Electrolyte Abnormal RUSS VENCES Apr 01, 2020 10:22
[2020-04-01 11:00] VITALS: BP 129/48
--- NOTE | 2020-04-01 12:42 | NUR ---
LATRICIA following. Spoke with RN and reviewed chart. Spoke with pt today who remains agreeable to acute rehab at [facility] on discharge. LATRICIA faxed updated clinicals to Francisco Javier at [facility]. Spoke with Kelsea the CM for pt's insurance [employer], , ext [phone], (fax) and acute rehab has been approved for 1 week. LATRICIA notified Mitzy with GI and Dr. Castillo. LATRICIA awaiting discharge orders as [facility] has a bed today and can accept this patient. Notified RN. LATRICIA following. Addendum: 04/01/20 at 1301 by SIM ROME Discharge to be held today per Dr. Castillo. LATRICIA notified Francisco Javier at [facility] and Kelsea with pt's insurance.
[2020-04-01 15:00] VITALS: BP 135/94
[2020-04-01 19:00] VITALS: BP 137/94
[2020-04-01] MEDS: ATORVASTATIN CALCIUM 40 MG TABLET. PO SCH (21:09)
[2020-04-01] MEDS: TEMAZEPAM 7.5 MG CAPSULE PO PRN (22:40)
[2020-04-01 23:00] VITALS: BP 152/86
[2020-04-02 03:00] VITALS: BP 144/80
[2020-04-02 07:30] VITALS: BP 141/61
[2020-04-02] MEDS: INSULIN LISPRO 300 UNITS/3 ML VIAL. SQ SCH ×2 (07:30→11:30)
[2020-04-02 07:41] LABS: BASO % 1 % (0-3); EOS # 0.1 x10^3/uL (0.0-0.7); EOS % 2 % (0-3); HEMATOCRIT 40.9 % (36.0-47.0); HEMOGLOBIN 13.4 g/dL (12.0-15.5); LYMPH # 2.1 x10^3/uL (1.0-4.8); LYMPH % 42 % (24-48); MEAN CORPUSCULAR HEMOGLOBIN 28 pg (25-35); MEAN CORPUSCULAR HGB CONC 33 g/dL (31-37); MEAN CORPUSCULAR VOLUME 84 fL (79-100); MONO # 0.4 x10^3/uL (0.0-1.1); MONO % 8 % (0-9); NEUT # 2.4 x10^3/uL (1.8-7.7); NEUT % 48 % (31-73); PLATELET COUNT 89 x10^3/uL (140-400); RED BLOOD COUNT 4.85 x10^6/uL (3.50-5.40)
[2020-04-02 08:13] LABS: ALBUMIN 2.8 g/dL (3.4-5.0); ALBUMIN/GLOBULIN RATIO 0.9 (1.0-1.7); CALCIUM 8.6 mg/dL (8.5-10.1); CREATININE 0.7 mg/dL (0.6-1.0); GFR 85.4; POTASSIUM 4.1 mmol/L (3.5-5.1); TOTAL BILIRUBIN 0.7 mg/dL (0.2-1.0)
--- NOTE | 2020-04-02 08:43 | PDOC ---
PROGRESS NOTES Date of Service: DATE: 04/02/20 TIME: 08:43 Chief Complaint Chief Complaint Assessment/Plan Assessment/Plan impression 1. 60 old female, getting immune mod therapy for renal cell, admit weakness, terminal block assembler plan discussed Infiltrative process in the left lower lobe without significant change with new smaller focal of pleural-based infiltrate 2.5 cm superiorly in the left lower lobe. RECENT ct 2. SEVERE HYPOKALEMIA DUE TO GI LOSSES 3. INTRACTABLE NAUSEA AND VOMITING 3. GENERALIZED WEAKNESS plan ADMIT IV FLUID SUPPORT ADAT iv zofran 4 mg q 4 hrs prn dvt prophylaxis on eliquis consult oncology following REPLACE LYTES gi consult stool cultures c diff screen bmp pending chg iv 07/24 ns D/C IMODIUM D/W RN Await rehab placement insurance approval [id number] 04/02 She followed up with Dr. Roland and was started on systemic therapy with cabozantinib 60 mg daily in January 2020. Patient reports having developed severe diarrhea with 8-10 bowel movements daily , STILL HAVING PROFUSE DIARRHEA 27 min pt exam, chart review, > 50% orf time spent with exam, chart review, pt care coordination History of Present Illness History of Present Illness Identification/Chief Complaint Chief Complaint 60 year old female with a past medical history of stage 4 renal cancer presents for evaluation of generalized weakness, unable to eat or drink, nausea vomiting diarrhea x 8 days. Patient states she finished chemotherapy 10 days ago. Patient states 2 falls 03/28 due to weakness. K VERY LOW She followed up with Dr. Roland and was started on systemic therapy with cabozantinib 60 mg daily in January 2020. Patient reports having developed severe diarrhea with 8-10 bowel movements daily Patient also states she does not recall the last time she urinated Past Medical History Past Medical History Past Medical History Past Medical History: A-Fib, Cancer, Hypertension, Stroke, Other Additional Past Medical Histor: borderline dm, renal cancer Past Surgical History: Gastric Bypass, Hysterectomy, Other Additional Past Surgical Histo: partial nephrectomy Smoking Status: Light Tobacco Smoker Alcohol Use: None Drug Use: None fhx obesity Cardiovascular: AFIB, Hyperlipidemia CENTRAL NERVOUS SYSTEM: CVA Endocrine: Diabetes Past Surgical History Past Surgical History: Hysterectomy, Other Family History Family History: Hypertension, Other Social History Smoke: No ALCOHOL: none Drugs: None Current Problem List Problem List Problems Medical Problems: (1) Acute renal failure Status: Acute (2) Dehydration Status: Acute (3) Generalized weakness Status: Acute Vitals Vitals Vital Signs Date Time Temp Pulse Resp B/P (MAP) Pulse Ox O2 Delivery O2 Flow Rate FiO2 04/02/20 03:00 97.9 60 18 144/80 (101) 96 Room Air 97.9 Physical Exam General: Alert, Oriented X3, Cooperative, No acute distress Heart: Regular rate, Normal S1, Normal S2 Lungs: Clear Abdomen: Normal bowel sounds, Soft Extremities: No clubbing, No cyanosis Skin: No rashes Labs LABS Laboratory Tests Test 04/01/20 11:48 04/01/20 16:46 04/01/20 21:05 04/02/20 06:45 Glucose (Fingerstick) 132 mg/dL (70-99) 109 mg/dL (70-99) 185 mg/dL (70-99) White Blood Count 5.0 x10^3/uL (4.0-11.0) Red Blood Count 4.85 x10^6/uL (3.50-5.40) Hemoglobin 13.4 g/dL (12.0-15.5) Hematocrit 40.9 % (36.0-47.0) Mean Corpuscular Volume 84 fL (79-100) Mean Corpuscular Hemoglobin 28 pg (25-35) Mean Corpuscular Hemoglobin Concent 33 g/dL (31-37) Red Cell Distribution Width 21.0 % (11.5-14.5) Platelet Count 89 x10^3/uL (140-400) Neutrophils (%) (Auto) 48 % (31-73) Lymphocytes (%) (Auto) 42 % (24-48) Monocytes (%) (Auto) 8 % (0-9) Eosinophils (%) (Auto) 2 % (0-3) Basophils (%) (Auto) 1 % (0-3) Neutrophils # (Auto) 2.4 x10^3/uL (1.8-7.7) Lymphocytes # (Auto) 2.1 x10^3/uL (1.0-4.8) Monocytes # (Auto) 0.4 x10^3/uL (0.0-1.1) Eosinophils # (Auto) 0.1 x10^3/uL (0.0-0.7) Basophils # (Auto) 0.0 x10^3/uL (0.0-0.2) Sodium Level 145 mmol/L (136-145) Potassium Level 4.1 mmol/L (3.5-5.1) Chloride Level 112 mmol/L (98-107) Carbon Dioxide Level 28 mmol/L (21-32) Anion Gap 5 (6-14) Blood Urea Nitrogen 9 mg/dL (7-20) Creatinine 0.7 mg/dL (0.6-1.0) Estimated GFR (Cockcroft-Gault) 85.4 BUN/Creatinine Ratio 13 (6-20) Glucose Level 104 mg/dL (70-99) Calcium Level 8.6 mg/dL (8.5-10.1) Phosphorus Level 2.7 mg/dL (2.6-4.7) Total Bilirubin 0.7 mg/dL (0.2-1.0) Aspartate Amino Transf (AST/SGOT) 57 U/L (15-37) Alanine Aminotransferase (ALT/SGPT) 66 U/L (14-59) Alkaline Phosphatase 97 U/L (46-116) Total Protein 6.0 g/dL (6.4-8.2) Albumin 2.8 g/dL (3.4-5.0) Albumin/Globulin Ratio 0.9 (1.0-1.7) Test 04/02/20 07:55 Glucose (Fingerstick) 108 mg/dL (70-99) Assessment and Plan Assessmemt and Plan Problems Medical Problems: (1) Acute renal failure Status: Acute (2) Dehydration Status: Acute (3) Generalized weakness Status: Acute Comment Review of Relevant I have reviewed the following items cira (where applicable) has been applied. Labs Laboratory Tests Test 03/31/20 12:08 03/31/20 17:02 03/31/20 20:13 04/01/20 07:30 Glucose (Fingerstick) 163 mg/dL (70-99) 131 mg/dL (70-99) 134 mg/dL (70-99) White Blood Count 4.0 x10^3/uL (4.0-11.0) Red Blood Count 5.09 x10^6/uL (3.50-5.40) Hemoglobin 14.3 g/dL (12.0-15.5) Hematocrit 42.8 % (36.0-47.0) Mean Corpuscular Volume 84 fL (79-100) Mean Corpuscular Hemoglobin 28 pg (25-35) Mean Corpuscular Hemoglobin Concent 34 g/dL (31-37) Red Cell Distribution Width 20.6 % (11.5-14.5) Platelet Count 94 x10^3/uL (140-400) Neutrophils (%) (Auto) 45 % (31-73) Lymphocytes (%) (Auto) 47 % (24-48) Monocytes (%) (Auto) 6 % (0-9) Eosinophils (%) (Auto) 2 % (0-3) Basophils (%) (Auto) 0 % (0-3) Neutrophils # (Auto) 1.8 x10^3/uL (1.8-7.7) Lymphocytes # (Auto) 1.9 x10^3/uL (1.0-4.8) Monocytes # (Auto) 0.2 x10^3/uL (0.0-1.1) Eosinophils # (Auto) 0.1 x10^3/uL (0.0-0.7) Basophils # (Auto) 0.0 x10^3/uL (0.0-0.2) Sodium Level 146 mmol/L (136-145) Potassium Level 3.4 mmol/L (3.5-5.1) Chloride Level 109 mmol/L (98-107) Carbon Dioxide Level 28 mmol/L (21-32) Anion Gap 9 (6-14) Blood Urea Nitrogen 6 mg/dL (7-20) Creatinine 0.7 mg/dL (0.6-1.0) Estimated GFR (Cockcroft-Gault) 85.4 BUN/Creatinine Ratio 9 (6-20) Glucose Level 105 mg/dL (70-99) Calcium Level 8.2 mg/dL (8.5-10.1) Total Bilirubin 0.9 mg/dL (0.2-1.0) Aspartate Amino Transf (AST/SGOT) 62 U/L (15-37) Alanine Aminotransferase (ALT/SGPT) 76 U/L (14-59) Alkaline Phosphatase 101 U/L (46-116) Total Protein 6.4 g/dL (6.4-8.2) Albumin 3.0 g/dL (3.4-5.0) Albumin/Globulin Ratio 0.9 (1.0-1.7) Test 04/01/20 08:22 04/01/20 11:48 04/01/20 16:46 04/01/20 21:05 Glucose (Fingerstick) 123 mg/dL (70-99) 132 mg/dL (70-99) 109 mg/dL (70-99) 185 mg/dL (70-99) Test 04/02/20 06:45 04/02/20 07:55 White Blood Count 5.0 x10^3/uL (4.0-11.0) Red Blood Count 4.85 x10^6/uL (3.50-5.40) Hemoglobin 13.4 g/dL (12.0-15.5) Hematocrit 40.9 % (36.0-47.0) Mean Corpuscular Volume 84 fL (79-100) Mean Corpuscular Hemoglobin 28 pg (25-35) Mean Corpuscular Hemoglobin Concent 33 g/dL (31-37) Red Cell Distribution Width 21.0 % (11.5-14.5) Platelet Count 89 x10^3/uL (140-400) Neutrophils (%) (Auto) 48 % (31-73) Lymphocytes (%) (Auto) 42 % (24-48) Monocytes (%) (Auto) 8 % (0-9) Eosinophils (%) (Auto) 2 % (0-3) Basophils (%) (Auto) 1 % (0-3) Neutrophils # (Auto) 2.4 x10^3/uL (1.8-7.7) Lymphocytes # (Auto) 2.1 x10^3/uL (1.0-4.8) Monocytes # (Auto) 0.4 x10^3/uL (0.0-1.1) Eosinophils # (Auto) 0.1 x10^3/uL (0.0-0.7) Basophils # (Auto) 0.0 x10^3/uL (0.0-0.2) Sodium Level 145 mmol/L (136-145) Potassium Level 4.1 mmol/L (3.5-5.1) Chloride Level 112 mmol/L (98-107) Carbon Dioxide Level 28 mmol/L (21-32) Anion Gap 5 (6-14) Blood Urea Nitrogen 9 mg/dL (7-20) Creatinine 0.7 mg/dL (0.6-1.0) Estimated GFR (Cockcroft-Gault) 85.4 BUN/Creatinine Ratio 13 (6-20) Glucose Level 104 mg/dL (70-99) Calcium Level 8.6 mg/dL (8.5-10.1) Phosphorus Level 2.7 mg/dL (2.6-4.7) Total Bilirubin 0.7 mg/dL (0.2-1.0) Aspartate Amino Transf (AST/SGOT) 57 U/L (15-37) Alanine Aminotransferase (ALT/SGPT) 66 U/L (14-59) Alkaline Phosphatase 97 U/L (46-116) Total Protein 6.0 g/dL (6.4-8.2) Albumin 2.8 g/dL (3.4-5.0) Albumin/Globulin Ratio 0.9 (1.0-1.7) Glucose (Fingerstick) 108 mg/dL (70-99) Laboratory Tests Test 04/01/20 11:48 04/01/20 16:46 04/01/20 21:05 04/02/20 06:45 Glucose (Fingerstick) 132 mg/dL (70-99) 109 mg/dL (70-99) 185 mg/dL (70-99) White Blood Count 5.0 x10^3/uL (4.0-11.0) Red Blood Count 4.85 x10^6/uL (3.50-5.40) Hemoglobin 13.4 g/dL (12.0-15.5) Hematocrit 40.9 % (36.0-47.0) Mean Corpuscular Volume 84 fL (79-100) Mean Corpuscular Hemoglobin 28 pg (25-35) Mean Corpuscular Hemoglobin Concent 33 g/dL (31-37) Red Cell Distribution Width 21.0 % (11.5-14.5) Platelet Count 89 x10^3/uL (140-400) Neutrophils (%) (Auto) 48 % (31-73) Lymphocytes (%) (Auto) 42 % (24-48) Monocytes (%) (Auto) 8 % (0-9) Eosinophils (%) (Auto) 2 % (0-3) Basophils (%) (Auto) 1 % (0-3) Neutrophils # (Auto) 2.4 x10^3/uL (1.8-7.7) Lymphocytes # (Auto) 2.1 x10^3/uL (1.0-4.8) Monocytes # (Auto) 0.4 x10^3/uL (0.0-1.1) Eosinophils # (Auto) 0.1 x10^3/uL (0.0-0.7) Basophils # (Auto) 0.0 x10^3/uL (0.0-0.2) Sodium Level 145 mmol/L (136-145) Potassium Level 4.1 mmol/L (3.5-5.1) Chloride Level 112 mmol/L (98-107) Carbon Dioxide Level 28 mmol/L (21-32) Anion Gap 5 (6-14) Blood Urea Nitrogen 9 mg/dL (7-20) Creatinine 0.7 mg/dL (0.6-1.0) Estimated GFR (Cockcroft-Gault) 85.4 BUN/Creatinine Ratio 13 (6-20) Glucose Level 104 mg/dL (70-99) Calcium Level 8.6 mg/dL (8.5-10.1) Phosphorus Level 2.7 mg/dL (2.6-4.7) Total Bilirubin 0.7 mg/dL (0.2-1.0) Aspartate Amino Transf (AST/SGOT) 57 U/L (15-37) Alanine Aminotransferase (ALT/SGPT) 66 U/L (14-59) Alkaline Phosphatase 97 U/L (46-116) Total Protein 6.0 g/dL (6.4-8.2) Albumin 2.8 g/dL (3.4-5.0) Albumin/Globulin Ratio 0.9 (1.0-1.7) Test 04/02/20 07:55 Glucose (Fingerstick) 108 mg/dL (70-99) Microbiology 03/28/20 Urine Culture - Final, Complete Medications Current Medications Sodium Chloride 1,000 ml @ 1,000 mls/hr 1X ONCE IV Last administered on 03/28/20at 19:00; Start 03/28/20 at 18:30; Stop 03/28/20 at 19:29; Status DC Potassium Chloride/Water 100 ml @ 100 mls/hr Q1H IV Last administered on 03/28/20 21:26; Start 03/28/20 at 20:00; Stop 03/28/20 at 21:59; Status DC Potassium Chloride (Klor-Con) 40 meq 1X ONCE PO Last administered on 03/28/20 19:45; Start 03/28/20 at 20:00; Stop 03/28/20 at 20:01; Status DC Ondansetron HCl (Zofran) 4 mg PRN Q8HRS PRN IV NAUSEA/VOMITING; Start 03/28/20 at 19:30; Stop 03/29/20 at 19:29; Status DC Morphine Sulfate (Morphine Sulfate) 2 mg PRN Q2HR PRN IV PAIN Last administered on 03/28/20 20:30; Start 03/28/20 at 19:30; Stop 03/29/20 at 19:29; Status DC Amlodipine Besylate (Norvasc) 10 mg DAILY PO Last administered on 04/01/20 09:46; Start 03/29/20 at 09:00 Apixaban (Eliquis) 5 mg BID PO Last administered on 04/01/20 21:08; Start 03/28/20 at 22:30 Metoprolol Tartrate (Lopressor) 25 mg BID PO ; Start 03/28/20 at 21:30; Stop 03/28/20 at 22:34; Status DC Temazepam (Restoril) 7.5 mg PRN QHS PRN PO sleep Last administered on 04/01/20 22:40; Start 03/28/20 at 22:30 Atorvastatin Calcium (Lipitor) 80 mg HS PO Last administered on 04/01/20 21:09; Start 03/28/20 at 22:30 Losartan Potassium (Cozaar) 100 mg DAILY PO Last administered on 04/01/20 09:48; Start 03/29/20 at 09:00 Metoprolol Tartrate (Lopressor) 25 mg BID PO Last administered on 04/01/20 21:08; Start 03/28/20 at 22:30 Insulin Human Lispro (HumaLOG) 0-7 UNITS QIDACHS SQ Last administered on 9/8/20at 14:05; Start 03/28/20 at 21:30 Dextrose (Dextrose 50%-Water Syringe) 12.5 gm PRN Q15MIN PRN IV SEE COMMENTS; Start 03/28/20 at 22:30 Acetaminophen/ Hydrocodone Bitart (Lortab 5/325) 1 tab PRN Q6HRS PRN PO MODERATE-SEVERE PAIN Last administered on 04/01/20at 19:30; Start 03/28/20 at 22:30 Potassium Bicarbonate (Potassium Effervescent Tablet) 40 meq BIDWMEALS PO ; Start 03/29/20 at 08:00; Status Cancel Potassium Chloride (Klor-Con) 40 meq BIDWMEALS PO Last administered on 04/01/20 18:04; Start 03/29/20 at 08:00 Info (Anti-Coagulation Monitoring By Pharmacy) 1 each PRN DAILY PRN MC SEE COMMENTS Last administered on 03/31/20at 15:35; Start 03/29/20 at 08:15 Potassium Bicarbonate (Potassium Effervescent Tablet) 40 meq 1X PRN PRN FT SEE COMMENTS; Start 03/29/20 at 10:45 Magnesium Oxide (Magnesium Oxide) 400 mg PRN BID PRN PO SEE COMMENTS; Start 03/29/20 at 21:00 Potassium Chloride/Water 100 ml @ 100 mls/hr PRN Q1HR PRN IV SEE COMMENTS Last administered on 03/29/20at 21:57; Start 03/29/20 at 10:45; Stop 03/30/20 at 00:46; Status DC Magnesium Sulfate 50 ml @ 25 mls/hr PRN DAILY PRN IV SEE COMMENTS; Start 03/29/20 at 10:45 Potassium Phos/ Sodium Phos (Phos-Nak) 1 pkt PRN BID PRN PO SEE COMMENTS; Start 03/29/20 at 21:00 Potassium Bicarbonate (Potassium Effervescent Tablet) 40 meq PRN Q4HRS PRN PO SEE COMMENTS Last administered on 03/30/20at 10:14; Start 03/29/20 at 10:45 Potassium Chloride/Water 100 ml @ 100 mls/hr PRN Q1HR PRN IV SEE COMMENTS Last administered on 03/29/20at 21:57; Start 03/29/20 at 10:45 Sodium Chloride (Normal Saline Flush) 3 ml QSHIFT PRN IV AFTER MEDS AND BLOOD DRAWS; Start 03/29/20 at 10:45 Sodium Chloride 1,000 ml @ 100 mls/hr Q10H IV Last administered on 03/31/20at 12:54; Start 03/29/20 at 10:43; Stop 03/31/20 at 15:33; Status DC Ondansetron HCl (Zofran) 4 mg PRN Q4HRS PRN IV NAUSEA/VOMITING; Start 03/29/20 at 10:45 Acetaminophen (Tylenol) 650 mg PRN Q4HRS PRN PO TEMP OVER 100.4F OR MILD PAIN; Start 03/29/20 at 10:45 Acetaminophen (Tylenol Supp) 650 mg PRN Q4HRS PRN [place] TEMP OVER 100.4F OR MILD PAIN; Start 03/29/20 at 10:45 Al Hydroxide/Mg Hydroxide (Mylanta Plus Xs) 30 ml PRN DAILY PRN PO HEARTBURN / GAS; Start 03/29/20 at 10:45 Clonidine HCl (Catapres) 0.1 mg PRN Q6HRS PRN PO SBP>160 OR DBP>90; Start 03/29/20 at 10:45 Sodium Monofluorophosphate (Fleet Adult) 133 ml PRN DAILY PRN [place] CONSTIPATION; Start 03/29/20 at 10:45 Docusate Sodium (Colace) 100 mg PRN BID PRN PO HARD STOOLS; Start 03/29/20 at 10:45 Albuterol Sulfate (Ventolin Neb Soln) 2.5 mg PRN Q4HRS PRN NEB SHORTNESS OF BREATH; Start 03/29/20 at 10:45 Guaifenesin (Robitussin) 200 mg PRN Q4HRS PRN PO COUGH; Start 03/29/20 at 10:45 Lorazepam (Ativan) 0.5 mg PRN Q4HRS PRN PO ANXIETY / AGITATION; Start 03/29/20 at 10:45 Potassium Chloride/Water 100 ml @ 100 mls/hr Q1HR IV ; Start 03/29/20 at 12:00; Stop 03/29/20 at 15:59; Status DC Phenyleph/Shark Oil/Min Oil/Petrol (Preparation H) 1 opal PRN QID PRN RC RECTAL PAIN; Start 03/29/20 at 11:30 Potassium Phos/ Sodium Phos (Phos-Nak) 1 pkt BID PO Last administered on 03/30/20at 20:53; Start 03/30/20 at 14:00; Stop 03/30/20 at 21:01; Status DC Cholestyramine Resin (Questran Light) 4 gm 1X ONCE PO Last administered on 03/31/20at 01:24; Start 03/31/20 at 00:00; Stop 03/31/20 at 00:01; Status DC Sodium Chloride 1,000 ml @ 100 mls/hr 1X ONCE IV Last administered on 03/31/20at 20:02; Start 03/31/20 at 15:45; Stop 04/01/20 at 01:44; Status DC Loperamide HCl (Imodium) 2 mg PRN TID PRN PO DIARRHEA Last administered on 03/31/20at 21:38; Start 03/31/20 at 16:30 Active Scripts Active Metoprolol Tartrate 25 Mg Tablet 1 Tab PO BID Prednisone 20 Mg Tablet 100 Mg PO DAILY 10 Days Reported Temazepam 7.5 Mg Capsule 7.5 Mg PO HS PRN Metformin Hcl 500 Mg Tablet 500 Mg PO BIDWMEALS Atacand (Candesartan Cilexetil) 16 Mg Tablet 16 Mg PO DAILY Lipitor (Atorvastatin Calcium) 80 Mg Tablet 80 Mg PO HS Eliquis (Apixaban) 5 Mg Tablet 5 Mg PO BID Amlodipine Besylate 10 Mg Tablet 10 Mg PO DAILY Vitals/I & O Vital Sign - Last 24 Hours 04/01/20 04/01/20 04/01/20 04/01/20 09:46 09:47 09:48 09:55 Pulse 62 62 62 Resp 20 B/P (MAP) 164/100 164/100 164/100 Pulse Ox 98 O2 Delivery Room Air 04/01/20 04/01/20 04/01/20 04/01/20 10:55 11:00 15:00 19:00 Temp 97.9 98.0 97.8 97.9 98.0 97.8 Pulse 64 57 67 Resp 20 18 18 18 B/P (MAP) 129/48 (75) 135/94 (108) 137/94 (108) Pulse Ox 98 98 98 99 O2 Delivery Room Air Room Air 04/01/20 04/01/20 04/01/20 04/01/20 19:30 20:00 20:30 21:08 Pulse 67 Resp 18 B/P (MAP) 137/94 Pulse Ox 98 98 O2 Delivery Room Air Room Air Room Air 04/01/20 04/02/20 23:00 03:00 Temp 97.9 97.9 97.9 97.9 Pulse 61 60 Resp 18 18 B/P (MAP) 152/86 (108) 144/80 (101) Pulse Ox 97 96 O2 Delivery Room Air Room Air Intake and Output 04/01/20 04/01/20 04/02/20 15:00 23:00 07:00 Intake Total 200 ml 0 ml Balance 200 ml 0 ml Justicifation of Admission Dx: Justifications for Admission: Justification of Admission Dx: Yes CHF: Sev. Electrolyte Abnormal ROLF CASTRO MD Apr 02, 2020 08:43
[2020-04-02] MEDS: LOSARTAN POTASSIUM 50 MG TABLET. PO SCH (09:00)
[2020-04-02] MEDS: POTASSIUM CHLORIDE 20 MEQ TABLET.ER. PO SCH (09:01)
[2020-04-02] MEDS: METOPROLOL TART IMMED RELEASE 25 MG TABLET. PO SCH (09:01)
[2020-04-02] MEDS: amLODIPine BESYLATE 10 MG TABLET PO SCH (09:01)
[2020-04-02] MEDS: APIXABAN 5 MG TABLET. PO SCH (09:01)
[2020-04-02 11:15] VITALS: BP 144/93
[2020-04-02] MEDS: LOPERAMIDE 2 MG CAPSULE PO PRN (12:05)
--- NOTE | 2020-04-02 12:35 | PDOC ---
Date of Service: DATE: 04/02/20 TIME: 12:32 Subjective: Subjective: Still having diarrhea, hasn't used Imodium. Objective: Objective: D/w nurse - set up to DC to rehab today but may be held per primary because of diarrhea. Note normal potassium. Vital Signs: Vital Signs Date Time Temp Pulse Resp B/P (MAP) Pulse Ox O2 Delivery O2 Flow Rate FiO2 04/02/20 11:15 98.0 70 18 144/93 (110) 96 Room Air 98.0 Labs: Laboratory Tests Test 04/01/20 16:46 04/01/20 21:05 04/02/20 06:45 04/02/20 07:55 Glucose (Fingerstick) 109 mg/dL 185 mg/dL 108 mg/dL White Blood Count 5.0 x10^3/uL Red Blood Count 4.85 x10^6/uL Hemoglobin 13.4 g/dL Hematocrit 40.9 % Mean Corpuscular Volume 84 fL Mean Corpuscular Hemoglobin 28 pg Mean Corpuscular Hemoglobin Concent 33 g/dL Red Cell Distribution Width 21.0 % Platelet Count 89 x10^3/uL Neutrophils (%) (Auto) 48 % Lymphocytes (%) (Auto) 42 % Monocytes (%) (Auto) 8 % Eosinophils (%) (Auto) 2 % Basophils (%) (Auto) 1 % Neutrophils # (Auto) 2.4 x10^3/uL Lymphocytes # (Auto) 2.1 x10^3/uL Monocytes # (Auto) 0.4 x10^3/uL Eosinophils # (Auto) 0.1 x10^3/uL Basophils # (Auto) 0.0 x10^3/uL Sodium Level 145 mmol/L Potassium Level 4.1 mmol/L Chloride Level 112 mmol/L Carbon Dioxide Level 28 mmol/L Anion Gap 5 Blood Urea Nitrogen 9 mg/dL Creatinine 0.7 mg/dL Estimated GFR (Cockcroft-Gault) 85.4 BUN/Creatinine Ratio 13 Glucose Level 104 mg/dL Calcium Level 8.6 mg/dL Phosphorus Level 2.7 mg/dL Total Bilirubin 0.7 mg/dL Aspartate Amino Transf (AST/SGOT) 57 U/L Alanine Aminotransferase (ALT/SGPT) 66 U/L Alkaline Phosphatase 97 U/L Total Protein 6.0 g/dL Albumin 2.8 g/dL Albumin/Globulin Ratio 0.9 Test 04/02/20 11:45 Glucose (Fingerstick) 135 mg/dL FECAL WBC,GRAM STAIN Final WBCS FEW PE: GEN: NAD LUNGS: CTAB HEART: RRR ABD: NABS, S/ND/NT NEURO/PSYCH: A & O 3 A/P: Diarrhea related to chemo -- Okay to resume Imodium PRN and okay to Dc to rehab per Dr. Eastman. Justicifation of Admission Dx: Justifications for Admission: Justification of Admission Dx: Yes CHF: Sev. Electrolyte Abnormal RUSS VENCES Apr 02, 2020 12:35
[2020-04-02] MEDS ORDERED: LOPERAMIDE 2 MG CAPSULE PO PRN (12:45)
[2020-04-02] MEDS ORDERED: HEPARIN PF 500 UNIT/5 ML DISP.SYRIN. IVP ONE (13:00)
--- NOTE | 2020-04-02 13:04 | PDOC3 ---
Discharge Summary Date of Admission: Mar 29, 2020 Date of Discharge: Apr 02, 2020 Follow-Up: 1-2 days Admitting Diagnosis comment: discharge dx Assessment/Plan impression 1. 60 old female, getting immune mod therapy for renal cell, admit weakness, jail plan discussed Infiltrative process in the left lower lobe without significant change with new smaller focal of pleural-based infiltrate 2.5 cm superiorly in the left lower lobe. RECENT ct 2. SEVERE HYPOKALEMIA DUE TO GI LOSSES 3. INTRACTABLE NAUSEA AND VOMITING, resolved 3. GENERALIZED WEAKNESS plan ADMIT IV FLUID SUPPORT ADAT iv zofran 4 mg q 4 hrs prn dvt prophylaxis on eliquis consult oncology following REPLACE LYTES gi consult stool cultures c diff screen bmp pending chg iv 1/ ns D/C IMODIUM D/W RN Await rehab placement insurance approval [id number] ok for ed/c today per gi 04/02 She followed up with Dr. Roland and was started on systemic therapy with cabozantinib 60 mg daily in January 2020. Patient reports having developed severe diarrhea with 8-10 bowel movements daily , STILL HAVING PROFUSE DIARRHEA 27 min pt exam, chart review d/c planning time , > 50% orf time spent with exam, chart review, pt care coordination History of Present Illness History of Present Illness Identification/Chief Complaint Chief Complaint 60 year old female with a past medical history of stage 4 renal cancer presents for evaluation of generalized weakness, unable to eat or drink, nausea vomiting diarrhea x 8 days. Patient states she finished chemotherapy 10 days ago. Patient states 2 falls 03/28 due to weakness. K VERY LOW She followed up with Dr. Roland and was started on systemic therapy with cabozantinib 60 mg daily in January 2020. Patient reports having developed severe diarrhea with 8-10 bowel movements daily Patient also states she does not recall the last time she urinated Past Medical History Past Medical History Past Medical History Past Medical History: A-Fib, Cancer, Hypertension, Stroke, Other Additional Past Medical Histor: borderline dm, renal cancer Past Surgical History: Gastric Bypass, Hysterectomy, Other Additional Past Surgical Histo: partial nephrectomy Smoking Status: Light Tobacco Smoker Alcohol Use: None Drug Use: None fhx obesity Cardiovascular: AFIB, Hyperlipidemia CENTRAL NERVOUS SYSTEM: CVA Endocrine: Diabetes Past Surgical History Past Surgical History: Hysterectomy, Other Family History Family History: Hypertension, Other Social History Smoke: No ALCOHOL: none Drugs: None Current Problem List Problem List Problems Medical Problems: (1) Acute renal failure Status: Acute (2) Dehydration Status: Acute (3) Generalized weakness Status: Acute Vitals Vitals Vital Signs Date Time Temp Pulse Resp B/P (MAP) Pulse Ox O2 Delivery O2 Flow Rate FiO2 04/02/20 03:00 97.9 60 18 144/80 (101) 96 Room Air 97.9 Physical Exam General: Alert, Oriented X3, Cooperative, No acute distress Heart: Regular rate, Normal S1, Normal S2 Lungs: Clear Abdomen: Normal bowel sounds, Soft Extremities: No clubbing, No cyanosis Skin: No rashes FINAL DIAGNOSIS Problems Medical Problems: (1) Acute renal failure Status: Acute (2) Dehydration Status: Acute (3) Generalized weakness Status: Acute Brief Hospital Course Ms. Alba is a 60 old [sex] who presented with [ INTRACTABLE VOMITING, DIARRHEA] CONDITION AT DISCHARGE: Improved Discharge Medications Current Medications Sodium Chloride 1,000 ml @ 1,000 mls/hr 1X ONCE IV Last administered on 03/28/20at 19:00; Start 03/28/20 at 18:30; Stop 03/28/20 at 19:29; Status DC Potassium Chloride/Water 100 ml @ 100 mls/hr Q1H IV Last administered on 03/28/20at 21:26; Start 03/28/20 at 20:00; Stop 03/28/20 at 21:59; Status DC Potassium Chloride (Klor-Con) 40 meq 1X ONCE PO Last administered on 03/28/20at 19:45; Start 03/28/20 at 20:00; Stop 03/28/20 at 20:01; Status DC Ondansetron HCl (Zofran) 4 mg PRN Q8HRS PRN IV NAUSEA/VOMITING; Start 03/28/20 a t 19:30; Stop 03/29/20 at 19:29; Status DC Morphine Sulfate (Morphine Sulfate) 2 mg PRN Q2HR PRN IV PAIN Last administered on 03/28/20at 20:30; Start 03/28/20 at 19:30; Stop 03/29/20 at 19:29; Status DC Amlodipine Besylate (Norvasc) 10 mg DAILY PO Last administered on 04/02/20 09:01; Start 03/29/20 at 09:00 Apixaban (Eliquis) 5 mg BID PO Last administered on 04/02/20at 09:01; Start 03/28/20 at 22:30 Metoprolol Tartrate (Lopressor) 25 mg BID PO ; Start 03/28/20 at 21:30; Stop 03/28/20 at 22:34; Status DC Temazepam (Restoril) 7.5 mg PRN QHS PRN PO sleep Last administered on 04/01/20 22:40; Start 03/28/20 at 22:30 Atorvastatin Calcium (Lipitor) 80 mg HS PO Last administered on 04/01/20 21:09; Start 03/28/20 at 22:30 Losartan Potassium (Cozaar) 100 mg DAILY PO Last administered on 04/02/20at 09:00; Start 03/29/20 at 09:00 Metoprolol Tartrate (Lopressor) 25 mg BID PO Last administered on 04/02/20 09:01; Start 03/28/20 at 22:30 Insulin Human Lispro (HumaLOG) 0-7 UNITS QIDACHS SQ Last administered on 03/30/20at 14:05; Start 03/28/20 at 21:30 Dextrose (Dextrose 50%-Water Syringe) 12.5 gm PRN Q15MIN PRN IV SEE COMMENTS; Start 03/28/20 at 22:30 Acetaminophen/ Hydrocodone Bitart (Lortab 5/325) 1 tab PRN Q6HRS PRN PO MODERATE-SEVERE PAIN Last administered on 04/01/20at 19:30; Start 03/28/20 at 22:30 Potassium Bicarbonate (Potassium Effervescent Tablet) 40 meq BIDWMEALS PO ; Start 03/29/20 at 08:00; Status Cancel Potassium Chloride (Klor-Con) 40 meq BIDWMEALS PO Last administered on 04/02/20 09:01; Start 03/29/20 at 08:00 Info (Anti-Coagulation Monitoring By Pharmacy) 1 each PRN DAILY PRN MC SEE COMMENTS Last administered on 03/31/20at 15:35; Start 03/29/20 at 08:15 Potassium Bicarbonate (Potassium Effervescent Tablet) 40 meq 1X PRN PRN FT SEE COMMENTS; Start 03/29/20 at 10:45 Magnesium Oxide (Magnesium Oxide) 400 mg PRN BID PRN PO SEE COMMENTS; Start 03/29/20 at 21:00 Potassium Chloride/Water 100 ml @ 100 mls/hr PRN Q1HR PRN IV SEE COMMENTS Last administered on 03/29/20at 21:57; Start 03/29/20 at 10:45; Stop 03/30/20 at 00:46; Status DC Magnesium Sulfate 50 ml @ 25 mls/hr PRN DAILY PRN IV SEE COMMENTS; Start 03/29/20 at 10:45 Potassium Phos/ Sodium Phos (Phos-Nak) 1 pkt PRN BID PRN PO SEE COMMENTS; Start 03/29/20 at 21:00 Potassium Bicarbonate (Potassium Effervescent Tablet) 40 meq PRN Q4HRS PRN PO SEE COMMENTS Last administered on 03/30/20at 10:14; Start 03/29/20 at 10:45 Potassium Chloride/Water 100 ml @ 100 mls/hr PRN Q1HR PRN IV SEE COMMENTS Last administered on 03/29/20at 21:57; Start 03/29/20 at 10:45 Sodium Chloride (Normal Saline Flush) 3 ml QSHIFT PRN IV AFTER MEDS AND BLOOD DRAWS; Start 03/29/20 at 10:45 Sodium Chloride 1,000 ml @ 100 mls/hr Q10H IV Last administered on 03/31/20at 12:54; Start 03/29/20 at 10:43; Stop 03/31/20 at 15:33; Status DC Ondansetron HCl (Zofran) 4 mg PRN Q4HRS PRN IV NAUSEA/VOMITING; Start 03/29/20 at 10:45 Acetaminophen (Tylenol) 650 mg PRN Q4HRS PRN PO TEMP OVER 100.4F OR MILD PAIN; Start 03/29/20 at 10:45 Acetaminophen (Tylenol Supp) 650 mg PRN Q4HRS PRN MN TEMP OVER 100.4F OR MILD PAIN; Start 03/29/20 at 10:45 Al Hydroxide/Mg Hydroxide (Mylanta Plus Xs) 30 ml PRN DAILY PRN PO HEARTBURN / GAS; Start 03/29/20 at 10:45 Clonidine HCl (Catapres) 0.1 mg PRN Q6HRS PRN PO SBP>160 OR DBP>90; Start 03/29/20 at 10:45 Sodium Monofluorophosphate (Fleet Adult) 133 ml PRN DAILY PRN MN CONSTIPATION; Start 03/29/20 at 10:45 Docusate Sodium (Colace) 100 mg PRN BID PRN PO HARD STOOLS; Start 03/29/20 at 10:45 Albuterol Sulfate (Ventolin Neb Soln) 2.5 mg PRN Q4HRS PRN NEB SHORTNESS OF BREATH; Start 03/29/20 at 10:45 Guaifenesin (Robitussin) 200 mg PRN Q4HRS PRN PO COUGH; Start 03/29/20 at 10:45 Lorazepam (Ativan) 0.5 mg PRN Q4HRS PRN PO ANXIETY / AGITATION; Start 03/29/20 at 10:45 Potassium Chloride/Water 100 ml @ 100 mls/hr Q1HR IV ; Start 03/29/20 at 12:00; Stop 03/29/20 at 15:59; Status DC Phenyleph/Shark Oil/Min Oil/Petrol (Preparation H) 1 opal PRN QID PRN RC RECTAL PAIN; Start 03/29/20 at 11:30 Potassium Phos/ Sodium Phos (Phos-Nak) 1 pkt BID PO Last administered on 03/30/20at 20:53; Start 03/30/20 at 14:00; Stop 03/30/20 at 21:01; Status DC Cholestyramine Resin (Questran Light) 4 gm 1X ONCE PO Last administered on 03/31/20at 01:24; Start 03/31/20 at 00:00; Stop 03/31/20 at 00:01; Status DC Sodium Chloride 1,000 ml @ 100 mls/hr 1X ONCE IV Last administered on 03/31/20at 20:02; Start 03/31/20 at 15:45; Stop 04/01/20 at 01:44; Status DC Loperamide HCl (Imodium) 2 mg PRN TID PRN PO DIARRHEA Last administered on 04/02/20at 12:05; Start 03/31/20 at 16:30; Stop 04/02/20 at 12:36; Status DC Loperamide HCl (Imodium) 2 mg PRN QID PRN PO DIARRHEA; Start 04/02/20 at 12:45 Heparin Sodium (Porcine) (Hep Lock Adult) 500 unit 1X ONCE IVP ; Start 04/02/20 at 13:00; Stop 04/02/20 at 13:01 Active Scripts Active Metoprolol Tartrate 25 Mg Tablet 1 Tab PO BID Prednisone 20 Mg Tablet 100 Mg PO DAILY 10 Days Reported Temazepam 7.5 Mg Capsule 7.5 Mg PO HS PRN Metformin Hcl 500 Mg Tablet 500 Mg PO BIDWMEALS Atacand (Candesartan Cilexetil) 16 Mg Tablet 16 Mg PO DAILY Lipitor (Atorvastatin Calcium) 80 Mg Tablet 80 Mg PO HS Eliquis (Apixaban) 5 Mg Tablet 5 Mg PO BID Amlodipine Besylate 10 Mg Tablet 10 Mg PO DAILY Vital Signs Vital Signs Date Time Temp Pulse Resp B/P (MAP) Pulse Ox O2 Delivery O2 Flow Rate FiO2 04/02/20 11:15 98.0 70 18 144/93 (110) 96 Room Air 98.0 Labs Laboratory Tests Test 03/31/20 17:02 03/31/20 20:13 04/01/20 07:30 04/01/20 08:22 Glucose (Fingerstick) 131 mg/dL (70-99) 134 mg/dL (70-99) 123 mg/dL (70-99) White Blood Count 4.0 x10^3/uL (4.0-11.0) Red Blood Count 5.09 x10^6/uL (3.50-5.40) Hemoglobin 14.3 g/dL (12.0-15.5) Hematocrit 42.8 % (36.0-47.0) Mean Corpuscular Volume 84 fL (79-100) Mean Corpuscular Hemoglobin 28 pg (25-35) Mean Corpuscular Hemoglobin Concent 34 g/dL (31-37) Red Cell Distribution Width 20.6 % (11.5-14.5) Platelet Count 94 x10^3/uL (140-400) Neutrophils (%) (Auto) 45 % (31-73) Lymphocytes (%) (Auto) 47 % (24-48) Monocytes (%) (Auto) 6 % (0-9) Eosinophils (%) (Auto) 2 % (0-3) Basophils (%) (Auto) 0 % (0-3) Neutrophils # (Auto) 1.8 x10^3/uL (1.8-7.7) Lymphocytes # (Auto) 1.9 x10^3/uL (1.0-4.8) Monocytes # (Auto) 0.2 x10^3/uL (0.0-1.1) Eosinophils # (Auto) 0.1 x10^3/uL (0.0-0.7) Basophils # (Auto) 0.0 x10^3/uL (0.0-0.2) Sodium Level 146 mmol/L (136-145) Potassium Level 3.4 mmol/L (3.5-5.1) Chloride Level 109 mmol/L (98-107) Carbon Dioxide Level 28 mmol/L (21-32) Anion Gap 9 (6-14) Blood Urea Nitrogen 6 mg/dL (7-20) Creatinine 0.7 mg/dL (0.6-1.0) Estimated GFR (Cockcroft-Gault) 85.4 BUN/Creatinine Ratio 9 (6-20) Glucose Level 105 mg/dL (70-99) Calcium Level 8.2 mg/dL (8.5-10.1) Total Bilirubin 0.9 mg/dL (0.2-1.0) Aspartate Amino Transf (AST/SGOT) 62 U/L (15-37) Alanine Aminotransferase (ALT/SGPT) 76 U/L (14-59) Alkaline Phosphatase 101 U/L (46-116) Total Protein 6.4 g/dL (6.4-8.2) Albumin 3.0 g/dL (3.4-5.0) Albumin/Globulin Ratio 0.9 (1.0-1.7) Test 04/01/20 11:48 04/01/20 16:46 04/01/20 21:05 04/02/20 06:45 Glucose (Fingerstick) 132 mg/dL (70-99) 109 mg/dL (70-99) 185 mg/dL (70-99) White Blood Count 5.0 x10^3/uL (4.0-11.0) Red Blood Count 4.85 x10^6/uL (3.50-5.40) Hemoglobin 13.4 g/dL (12.0-15.5) Hematocrit 40.9 % (36.0-47.0) Mean Corpuscular Volume 84 fL (79-100) Mean Corpuscular Hemoglobin 28 pg (25-35) Mean Corpuscular Hemoglobin Concent 33 g/dL (31-37) Red Cell Distribution Width 21.0 % (11.5-14.5) Platelet Count 89 x10^3/uL (140-400) Neutrophils (%) (Auto) 48 % (31-73) Lymphocytes (%) (Auto) 42 % (24-48) Monocytes (%) (Auto) 8 % (0-9) Eosinophils (%) (Auto) 2 % (0-3) Basophils (%) (Auto) 1 % (0-3) Neutrophils # (Auto) 2.4 x10^3/uL (1.8-7.7) Lymphocytes # (Auto) 2.1 x10^3/uL (1.0-4.8) Monocytes # (Auto) 0.4 x10^3/uL (0.0-1.1) Eosinophils # (Auto) 0.1 x10^3/uL (0.0-0.7) Basophils # (Auto) 0.0 x10^3/uL (0.0-0.2) Sodium Level 145 mmol/L (136-145) Potassium Level 4.1 mmol/L (3.5-5.1) Chloride Level 112 mmol/L (98-107) Carbon Dioxide Level 28 mmol/L (21-32) Anion Gap 5 (6-14) Blood Urea Nitrogen 9 mg/dL (7-20) Creatinine 0.7 mg/dL (0.6-1.0) Estimated GFR (Cockcroft-Gault) 85.4 BUN/Creatinine Ratio 13 (6-20) Glucose Level 104 mg/dL (70-99) Calcium Level 8.6 mg/dL (8.5-10.1) Phosphorus Level 2.7 mg/dL (2.6-4.7) Total Bilirubin 0.7 mg/dL (0.2-1.0) Aspartate Amino Transf (AST/SGOT) 57 U/L (15-37) Alanine Aminotransferase (ALT/SGPT) 66 U/L (14-59) Alkaline Phosphatase 97 U/L (46-116) Total Protein 6.0 g/dL (6.4-8.2) Albumin 2.8 g/dL (3.4-5.0) Albumin/Globulin Ratio 0.9 (1.0-1.7) Test 04/02/20 07:55 04/02/20 11:45 Glucose (Fingerstick) 108 mg/dL (70-99) 135 mg/dL (70-99) Laboratory Tests Test 04/01/20 16:46 04/01/20 21:05 04/02/20 06:45 04/02/20 07:55 Glucose (Fingerstick) 109 mg/dL (70-99) 185 mg/dL (70-99) 108 mg/dL (70-99) White Blood Count 5.0 x10^3/uL (4.0-11.0) Red Blood Count 4.85 x10^6/uL (3.50-5.40) Hemoglobin 13.4 g/dL (12.0-15.5) Hematocrit 40.9 % (36.0-47.0) Mean Corpuscular Volume 84 fL (79-100) Mean Corpuscular Hemoglobin 28 pg (25-35) Mean Corpuscular Hemoglobin Concent 33 g/dL (31-37) Red Cell Distribution Width 21.0 % (11.5-14.5) Platelet Count 89 x10^3/uL (140-400) Neutrophils (%) (Auto) 48 % (31-73) Lymphocytes (%) (Auto) 42 % (24-48) Monocytes (%) (Auto) 8 % (0-9) Eosinophils (%) (Auto) 2 % (0-3) Basophils (%) (Auto) 1 % (0-3) Neutrophils # (Auto) 2.4 x10^3/uL (1.8-7.7) Lymphocytes # (Auto) 2.1 x10^3/uL (1.0-4.8) Monocytes # (Auto) 0.4 x10^3/uL (0.0-1.1) Eosinophils # (Auto) 0.1 x10^3/uL (0.0-0.7) Basophils # (Auto) 0.0 x10^3/uL (0.0-0.2) Sodium Level 145 mmol/L (136-145) Potassium Level 4.1 mmol/L (3.5-5.1) Chloride Level 112 mmol/L (98-107) Carbon Dioxide Level 28 mmol/L (21-32) Anion Gap 5 (6-14) Blood Urea Nitrogen 9 mg/dL (7-20) Creatinine 0.7 mg/dL (0.6-1.0) Estimated GFR (Cockcroft-Gault) 85.4 BUN/Creatinine Ratio 13 (6-20) Glucose Level 104 mg/dL (70-99) Calcium Level 8.6 mg/dL (8.5-10.1) Phosphorus Level 2.7 mg/dL (2.6-4.7) Total Bilirubin 0.7 mg/dL (0.2-1.0) Aspartate Amino Transf (AST/SGOT) 57 U/L (15-37) Alanine Aminotransferase (ALT/SGPT) 66 U/L (14-59) Alkaline Phosphatase 97 U/L (46-116) Total Protein 6.0 g/dL (6.4-8.2) Albumin 2.8 g/dL (3.4-5.0) Albumin/Globulin Ratio 0.9 (1.0-1.7) Test 04/02/20 11:45 Glucose (Fingerstick) 135 mg/dL (70-99) Allergies Allergies Coded Allergies Type Severity Reaction Last Updated Verified No Known Drug Allergies 03/07/19 No Disposition/Orders: Other (d/c TO [facility]) Justicifation of Admission Dx: Justifications for Admission: Justification of Admission Dx: Yes CHF: Sev. Electrolyte Abnormal ROLF CASTRO MD Apr 02, 2020 13:04
[2020-04-02] MEDS ORDERED: POTA20TA4 PO (13:09)
[2020-04-02] MEDS ORDERED: MAG30ORA2 PO (13:09)
[2020-04-02] MEDS ORDERED: ACET325T9 PO (13:09)
[2020-04-02] MEDS ORDERED: LOPE2CAP PO (13:09)
[2020-04-02] MEDS ORDERED: Phenyleph/Mineral Oil/Petrolat RC (13:09)
[2020-04-02] MEDS ORDERED: INSU100V35 SQ (13:09)
[2020-04-02] MEDS ORDERED: ALBU2.5V8 NEB (13:09)
--- NOTE | 2020-04-02 13:11 | SNU/HH DC ---
DISCHARGE ORDERS DISCHARGE INFORMATION: FINAL DIAGNOSIS Problems Medical Problems: (1) Acute renal failure Status: Acute (2) Dehydration Status: Acute (3) Generalized weakness Status: Acute CONDITION ON DISCHARGE: Stable CODE STATUS: Code Status: Full FPC: SNF STAY <30 DAYS: No HOSPICE: HOSPICE: No HOSPICE EVAL & TREAT: No LTAC: ADMIT TO LTAC: No POST DISCHARGE ORDERS: ACTIVITY ORDERS: Activity as tolerated WEIGHT BEARING STATUS: As tolerated DIET AFTER DISCHARGE: ADA WOUND/INCISION CARE: Keep wound/cast CDI CHECKS AFTER DISCHARGE: CHECKS AFTER DISCHARGE: Check blood press - daily FOLLOW-UP: PHYSICIAN FOLLOW-UP: PCP AT [facility] ADDITIONAL FOLLOW-UP: ONCOLOGY SOON TREATMENT/EQUIPMENT ORDERS: ADAPTIVE EQUIPMENT NEEDED: None Physical Therapy For: Evalulation/Treatment Occupational Therapy For: Evaluation/Treatment Speech Language Pathology For: Evaluation/Treatment DISCHARGE MEDICATIONS: Home Meds Active Scripts [Phenyleph/Mineral Oil/Petrolat] 1 ABIDA ABIDA No Conflict Check, 1 ABIDA RC PRN QID PRN for RECTAL PAIN for 10 Days, #30 GM Prov:ROLF CASTRO MD 04/02/20 Insulin Lispro (Admelog) 100 Unit/1 Ml Vial, 0 UNITS SQ QIDACHS for DIABETES for 14 Days, #1 EACH Prov:ROLF CASTRO MD 04/02/20 Loperamide Hcl (LOPERAMIDE) 2 Mg Capsule, 2 MG PO PRN QID PRN for DIARRHEA for 7 Days, #30 CAP Prov:ROLF CASTRO MD 04/02/20 Mag Hydrox/Al Hydrox/Simeth (MAG-AL PLUS XS SUSPENSION) 30 Ml Oral.susp, 30 ML PO PRN DAILY PRN for HEARTBURN / GAS for 10 Days, #120 MISC Prov:ROLF CASTRO MD 04/02/20 Potassium Chloride (KLOR-CON M20) 20 Meq Tab.er.prt, 40 MEQ PO BIDWMEALS for SUPPLEMENT for 10 Days, #40 TAB.SR Prov:ROLF CASTRO MD 04/02/20 Acetaminophen (TYLENOL) 325 Mg Tablet, 650 MG PO PRN Q4HRS PRN for TEMP OVER 100.4F OR MILD PAIN for 14 Days, #30 TAB Prov:ROLF CASTRO MD 04/02/20 Albuterol Sulfate (Proair Hfa) 8.5 Gm Hfa.aer.ad, 2.5 MG NEB PRN Q4HRS PRN for SHORTNESS OF BREATH for 14 Days, #1 INHALER Prov:ROLF CASTRO MD 04/02/20 Metoprolol Tartrate (METOPROLOL TARTRATE) 25 Mg Tablet, 1 TAB PO BID for dropping dose of lopressor, #60 TAB 1 Refill Prov:NIRANJAN PADGETT MD 09/05/19 Reported Medications Temazepam (TEMAZEPAM) 7.5 Mg Capsule, 7.5 MG PO HS PRN for sleep 07/02/19 Candesartan Cilexetil (ATACAND) 16 Mg Tablet, 16 MG PO DAILY for htn 07/02/19 Atorvastatin Calcium (LIPITOR) 80 Mg Tablet, 80 MG PO HS for hld 07/02/19 Apixaban (ELIQUIS) 5 Mg Tablet, 5 MG PO BID for atrial fibrillation 07/02/19 Amlodipine Besylate (AMLODIPINE BESYLATE) 10 Mg Tablet, 10 MG PO DAILY for htn 07/02/19 Discontinued Reported Medications Metformin Hcl (METFORMIN HCL) 500 Mg Tablet, 500 MG PO BIDWMEALS for diabetes 07/02/19 Discontinued Scripts Prednisone (PREDNISONE) 20 Mg Tablet, 100 MG PO DAILY for immune reaction for 10 Days, #50 TAB Prov:NIRANJAN PADGETT MD 09/05/19 ROLF CASTRO MD Apr 02, 2020 13:10
--- NOTE | 2020-04-02 14:00 | NUR ---
Discharge Note: Patient was discharged to [facility]. Patients port-a-cath was flushed with heparin and de-accessed, by RN with no complications. Patient was given discharge education. Patient did not have any further questions or concerns. [facility] Patient was transferred to facility by [employer] transportation with all of patients personal belongings.
--- NOTE | 2020-04-02 16:35 | NUR ---
LATRICIA following. Spoke with RN and reviewed chart. LATRICIA obtained discharge orders from Dr. Castillo. LATRICIA phoned and faxed discharge orders to Francisco Javier at [facility]. Pt to transport to acute rehab at 1300. Pt on room air. No further SW needs at this time. Addendum: 04/02/20 at 1636 by SIM ROME packet of clinicals sent with pt and RN called report.
== END 2020-04-02 14:00 | DRG 394 ==
LOC: ER 16:34 → ED HOLD 18:38 → 5 NORTH 20:56 → OBSVTOIN 03-29 10:46
PROVIDERS: ADMIT Family Medicine; ATTEND Family Medicine
DX: K52.1 Toxic gastroenteritis and colitis (principal); C64.9 Malignant neoplasm of unspecified kidney, except renal pelvis; N17.9 Acute kidney failure, unspecified; E87.6 Hypokalemia; D69.59 Other secondary thrombocytopenia; E11.9 Type 2 diabetes mellitus without complications; E78.5 Hyperlipidemia, unspecified; E86.0 Dehydration; I11.0 Hypertensive heart disease with heart failure; I48.91 Unspecified atrial fibrillation; I50.9 Heart failure, unspecified; K75.4 Autoimmune hepatitis; K76.0 Fatty (change of) liver, not elsewhere classified; K80.20 Calculus of gallbladder without cholecystitis without obstruction; T45.1X5A Adverse effect of antineoplastic and immunosuppressive drugs, initial encounter; Z82.49 Family history of ischemic heart disease and other diseases of the circulatory system; Z85.528 Personal history of other malignant neoplasm of kidney; Z86.73 Personal history of transient ischemic attack (TIA), and cerebral infarction without residual deficits; Z87.891 Personal history of nicotine dependence; Z90.5 Acquired absence of kidney; Z90.710 Acquired absence of both cervix and uterus; Z98.84 Bariatric surgery status
CPT/HCPCS: 36415; 80048; 80053; 81001; 82962; 83690; 83735; 84100; 84132; 84484; 85025; 87086; 87205; 87328; 87329; 87493; 87498; 87505; 93005; 96360; 99285; G0378; G0379; J1642; J1815; J2270; J3480; J3490; J7030; 97110-GP; 97530-GO; 97530-GP; 97535-GO

== ENCOUNTER 2020-05-04 18:17 | Inpatient (IN) | payer OTHER ==
[~2020-05-04] VITALS: Ht 157.5 cm; Wt 104.5 kg
[~2020-05-04 18:17] MED LIST changes: +ACET325T9 PO; +ALBU2.5V8 NEB; +AMLO-187 PO; -AMLO10TA8 PO; +INSU100V35 SQ; +LOPE2CAP PO; +MAG30ORA2 PO; +POTA20TA4 PO; +Phenyleph/Mineral Oil/Petrolat RC
[2020-05-04] MEDS ORDERED: IV NORMAL SALINE 1000ML BAG 1,000 ML IV ONE (19:15)
[2020-05-04] MEDS ORDERED: METOCLOPRAMIDE HCL 10 MG/2 ML VIAL. IVP ONE (20:00)
[2020-05-04] MEDS ORDERED: fentaNYL PF VIAL 100 MCG/2 ML VIAL IVP ONE (20:00)
[2020-05-04 20:06] LABS: BASO # 0.1 x10^3/uL (0.0-0.2); BASO % 1 % (0-3); EOS % 1 % (0-3); HEMATOCRIT 41.5 % (36.0-47.0); HEMOGLOBIN 13.7 g/dL (12.0-15.5); LYMPH # 1.5 x10^3/uL (1.0-4.8); LYMPH % 28 % (24-48); MEAN CORPUSCULAR HEMOGLOBIN 29 pg (25-35); MEAN CORPUSCULAR HGB CONC 33 g/dL (31-37); MEAN CORPUSCULAR VOLUME 89 fL (79-100); MONO # 1.1 x10^3/uL (0.0-1.1); MONO % 21 % (0-9); NEUT # 2.6 x10^3/uL (1.8-7.7); NEUT % 49 % (31-73); PLATELET COUNT 124 x10^3/uL (140-400); RED BLOOD COUNT 4.67 x10^6/uL (3.50-5.40); WHITE BLOOD COUNT 5.3 x10^3/uL (4.0-11.0)
[2020-05-04 20:10] LABS: ALBUMIN 3.2 g/dL (3.4-5.0); ALBUMIN/GLOBULIN RATIO 0.7 (1.0-1.7); CALCIUM 9.1 mg/dL (8.5-10.1); CREATININE 1.4 mg/dL (0.6-1.0); GFR 38.4; MAGNESIUM 2.2 mg/dL (1.8-2.4); TOTAL BILIRUBIN 2.1 mg/dL (0.2-1.0); TOTAL PROTEIN 7.7 g/dL (6.4-8.2)
[2020-05-04 20:12] LABS: POTASSIUM 2.9 mmol/L (3.5-5.1)
[2020-05-04 20:29] LABS: % BASOS 1 % (0-3); % EOS 2 % (0-5); % LYMPHS 28 % (24-48); % MONOS 17 % (0-10); % SEGS 52 % (35-66)
[2020-05-04 20:30] LABS: ANISOCYTOSIS MOD; PLT ESTIMATE ADEQUATE (ADEQUATE); POIKILOCYTOSIS SLIGHT
[2020-05-04 20:39] LABS: BILIRUBIN,URINE MODERATE (NEG); CLARITY,URINE CLOUDY; NITRITE,URINE NEGATIVE (NEG); PH,URINE 5.5 (<5.0-8.0); PROTEIN,URINE 30 mg/dL (NEG-TRACE)
[2020-05-04 20:43] LABS: COLOR,URINE AMBER
[2020-05-04 20:45] LABS: AMORPHOUS SEDIMENT,UR PRESENT /HPF; BACTERIA,URINE MODERATE /HPF (0-FEW); HYALINE CASTS, URINE MANY /HPF; RBC,URINE 0 /HPF (0-2)
--- NOTE | 2020-05-04 21:12 | PHYS DOC ---
Past Medical History Past Medical History: A-Fib, Cancer, Hypertension, Stroke, Other Additional Past Medical Histor: borderline dm, renal cancer Past Surgical History: Gastric Bypass, Hysterectomy, Other Additional Past Surgical Histo: partial nephrectomy Smoking Status: Light Tobacco Smoker Alcohol Use: None Drug Use: None General Adult EDM: Chief Complaint: NAUSEA/VOMITING/DIARRHA HPI: HPI: Patient is a 60-year-old female with history of renal cell carcinoma presented with nausea vomiting, not able to keep anything down for about a week. Patient feels weak and dehydrated. Patient was diagnosed with COVID-19 infection on April 06, she was admitted to rehab, she was discharged from rehab a week ago. Patient denies any cough or fever. Patient denied chest pain, no abdominal pain. Patient did feel weak dehydrated, no appetite so her family brought her here for evaluation. Review of Systems: Review of Systems: Constitutional: Denies fever or chills. POSITIVE FOR WEAKNESS Eyes: Denies change in visual acuity. [] HENT: Denies nasal congestion or sore throat. [] Respiratory: Denies cough or shortness of breath. [] Cardiovascular: Denies chest pain or edema. [] GI: Denies abdominal pain, POSITIVE FOR nausea, vomiting, NO bloody stools or diarrhea. [] : Denies dysuria. [] Musculoskeletal: Denies back pain or joint pain. [] Integument: Denies rash. [] Neurologic: Denies headache, focal weakness or sensory changes. [] Endocrine: Denies polyuria or polydipsia. [] Lymphatic: Denies swollen glands. [] Psychiatric: Denies depression or anxiety. [] Heart Score: Risk Factors: Risk Factors: DM, Current or recent (<one month) smoker, HTN, HLP, family history of CAD, obesity. Risk Scores: Score 0 - 3: 2.5% MACE over next 6 weeks - Discharge Home Score 4 - 6: 20.3% MACE over next 6 weeks - Admit for Clinical Observation Score 7 - 10: 72.7% MACE over next 6 weeks - Early Invasive Strategies Current Medications: Current Medications Medications (Trade) Dose Ordered Sig/Gael Start Time Stop Time Status Last Admin Dose Admin Fentanyl Citrate (Fentanyl 2ml Vial) 50 mcg 1X ONCE 05/04/20 20:00 05/04/20 20:08 DC 05/04/20 20:07 50 MCG Metoclopramide HCl (Reglan Vial) 10 mg 1X ONCE 05/04/20 20:00 05/04/20 20:08 DC 05/04/20 20:06 10 MG Sodium Chloride 1,000 ml @ 1,000 mls/hr 1X ONCE 05/04/20 19:15 05/04/20 20:14 DC 05/04/20 19:55 1,000 MLS/HR Allergies: Allergies: Allergies Coded Allergies Type Severity Reaction Last Updated Verified No Known Drug Allergies 03/07/19 No Physical Exam: PE: Constitutional: Well developed, well nourished, no acute distress, non-toxic appearance. [] HENT: Normocephalic, atraumatic, bilateral external ears normal, oropharynx IS DRIED, no oral exudates, nose normal. [] Eyes: PERRLA, EOMI, conjunctiva normal, no discharge. [] Neck: Normal range of motion, no tenderness, supple, no stridor. [] Cardiovascular:Heart rate regular rhythm, no murmur [] Lungs & Thorax: Bilateral breath sounds clear to auscultation [] Abdomen: Bowel sounds normal, soft, no tenderness, no masses, no pulsatile masses. [] Skin: Warm, dry, no erythema, no rash. [] Back: No tenderness, no CVA tenderness. [] Extremities: No tenderness, no cyanosis, no clubbing, ROM intact, no edema. [] Neurologic: Alert and oriented X 3, normal motor function, normal sensory function, no focal deficits noted. [] Psychologic: Affect normal, judgement normal, mood normal. [] Current Patient Data: Labs: Laboratory Tests Test 05/04/20 19:45 05/04/20 20:35 White Blood Count 5.3 x10^3/uL (4.0-11.0) Red Blood Count 4.67 x10^6/uL (3.50-5.40) Hemoglobin 13.7 g/dL (12.0-15.5) Hematocrit 41.5 % (36.0-47.0) Mean Corpuscular Volume 89 fL (79-100) Mean Corpuscular Hemoglobin 29 pg (25-35) Mean Corpuscular Hemoglobin Concent 33 g/dL (31-37) Red Cell Distribution Width 24.0 % (11.5-14.5) H Platelet Count 124 x10^3/uL (140-400) L Neutrophils (%) (Auto) 49 % (31-73) Lymphocytes (%) (Auto) 28 % (24-48) Monocytes (%) (Auto) 21 % (0-9) H Eosinophils (%) (Auto) 1 % (0-3) Basophils (%) (Auto) 1 % (0-3) Neutrophils # (Auto) 2.6 x10^3/uL (1.8-7.7) Lymphocytes # (Auto) 1.5 x10^3/uL (1.0-4.8) Monocytes # (Auto) 1.1 x10^3/uL (0.0-1.1) Eosinophils # (Auto) 0.0 x10^3/uL (0.0-0.7) Basophils # (Auto) 0.1 x10^3/uL (0.0-0.2) Segmented Neutrophils % 52 % (35-66) Lymphocytes % 28 % (24-48) Monocytes % 17 % (0-10) H Eosinophils % 2 % (0-5) Basophils % 1 % (0-3) Platelet Estimate Adequate (ADEQUATE) Large Platelets Present Poikilocytosis Slight Anisocytosis Mod Sodium Level 137 mmol/L (136-145) Potassium Level 2.9 mmol/L (3.5-5.1) *L Chloride Level 97 mmol/L (98-107) L Carbon Dioxide Level 28 mmol/L (21-32) Anion Gap 12 (6-14) Blood Urea Nitrogen 20 mg/dL (7-20) Creatinine 1.4 mg/dL (0.6-1.0) H Estimated GFR (Cockcroft-Gault) 38.4 BUN/Creatinine Ratio 14 (6-20) Glucose Level 112 mg/dL (70-99) H Calcium Level 9.1 mg/dL (8.5-10.1) Magnesium Level 2.2 mg/dL (1.8-2.4) Total Bilirubin 2.1 mg/dL (0.2-1.0) H Aspartate Amino Transferase (AST) 31 U/L (15-37) Alanine Aminotransferase (ALT) 21 U/L (14-59) Alkaline Phosphatase 85 U/L (46-116) Total Protein 7.7 g/dL (6.4-8.2) Albumin 3.2 g/dL (3.4-5.0) L Albumin/Globulin Ratio 0.7 (1.0-1.7) L Lipase 251 U/L (73-393) Urine Collection Type Unknown Urine Color Alessandra Urine Clarity Cloudy Urine pH 5.5 (<5.0-8.0) Urine Specific [place] 1.020 (1.000-1.030) Urine Protein 30 mg/dL (NEG-TRACE) Urine Glucose (UA) Negative mg/dL (NEG) Urine Ketones (Stick) Trace mg/dL (NEG) Urine Blood Negative (NEG) Urine Nitrite Negative (NEG) Urine Bilirubin Moderate (NEG) Urine Urobilinogen Dipstick 1.0 mg/dL (0.2 mg/dL) Urine Leukocyte Esterase Small (NEG) Urine RBC 0 /HPF (0-2) Urine WBC 5-10 /HPF (0-4) Urine Squamous Epithelial Cells Many /LPF Urine Amorphous Sediment Present /HPF Urine Bacteria Moderate /HPF (0-FEW) Urine Hyaline Casts Many /HPF Urine Mucus Marked /LPF Laboratory Tests 05/04/20 19:45 Laboratory Tests 05/04/20 19:45 Vital Signs: Vital Signs Date Time Temp Pulse Resp B/P (MAP) Pulse Ox O2 Delivery O2 Flow Rate FiO2 05/04/20 20:18 70 16 138/80 (99) Room Air 05/04/20 20:07 95 05/04/20 18:45 97.7 97.7 Radiology/Procedures: Radiology/Procedures: [][facility] [address] [place] [address] IMAGING REPORT Signed PATIENT: TATA ALVAREZ ACCOUNT: [id number] : 1960 LOCATION: ER AGE: 60 SEX: F EXAM STATUS: REG ER ORD. PHYSICIAN: FREDERICK URRUTIA DO REASON: nausea and vomiting PROCEDURE: ACUTE ABDOMEN SERIES EXAM: 2 VIEW ABDOMEN WITH ONE VIEW CHEST. HISTORY: Nausea and vomiting. COMPARISON: 03/22/2020. FINDINGS: A frontal view of the chest and supine/upright views of the abdomen are obtained. An airspace opacity in the left base and left midlung has progressed over prior examinations. There are mild interstitial opacities in the right base, also increased. There is no pneumothorax or pleural effusion. The heart is not enlarged. There are atherosclerotic calcifications of the aorta. A right-sided port catheter has its tip in the superior cavoatrial junction. There is no pneumoperitoneum. There are no distended small bowel loops or significant air-fluid levels. There is gas distally. There are postoperative changes in the left upper lobe. There are atherosclerotic calcifications of the aorta. IMPRESSION: 1. Progressive airspace opacity in the left base. Correlate for a known diagnosis. Mild right basilar interstitial opacities have also progressed. 2. No evidence of obstruction. Electronically signed by: Frank Yoo MD (05/04/2020 10:31 PM) [facility] DICTATED and SIGNED BY: ALL YOO MD DATE: 05/04/202230 Course & Med Decision Making: Course & Med Decision Making Pertinent Labs and Imaging studies reviewed. (See chart for details) Patient is a 60-year-old female with history of renal cell carcinoma presented with nausea vomiting, not able to keep anything down for about a week. Patient feels weak and dehydrated. Patient was diagnosed with COVID-19 infection on April 06, she was admitted to rehab, she was discharged from rehab a week ago. Patient denies any cough or fever. Patient denied chest pain, no abdominal pain. Patient did feel weak dehydrated, no appetite so her family brought her here for evaluation. Patient was felt to be dehydrated, potassium level was low. Patient will be admitted to hospital for IV fluid and IV potassium. Dragon Disclaimer: Dragon Disclaimer: This electronic medical record was generated, in whole or in part, using a voice recognition dictation system. Departure Departure Impression: Primary Impression: Hypokalemia Additional Impressions: Nausea & vomiting Dehydration Disposition: ADMITTED INPT THIS HOSP Admitting Physician: HORTENCIA (Dr. Gruber) Condition: STABLE Referrals: ALESHA CONRAD (PCP) FREDERICK URRUTIA DO May 04, 2020 21:12
[2020-05-04] MEDS ORDERED: ONDANSETRON PF 4 MG/2 ML VIAL. IV PRN ×2 (21:15→22:30)
[2020-05-04] MEDS ORDERED: POTASSIUM CL 40MEQ D5-0.45NACL 1,000 ML IV SCH (21:30)
[2020-05-04] MEDS ORDERED: DEXTROSE 50% 25 GM / 50ML DISP.SYRIN. IV PRN (22:30)
[2020-05-04] MEDS ORDERED: ACETAMINOPHEN 325 MG TABLET. PO PRN (22:30)
[2020-05-04] MEDS ORDERED: ALBUTEROL SULFATE 2.5 MG/3 ML NEBU. NEB PRN (22:30)
[2020-05-04] MEDS ORDERED: TEMAZEPAM 7.5 MG CAPSULE PO PRN (22:30)
--- NOTE | 2020-05-04 22:34 | RAD ---
EXAM: 2 VIEW ABDOMEN WITH ONE VIEW CHEST. HISTORY: Nausea and vomiting. COMPARISON: 03/22/2020. FINDINGS: A frontal view of the chest and supine/upright views of the abdomen are obtained. An airspace opacity in the left base and left midlung has progressed over prior examinations. There are mild interstitial opacities in the right base, also increased. There is no pneumothorax or pleural effusion. The heart is not enlarged. There are atherosclerotic calcifications of the aorta. A right-sided port catheter has its tip in the superior cavoatrial junction. There is no pneumoperitoneum. There are no distended small bowel loops or significant air-fluid levels. There is gas distally. There are postoperative changes in the left upper lobe. There are atherosclerotic calcifications of the aorta. IMPRESSION: 1. Progressive airspace opacity in the left base. Correlate for a known diagnosis. Mild right basilar interstitial opacities have also progressed. 2. No evidence of obstruction. Electronically signed by: Frank Yoo MD (05/04/2020 10:31 PM) [facility]
[2020-05-04] MEDS ORDERED: ANTI-COAG MONITOR BY PHARMACY. MC PRN (22:45)
[2020-05-04] MEDS: APIXABAN 5 MG TABLET. PO SCH (23:09)
[2020-05-04] MEDS: METOPROLOL TART IMMED RELEASE 25 MG TABLET. PO SCH (23:18)
--- NOTE | 2020-05-05 07:52 | PDOC1 ---
History and Physical Date of Admission Date of Admission DATE: 05/05/20 TIME: 07:20 Identification/Chief Complaint Chief Complaint Nausea and vomiting Source Source: Chart review, Patient History of Present Illness History of Present Illness Patient 60-year-old female with past medical history of metastatic renal cell carcinoma, who presents nausea vomiting for 1 week. Complains of associated weakness. She was recently admitted to our service on 03/25/2020 for similar symptoms after finishing chemotherapy. Diagnosed with COVID-19 and recently discharged from rehab. She was sent to the ER by her family because she is unable to keep any food down. After extensive discussion with patient at bedside she is stating that she no longer wants to be in pain and would like to pursue hospice care. She would like her CODE STATUS to be DNR. Past Medical History Past Medical History Renal cell carcinoma, A. fib, hypertension, CVA Cardiovascular: AFIB, Hyperlipidemia CENTRAL NERVOUS SYSTEM: CVA Endocrine: Diabetes Past Surgical History Past Surgical History Partial nephrectomy, gastric bypass, hysterectomy, right chest port placement Past Surgical History: Hysterectomy, Other Family History Family History: Hypertension, Other Social History Smoke: <1 pack per day ALCOHOL: none Drugs: None Current Problem List Problem List Problems Medical Problems: (1) Nausea & vomiting Status: Acute Current Medications Current Medications Current Medications Sodium Chloride 1,000 ml @ 1,000 mls/hr 1X ONCE IV Last administered on 05/04/20at 19:55; Start 05/04/20 at 19:15; Stop 05/04/20 at 20:14; Status DC Metoclopramide HCl (Reglan Vial) 10 mg 1X ONCE IVP Last administered on 05/04/20at 20:06; Start 05/04/20 at 20:00; Stop 05/04/20 at 20:08; Status DC Fentanyl Citrate (Fentanyl 2ml Vial) 50 mcg 1X ONCE IVP Last administered on 05/04/20at 20:07; Start 05/04/20 at 20:00; Stop 05/04/20 at 20:08; Status DC Ondansetron HCl (Zofran) 4 mg PRN Q8HRS PRN IV NAUSEA/VOMITING 1st CHOICE; Start 05/04/20 at 21:15; Stop 05/04/20 at 22:24; Status DC Potassium Chloride/Dextrose/ Sod Cl 1,000 ml @ 100 mls/hr Q10H IV Last administered on 05/04/20at 22:30; Start 05/04/20 at 21:30; Stop 05/05/20 at 07:29 Ondansetron HCl (Zofran) 4 mg PRN Q4HRS PRN IV NAUSEA/VOMITING 1st CHOICE; Start 05/04/20 at 22:30 Acetaminophen (Tylenol) 650 mg PRN Q4HRS PRN PO TEMP OVER 100.4F OR MILD PAIN; Start 05/04/20 at 22:30 Albuterol Sulfate (Ventolin Neb Soln) 2.5 mg PRN Q4HRS PRN NEB SHORTNESS OF BREATH; Start 05/04/20 at 22:30 Amlodipine Besylate (Norvasc) 10 mg DAILY PO ; Start 05/05/20 at 09:00 Apixaban (Eliquis) 5 mg BID PO Last administered on 05/04/20at 23:09; Start 05/04/20 at 23:00 Metoprolol Tartrate (Lopressor) 25 mg BID PO Last administered on 05/04/20at 23:18; Start 05/04/20 at 23:00 Potassium Chloride (Klor-Con) 40 meq BIDWMEALS PO ; Start 05/05/20 at 08:00 Temazepam (Restoril) 7.5 mg PRN QHS PRN PO sleep; Start 05/04/20 at 22:30 Atorvastatin Calcium (Lipitor) 80 mg QHS PO ; Start 05/05/20 at 21:00 Insulin Human Lispro (HumaLOG) 0-7 UNITS TIDWMEALS SQ ; Start 05/05/20 at 08:00 Dextrose (Dextrose 50%-Water Syringe) 12.5 gm PRN Q15MIN PRN IV SEE COMMENTS; Start 05/04/20 at 22:30 Info (Anti-Coagulation Monitoring By Pharmacy) 1 each PRN DAILY PRN MC SEE COMMENTS Last administered on 05/05/20at 01:28; Start 05/04/20 at 22:45 Active Scripts Active [Phenyleph/Mineral Oil/Petrolat] 1 KATHIA Kathia 1 Kathia RC PRN QID PRN 10 Days Admelog (Insulin Lispro) 100 Unit/1 Ml Vial 0 Units SQ QIDACHS 14 Days Loperamide (Loperamide Hcl) 2 Mg Capsule 2 Mg PO PRN QID PRN 7 Days Mag-Al Plus Xs Suspension (Mag Hydrox/Al Hydrox/Simeth) 30 Ml Oral.susp 30 Ml PO PRN DAILY PRN 10 Days Klor-Con M20 (Potassium Chloride) 20 Meq Tab.er.prt 40 Meq PO BIDWMEALS 10 Days Tylenol (Acetaminophen) 325 Mg Tablet 650 Mg PO PRN Q4HRS PRN 14 Days Proair Hfa (Albuterol Sulfate) 8.5 Gm Hfa.aer.ad 2.5 Mg NEB PRN Q4HRS PRN 14 Days Metoprolol Tartrate 25 Mg Tablet 1 Tab PO BID Reported Temazepam 7.5 Mg Capsule 7.5 Mg PO HS PRN Atacand (Candesartan Cilexetil) 16 Mg Tablet 16 Mg PO DAILY Lipitor (Atorvastatin Calcium) 80 Mg Tablet 80 Mg PO HS Eliquis (Apixaban) 5 Mg Tablet 5 Mg PO BID Amlodipine Besylate 10 Mg Tablet 10 Mg PO DAILY Allergies Allergies: Coded Allergies: No Known Drug Allergies (Unverified , 03/07/19) ROS Review of System GENERAL: No history of weight change, weakness or fevers. SKIN: No bruising, hair changes or rashes. EYES: No blurred, double or loss of vision. NOSE AND THROAT: No history of nosebleeds, hoarseness or sore throat. HEART: Denies chest pain, denies palpitations. LUNGS: Denies cough, hemoptysis, wheezing or shortness of breath. GASTROINTESTINAL: Nausea, vomiting. Denies abdominal pain. GENITOURINARY: Denies dysuria, frequency, urgency, hematuria. NEUROLOGIC: Denies history of numbness, tingling, tremor or weakness. PSYCHIATRIC: Denies anxiety, denies depression. ENDOCRINE: No history of heat or cold intolerance, polyuria or polydipsia. EXTREMITIES: Denies muscle weakness, joint pain, pain on walking or stiffness. Physical Exam Physical Exam General: Alert, Oriented X3, Cooperative, No acute distress, port to right chest wall HEENT: PERRLA, EOMI Lungs: Clear to auscultation, Normal air movement Heart: RRR, no murmurs Cardiovascular: S1, S2 Abdomen: Normal bowel sounds, Soft, No tenderness Extremities: No clubbing, No cyanosis Skin: No rashes, No significant lesion Neuro: Normal speech, Normal tone, Sensation intact Psych/Mental Status: Mental status NL, Mood NL Vitals Vitals Vital Signs Date Time Temp Pulse Resp B/P (MAP) Pulse Ox O2 Delivery O2 Flow Rate FiO2 05/05/20 06:50 98.1 63 18 98/67 (77) 95 Nasal Cannula 2.0 98.1 Labs Labs Laboratory Tests Test 05/04/20 19:45 05/04/20 20:35 White Blood Count 5.3 x10^3/uL (4.0-11.0) Red Blood Count 4.67 x10^6/uL (3.50-5.40) Hemoglobin 13.7 g/dL (12.0-15.5) Hematocrit 41.5 % (36.0-47.0) Mean Corpuscular Volume 89 fL (79-100) Mean Corpuscular Hemoglobin 29 pg (25-35) Mean Corpuscular Hemoglobin Concent 33 g/dL (31-37) Red Cell Distribution Width 24.0 % (11.5-14.5) Platelet Count 124 x10^3/uL (140-400) Neutrophils (%) (Auto) 49 % (31-73) Lymphocytes (%) (Auto) 28 % (24-48) Monocytes (%) (Auto) 21 % (0-9) Eosinophils (%) (Auto) 1 % (0-3) Basophils (%) (Auto) 1 % (0-3) Neutrophils # (Auto) 2.6 x10^3/uL (1.8-7.7) Lymphocytes # (Auto) 1.5 x10^3/uL (1.0-4.8) Monocytes # (Auto) 1.1 x10^3/uL (0.0-1.1) Eosinophils # (Auto) 0.0 x10^3/uL (0.0-0.7) Basophils # (Auto) 0.1 x10^3/uL (0.0-0.2) Segmented Neutrophils % 52 % (35-66) Lymphocytes % 28 % (24-48) Monocytes % 17 % (0-10) Eosinophils % 2 % (0-5) Basophils % 1 % (0-3) Platelet Estimate Adequate (ADEQUATE) Large Platelets Present Poikilocytosis Slight Anisocytosis Mod Sodium Level 137 mmol/L (136-145) Potassium Level 2.9 mmol/L (3.5-5.1) Chloride Level 97 mmol/L (98-107) Carbon Dioxide Level 28 mmol/L (21-32) Anion Gap 12 (6-14) Blood Urea Nitrogen 20 mg/dL (7-20) Creatinine 1.4 mg/dL (0.6-1.0) Estimated GFR (Cockcroft-Gault) 38.4 BUN/Creatinine Ratio 14 (6-20) Glucose Level 112 mg/dL (70-99) Calcium Level 9.1 mg/dL (8.5-10.1) Magnesium Level 2.2 mg/dL (1.8-2.4) Total Bilirubin 2.1 mg/dL (0.2-1.0) Aspartate Amino Transf (AST/SGOT) 31 U/L (15-37) Alanine Aminotransferase (ALT/SGPT) 21 U/L (14-59) Alkaline Phosphatase 85 U/L (46-116) Total Protein 7.7 g/dL (6.4-8.2) Albumin 3.2 g/dL (3.4-5.0) Albumin/Globulin Ratio 0.7 (1.0-1.7) Lipase 251 U/L (73-393) Urine Collection Type Unknown Urine Color Alessandra Urine Clarity Cloudy Urine pH 5.5 (<5.0-8.0) Urine Specific [place] 1.020 (1.000-1.030) Urine Protein 30 mg/dL (NEG-TRACE) Urine Glucose (UA) Negative mg/dL (NEG) Urine Ketones (Stick) Trace mg/dL (NEG) Urine Blood Negative (NEG) Urine Nitrite Negative (NEG) Urine Bilirubin Moderate (NEG) Urine Urobilinogen Dipstick 1.0 mg/dL (0.2 mg/dL) Urine Leukocyte Esterase Small (NEG) Urine RBC 0 /HPF (0-2) Urine WBC 5-10 /HPF (0-4) Urine Squamous Epithelial Cells Many /LPF Urine Amorphous Sediment Present /HPF Urine Bacteria Moderate /HPF (0-FEW) Urine Hyaline Casts Many /HPF Urine Mucus Marked /LPF Laboratory Tests Test 05/04/20 19:45 05/04/20 20:35 White Blood Count 5.3 x10^3/uL (4.0-11.0) Red Blood Count 4.67 x10^6/uL (3.50-5.40) Hemoglobin 13.7 g/dL (12.0-15.5) Hematocrit 41.5 % (36.0-47.0) Mean Corpuscular Volume 89 fL (79-100) Mean Corpuscular Hemoglobin 29 pg (25-35) Mean Corpuscular Hemoglobin Concent 33 g/dL (31-37) Red Cell Distribution Width 24.0 % (11.5-14.5) Platelet Count 124 x10^3/uL (140-400) Neutrophils (%) (Auto) 49 % (31-73) Lymphocytes (%) (Auto) 28 % (24-48) Monocytes (%) (Auto) 21 % (0-9) Eosinophils (%) (Auto) 1 % (0-3) Basophils (%) (Auto) 1 % (0-3) Neutrophils # (Auto) 2.6 x10^3/uL (1.8-7.7) Lymphocytes # (Auto) 1.5 x10^3/uL (1.0-4.8) Monocytes # (Auto) 1.1 x10^3/uL (0.0-1.1) Eosinophils # (Auto) 0.0 x10^3/uL (0.0-0.7) Basophils # (Auto) 0.1 x10^3/uL (0.0-0.2) Segmented Neutrophils % 52 % (35-66) Lymphocytes % 28 % (24-48) Monocytes % 17 % (0-10) Eosinophils % 2 % (0-5) Basophils % 1 % (0-3) Platelet Estimate Adequate (ADEQUATE) Large Platelets Present Poikilocytosis Slight Anisocytosis Mod Sodium Level 137 mmol/L (136-145) Potassium Level 2.9 mmol/L (3.5-5.1) Chloride Level 97 mmol/L (98-107) Carbon Dioxide Level 28 mmol/L (21-32) Anion Gap 12 (6-14) Blood Urea Nitrogen 20 mg/dL (7-20) Creatinine 1.4 mg/dL (0.6-1.0) Estimated GFR (Cockcroft-Gault) 38.4 BUN/Creatinine Ratio 14 (6-20) Glucose Level 112 mg/dL (70-99) Calcium Level 9.1 mg/dL (8.5-10.1) Magnesium Level 2.2 mg/dL (1.8-2.4) Total Bilirubin 2.1 mg/dL (0.2-1.0) Aspartate Amino Transf (AST/SGOT) 31 U/L (15-37) Alanine Aminotransferase (ALT/SGPT) 21 U/L (14-59) Alkaline Phosphatase 85 U/L (46-116) Total Protein 7.7 g/dL (6.4-8.2) Albumin 3.2 g/dL (3.4-5.0) Albumin/Globulin Ratio 0.7 (1.0-1.7) Lipase 251 U/L (73-393) Urine Collection Type Unknown Urine Color Alessandra Urine Clarity Cloudy Urine pH 5.5 (<5.0-8.0) Urine Specific [place] 1.020 (1.000-1.030) Urine Protein 30 mg/dL (NEG-TRACE) Urine Glucose (UA) Negative mg/dL (NEG) Urine Ketones (Stick) Trace mg/dL (NEG) Urine Blood Negative (NEG) Urine Nitrite Negative (NEG) Urine Bilirubin Moderate (NEG) Urine Urobilinogen Dipstick 1.0 mg/dL (0.2 mg/dL) Urine Leukocyte Esterase Small (NEG) Urine RBC 0 /HPF (0-2) Urine WBC 5-10 /HPF (0-4) Urine Squamous Epithelial Cells Many /LPF Urine Amorphous Sediment Present /HPF Urine Bacteria Moderate /HPF (0-FEW) Urine Hyaline Casts Many /HPF Urine Mucus Marked /LPF Images Images EXAM: 2 VIEW ABDOMEN WITH ONE VIEW CHEST. HISTORY: Nausea and vomiting. COMPARISON: 03/22/2020. FINDINGS: A frontal view of the chest and supine/upright views of the abdomen are obtained. An airspace opacity in the left base and left midlung has progressed over prior examinations. There are mild interstitial opacities in the right base, also increased. There is no pneumothorax or pleural effusion. The heart is not enlarged. There are atherosclerotic calcifications of the aorta. A right-sided port catheter has its tip in the superior cavoatrial junction. There is no pneumoperitoneum. There are no distended small bowel loops or significant air-fluid levels. There is gas distally. There are postoperative changes in the left upper lobe. There are atherosclerotic calcifications of the aorta. IMPRESSION: 1. Progressive airspace opacity in the left base. Correlate for a known diagnosis. Mild right basilar interstitial opacities have also progressed. 2. No evidence of obstruction. VTE Prophylaxis Ordered VTE Prophylaxis Devices: No VTE Pharmacological Prophylaxi: Yes Assessment/Plan Assessment/Plan Metastatic renal cell carcinoma Dehydration Intractable nausea vomiting Vasomotor nephropathy Hypokalemia due to GI loss Malnutrition Plan: Admit patient for IV hydration Will place consult to hospice and change patient's CODE STATUS to DNR Replace potassium. Consult to oncology Zofran PRN FEN - Cardiac diet PPX - Eliquis FULL CODE Dispo - inpatient for above Justifications for Admission Other Justification GIO ANN MD May 05, 2020 07:52
[2020-05-05] MEDS: INSULIN LISPRO 300 UNITS/3 ML VIAL. SQ SCH ×3 (08:00→17:00)
[2020-05-05 08:22] LABS: CALCIUM 8.5 mg/dL (8.5-10.1); CREATININE 1.1 mg/dL (0.6-1.0); GFR 50.7; POTASSIUM 3.4 mmol/L (3.5-5.1)
[2020-05-05] MEDS: METOPROLOL TART IMMED RELEASE 25 MG TABLET. PO SCH ×2 (09:00→21:00)
[2020-05-05] MEDS: amLODIPine BESYLATE 10 MG TABLET PO SCH (09:00)
[2020-05-05] MEDS: POTASSIUM CHLORIDE 10MEQ 100 ML IV SCH ×2 (10:00→11:00)
[2020-05-05] MEDS: APIXABAN 5 MG TABLET. PO SCH ×2 (10:02→21:58)
[2020-05-05] MEDS: POTASSIUM CHLORIDE 20 MEQ TABLET.ER. PO SCH ×2 (10:03→18:02)
[2020-05-05] MEDS: oxyCODONE IR 5 MG TABLET PO PRN ×2 (10:52→18:03)
[2020-05-05 13:15] VITALS: BP 142/85
--- NOTE | 2020-05-05 13:39 | NUR ---
LATRICIA contacted by [facility] to assess patient. LATRICIA met with pt in the ER. SW familiar with this pt from previous admission. Pt from home with son but son works. Pt has insurance through her spouse who resides in [place]. Pt also has Medicaid. Pt would like for hospice to evaluate her. SW provided support to pt. Referral made to [facility] hospice at request of patient. Patient choice of vendor form completed. Patient to be admitted to so [facility] will follow for further discharge planning needs.
[2020-05-05 15:00] VITALS: BP 147/75
[2020-05-05] MEDS: MORPHINE SULFATE 4 MG/ML VIAL. IVP PRN ×2 (15:59→21:51)
[2020-05-05 19:00] VITALS: BP 113/74
[2020-05-05] MEDS: ATORVASTATIN CALCIUM 40 MG TABLET. PO SCH (21:00)
[2020-05-05 23:29] VITALS: BP 102/63
[2020-05-06] MEDS: oxyCODONE IR 5 MG TABLET PO PRN ×2 (01:38→08:22)
[2020-05-06 03:00] VITALS: BP 100/69
[2020-05-06 07:00] VITALS: BP_SYST 115; BP_SYST 124; BP_DIAS 74
[2020-05-06] MEDS: INSULIN LISPRO 300 UNITS/3 ML VIAL. SQ SCH ×3 (08:00→17:00)
[2020-05-06] MEDS: METOPROLOL TART IMMED RELEASE 25 MG TABLET. PO SCH ×2 (08:13→21:52)
[2020-05-06] MEDS: amLODIPine BESYLATE 10 MG TABLET PO SCH (08:13)
[2020-05-06] MEDS: POTASSIUM CHLORIDE 20 MEQ TABLET.ER. PO SCH ×2 (08:13→17:50)
[2020-05-06] MEDS: APIXABAN 5 MG TABLET. PO SCH ×2 (08:14→21:52)
[2020-05-06 10:04] LABS: CALCIUM 8.9 mg/dL (8.5-10.1); CREATININE 0.9 mg/dL (0.6-1.0); GFR 63.9; POTASSIUM 3.8 mmol/L (3.5-5.1)
[2020-05-06 11:00] VITALS: BP 124/74
--- NOTE | 2020-05-06 11:52 | PDOC ---
[employer] PROGRESS NOTE Date of Service DOS: DATE: 05/06/20 TIME: 11:46 Chief Complaint Chief Complaint Metastatic renal cell carcinoma Dehydration Intractable nausea vomiting Vasomotor nephropathy Hypokalemia due to GI loss Malnutrition History of Present Illness History of Present Illness HPI: Patient 60-year-old female with past medical history of metastatic renal cell carcinoma, who presents nausea vomiting for 1 week. Complains of associated weakness. She was recently admitted to our service on 03/25/2020 for similar symptoms after finishing chemotherapy. Diagnosed with COVID-19 and recently discharged from rehab. She was sent to the ER by her family because she is unable to keep any food down. After extensive discussion with patient at bedside she is stating that she no longer wants to be in pain and would like to pursue hospice care. She would like her CODE STATUS to be DNR. 05/06/2020 Pt seen and examined KARIE RN KARIE case management Pt resting with NAD Vitals/I&O Vitals/I&O: Vital Signs Date Time Temp Pulse Resp B/P (MAP) Pulse Ox O2 Delivery O2 Flow Rate FiO2 05/06/20 11:34 94 Room Air 2.0 05/06/20 11:00 97.8 88 16 124/74 (91) 97.8 I & O 05/05/20 05/05/20 05/06/20 15:00 23:00 07:00 Intake Total 800 ml 415 ml 0 ml Balance 800 ml 415 ml 0 ml Physical Exam General: No acute distress, Other (resting on exam) Heart: Regular rate, Normal S1, Normal S2 Lungs: Clear Abdomen: Normal bowel sounds, Soft Extremities: No clubbing, No cyanosis Skin: No rashes, No breakdown Labs Labs: Laboratory Tests Test 05/05/20 12:11 05/05/20 16:11 05/05/20 20:34 05/06/20 08:01 Glucose (Fingerstick) 126 mg/dL (70-99) 107 mg/dL (70-99) 109 mg/dL (70-99) 97 mg/dL (70-99) Test 05/06/20 09:34 05/06/20 11:19 Sodium Level 140 mmol/L (136-145) Potassium Level 3.8 mmol/L (3.5-5.1) Chloride Level 102 mmol/L (98-107) Carbon Dioxide Level 31 mmol/L (21-32) Anion Gap 7 (6-14) Blood Urea Nitrogen 14 mg/dL (7-20) Creatinine 0.9 mg/dL (0.6-1.0) Estimated GFR (Cockcroft-Gault) 63.9 Glucose Level 107 mg/dL (70-99) Calcium Level 8.9 mg/dL (8.5-10.1) Glucose (Fingerstick) 99 mg/dL (70-99) Review of Systems Review of Systems: Denies CP Denies SOB Assessment and Plan Assessmemt and Plan Problems Medical Problems: (1) Nausea & vomiting Status: Acute Assessment: Metastatic renal cell carcinoma Dehydration Intractable nausea vomiting Vasomotor nephropathy Hypokalemia due to GI loss Malnutrition Plan: Admit patient for IV hydration Change patient's CODE STATUS to DNR Replace potassium Family meeting today to discuss hospice Consult to oncology Zofran PRN FEN - Cardiac diet PPX - Eliquis DNR Comment Review of Relevant I have reviewed the following items cira (where applicable) has been applied. Medications: Current Medications Medications (Trade) Dose Ordered Sig/Gael Route PRN Reason Start Time Stop Time Status Last Admin Dose Admin Morphine Sulfate (Morphine Sulfate) 4 mg PRN Q2HR PRN IVP PAIN 05/05/20 15:45 05/05/20 21:51 Justifications for Admission Other Justification AGNIESZKA FREEMAN III DO May 06, 2020 11:52
[2020-05-06] MEDS: MORPHINE SULFATE 4 MG/ML VIAL. IVP PRN ×2 (12:13→20:26)
[2020-05-06 15:00] VITALS: BP 120/68
[2020-05-06 19:20] VITALS: BP 113/71
[2020-05-06] MEDS: ATORVASTATIN CALCIUM 40 MG TABLET. PO SCH (21:52)
[2020-05-06 23:30] VITALS: BP 127/69
[2020-05-07] MEDS: MORPHINE SULFATE 4 MG/ML VIAL. IVP PRN (00:21)
[2020-05-07 03:17] VITALS: BP 122/75
[2020-05-07 06:35] VITALS: BP 124/76
[2020-05-07] MEDS: INSULIN LISPRO 300 UNITS/3 ML VIAL. SQ SCH (08:00)
[2020-05-07 08:13] LABS: BASO % 1 % (0-3); EOS # 0.1 x10^3/uL (0.0-0.7); EOS % 2 % (0-3); HEMATOCRIT 40.5 % (36.0-47.0); HEMOGLOBIN 13.2 g/dL (12.0-15.5); LYMPH # 1.3 x10^3/uL (1.0-4.8); LYMPH % 30 % (24-48); MEAN CORPUSCULAR HEMOGLOBIN 30 pg (25-35); MEAN CORPUSCULAR HGB CONC 33 g/dL (31-37); MEAN CORPUSCULAR VOLUME 92 fL (79-100); MONO # 0.8 x10^3/uL (0.0-1.1); MONO % 18 % (0-9); NEUT # 2.2 x10^3/uL (1.8-7.7); NEUT % 50 % (31-73); PLATELET COUNT 112 x10^3/uL (140-400); RED BLOOD COUNT 4.42 x10^6/uL (3.50-5.40); RED CELL DISTRIBUTION WIDTH 24.6 % (11.5-14.5); WHITE BLOOD COUNT 4.4 x10^3/uL (4.0-11.0)
[2020-05-07 08:30] LABS: CREATININE 0.8 mg/dL (0.6-1.0); GFR 73.2; POTASSIUM 3.7 mmol/L (3.5-5.1)
[2020-05-07] MEDS: POTASSIUM CHLORIDE 20 MEQ TABLET.ER. PO SCH (08:34)
[2020-05-07] MEDS: APIXABAN 5 MG TABLET. PO SCH (08:34)
[2020-05-07] MEDS: oxyCODONE IR 5 MG TABLET PO PRN (08:35)
[2020-05-07] MEDS: amLODIPine BESYLATE 10 MG TABLET PO SCH (08:41)
[2020-05-07] MEDS: METOPROLOL TART IMMED RELEASE 25 MG TABLET. PO SCH (08:41)
--- NOTE | 2020-05-07 08:43 | PDOC2 ---
CONSULT Date of Consult Date of Consult DATE: 05/07/20 TIME: 08:40 Reason for Consult Reason for Consult: Metastatic renal cell carcinoma Referring Physician Referring Physician: Dr Flores Identification/Chief Complaint Chief Complaint Weakness Source Source: Chart review, Patient History of Present Illness Reason for Visit: Sanam Alba is a 60-year-old female with metastatic renal cell carcinoma who has been admitted to the hospital after presenting with generalized weakness. The patient has a history of renal cell carcinoma for which she had a partial nephrectomy in 2012. 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 She established care with Dr. Roland and received systemic therapy with ipilimumab and nivolumab. She had to discontinue this therapy due to development of autoimmune hepatitis. She has had complete resolution of autoimmune hepatitis. She followed up with Dr. Roland and was started on systemic therapy with cabozantinib 60 mg daily in January 2020. Patient developed severe diarrhea with 8-10 bowel movements daily after starting this treatment and was hospitalized in 03/2020. She was discharged to rehab and reports antonia COVID19 there. She was discharged home 1 week ago but came in to the hospital due to progressive generalized weakness. She denies any other new symptoms. She has not been on Cabozantinb since her hospitalization last month. She initially planned on hospice but has spoken with Dr Roland on 05/06 and is now considering continuing cancer care. Past Medical History Cardiovascular: AFIB, Hyperlipidemia CENTRAL NERVOUS SYSTEM: CVA Endocrine: Diabetes Past Surgical History Past Surgical History: Hysterectomy, Other Family History Family History: Hypertension, Other Social History <1 pack per day ALCOHOL: none Drugs: None Lives: with Family Current Problem List Problem List Problems Medical Problems: (1) Nausea & vomiting Status: Acute Current Medications Current Medications Current Medications Sodium Chloride 1,000 ml @ 1,000 mls/hr 1X ONCE IV Last administered on 05/04/20at 19:55; Start 05/04/20 at 19:15; Stop 05/04/20 at 20:14; Status DC Metoclopramide HCl (Reglan Vial) 10 mg 1X ONCE IVP Last administered on 05/04/20at 20:06; Start 05/04/20 at 20:00; Stop 05/04/20 at 20:08; Status DC Fentanyl Citrate (Fentanyl 2ml Vial) 50 mcg 1X ONCE IVP Last administered on 05/04/20 20:07; Start 05/04/20 at 20:00; Stop 05/04/20 at 20:08; Status DC Ondansetron HCl (Zofran) 4 mg PRN Q8HRS PRN IV NAUSEA/VOMITING 1st CHOICE; Start 05/04/20 at 21:15; Stop 05/04/20 at 22:24; Status DC Potassium Chloride/Dextrose/ Sod Cl 1,000 ml @ 100 mls/hr Q10H IV Last administered on 05/04/20at 22:30; Start 05/04/20 at 21:30; Stop 05/05/20 at 07:29; Status DC Ondansetron HCl (Zofran) 4 mg PRN Q4HRS PRN IV NAUSEA/VOMITING 1st CHOICE Last administered on 05/05/20at 21:43; Start 05/04/20 at 22:30 Acetaminophen (Tylenol) 650 mg PRN Q4HRS PRN PO TEMP OVER 100.4F OR MILD PAIN; Start 05/04/20 at 22:30 Albuterol Sulfate (Ventolin Neb Soln) 2.5 mg PRN Q4HRS PRN NEB SHORTNESS OF BREATH; Start 05/04/20 at 22:30 Amlodipine Besylate (Norvasc) 10 mg DAILY PO Last administered on 05/06/20 08:13; Start 05/05/20 at 09:00 Apixaban (Eliquis) 5 mg BID PO Last administered on 05/07/20 08:34; Start 05/04/20 at 23:00 Metoprolol Tartrate (Lopressor) 25 mg BID PO Last administered on 05/06/20 21:52; Start 05/04/20 at 23:00 Potassium Chloride (Klor-Con) 40 meq BIDWMEALS PO Last administered on 05/07/20 08:34; Start 05/05/20 at 08:00 Temazepam (Restoril) 7.5 mg PRN QHS PRN PO sleep; Start 05/04/20 at 22:30 Atorvastatin Calcium (Lipitor) 80 mg QHS PO Last administered on 05/06/20 21:52; Start 05/05/20 at 21:00 Insulin Human Lispro (HumaLOG) 0-7 UNITS TIDWMEALS SQ ; Start 05/05/20 at 08:00 Dextrose (Dextrose 50%-Water Syringe) 12.5 gm PRN Q15MIN PRN IV SEE COMMENTS; Start 05/04/20 at 22:30 Info (Anti-Coagulation Monitoring By Pharmacy) 1 each PRN DAILY PRN MC SEE COMMENTS Last administered on 05/05/20at 01:28; Start 05/04/20 at 22:45 Potassium Chloride/Water 100 ml @ 100 mls/hr Q1H IV ; Start 05/05/20 at 10:00; Stop 05/05/20 at 11:59; Status DC Oxycodone HCl (Roxicodone) 5 mg PRN Q6HRS PRN PO MODERATE PAIN, SEVERE PAIN Last administered on 05/07/20at 08:35; Start 05/05/20 at 10:30 Morphine Sulfate (Morphine Sulfate) 4 mg PRN Q2HR PRN IVP PAIN Last administered on 05/07/20at 00:21; Start 05/05/20 at 15:45 Active Scripts Active [Phenyleph/Mineral Oil/Petrolat] 1 KATHIA Kathia 1 Kathia RC PRN QID PRN 10 Days Admelog (Insulin Lispro) 100 Unit/1 Ml Vial 0 Units SQ QIDACHS 14 Days Loperamide (Loperamide Hcl) 2 Mg Capsule 2 Mg PO PRN QID PRN 7 Days Mag-Al Plus Xs Suspension (Mag Hydrox/Al Hydrox/Simeth) 30 Ml Oral.susp 30 Ml PO PRN DAILY PRN 10 Days Klor-Con M20 (Potassium Chloride) 20 Meq Tab.er.prt 40 Meq PO BIDWMEALS 10 Days Tylenol (Acetaminophen) 325 Mg Tablet 650 Mg PO PRN Q4HRS PRN 14 Days Proair Hfa (Albuterol Sulfate) 8.5 Gm Hfa.aer.ad 2.5 Mg NEB PRN Q4HRS PRN 14 Days Metoprolol Tartrate 25 Mg Tablet 1 Tab PO BID Reported Temazepam 7.5 Mg Capsule 7.5 Mg PO HS PRN Atacand (Candesartan Cilexetil) 16 Mg Tablet 16 Mg PO DAILY Lipitor (Atorvastatin Calcium) 80 Mg Tablet 80 Mg PO HS Eliquis (Apixaban) 5 Mg Tablet 5 Mg PO BID Amlodipine Besylate 10 Mg Tablet 10 Mg PO DAILY Allergies Allergies: Coded Allergies: No Known Drug Allergies (Unverified , 03/07/19) ROS General: YES: Fatigue, Malaise; No: Chills, Night Sweats PSYCHOLOGICAL ROS: YES: Anxiety; No: Behavioral Disorder Eyes: No Blurry vision, No Decreased vision HEENT: No: Heacaches, Visual Changes ALLERGY AND IMMUNOLOGY: No: Hives, Insect Bite Sensitivity Hematological and Lymphatic: No: Bleeding Problems, Blood Clots ENDOCRINE: YES: Malaise/lethargy; No: Mood Swings Respiratory: YES: Cough; No: Hemoptysis Cardiovascular: No Chest Pain, No Palpitations Gastrointestinal: Yes Nausea; No Vomiting, No Abdominal Pain, No Diarrhea Genitourinary: No Dysuria, No Flank Pain Musculoskeletal: No Gait Disturbance Neurological: No Behavorial Changes Physical Exam General: Alert, Oriented X3 HEENT: Atraumatic Lungs: Clear to auscultation Heart: Regular rate Abdomen: Normal bowel sounds, Soft Extremities: No clubbing Skin: No rashes Neuro: Strength at 5/5 X4 ext MUSCULOSKELETAL: No swelling Vitals VITALS Vital Signs Date Time Temp Pulse Resp B/P (MAP) Pulse Ox O2 Delivery O2 Flow Rate FiO2 05/07/20 08:35 Room Air 05/07/20 06:35 98.6 70 20 124/76 (92) 96 98.6 05/06/20 12:51 2.0 Labs Labs Laboratory Tests Test 05/05/20 12:11 05/05/20 16:11 05/05/20 20:34 05/06/20 08:01 Glucose (Fingerstick) 126 mg/dL (70-99) 107 mg/dL (70-99) 109 mg/dL (70-99) 97 mg/dL (70-99) Test 05/06/20 09:34 05/06/20 11:19 05/06/20 17:48 05/06/20 20:28 Sodium Level 140 mmol/L (136-145) Potassium Level 3.8 mmol/L (3.5-5.1) Chloride Level 102 mmol/L (98-107) Carbon Dioxide Level 31 mmol/L (21-32) Anion Gap 7 (6-14) Blood Urea Nitrogen 14 mg/dL (7-20) Creatinine 0.9 mg/dL (0.6-1.0) Estimated GFR (Cockcroft-Gault) 63.9 Glucose Level 107 mg/dL (70-99) Calcium Level 8.9 mg/dL (8.5-10.1) Glucose (Fingerstick) 99 mg/dL (70-99) 109 mg/dL (70-99) 114 mg/dL (70-99) Test 05/07/20 06:50 05/07/20 07:19 White Blood Count 4.4 x10^3/uL (4.0-11.0) Red Blood Count 4.42 x10^6/uL (3.50-5.40) Hemoglobin 13.2 g/dL (12.0-15.5) Hematocrit 40.5 % (36.0-47.0) Mean Corpuscular Volume 92 fL (79-100) Mean Corpuscular Hemoglobin 30 pg (25-35) Mean Corpuscular Hemoglobin Concent 33 g/dL (31-37) Red Cell Distribution Width 24.6 % (11.5-14.5) Platelet Count 112 x10^3/uL (140-400) Neutrophils (%) (Auto) 50 % (31-73) Lymphocytes (%) (Auto) 30 % (24-48) Monocytes (%) (Auto) 18 % (0-9) Eosinophils (%) (Auto) 2 % (0-3) Basophils (%) (Auto) 1 % (0-3) Neutrophils # (Auto) 2.2 x10^3/uL (1.8-7.7) Lymphocytes # (Auto) 1.3 x10^3/uL (1.0-4.8) Monocytes # (Auto) 0.8 x10^3/uL (0.0-1.1) Eosinophils # (Auto) 0.1 x10^3/uL (0.0-0.7) Basophils # (Auto) 0.0 x10^3/uL (0.0-0.2) Sodium Level 141 mmol/L (136-145) Potassium Level 3.7 mmol/L (3.5-5.1) Chloride Level 103 mmol/L (98-107) Carbon Dioxide Level 31 mmol/L (21-32) Anion Gap 7 (6-14) Blood Urea Nitrogen 15 mg/dL (7-20) Creatinine 0.8 mg/dL (0.6-1.0) Estimated GFR (Cockcroft-Gault) 73.2 Glucose Level 94 mg/dL (70-99) Calcium Level 9.0 mg/dL (8.5-10.1) Glucose (Fingerstick) 103 mg/dL (70-99) Laboratory Tests Test 05/06/20 09:34 05/06/20 11:19 05/06/20 17:48 05/06/20 20:28 Sodium Level 140 mmol/L (136-145) Potassium Level 3.8 mmol/L (3.5-5.1) Chloride Level 102 mmol/L (98-107) Carbon Dioxide Level 31 mmol/L (21-32) Anion Gap 7 (6-14) Blood Urea Nitrogen 14 mg/dL (7-20) Creatinine 0.9 mg/dL (0.6-1.0) Estimated GFR (Cockcroft-Gault) 63.9 Glucose Level 107 mg/dL (70-99) Calcium Level 8.9 mg/dL (8.5-10.1) Glucose (Fingerstick) 99 mg/dL (70-99) 109 mg/dL (70-99) 114 mg/dL (70-99) Test 05/07/20 06:50 05/07/20 07:19 White Blood Count 4.4 x10^3/uL (4.0-11.0) Red Blood Count 4.42 x10^6/uL (3.50-5.40) Hemoglobin 13.2 g/dL (12.0-15.5) Hematocrit 40.5 % (36.0-47.0) Mean Corpuscular Volume 92 fL (79-100) Mean Corpuscular Hemoglobin 30 pg (25-35) Mean Corpuscular Hemoglobin Concent 33 g/dL (31-37) Red Cell Distribution Width 24.6 % (11.5-14.5) Platelet Count 112 x10^3/uL (140-400) Neutrophils (%) (Auto) 50 % (31-73) Lymphocytes (%) (Auto) 30 % (24-48) Monocytes (%) (Auto) 18 % (0-9) Eosinophils (%) (Auto) 2 % (0-3) Basophils (%) (Auto) 1 % (0-3) Neutrophils # (Auto) 2.2 x10^3/uL (1.8-7.7) Lymphocytes # (Auto) 1.3 x10^3/uL (1.0-4.8) Monocytes # (Auto) 0.8 x10^3/uL (0.0-1.1) Eosinophils # (Auto) 0.1 x10^3/uL (0.0-0.7) Basophils # (Auto) 0.0 x10^3/uL (0.0-0.2) Sodium Level 141 mmol/L (136-145) Potassium Level 3.7 mmol/L (3.5-5.1) Chloride Level 103 mmol/L (98-107) Carbon Dioxide Level 31 mmol/L (21-32) Anion Gap 7 (6-14) Blood Urea Nitrogen 15 mg/dL (7-20) Creatinine 0.8 mg/dL (0.6-1.0) Estimated GFR (Cockcroft-Gault) 73.2 Glucose Level 94 mg/dL (70-99) Calcium Level 9.0 mg/dL (8.5-10.1) Glucose (Fingerstick) 103 mg/dL (70-99) Assessment/Plan Assessment/Plan Assessment: Metastatic renal cell carcinoma, IMDC 1intermediate risk Generalized weakness Recent COVID19 infection Autoimmune hepatitis, now improved Diabetes, type II Recommendations: -Reviewed her most recent CT scan. Her disease burden is fairly minimal and is not proportionate to the extent of weakness -The primary etiology of her weakness is unclear at this time but recent COVID19 infection may be a contributor -Discussed goals of care with Ms Alba. She prefers to be discharged home with hospice at this time and I think this is reasonable -I recommended that she keep Dr Roland's office informed of her progress. -Will follow Jeferson Alvares MD Medical Oncology/Hematology Ph: [phone] CLYDE ALVARES MD May 07, 2020 08:43
[2020-05-07 11:00] VITALS: BP 109/66
--- NOTE | 2020-05-07 11:06 | SNU/HH DC ---
DISCHARGE ORDERS DISCHARGE INFORMATION: FINAL DIAGNOSIS Problems Medical Problems: (1) Nausea & vomiting Status: Acute CONDITION ON DISCHARGE: Stable CODE STATUS: Code Status: Full SHELTER: SNF STAY <30 DAYS: No HOSPICE: HOSPICE: Yes HOSPICE EVAL & TREAT: Yes LTAC: ADMIT TO LTAC: No POST DISCHARGE ORDERS: ACTIVITY ORDERS: Activity as tolerated WEIGHT BEARING STATUS: As tolerated DIET AFTER DISCHARGE: ADA WOUND/INCISION CARE: Keep wound/cast CDI CHECKS AFTER DISCHARGE: CHECKS AFTER DISCHARGE: Check blood press - daily, Check blood sugar, ac/hs, Check your Temp as needed, Weigh Yourself Daily TREATMENT/EQUIPMENT ORDERS: ADAPTIVE EQUIPMENT NEEDED: None DISCHARGE MEDICATIONS: Home Meds Active Scripts [Phenyleph/Mineral Oil/Petrolat] 1 ABIDA ABIDA No Conflict Check, 1 ABIDA RC PRN QID PRN for RECTAL PAIN for 10 Days, #30 GM Prov:ROLF CASTRO MD 04/02/20 Insulin Lispro (Admelog) 100 Unit/1 Ml Vial, 0 UNITS SQ QIDACHS for DIABETES for 14 Days, #1 EACH Prov:ROLF CASTRO MD 04/02/20 Loperamide Hcl (LOPERAMIDE) 2 Mg Capsule, 2 MG PO PRN QID PRN for DIARRHEA for 7 Days, #30 CAP Prov:ROLF CASTRO MD 04/02/20 Mag Hydrox/Al Hydrox/Simeth (MAG-AL PLUS XS SUSPENSION) 30 Ml Oral.susp, 30 ML PO PRN DAILY PRN for HEARTBURN / GAS for 10 Days, #120 MISC Prov:ROLF CASTRO MD 04/02/20 Potassium Chloride (KLOR-CON M20) 20 Meq Tab.er.prt, 40 MEQ PO BIDWMEALS for SUPPLEMENT for 10 Days, #40 TAB.SR Prov:ROLF CASTRO MD 04/02/20 Acetaminophen (TYLENOL) 325 Mg Tablet, 650 MG PO PRN Q4HRS PRN for TEMP OVER 100.4F OR MILD PAIN for 14 Days, #30 TAB Prov:ROLF CASTRO MD 04/02/20 Albuterol Sulfate (Proair Hfa) 8.5 Gm Hfa.aer.ad, 2.5 MG NEB PRN Q4HRS PRN for SHORTNESS OF BREATH for 14 Days, #1 INHALER Prov:ROLF CASTRO MD 04/02/20 Metoprolol Tartrate (METOPROLOL TARTRATE) 25 Mg Tablet, 1 TAB PO BID for dropping dose of lopressor, #60 TAB 1 Refill Prov:NIRANJAN PADGETT MD 09/05/19 Reported Medications Temazepam (TEMAZEPAM) 7.5 Mg Capsule, 7.5 MG PO HS PRN for sleep 07/02/19 Candesartan Cilexetil (ATACAND) 16 Mg Tablet, 16 MG PO DAILY for htn 07/02/19 Atorvastatin Calcium (LIPITOR) 80 Mg Tablet, 80 MG PO HS for hld 07/02/19 Apixaban (ELIQUIS) 5 Mg Tablet, 5 MG PO BID for atrial fibrillation 07/02/19 Amlodipine Besylate (AMLODIPINE BESYLATE) 10 Mg Tablet, 10 MG PO DAILY for htn 07/02/19 AGNIESZKA FREEMAN III DO May 07, 2020 11:06
--- NOTE | 2020-05-07 11:24 | PDOC ---
[employer] PROGRESS NOTE Date of Service DOS: DATE: 05/07/20 TIME: 11:22 Chief Complaint Chief Complaint Metastatic renal cell carcinoma Dehydration Intractable nausea vomiting Vasomotor nephropathy Hypokalemia due to GI loss Malnutrition History of Present Illness History of Present Illness HPI: Patient 60-year-old female with past medical history of metastatic renal cell carcinoma, who presents nausea vomiting for 1 week. Complains of associated weakness. She was recently admitted to our service on 03/25/2020 for similar symptoms after finishing chemotherapy. Diagnosed with COVID-19 and recently discharged from rehab. She was sent to the ER by her family because she is unable to keep any food down. After extensive discussion with patient at bedside she is stating that she no longer wants to be in pain and would like to pursue hospice care. She would like her CODE STATUS to be DNR. 05/07/2020 Pt seen and examined KARIE RN KARIE case management Pt awake and talkative Discharging today to [facility] hospice 05/06/2020 Pt seen and examined KARIE RN KARIE case management Pt resting with NAD Vitals/I&O Vitals/I&O: Vital Signs Date Time Temp Pulse Resp B/P (MAP) Pulse Ox O2 Delivery O2 Flow Rate FiO2 05/07/20 08:41 57 119/38 05/07/20 08:35 Room Air 05/07/20 06:35 98.6 20 96 98.6 05/06/20 12:51 2.0 I & O 05/06/20 05/06/20 05/07/20 15:00 23:00 07:00 Intake Total 480 ml Balance 480 ml Physical Exam General: Alert, Oriented X3, Cooperative Heart: Regular rate Lungs: Clear Abdomen: Normal bowel sounds, Soft Extremities: No clubbing Skin: No rashes Labs Labs: Laboratory Tests Test 05/06/20 17:48 05/06/20 20:28 05/07/20 06:50 05/07/20 07:19 Glucose (Fingerstick) 109 mg/dL (70-99) 114 mg/dL (70-99) 103 mg/dL (70-99) White Blood Count 4.4 x10^3/uL (4.0-11.0) Red Blood Count 4.42 x10^6/uL (3.50-5.40) Hemoglobin 13.2 g/dL (12.0-15.5) Hematocrit 40.5 % (36.0-47.0) Mean Corpuscular Volume 92 fL (79-100) Mean Corpuscular Hemoglobin 30 pg (25-35) Mean Corpuscular Hemoglobin Concent 33 g/dL (31-37) Red Cell Distribution Width 24.6 % (11.5-14.5) Platelet Count 112 x10^3/uL (140-400) Neutrophils (%) (Auto) 50 % (31-73) Lymphocytes (%) (Auto) 30 % (24-48) Monocytes (%) (Auto) 18 % (0-9) Eosinophils (%) (Auto) 2 % (0-3) Basophils (%) (Auto) 1 % (0-3) Neutrophils # (Auto) 2.2 x10^3/uL (1.8-7.7) Lymphocytes # (Auto) 1.3 x10^3/uL (1.0-4.8) Monocytes # (Auto) 0.8 x10^3/uL (0.0-1.1) Eosinophils # (Auto) 0.1 x10^3/uL (0.0-0.7) Basophils # (Auto) 0.0 x10^3/uL (0.0-0.2) Sodium Level 141 mmol/L (136-145) Potassium Level 3.7 mmol/L (3.5-5.1) Chloride Level 103 mmol/L (98-107) Carbon Dioxide Level 31 mmol/L (21-32) Anion Gap 7 (6-14) Blood Urea Nitrogen 15 mg/dL (7-20) Creatinine 0.8 mg/dL (0.6-1.0) Estimated GFR (Cockcroft-Gault) 73.2 Glucose Level 94 mg/dL (70-99) Calcium Level 9.0 mg/dL (8.5-10.1) Review of Systems Review of Systems: Denies CP Denies LY Assessment and Plan Assessmemt and Plan Problems Medical Problems: (1) Nausea & vomiting Status: Acute Assessment: Metastatic renal cell carcinoma Dehydration Intractable nausea vomiting Vasomotor nephropathy Hypokalemia due to GI loss - resolved Malnutrition Plan: Change patient's CODE STATUS to DNR Consult to oncology Suzifran PRN FEN - Cardiac diet PPX - Eliquis DNR Discharge today to hospice Comment Review of Relevant I have reviewed the following items cira (where applicable) has been applied. Justifications for Admission Other Justification AGNIESZKA FREEMAN III DO May 07, 2020 11:24
--- NOTE | 2020-05-07 12:10 | NUR ---
Discharge home with hospices. Transferred by EMS.
--- NOTE | 2020-05-08 21:01 | DS ---
DATE OF DISCHARGE: 05/07/2020 ADMISSION DIAGNOSES: Hypokalemia and renal cell carcinoma. DISCHARGE DIAGNOSES: Discharged to home with renal cell carcinoma and resolving hypokalemia. HOSPITAL COURSE: The patient is a pleasant 60-year-old female who presented with hypokalemia. She has renal cell carcinoma. We admitted the patient, gave her fluids, corrected her electrolytes. We consulted [facility]. She is going home with [facility]. DISPOSITION: Home with hospice. ACTIVITY: As tolerated. DIET: Renal. MEDICATIONS: Please see the MRAD. TOTAL TIME: 32 minutes. AGNIESZKA FREEMAN DO DR: PERRY/krys JOB#: [id number] / [id number]
== END 2020-05-07 12:10 | disposition hospice, home (50) | DRG 686 ==
LOC: ER 18:17 → ED HOLD 20:45 → 4 NORTH 22:49
PROVIDERS: ADMIT Internal Medicine; ATTEND Internal Medicine
DX: C64.9 Malignant neoplasm of unspecified kidney, except renal pelvis (principal); N17.0 Acute kidney failure with tubular necrosis; E46 Unspecified protein-calorie malnutrition; E87.6 Hypokalemia; E11.9 Type 2 diabetes mellitus without complications; E78.5 Hyperlipidemia, unspecified; E86.0 Dehydration; F17.210 Nicotine dependence, cigarettes, uncomplicated; I10 Essential (primary) hypertension; I48.91 Unspecified atrial fibrillation; I70.0 Atherosclerosis of aorta; K75.4 Autoimmune hepatitis; Z66 Do not resuscitate; Z82.49 Family history of ischemic heart disease and other diseases of the circulatory system; Z85.528 Personal history of other malignant neoplasm of kidney; Z86.19 Personal history of other infectious and parasitic diseases; Z86.73 Personal history of transient ischemic attack (TIA), and cerebral infarction without residual deficits; Z90.5 Acquired absence of kidney; Z90.710 Acquired absence of both cervix and uterus; Z98.84 Bariatric surgery status
CPT/HCPCS: 36415; 74022; 80048; 80053; 81001; 82962; 83690; 83735; 85007; 85025; 87086; 96361; 96374; 96375; J1815; J2270; J2405; J2765; J3010; J3480; J7030; 99285-25; G0378